=== PATIENT | male | born 1960 | race Caucasian/White ===

== ENCOUNTER 2016-09-11 07:36 | Emergency (ER) | payer OTHER ==
[~2016-09-11] VITALS: Ht 185.4 cm; Wt 115.0 kg
[~2016-09-11 07:36] MED LIST: ALPR1TAB3 PO; DICL-201 PO; DULO60CA44 PO; GLC/500 PO; GLIP5TAB11 PO; LEVE1TAB57 PO; LISI-725 PO; OMEP40CA41 PO
[2016-09-11 07:59] VITALS: BP 131/70; PULSE 66; TEMP 37; O2SAT 98; Ht 185.4 cm; Wt 115.0 kg
== END 2016-09-11 08:47 | disposition left against medical advice (07) ==
LOC: EDBD 07:36 → C.EDB 07:37
DX: R11.2 Nausea with vomiting, unspecified (principal)

== ENCOUNTER 2018-08-04 14:09 | Inpatient (IN) ==
[2018-08-04] MEDS ORDERED: ONDANSETRON INJ 2 MG/ML 2 ML VIAL IV PRN (14:24)
[2018-08-04] MEDS ORDERED: GLUCAGON FOR INJ 1 MG VIAL SQ PRN (14:24)
[2018-08-04] MEDS ORDERED: GLUCOSE 10 TABS/TUBE PO PRN (14:24)
[2018-08-04] MEDS ORDERED: DEXTROSE 50% 50 ML SYRINGE IV PRN (14:24)
[2018-08-04] MEDS ORDERED: ACETAMINOPHEN 325 MG TAB PO PRN (14:24)
[2018-08-04] MEDS ORDERED: GLUCOSE 40% GEL 15 GM TUBE PO PRN (14:24)
[2018-08-04] MEDS ORDERED: POLYETHYLENE (MIRALAX) 17 GM PACK PO PRN (14:24)
[2018-08-04] MEDS ORDERED: CARBOHYDRATES FOR HYPOGLYCEMIA PO PRN (14:24)
[2018-08-04] MEDS ORDERED: MAGNESIUM HYDROXIDE SUSP 30 ML UDC PO PRN (14:24)
[2018-08-04] MEDS ORDERED: ALUMINUM/MAGNESIUM SUSP 30 ML UDC PO PRN (14:24)
[2018-08-04 14:51] LABS: Hematocrit (blood only) 37.8 % (42-52); Hemoglobin 12.7 g/dL (14.0-18.0); Mean Corpuscular Hgb Conc 33.6 g/dL (32-36); Mean Corpuscular Volume 87.1 fL (80-100); Mean Platelet Volume 9.8 fL (7.4-10.4); Platelet Count 292 K/uL (130-400); RDW Coefficient of Variation 14.3 % (11.5-14.5); RDW Standard Deviation 45.3 fL (36.4-46.3); Red Blood Count 4.34 M/uL (4.7-6.1); White Blood Count 11.25 K/uL (4.8-10.8)
[2018-08-04 15:06] LABS: Partial Thromboplastin Ratio 1.1; Partial Thromboplastin Time 28.7 Seconds (21.0-31.0); Prothrombin Time 10.3 Seconds (9.0-12.0)
[2018-08-04 15:15] LABS: BUN Creatinine Ratio 16.9 (10-20); Blood Urea Nitrogen 31 mg/dl (7-18); Carbon Dioxide 22 mmol/L (21-32); Chloride 108 mmol/L (98-107); Est GFR (African American) 46.1; Est GFR (Non-African American) 39.8; Potassium 4.7 mmol/L (3.5-5.1); Sodium 137 mmol/L (136-145)
[2018-08-04 15:16] LABS: Alanine Aminotransferase 44 U/L (12-78); Albumin Level 4.1 gm/dl (3.4-5.0); Aspartate Aminotransferase 17 U/L (15-37); Calcium 9.2 mg/dl (8.5-10.1); Glucose 137 mg/dl (70-99); Magnesium 1.7 mg/dl (1.8-2.4)
[2018-08-04 15:18] LABS: Alkaline Phosphatase 77 U/L (45-117); Bilirubin,Total 0.4 mg/dl (0.2-1); Globulin 4.3 gm/dl (2.5-4.0); Total Protein 8.4 gm/dl (6.4-8.2)
--- NOTE | 2018-08-04 16:09 | History & Physical Report ---
Date of Service August 04, 2018 Assessment & Plan (1) Abnormal dobutamine stress echo: This is a 58 year old male who has a significant PMH of T2DM, HTN, HLD, Sz disorder, Bipolar affective disorder, hx of tobacco/cannabis use, neuropathy who presents to [facility] as direct admission from [facility] Dr. Banda due to abnormal stress echocardiogram. Dobutamine Stress echocardiogram performed in office today by Dr. Banda and was positive for inducible ischemia concerning for LAD vs multi vessel disease. Risk Factors include HTN, HLD, T2DM, obesity, strong family history, former tobacco use hx -admit to telemetry -patient to undergo cardiac cath in a.m. by Dr. Sharma -NPO after midnight -cbc, bmp, mag -IVF NS per cardiology given current renal function -hold metformin and lisinopril for now given renal function -daily ecg (2) Unstable angina: -plan as above (3) BENITA (acute kidney injury): -Cr 08/2017 was 1.1, most recently 07/14/18 1.9, 07/30 1.7 and today 1.84 -hold nephrotoxic agents including metformin and diclofenac -IVF NS 117 cc/hr and repeat bmp in a.m. -check urine with micros (4) Hypomagnesemia: -magnesium 1.7 -will order 1g mag sulfate -repeat in a.m. (5) HTN (hypertension): -blood pressure elevated above ideal of < 140/80 on admission -on lisinopril -metoprolol added per Dr. Sharma -will hold lisinopril in setting of elevated renal function, hydrate and repeat BMP -monitor (6) HLD (hyperlipidemia): -continue statin, recent increase from 10mg --> 20mg 1 week ago -07/14/18 Lipid Panel (T Chol 235, Trig 453, HDL 36, LDL 146) (7) T2DM (type 2 diabetes mellitus): -A1C 7.7 on 07/14/18 -hold metformin given impaired renal function -lantus/novolog per protocol (8) Seizure disorder: -continue keppra (9) Bipolar affective disorder: -continue wellutrin, zoloft, clonazepam -mood is stable (10) Anxiety: -continue clonazepam and zoloft (11) DVT prophylaxis: -SCDS/TEDs for now given cardiac cath in a.m. Disposition: to be determined Follow Up: Dr. Cordero upon discharge Patient was seen in collaboration with Dr. Diego, please see addendum. Starting 08/05/18 patient will be followed by Dr. Upton. History of Present Illness Chief Complaint: Abnormal Dobutamine Stress Echo. Primary Care Provider: Key Cordero This is a 58 year old male who has a significant PMH of T2DM, HTN, HLD, Sz disorder, Bipolar affective disorder, hx of tobacco/cannabis use, neuropathy who presents to [facility] as direct admission from [facility] Dr. Banda due to abnormal stress echocardiogram. For the past 6 months patient has been experiencing fatigue, EVANS, chest pain/tightness with radiation to neck. Sx relieved with rest. Difficulty even walking 1 city block or flight of stairs without experiencing symptoms. Patient was evaluated by cardiology today and under went stress echo which was positive for inducible ischemia in LAD territory at peak stress with significant anterior hypokinesis on echocardiogram. Symptoms resolved with rest and w/o intervention and ecg returned to normal. Patient has strong FH for CAD including maternal GF, 2 brothers and father. Grandfather age 59 of fatal [place]. Patient states he smoked marijuana for 35 years and quit 6 months ago. This is when all my problems started, after I quit." Also former hx of tobacco use. "This is when all my problems started, after I quit." Noted significant weight gain from 220 to now 272. Currently patient is sitting in bed with out complaints. Denies current chest pain, sob, palpitations, evans, dizziness, lightheaded, n/v/d, abdominal pain. Appetite is, "too good." States he has been taking diclofenac 75mg bid for quite sometime now secondary to arthritis and, "so I don't get hooked on pain meds." Allergies Allergy/AdvReac Type Severity Reaction Status Date / Time No Known Allergies Allergy Unknown Unverified 01/14/13 19:22 Home Medications Home Medications Medication Instructions Recorded Confirmed Type atorvastatin 20 mg PO HS 08/04/18 08/04/18 History bupropion HCl [Wellbutrin XL] 300 mg PO QAM 08/04/18 08/04/18 History clonazepam 1 mg PO BID 08/04/18 08/04/18 History diclofenac sodium 75 mg PO BID 08/04/18 08/04/18 History levetiracetam 2 tab PO BID 08/04/18 08/04/18 History lisinopril 20 mg PO PM 08/04/18 08/04/18 History metformin 1,000 mg PO BID 08/04/18 08/04/18 History omeprazole 20 mg PO HS 08/04/18 08/04/18 History ranitidine HCl 300 mg PO DAILY 08/04/18 08/04/18 History sertraline 100 mg PO DAILY 08/04/18 08/04/18 History Past Med/Surg History Medical History T2DM (type 2 diabetes mellitus) (Chronic) HTN (hypertension) (Chronic) HLD (hyperlipidemia) (Chronic) Hypertriglyceridemia (Chronic) History of cannabis dependence/abuse (Chronic) x 35 years quit 12/2017 Seizure disorder Bipolar affective disorder Peripheral neuropathy Anxiety Surgical History History of left inguinal hernia Family History Brother CAD (coronary artery disease) History of coronary artery bypass graft Grandfather (Maternal) , [place] at 59 Heart attack Father T2DM (type 2 diabetes mellitus) CAD (coronary artery disease) Melanoma Social History Current Living Situation: Alone Other Information That Helps Us Care for You: No Feels Safe at Home: Yes Safety Concerns: Feels Safe At This Time Smoking Status: Former smoker Tobacco Type: smokeless tobacco Do You Dip or Chew Tobacco: Yes Second Hand Exposure: No Tobacco Cessation Education Requested by Patient: No Hx Alcohol Use: No Hx Substance Use: Yes substance use type: marijuana Substance Use Type Other:: x 35 years Last Used Substance: Days (ago) Last Used Substance Other:: 6 months ago Beliefs That Will Affect Care: None Preferred Language: Peruvian Communication Ability: Effective Merchandiser Seasonal Required: No Review of Systems All systems reviewed & are unremarkable except as noted in HPI & below Physical Exam 2 Vital Signs (Past 24 Hours): Last Vital Signs Temp 37.4 C 08/04/18 15:10 Pulse 73 08/04/18 15:10 Resp 19 08/04/18 15:10 BP 148/74 H 08/04/18 15:10 Pulse Ox 97 08/04/18 15:10 Physical Exam: Gen: WD/WN, Obese,Tall M, NAD, sitting up in bed, pleasant, conversing easily Head: Normocephalic, Atraumatic Eyes: Sclera normal, no conjunctival injection, PERRLA, EOMI ENT: Gross hearing intact, normal pharynx, mucous membranes moist Neck: supple, no adenopathy, No JVD, no bruit, Resp: Clear to auscultation b/l, no wheeze, rales, rhonchi. Normal insp/exp effort, no accessory muscle use CV: Regular rate, regular rhythm, no murmur, rub, gallop, or ectopy Abd: +BS x 4, soft, nontender, nondistended Musculoskeletal: moves extremities active rom x 4, strength intact, good coning machine operator strength Extremities: No edema bilaterally with pedal pulses +2 and equal Skin: warm, moist, no rash, negative turgor, cap refill < 2sec Neuro: Alert and oriented x 3, speech normal, good mood/affect, cran nerve 2-12 intact grossly : deferred Results & Data Laboratory Results Short CBC 08/04/18 Range/Units 14:38 WBC 11.25 H (4.8-10.8) K/uL Hgb 12.7 L (14.0-18.0) g/dL Hct 37.8 L (42-52) % Plt Count 292 (130-400) K/uL BMP 08/04/18 14:37 Sodium 137 Potassium 4.7 Chloride 108 H Carbon Dioxide 22 BUN 31 H Creatinine 1.84 H Glucose 137 H Calcium 9.2 Liver Function 08/04/18 Range/Units 14:37 Total Bilirubin 0.4 (0.2-1) mg/dl AST 17 (15-37) U/L ALT 44 (12-78) U/L Alkaline Phosphatase 77 (45-117) U/L Albumin 4.1 (3.4-5.0) gm/dl ECG Rate (beats per minute): 68 Rhythm: normal sinus Code Status & VTE Plan Code Status Full Code VTE Prophylaxis Plan VTE Prophylaxis will be ordered: Yes Supervising Physician Co-Signing Physician Notes Patient is a 58 yr male with multiple co morbidities was a direct admit from Cardiology's Office for evaluation and management of abnormal stress test. Patient is though to have crescendo angina and was admitted for diagnostic cardiac catheterization. Patient has significant family history of CAD. He currently denies any chest pain, dyspnea, dizzinessa, nausea. On exam patient is obese, no distress, lungs CTA, S1, S2, No murmur, No peripheral edema. Patient will be kept NPO after midnight, IV fluids for BENITA. Hold Metformin, PAIGE. Cardiology consulted for Cardiac Catheterization. Monitor renal function. I personally reviewed the record. Patient is interviewed and examined at bedside. Patient's care is coordinated with Philomena Ponce PA-C. Please refer to the documentation above for details of patient's presentation and for discussion of other issues. _ (1) T2DM (type 2 diabetes mellitus) Diabetes mellitus complication status: with unspecified complications Diabetes mellitus linux kernel engineer insulin use: without mcfp use Qualified Code(s ): E11.8 - Type 2 diabetes mellitus with unspecified complications (2) Bipolar affective disorder Active/Remission status: remission status unspecified Qualified Code(s): F31.9 - Bipolar disorder, unspecified (3) HLD (hyperlipidemia) Hyperlipidemia type: mixed hyperlipidemia Qualified Code(s): E78.2 - Mixed hyperlipidemia (4) HTN (hypertension) Hypertension type: essential hypertension Qualified Code(s): I10 - Essential (primary) hypertension
[2018-08-04] MEDS ORDERED: PNEUMOCOCCAL POLYSACCHARIDES 25 MCG/0.5 ML VIAL/SYR IM ONE (16:15)
[2018-08-04] MEDS ORDERED: PNEUMOCOCCAL ADMINISTRATION CHARGE ONE (16:15)
[2018-08-04] MEDS ORDERED: MAGNESIUM SULFATE / D5W 1 GM/100 ML BAG IV ONE (16:30)
[2018-08-04] MEDS: BuPROPion XL 300 MG TABCR PO SCH (16:46)
[2018-08-04] MEDS: levETIRAcetam 500 MG TAB PO SCH ×2 (16:46→20:01)
[2018-08-04] MEDS: SERTRALINE HCL 100 MG TABLET PO SCH (16:47)
[2018-08-04] MEDS: INSULIN ASPART 100 UNITS/ML 3 ML PEN SC SCH ×2 (16:59→20:10)
--- NOTE | 2018-08-04 19:01 | Consultation Report ---
DATE OF CONSULTATION: 08/04/2018 Please refer to full note performed earlier today by Dr. Banda and placed on the chart. The patient was seen and examined. Chart and all studies reviewed. HISTORY OF PRESENT ILLNESS: The patient is a 58-year-old male without prior history of documented cardiac disease, there was strong familial history of coronary artery disease, history of underlying type 2 diabetes mellitus, obesity, hyperlipidemia who presented noting several months' history of gradually increasing dyspnea with exertion, chest pressure, and pain radiating to the neck and chest. The patient is referred today and underwent dobutamine stress echocardiography with study markedly positive for LAD distribution ischemia with associated chest pain and dynamic EKG changes. The patient is referred for inpatient management, crescendo angina in the setting of chronic renal insufficiency and anticipated diagnostic cardiac catheterization in a.m. For further details, refer to full note of Dr. Banda. ALLERGIES: None. MEDICATIONS: Reviewed. PAST SURGICAL HISTORY: Notable for prior inguinal herniorrhaphy. FAMILY HISTORY: Positive for heart disease in maternal grandfather and father. SOCIAL HISTORY: The patient is a prior smoker, uses no significant alcoholic beverages, recently discontinued cannabis use. PHYSICAL EXAMINATION: GENERAL: The patient is an obese male currently in no acute distress. VITAL SIGNS: Heart rate is 80, blood pressure 134/80. HEENT: Normocephalic, atraumatic. NECK: Thick. There is no distinct jugular venous distention. There are no carotid bruits. LUNGS: Clear. CARDIOVASCULAR: Regular, normal S1, S2. No murmur or rub. ABDOMEN: Obese, soft, nontender. EXTREMITIES: Without cyanosis or clubbing. There is no peripheral edema. There are intact in the radial, femoral, and popliteal pulses. There is no abdominal or femoral bruits audible. LABORATORY DATA: Reviewed from outpatient examinations on 07/30/2018. White cell count was 11.9, hemoglobin 12.4. BUN was 16, creatinine is 1.7. Ferritin level is mildly elevated at 407. TSH on 07/14/2018 was 4.57. IMPRESSION: A 58-year-old male with symptoms suggestive of crescendo angina increasingly frequent chest pressure, sharp pain and shortness of breath with markedly abnormal stress testing as noted above. The patient will be admitted to the hospital. Based on laboratory studies drawn, the patient will begin IV hydration this evening. Metformin will be discontinued in anticipation of diagnostic cardiac catheterization in morning. Procedure and risks have been explained in detail to the patient including risks of ; myocardial infarction; stroke; bleeding; infection; dye reaction; renal, vascular, and embolic injury; additional risks of coronary intervention also discussed if indicated including risks and need for urgent coronary bypass grafting. The patient is agreeable to plan. The patient placed on schedule for cardiac catheterization for 08/05/2018. ROWENA
[2018-08-04] MEDS: PANTOprazole 40 MG TAB PO SCH (20:01)
[2018-08-04] MEDS: METOPROLOL TARTRATE 25 MG TAB PO SCH (20:02)
[2018-08-04] MEDS: clonazePAM 1 MG TAB PO SCH (20:09)
[2018-08-04 20:21] LABS: Appearance Urine Clear (Clear); Bilirubin Urine Negative (Negative); Color Urine Yellow; Glucose Urine UA Negative (Negative); Ketones Urine Negative (Negative); Leukocyte Esterase Urine Negative (Negative); Nitrite Urine Negative (Negative); Protein Urine Negative (Negative); Specific Gravity Urine 1.009 (1.000-1.030); Urobilinogen Urine Negative (Negative)
[2018-08-04] MEDS ORDERED: LISINOPRIL 20 MG TAB PO SCH (21:00)
[2018-08-04] MEDS ORDERED: INSULIN GLARGINE SOLOSTAR 100 UNITS/ML 3 ML PEN SC SCH (21:00)
[2018-08-04] MEDS ORDERED: ATORVASTATIN 20 MG TAB PO SCH (21:00)
[2018-08-04] MEDS: SODIUM CHLORIDE 0.9% 1000ML 1,000 ML IV SCH (23:43)
[2018-08-05 05:59] LABS: Hematocrit (blood only) 36.6 % (42-52); Hemoglobin 12.1 g/dL (14.0-18.0); Mean Corpuscular Hgb Conc 33.1 g/dL (32-36); Mean Corpuscular Volume 87.8 fL (80-100); Mean Platelet Volume 9.9 fL (7.4-10.4); Platelet Count 274 K/uL (130-400); RDW Coefficient of Variation 14.5 % (11.5-14.5); RDW Standard Deviation 46.6 fL (36.4-46.3); Red Blood Count 4.17 M/uL (4.7-6.1); White Blood Count 9.88 K/uL (4.8-10.8)
[2018-08-05 06:28] LABS: BUN Creatinine Ratio 15.9 (10-20); Creatinine Clr Calc Pharmacy 60.7 ml/min; Est GFR (African American) 47.4; Est GFR (Non-African American) 40.9; Potassium 4.4 mmol/L (3.5-5.1)
[2018-08-05] MEDS: SODIUM CHLORIDE 0.9% 1000ML 1,000 ML IV SCH ×2 (07:51→19:48)
[2018-08-05] MEDS: INSULIN ASPART 100 UNITS/ML 3 ML PEN SC SCH ×4 (07:52→21:32)
[2018-08-05] MEDS: levETIRAcetam 500 MG TAB PO SCH ×2 (08:01→21:33)
[2018-08-05] MEDS: SERTRALINE HCL 100 MG TABLET PO SCH (08:01)
[2018-08-05] MEDS: clonazePAM 1 MG TAB PO SCH ×3 (08:01→21:31)
[2018-08-05] MEDS: METOPROLOL TARTRATE 25 MG TAB PO SCH ×2 (08:02→21:32)
[2018-08-05] MEDS: BuPROPion XL 300 MG TABCR PO SCH (08:03)
[2018-08-05] MEDS ORDERED: clonazePAM 1 MG TAB PO STA (13:44)
--- NOTE | 2018-08-05 16:14 | Pre Anesthesia Assessment ---
Date of Service August 05, 2018 Pre Sedation Assessment Vital Signs Temp Pulse Pulse Resp BP Pulse Ox 08/05/18 11:34 36.4 C L 53 L 15 101/60 95 08/05/18 11:00 36.8 C 52 L 18 121/69 96 08/05/18 08:41 36.6 C 62 22 140/78 95 08/05/18 06:52 36.4 C L 56 L 16 123/75 96 08/05/18 05:01 36.8 C 60 16 114/78 95 08/04/18 23:16 36.5 C 59 L 18 125/74 97 08/04/18 19:12 82 18 146/97 H 95 Cardiovascular RRR, no murmur, no edema Respiratory normal respiratory effort, lungs clear to auscultation Pre-Sedation Airway Assessment Smoking Status: Former smoker Hx Sleep Apnea: No Hx Difficult Intubation: No Short, Thick Neck: Yes Mallampati Class: III Procedure Planning Contraindications for Sedation: none Current Medications Reviewed: Yes Notes The planned sedation has been discussed with the patient. Informed Consent was obtained. I have identified the patient, determined the appropriateness of sedation and have assessed the patient immediately prior to the procedure. All medicine(s) and interventions are by my order.
--- NOTE | 2018-08-05 16:19 | Cardiac Catheterization ---
Cardiac Cath Procedure: Brief Procedure Date August 05, 2018 Pre-Procedure Diagnosis Pre-Procedure Diagnosis: Angina and Positive Stress Test AUC Score AUC Score: 8 Post-Procedure Diagnosis Post-Procedure Diagnosis: Severe CAD (Significant single vessel LAD ) Procedure(s) Performed Procedure(s) Performed: Coronary Angiography, Left Heart Cath and LV Angiography Provider Relations Consultant Cortes Sharma MD Railway Head Tender(s) Owen Ferrer RN Estimated Blood Loss Estimated Blood Loss: None Medication(s) Medication(s): Fentanyl (12.5 mcg IV), Heparin (5000 units IV), Lidocaine 1% ( Local infiltration access site), Nicardipine (250 mcg intra-arterial after arterial sheath insertion) and Versed (1 mg IV) Preliminary Findings Left dominant coronary anatomy with large caliber vessels. Single-vessel severe coronary disease blunt occlusion left anterior descending 100% after D1 S1 Left main long free of disease Left anterior descendin% after first diagonal and first septal branch faint distal filling via left to left collateral flow. Left anterior descending diagonal large caliber vessel with 50% narrowing in its proximal portion Ramus intermedius: Trivial vessel Left circumflex: Left circumflex is large in length and caliber, dominant in distribution. It gives rise to a very trivial first marginal branch very large posterior lateral branch and a left posterior descending artery. There are moderate irregularities of 20-30% throughout the proximal mid left circumflex Right coronary artery: Nondominant consisting of 3 right ventricular branches. Vessels has moderate diffuse irregularities LV angiography: Preserved wall motion abnormality EF 55%, no mitral insufficiency Left ventricular end-diastolic pressure, 18 Recommendations Recommendations: PCI without planned CABG Specimens Specimens: None Fluids (cc crystalloids) Fluids (cc crystalloids): 79 Anesthesia Start time 1512, finish time 1605 Procedural Complication(s) None
--- NOTE | 2018-08-05 16:38 | Cardiac Catheterization ---
Cardiac Cath Procedure Full Procedure Date August 05, 2018 Pre-Procedure Diagnosis Pre-Procedure Diagnosis: Angina and Positive Stress Test AUC Score AUC Score: 8 Post-Procedure Diagnosis Post-Procedure Diagnosis: Severe CAD (Significant single vessel LAD ) Procedure(s) Performed Procedure(s) Performed: Coronary Angiography, Left Heart Cath and LV Angiography Meat Packager Cortes Sharma MD Infantry Indirect Fire Crewmember(s) Owen Ferrer RN Estimated Blood Loss Estimated Blood Loss: None Medication(s) Medication(s): Fentanyl (12.5 mcg IV), Heparin (5000 units IV), Lidocaine 1% ( Local infiltration access site), Nicardipine (250 mcg intra-arterial after arterial sheath insertion) and Versed (1 mg IV) Summary of Findings Left dominant coronary anatomy with large caliber vessels. Single-vessel severe coronary disease blunt occlusion left anterior descending 100% after D1 S1 Left main long free of disease Left anterior descendin% after first diagonal and first septal branch faint distal filling via left to left collateral flow. Left anterior descending diagonal large caliber vessel with 50% narrowing in its proximal portion Ramus intermedius: Trivial vessel Left circumflex: Left circumflex is large in length and caliber, dominant in distribution. It gives rise to a very trivial first marginal branch very large posterior lateral branch and a left posterior descending artery. There are moderate irregularities of 20-30% throughout the proximal mid left circumflex Right coronary artery: Nondominant consisting of 3 right ventricular branches. Vessels has moderate diffuse irregularities LV angiography: Preserved wall motion abnormality EF 55%, no mitral insufficiency Left ventricular end-diastolic pressure, 18 Hemodynamics Rest Ao:: 112/64/85 Final Ao: 105/59/83 LV: 117/12/18 Recommendations Recommendations: PCI without planned CABG Specimens Specimens: None Radiation Exposure (mGy) 2120 Contrast (mls) 98 Fluids (cc crystalloids) Fluids (cc crystalloids): 79 Anesthesia Start time 1512, finish time 1605 Procedural Complication(s) None ACC Data: Reefer Engineer Cardiac Status Clinical evaluation leading to the procedure Patient had a 2-week history of crescendo anginal symptoms with resultant stress testing demonstrating marked abnormalities on stress echocardiography LAD distribution at very low levels workload CAD Presenation: Positive Stress Test Anginal Classification: CCS III Heart Failure: No Cardiogenic Shock within 24 Hours: No Cardiac Arrest within 24 Hours: No Imaging Studies Past 6 Months: Yes Stress Studies Past 6 Months: Yes Standard Exercise Test: No Stress Echocardiogram: Yes - Positive and Risk/Extent of Ischemia (Large area distribution high risk) Stress Testing w/SPECT MPI: No Cardiac CTA: No Coronary Anatomy Dominant: Left Left Main (% Stenosis): Normal LAD (% Stenosis): Mid (100% after D1 S1) D1 (% Stenosis): Proximal Circumflex (% Stenosis): Ostial (20), Mid (30) and Distal (30, 30) L PL1 (% Stenosis): Proximal (30) L PDA (% Stenosis): Proximal (20) RCA (% Stenosis): Mid Ramus (% Stenosis): Normal (Trivial vessel) Left Ventricular Angiography EF (%): 55 Mitral Regurgitation: None Diagnostic Physicians Name: Cortes Sharma MD Status: Urgent Closure Device Percutaneous Entry Location: Radial Closure Device: Radial Band Recommendations: PCI without planned CABG
[2018-08-05] MEDS ORDERED: HEPARIN (PORCINE) 1000 UNIT/ML 10 ML (CATH LAB USE ONLY) ONE (16:50)
[2018-08-05] MEDS ORDERED: CLOPIDOGREL BISULFATE 300 MG TAB ONE (17:14)
--- NOTE | 2018-08-05 17:18 | Cardiac Catheterization ---
Cardiac Cath Procedure Full Procedure Date August 05, 2018 Pre-Procedure Diagnosis Pre-Procedure Diagnosis: Angina and Positive Stress Test AUC Score AUC Score: 8 Post-Procedure Diagnosis Post-Procedure Diagnosis: Severe CAD (Significant single vessel LAD ) and Successful PCI Procedure(s) Performed Procedure(s) Performed: Coronary Angiography, Left Heart Cath and Drug Eluting Stent Multicraft Operator Javi Tellez MD Partition Making Machine Operator(s) Gisella Hicks Estimated Blood Loss Estimated Blood Loss: 20 Medication(s) Medication(s): Clopidogrel, Fentanyl (12.5 mcg IV), Heparin (5000 units IV), Nicardipine (250 mcg intra-arterial after arterial sheath insertion), Nitroglycerin and Versed (1 mg IV) Summary of Findings Indication: Angina, high risk stress test Access: 6 [place] right radial artery Catheters: EBU 3.5 guide Findings: For full details of patient's coronary angiography please cath report dictated by Dr. Sharma. Briefly, patient found to have severe single vessel disease with a 100% acute on chronic occlusion involving the mid LAD. Decision to proceed with PCI. -- PCI -- Antithrombotic therapy: Heparin, clopidogrel Procedure: Left main cannulated with EBU 3.5 guide Mid LAD occlusion behaved like organized thrombus but eventually able to cross with pilot safety inspector 50 wire supported with OTW 2.0 balloon Distal intravascular position confirmed with injection through OTW balloon Mid LAD dilated with 2.0 sales manager 50 wire exchanged for mailman wire Mid LAD dilated again with 2.5 balloon Dilated lesion stented with 3.0 x 30 mm [place] drug-eluting stent Stent post-dilated with 3.0 noncompliant balloon IC vasodilators administered for spasm Post procedure SOUMYA 3 flow, stent well expanded with minimal residual stenosis and no apparent cardiac complications. Arterial Closure: TR band Summary: 1. Successful PCI of mid LAD acute on chronic 100% occlusion with single drug- eluting stent (3.0 x 30 mm [place] drug-eluting stent). Recommendations: To PCU for continued monitoring Loaded with clopidogrel 600 mg in labourers Continue dual-antiplatelet therapy for at least one year Continue statin, and ASCVD risk factor modification Consult cardiac Rehab Hemodynamics Rest Ao:: 112// Final Ao: //84 LV: Recommendations Recommendations: PCI without planned CABG Specimens Specimens: None Radiation Exposure (mGy) 5787 Contrast (mls) 218 total Fluids (cc crystalloids) Fluids (cc crystalloids): 150 Drains Drains: None Anesthesia Moderate Procedural Complication(s) None Disposition PCU ACC Data: Production Reproduction Manager Cardiac Status Clinical evaluation leading to the procedure CAD Presenation: Positive Stress Test and Unstable angina Anginal Classification: CCS III Heart Failure: No Cardiogenic Shock within 24 Hours: No Cardiac Arrest within 24 Hours: No Imaging Studies Past 6 Months: Yes Stress Studies Past 6 Months: Yes Stress Echocardiogram: Yes - Positive and Risk/Extent of Ischemia (High) Diagnostic Physicians Name: Javi Tellez MD Status: Elective Closure Device Percutaneous Entry Location: Radial Closure Device: Radial Band Recommendations: PCI without planned CABG PCI Indication: + Stress Test and Unstable Angina Lesion Segment Name: Mid LAD Culprit Artery: Yes Stenosis Prior to Rx (%): 100 Chronic Total Occlusion: Yes IVUS: No FFR: No Pre-Procedure SOUMYA Flow: 0 Previously Treated Lesion: No Lesion Complexity: High/C Lesion Length (mm): 25 Thrombus Present: No Bifurcation Lesion: No Guidewire Across Lesion: Stenosis Post-Procedure (%): 0 Post-Procedure SOUMYA Flow : 3 Devices(s) Deployed: Yes Yes Intraprocedure Events Significant Disection: No Perforation: No
[2018-08-05] MEDS ORDERED: ONDANSETRON INJ 2 MG/ML 2 ML VIAL IV PRN (17:19)
--- NOTE | 2018-08-05 18:42 | Hospitalist Progress Note ---
Date of Service August 05, 2018 Assessment & Plan (1) Abnormal dobutamine stress echo: This is a 58 year old male who has a significant PMH of T2DM, HTN, HLD, Sz disorder, Bipolar affective disorder, hx of tobacco/cannabis use, neuropathy who presents to [facility] as direct admission from [employer] Dr. Banda due to abnormal stress echocardiogram. 08/05/18 Successful PCI of mid LAD acute on chronic 100% occlusion with single drug-eluting stent (3.0 x 30 mm Sean drug-eluting stent). Cardiology Recommendations: To PCU for continued monitoring Loaded with clopidogrel 600 mg in supervisor dental laboratory Continue dual-antiplatelet therapy for at least one year Continue statin, and ASCVD risk factor modification Consult cardiac Rehab (2) Unstable angina: currently without chest pain after cardiac cath with stent (3) BENITA (acute kidney injury): has received IV fluids prior to cardiac cath will continue to monitor the renal function post-cardiac cath (4) Hypomagnesemia: -magnesium 1.7 on admission and was given IV magnesium supplements -monitor serum magneseium levels (5) HTN (hypertension): continue metoprolol (6) HLD (hyperlipidemia): atorvastatin 80 mg qhs (7) T2DM (type 2 diabetes mellitus): -A1C 7.7 on 07/14/18 -hold metformin -lantus/novolog per protocol (8) Seizure disorder: -continue keppra (9) Bipolar affective disorder: -continue wellutrin, zoloft, clonazepam -mood is stable (10) Anxiety: -continue clonazepam and zoloft (11) DVT prophylaxis: -SCDS/TEDs Follow Up: Dr. Cordero upon discharge Subjective Patient returned from cardiac cath Patient able to take food at the bedside denies shortness of breath. denies chest pain. denies palpitations patient shows hospitalist doctor the right wrist that has band over cath site Physical Exam 2 Vital Signs (Past 24 Hours): Last Vital Signs Temp 36.8 C 08/05/18 18:27 Pulse 68 08/05/18 18:27 Resp 18 08/05/18 18:27 BP 141/82 H 08/05/18 18:27 Pulse Ox 94 08/05/18 18:27 Constitutional: WD/WN, vitals as above Eyes: PERRL, conjunctivae normal, anicteric sclerae EOM intact bilaterally ENMT: external ear and nose normal, oropharynx normal Neck: trachea midline, no thyromegaly normal visual inspection Respiratory: normal respiratory effort, lungs clear to auscultation Cardiovascular: Rate/Rhythm: regular rate and regular rhythm Gastrointestinal (Abdomen): normal bowel sounds, soft, nontender, no hepatosplenomegaly Musculoskeletal: Head/Neck/Chest: normocephalic and head atraumatic Neurologic: PERRL, EOMI, accommodation nl, no face palsy, no dysarthria CN' s II-XI intact bilaterally Psychiatric: A+Ox3, euthymic affect _ (1) HTN (hypertension) Hypertension type: essential hypertension Qualified Code(s): I10 - Essential (primary) hypertension (2) HLD (hyperlipidemia) Hyperlipidemia type: mixed hyperlipidemia Qualified Code(s): E78.2 - Mixed hyperlipidemia (3) T2DM (type 2 diabetes mellitus) Diabetes mellitus cloth baler insulin use: without fpc use Diabetes mellitus complication status: with unspecified complications Diabetes mellitus complication detail: Diabetic retinopathy severity: Proliferative retinopathy type: Diabetes mellitus macular edema: Laterality: Chronic kidney disease stage: Qualified Code(s): E11.8 - Type 2 diabetes mellitus with unspecified complications (4) Bipolar affective disorder Active/Remission status: remission status unspecified Current bipolar episode type: Current episode severity: Psychotic features: Most recent bipolar episode type: Qualified Code(s): F31.9 - Bipolar disorder, unspecified
[2018-08-05] MEDS ORDERED: SODIUM CHLORIDE 0.9% 1000ML 1,000 ML IV SCH (19:15)
[2018-08-05] MEDS ORDERED: ATORVASTATIN 40 MG TAB PO SCH (21:00)
[2018-08-05] MEDS: PANTOprazole 40 MG TAB PO SCH (21:32)
[2018-08-06 05:37] LABS: Basophils # (auto) 0.04 K/uL (0-0.2); Basophils % (auto) 0.4 %; Eosinophils # (auto) 0.58 K/uL (0-0.5); Eosinophils % (auto) 5.4 %; Hematocrit (blood only) 36.1 % (42-52); Hemoglobin 12.1 g/dL (14.0-18.0); Immature Granulocytes # (auto) 0.08 K/uL (0.00-0.02); Immature Granulocytes % (auto) 0.7 %; Lymphocytes % (auto) 21.4 %; Mean Corpuscular Hgb Conc 33.5 g/dL (32-36); Mean Corpuscular Volume 87.6 fL (80-100); Mean Platelet Volume 9.7 fL (7.4-10.4); Monocytes % (auto) 9.3 %; Neutrophils # (auto) 6.77 K/uL (1.4-6.5); Neutrophils % (auto) 62.8 %; Platelet Count 243 K/uL (130-400); RDW Coefficient of Variation 14.4 % (11.5-14.5); RDW Standard Deviation 46.3 fL (36.4-46.3); Red Blood Count 4.12 M/uL (4.7-6.1); White Blood Count 10.77 K/uL (4.8-10.8)
[2018-08-06 06:02] LABS: BUN Creatinine Ratio 14.7 (10-20); Calcium 9.1 mg/dl (8.5-10.1); Creatinine Clr Calc Pharmacy 66.4 ml/min; Est GFR (African American) 53.4; Est GFR (Non-African American) 46.1; Potassium 4.4 mmol/L (3.5-5.1)
[2018-08-06] MEDS: BuPROPion XL 300 MG TABCR PO SCH (07:31)
[2018-08-06] MEDS: SERTRALINE HCL 100 MG TABLET PO SCH (07:31)
[2018-08-06] MEDS: METOPROLOL TARTRATE 25 MG TAB PO SCH (07:31)
[2018-08-06] MEDS: levETIRAcetam 500 MG TAB PO SCH (07:31)
[2018-08-06] MEDS: INSULIN ASPART 100 UNITS/ML 3 ML PEN SC SCH ×2 (07:33→12:07)
[2018-08-06] MEDS: clonazePAM 1 MG TAB PO SCH (07:35)
[2018-08-06] MEDS ORDERED: ASPIRIN 81 MG ECTAB PO SCH (09:00)
[2018-08-06] MEDS ORDERED: CLOPIDOGREL BISULFATE 75 MG TAB PO SCH (09:00)
--- NOTE | 2018-08-06 09:39 | Hospitalist Progress Note ---
Date of Service August 06, 2018 Assessment & Plan (1) Abnormal dobutamine stress echo: This is a 58 year old male who has a significant PMH of T2DM, HTN, HLD, Sz disorder, Bipolar affective disorder, hx of tobacco/cannabis use, neuropathy who presents to [facility] as direct admission from [employer] Dr. Banda due to abnormal stress echocardiogram. Coronary artery disease involving k[place] coronary artery of heart with angina, Stented Coronary artery -08/05/18 Successful PCI of mid LAD acute on chronic 100% occlusion with single drug-eluting stent (3.0 x 30 mm Sean drug-eluting stent). -Patient recommended to Stop taking NSAID pain medications such as diclofenac because patient will now be on aspirin daily and clopidogrel daily on discharge for at least 1 year -Take atorvastatin as 80 mg daily -Take metoprolol 25 mg twice a day (2) Unstable angina: currently without chest pain after cardiac cath with stent (3) BENITA (acute kidney injury): admission creatinine 1.84 has received IV fluids prior to cardiac cath creatinine downtrended to 1.8 then to 1.63 acute kidney injury resolving (4) Hypomagnesemia: -magnesium 1.7 on admission and was given IV magnesium supplements -serum magnesium is sufficent at 2 on discharge day (5) HTN (hypertension): continue metoprolol (6) HLD (hyperlipidemia): atorvastatin 80 mg qhs (7) T2DM (type 2 diabetes mellitus): Type 2 diabetes mellitus without complication without retirement use of insulin -A1C 7.7 on 07/14/18 -Patient can continue metformin for diabetes mellitus. Patient should discuss with primary care doctor whether insulin will be needed in the future (8) Seizure disorder: -continue keppra (9) Bipolar affective disorder: -continue wellutrin, zoloft, clonazepam -mood is stable (10) Anxiety: -continue clonazepam and zoloft (11) DVT prophylaxis: -SCDS/TEDs while inpatient Discharge Diagnosis Coronary artery disease involving [place] coronary artery of heart with angina, Stented Coronary artery, Type 2 diabetes mellitus without complication without retirement use of insulin, acute kidney injury Discharge Instructions Stop taking NSAID pain medications such as diclofenac because patient will now be on aspirin daily and clopidogrel daily on discharge for at least 1 year Take atorvastatin as 80 mg daily Take metoprolol 25 mg twice a day Patient can continue metformin for diabetes mellitus. Patient should discuss with primary care doctor whether insulin will be needed in the future Follow up with primary care doctor 08/13/2018 2:20 PM Provider Key Cordero MD Department Internal Medicine [facility] Follow up with cardiology 09/01/2018 3:00 PM Provider Nora Em PA-C Department Cardiology, [facility] Patient denies chest pain of palpitations. denies abdominal pain. denies vomiting. denies lightheadedness Patient expresses that he understands discharge instructions Physical Exam 2 Vital Signs (Past 24 Hours): Last Vital Signs Temp 36.5 C 08/06/18 06:30 Pulse 63 08/06/18 06:30 Resp 22 08/06/18 06:30 BP 121/74 08/06/18 06:30 Pulse Ox 94 08/06/18 06:30 Constitutional: WD/WN, vitals as above Eyes: PERRL, conjunctivae normal, anicteric sclerae EOM intact bilaterally ENMT: external ear and nose normal, oropharynx normal Neck: trachea midline, no thyromegaly normal visual inspection Respiratory: normal respiratory effort, lungs clear to auscultation Cardiovascular: Rate/Rhythm: regular rate and regular rhythm Gastrointestinal (Abdomen): normal bowel sounds, soft, nontender, no hepatosplenomegaly Musculoskeletal: Head/Neck/Chest: normocephalic and head atraumatic Neurologic: PERRL, EOMI, accommodation nl, no face palsy, no dysarthria CN' s II-XI intact bilaterally Psychiatric: A+Ox3, euthymic affect _ (1) T2DM (type 2 diabetes mellitus) Chronic kidney disease stage: Diabetes mellitus complication detail: Diabetes mellitus complication status: with unspecified complications Diabetes mellitus traffic inspector insulin use: without traffic inspector use Diabetes mellitus macular edema: Diabetic retinopathy severity: Laterality: Proliferative retinopathy type: Qualified Code(s): E11.8 - Type 2 diabetes mellitus with unspecified complications (2) Bipolar affective disorder Active/Remission status: remission status unspecified Current bipolar episode type: Current episode severity: Most recent bipolar episode type: Psychotic features: Qualified Code(s): F31.9 - Bipolar disorder, unspecified (3) HLD (hyperlipidemia) Hyperlipidemia type: mixed hyperlipidemia Qualified Code(s): E78.2 - Mixed hyperlipidemia (4) HTN (hypertension) Hypertension type: essential hypertension Qualified Code(s): I10 - Essential (primary) hypertension
--- NOTE | 2018-08-06 09:46 | Discharge Summary ---
Date of Service August 06, 2018 Admission HPI Per Admitting Provider This is a 58 year old male who has a significant PMH of T2DM, HTN, HLD, Sz disorder, Bipolar affective disorder, hx of tobacco/cannabis use, neuropathy who presents to [facility] as direct admission from Palliative [facility] Nurse Pract[facility] Dr. Banda due to abnormal stress echocardiogram. For the past 6 months patient has been experiencing fatigue, EVANS, chest pain/tightness with radiation to neck. Sx relieved with rest. Difficulty even walking 1 city block or flight of stairs without experiencing symptoms. Patient was evaluated by cardiology today and under went stress echo which was positive for inducible ischemia in LAD territory at peak stress with significant anterior hypokinesis on echocardiogram. Symptoms resolved with rest and w/o intervention and ecg returned to normal. Patient has strong FH for CAD including maternal GF, 2 brothers and father. Grandfather age 59 of fatal [place]. Patient states he smoked marijuana for 35 years and quit 6 months ago. This is when all my problems started, after I quit." Also former hx of tobacco use. "This is when all my problems started, after I quit." Noted significant weight gain from 220 to now 272. Currently patient is sitting in bed with out complaints. Denies current chest pain, sob, palpitations, evans, dizziness, lightheaded, n/v/d, abdominal pain. Appetite is, "too good." States he has been taking diclofenac 75mg bid for quite sometime now secondary to arthritis and, "so I don't get hooked on pain meds." Admission Exam Per Admitting Provider Gen: WD/WN, Obese,Tall M, NAD, sitting up in bed, pleasant, conversing easily Head: Normocephalic, Atraumatic Eyes: Sclera normal, no conjunctival injection, PERRLA, EOMI ENT: Gross hearing intact, normal pharynx, mucous membranes moist Neck: supple, no adenopathy, No JVD, no bruit, Resp: Clear to auscultation b/l, no wheeze, rales, rhonchi. 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 Extremities: No edema bilaterally with pedal pulses +2 and equal Skin: warm, moist, no rash, negative turgor, cap refill < 2sec Neuro: Alert and oriented x 3, speech normal, good mood/affect, cran nerve 2-12 intact grossly : deferred Principal Diagnosis Coronary artery disease involving [place] coronary artery of heart with angina, Stented Coronary artery, Type 2 diabetes mellitus without complication without terminal block assembler use of insulin, acute kidney injury Discharge Exam Constitutional WD/WN, vitals as above Eyes PERRL, conjunctivae normal, anicteric sclerae EOM intact bilaterally ENMT external ear and nose normal, oropharynx normal Neck trachea midline, no thyromegaly normal visual inspection Respiratory normal respiratory effort, lungs clear to auscultation Cardiovascular Rate/Rhythm: regular rate and regular rhythm Gastrointestinal (Abdomen) normal bowel sounds, soft, nontender, no hepatosplenomegaly Musculoskeletal Head/Neck/Chest: normocephalic and head atraumatic Neurologic PERRL, EOMI, accommodation nl, no face palsy, no dysarthria CN's II-XI intact bilaterally Psychiatric A+Ox3, euthymic affect Discharge Data Allergies Allergy/AdvReac Type Severity Reaction Status Date / Time No Known Allergies Allergy Unknown Unverified 01/14/13 19:22 Consultations 08/04/18 14:24 Consult Cardiology Routine 08/05/18 18:49 Consult Cardiac Rehabilitation Routine Procedures Performed Operation Date: 08/05/18 12:00 Actual Procedures p Cath, Left with Cors and Vent - Cortes Sharma MD s Cineradiography w/Routine Exam - Santo Tellez MD s Drug Eluting Stent SGl Vessel - Santo Tellez MD Ordered Studies 08/05/18 08:22 CL Cath Imgs for PACS use only Routine Hospital Course (1) Abnormal dobutamine stress echo: This is a 58 year old male who has a significant PMH of T2DM, HTN, HLD, Sz disorder, Bipolar affective disorder, hx of tobacco/cannabis use, neuropathy who presents to [facility] as direct admission from Palliative Care Nurse Pract[facility] Dr. Banda due to abnormal stress echocardiogram. Coronary artery disease involving [place] coronary artery of heart with angina, Stented Coronary artery -08/05/18 Successful PCI of mid LAD acute on chronic 100% occlusion with single drug-eluting stent (3.0 x 30 mm [place] drug-eluting stent). -Patient recommended to Stop taking NSAID pain medications such as diclofenac because patient will now be on aspirin daily and clopidogrel daily on discharge for at least 1 year -Take atorvastatin as 80 mg daily -Take metoprolol 25 mg twice a day (2) Unstable angina: currently without chest pain after cardiac cath with stent (3) BENITA (acute kidney injury): admission creatinine 1.84 has received IV fluids prior to cardiac cath creatinine downtrended to 1.8 then to 1.63 acute kidney injury resolving (4) Hypomagnesemia: -magnesium 1.7 on admission and was given IV magnesium supplements -serum magnesium is sufficent at 2 on discharge day (5) HTN (hypertension): continue metoprolol (6) HLD (hyperlipidemia): atorvastatin 80 mg qhs (7) T2DM (type 2 diabetes mellitus): Type 2 diabetes mellitus without complication without correction use of insulin -A1C 7.7 on 07/14/18 -Patient can continue metformin for diabetes mellitus. Patient should discuss with primary care doctor whether insulin will be needed in the future (8) Seizure disorder: -continue keppra (9) Bipolar affective disorder: -continue wellutrin, zoloft, clonazepam -mood is stable (10) Anxiety: -continue clonazepam and zoloft (11) DVT prophylaxis: -SCDS/TEDs while inpatient Discharge Diagnosis Coronary artery disease involving [place] coronary artery of heart with angina, Stented Coronary artery, Type 2 diabetes mellitus without complication without terminal block assembler use of insulin, acute kidney injury Discharge Instructions Stop taking NSAID pain medications such as diclofenac because patient will now be on aspirin daily and clopidogrel daily on discharge for at least 1 year Take atorvastatin as 80 mg daily Take metoprolol 25 mg twice a day Patient can continue metformin for diabetes mellitus. Patient should discuss with primary care doctor whether insulin will be needed in the future Follow up with primary care doctor 08/13/2018 2:20 PM Provider Key Cordero MD Department Internal Medicine [facility] Follow up with cardiology 09/01/2018 3:00 PM Provider Nora Em PA-C Department Cardiology, [facility] Total Time Total Time Spent Total Time Spent (In Minutes): 40 minutes Total Time Includes: Examination of the Patient, Discharge Planning and Medication Reconciliation Discharge Plan Discharge Items Patient Disposition: Home - Self-Care Reason For Visit: ABNORMAL STRESS TEST Discharge Diagnosis: Coronary artery disease involving [place] coronary artery of heart with angina, Stented Coronary artery, Type 2 diabetes mellitus without complication without correction use of insulin, acute kidney injury Condition: Good Discharge Goals: Improve disease control Activity: Resume your previous activity Non-emergency contact: Primary Care Provider and Palliative Care Nurse Practitioner Call non-emergency contact if: you have any medication questions Follow-up/Referrals: Key Cordero MD [Primary Care Provider] - Diet: Heart Healthy Addtl Provider Instructions: Discharge Instructions Stop taking NSAID pain medications such as diclofenac because patient will now be on aspirin daily and clopidogrel daily on discharge for at least 1 year Take atorvastatin as 80 mg daily Take metoprolol 25 mg twice a day Patient can continue metformin for diabetes mellitus. Patient should discuss with primary care doctor whether insulin will be needed in the future Follow up with primary care doctor 08/13/2018 2:20 PM Provider Key Cordero MD Department Internal Medicine [facility] Follow up with cardiology 09/01/2018 3:00 PM Provider Nora Em PA-C Department Cardiology, [facility] Prescriptions: New atorvastatin 40 mg Tablet 80 mg PO DAILY 30 Days Qty: 60 RF: 0 clopidogrel 75 mg Tablet 75 mg PO QAM 30 Days Qty: 30 RF: 0 aspirin [Ecotrin Low Strength] 81 mg Tablet,Delayed Release (Dr/Ec) 81 mg PO QAM 30 Days Qty: 30 RF: 0 metoprolol tartrate 25 mg Tablet 25 mg PO BID 30 Days Qty: 60 RF: 0 Continue ranitidine HCl 300 mg Tablet 300 mg PO DAILY RF: 0 lisinopril 20 mg Tablet 20 mg PO PM RF: 0 sertraline 100 mg Tablet 100 mg PO DAILY RF: 0 clonazepam 1 mg Tablet 1 mg PO BID RF: 0 metformin 1,000 mg Tablet 1,000 mg PO BID RF: 0 omeprazole 20 mg Capsule,Delayed Release(Dr/Ec) 20 mg PO HS RF: 0 levetiracetam 750 mg Tablet 2 tab PO BID RF: 0 bupropion HCl [Wellbutrin XL] 300 mg Tablet Extended Release 24 Hr 300 mg PO QAM RF: 0 Discontinued atorvastatin 20 mg Tablet 20 mg PO HS RF: 0 diclofenac sodium 75 mg Tablet,Delayed Release (Dr/Ec) 75 mg PO BID RF: 0 Stand-Alone Forms: My [facility] Discharge Orders: Discharge Order (Routine); Ordered 08/06/18 Ordered By: Brandon Upton Admission Data Admit Date/Time: 08/04/18 14:15 Attending Provider: Brandon Upton Admit Provider: Italo Diego Primary Care Provider: Key Cordero Other Providers: Cortes Sharma Service: Telemetry
--- NOTE | 2018-08-06 11:02 | Cardiology Progress Note ---
Date of Service August 06, 2018 Assessment & Plan (1) Unstable angina: Patient with crescendo anginal symptoms and markedly positive stress echocardiogram Cardiac catheterization demonstrated diffuse moderate irregularities with high- grade single-vessel coronary disease with complete occlusion of the proximal to mid left anterior descending. Patient underwent successful coronary intervention with revascularization Plan as already begun, beta-lindy, increase statin, dual antiplatelet therapy. Cardiac rehab referral requested though patient notes transportation issues may limit its usage Follow-up with cardiology 3-4 weeks time Risk factor reduction as above (2) Abnormal stress echocardiogram: (3) Single vessel coronary disease: Subjective No complaints overnight. Tolerated cardiac catheterization and coronary intervention well. Right radial access healing well. No chest pains or shortness of breath. Physical Exam 2 Vital Signs (Past 24 Hours): Last Vital Signs Temp 36.5 C 08/06/18 09:45 Pulse 82 08/06/18 09:45 Resp 22 08/06/18 09:45 BP 121/74 08/06/18 09:45 Pulse Ox 94 08/06/18 09:45 Constitutional: WD/WN, vitals as above Eyes: PERRL ENMT: external ear and nose normal, oropharynx normal Neck: + thick neck Respiratory: normal respiratory effort, lungs clear to auscultation Cardiovascular: Rate/Rhythm: regular rate and regular rhythm Heart Sounds: normal S1 and normal S2; no gallop and no murmur Vessels: radial pulses present (Right radial access healing) Gastrointestinal (Abdomen): normal bowel sounds, soft, nontender, no hepatosplenomegaly Results & Data Laboratory Results Laboratory Results - last 24 hr 08/05/18 08/05/18 08/05/18 16:48 17:56 21:26 WBC RBC Hgb Hct MCV MCH MCHC RDW Std Deviation RDW Coeff of Terri Plt Count MPV Immature Gran % (Auto) Neut % (Auto) Lymph % (Auto) [place] % (Auto) Eos % (Auto) Baso % (Auto) Immature Gran # (Auto) Neut # (Auto) Lymph # (Auto) [place] # (Auto) Eos # (Auto) Baso # (Auto) Activ Coag Time Kaolin 208 H Sodium Potassium Chloride Carbon Dioxide Anion Gap BUN Creatinine Est Cr Clr Drug Dosing Est GFR ( Amer) Est GFR (Non-Af Amer) BUN/Creatinine Ratio Glucose POC Glucose 109 H 110 H Calcium Magnesium 08/06/18 08/06/18 08/06/18 05:27 05:27 07:24 WBC 10.77 RBC 4.12 L Hgb 12.1 L Hct 36.1 L MCV 87.6 MCH 29.4 MCHC 33.5 RDW Std Deviation 46.3 RDW Coeff of Terri 14.4 Plt Count 243 MPV 9.7 Immature Gran % (Auto) 0.7 Neut % (Auto) 62.8 Lymph % (Auto) 21.4 [place] % (Auto) 9.3 Eos % (Auto) 5.4 Baso % (Auto) 0.4 Immature Gran # (Auto) 0.08 H Neut # (Auto) 6.77 H Lymph # (Auto) 2.30 [place] # (Auto) 1.00 H Eos # (Auto) 0.58 H Baso # (Auto) 0.04 Activ Coag Time Kaolin Sodium 137 Potassium 4.4 Chloride 108 H Carbon Dioxide 22 Anion Gap 7.0 BUN 24 H Creatinine 1.63 H Est Cr Clr Drug Dosing 66.4 Est GFR ( Amer) 53.4 Est GFR (Non-Af Amer) 46.1 BUN/Creatinine Ratio 14.7 Glucose 117 H POC Glucose 125 H Calcium 9.1 Magnesium 2.0
== END 2018-08-06 11:59 | disposition home or self-care (01) | DRG 247 ==
LOC: 2E 14:15 → SUATTDRO 14:15

== ENCOUNTER 2022-03-25 03:32 | Inpatient (IN) ==
[2022-03-25 04:11] LABS: Basophils # (auto) 0.06 K/uL (0-0.2); Basophils % (auto) 0.5 %; Eosinophils # (auto) 0.26 K/uL (0-0.50); Eosinophils % (auto) 2.2 %; Hematocrit (blood only) 44.2 % (40.1-51.0); Hemoglobin 14.8 g/dl (14.0-18.0); Immature Granulocytes # (auto) 0.16 K/uL (0.00-0.02); Immature Granulocytes % (auto) 1.3 %; Lymphocytes % (auto) 20.8 %; Mean Corpuscular Hemoglobin 28.6 pg (25.0-34.0); Mean Corpuscular Hgb Conc 33.5 g/dL (32.0-36.0); Mean Corpuscular Volume 85.5 fL (80.0-100.0); Mean Platelet Volume 10.5 fL (9.4-12.4); Monocytes % (auto) 5.8 %; Neutrophils # (auto) 8.34 K/uL (1.4-6.5); Neutrophils % (auto) 69.4 %; Platelet Count 310 K/uL (130-400); RDW Coefficient of Variation 13.4 % (11.5-14.5); RDW Standard Deviation 41.9 fL (36.4-46.3); Red Blood Count 5.17 M/uL (4.63-6.08); White Blood Count 12.02 K/ul (4.8-10.8)
[2022-03-25 04:27] LABS: Albumin Globulin Ratio 1.1 (0.9-2); BUN Creatinine Ratio 16.1 (10-20); Bilirubin,Total 0.3 mg/dl (0.2-1.0); Calcium 9.5 mg/dl (8.5-10.1); Creatinine Clr Calc Pharmacy 70.6 ml/min; Est GFR (African American) 60.8 ml/min; Est GFR (Non-African American) 52.5 ml/min; Globulin 3.5 gm/dl (2.5-4.0); Potassium 3.9 mmol/L (3.5-5.1); Total Protein 7.5 gm/dl (6.0-8.3)
[2022-03-25] MEDS ORDERED: FAMOTIDINE 20MG IV PUSH 20 MG/5 ML SYR IV STA (05:02)
[2022-03-25] MEDS ORDERED: DEXAMETHASONE SOD INJ 4 MG/ML VIAL IV STA (05:02)
[2022-03-25] MEDS ORDERED: diphenhydrAMINE 50 MG/ML VIAL IV STA (05:02)
[2022-03-25] MEDS ORDERED: EPINEPHrine INJ 1 MG/ML AMP IM STA (05:02)
[2022-03-25] MEDS ORDERED: OPTIRAY 350 100ml IV ONE (05:29)
--- NOTE | 2022-03-25 06:51 | Emergency Department Note ---
Impression & Plan Angioedema, Acute epiglottitis To the OR with ENT to secure the airway ED Provider Note NAME: AUDREY ARTAEGA AGE: 62 SEX: M ARRIVES VIA: Ambulance INFORMANT: Patient ED PROVIDER(S): Eve Parikh DO CHIEF COMPLAINT: Throat swelling PLAN: Disposition: To the OR with ENT Condition: Critical MEDICAL DECISION MAKING: This is a 62-year-old male patient presents to the emergency department with throat swelling. Patient describes a 4 to 6-week history of intermittent episodes of sores on his mouth and tongue with intermittent episodes of swelling to his lips. Patient had an episode of swelling if his genitals yesterday and then swelling to his lips last evening. He then noted he was having difficulty swallowing and then throat swelling. Patient went to the local EMS overnight and they transported him here. She was noted to have edema to his oropharynx with change to his voice. He was monitored closely and received IV Decadron, IV Pepcid, IV Benadryl, and IM epinephrine. He went for an emergent CT scan of the soft tissues of his neck which showed edema to the epiglottis, aryepiglottic folds, right palatopharyngeal arch, and uvula. There was concern for angioedema and epiglottitis. Contacted ENT emergently and they will take the patient to the OR to secure his airway. At the time, the patient is hemodynamically stable. Triage Nursing notes reviewed and agree with them. Prior medical records reviewed Vital Signs: reviewed and Differential diagnosis: Epiglottitis, anaphylaxis, angioedema, Liborio's angina, retropharyngeal abscess, peritonsillar abscess ER treatment provided: IV Decadron IV Benadryl IV Pepcid IM epinephrine Diagnostics interpreted by me: Cardiac Monitoring: Normal sinus rhythm at 88 Imaging studies:as per stat rad INDICATION: Throat and lip swelling. Difficulty breathing. TECHNIQUE: CT acquisition of the neck from the skull base to the thoracic inlet. Axial images only. 94 mL intravenous contrast. COMPARISON: CT cervical spine, 12/19/2013. FINDINGS: The visualized portions of the middle and posterior fossa of the brain are normal. Imaged intracranial vasculature is within normal limits. Globes are symmetric. Mild mucosal thickening of the maxillary sinuses. Otherwise, visualized paranasal sinuses are clear. Mastoid air cells are clear. Middle ear cavities are clear. No fracture of the skull base or facial bones. Unremarkable dentition. The soft tissues of the nasopharynx are within normal limits. There is thickening of the uvula. Asymmetric thickening of the right palatopharyngeal arch. Incidental tonsilloliths of the palatine tonsils. No discrete fluid collection. Thickening of the epiglottis and aryepiglottic folds. Infraglottic structures are within normal limits. Partially calcified subcentimeter right thyroid gland, which does not warrant routine follow-up. No cervical lymphadenopathy. Vasculature of the neck is within normal limits. The parotid and submandibular glands are within normal limits. Trachea is midline No acute osseous abnormality. Multilevel degenerative changes of the spine. IMPRESSION: Thickening of the uvula, right palatopharyngeal arch, epiglottis, and aryepiglottic folds, concerning for epiglottitis. Regardless, there is concern for airway compromise. HPI: 62/M arrives for evaluation of throat swelling. Patient describes a 4 to 6-week history of intermittent episodes of sores on his mouth and tongue with intermittent episodes of swelling to his lips. Patient had an episode of swelling in his genitals yesterday and then swelling to his lips last evening. He then noted he was having difficulty swallowing and then throat swelling. Patient went to the local EMS service overnight and they transported him here. The patient has never had anything like this happen to him before. He does take lisinopril. ROS: See above HPI for pertinent positives & negatives. A total of 10 systems reviewed and were otherwise negative. PAST MEDICAL HISTORY:See Below PAST SURGICAL HISTORY:See Below FAMILY HISTORY:See Below SOCIAL HISTORY:See Below HOME MEDICATIONS:See list ALLERGIES:None VITALS:See Below PHYSICAL EXAMINATION: HEENT: Head - normocephalic and atraumatic. Pupils are equal, round, and reactive to light. Extraocular eye muscles are intact, and sclera are an icteric. Nose - moist nasal mucosa without discharge. Mouth - moist buccal mucosa. The patient has significant edema noted to the uvula, right tonsil and right tonsillar pillar. There is no obvious edema to the tongue or lips at this time. Neck: Supple; there is significant submental edema and fullness noted. Heart: Regular rate and rhythm. There is a normal S1 and S2 with no murmurs, clicks, or gallops appreciated. Lungs: Clear to auscultation bilaterally with no wheezes, rales, or rhonchi. Abdomen: Soft, completely nontender, nondistended, with good bowel sounds. There are no palpable pulsatile masses or hepatosplenomegaly. There is no guarding, rigidity, or rebound noted. Extremities: No evidence of cyanosis, clubbing, or edema. There are easily palpable peripheral pulses. Skin: warm and dry with good turgor and no rashes. ED COURSE: Times/Reassessments: 515 the patient was evaluated in room A-3. An IV lock was initiated. The order was placed for continuous cardiac monitoring and pulse oximetry monitoring. His O2 saturations were at 95%. He was in a normal sinus rhythm at a rate of 88. He was given 10 mg of IV Decadron 20 mg of IV Pepcid, 50 mg of IV Benadryl, and 0.3 mg of IM epinephrine. I was concerned for airway compromise. Cricothyrotomy kit was placed at the bedside along with the glide scope. He went for CT scan of the soft tissues of the neck with IV contrast which showed significant edema to the uvula, right palatopharyngeal arch, epiglottis, and area epiglottic folds. There was concern for airway compromise. The patient was observed very closely. I contacted ENT emergently. I contacted the expansion joint builder and hospitalist to make them aware that the patient will be going to the OR with Dr. Myers. I have personally spent greater than 45 minutes of critical care time in the direct management of this patient. This includes bedside care, interpretation of diagnostic studies, and testing, discussion with consultants, patient, and family members, and other required patient management activities. This 45 minutes is in excess of all separately billable procedures. Eve Parikh DO Past Med/Surg History Medical History Anxiety Bipolar affective disorder History of cannabis dependence/abuse x 35 years quit 12/2017 HLD (hyperlipidemia) HTN (hypertension) Hypertriglyceridemia Peripheral neuropathy Seizure disorder Single vessel coronary disease T2DM (type 2 diabetes mellitus) Surgical History History of left inguinal hernia Family History Brother Coronary heart disease History of coronary artery bypass graft Grandfather (Maternal) , [place] at 59 Myocardial infarction Father T2DM (type 2 diabetes mellitus) Coronary heart disease Melanoma Social History Smoking Status: Former smoker Tobacco Type: Cigarettes Second Hand Exposure: No; Hx Alcohol Use: No Hx Substance Use: Yes Last Used Substance: Days (ago) Last Used Substance Other:: 6 months ago Substance Use Type Other:: x 35 years Preferred Language: Luxembourgish Communication Ability: Effective Wharf Tender Required: No Beliefs That Will Affect Care: None Current Living Situation: Alone Feels Safe at Home: Yes Assistive Devices: Glasses Allergies Allergies Allergy/AdvReac Type Severity Reaction Status Date / Time lisinopril Allergy Severe angioedema Verified 03/25/22 12:31 Home Meds Home Medications Medication Instructions Recorded Confirmed clonazepam 1 mg tablet 0.5 mg PO DAILY 08/04/18 03/25/22 levetiracetam 750 mg tablet 2 tab PO BID 08/04/18 03/25/22 metformin 1,000 mg tablet 1,000 mg PO BID 08/04/18 03/25/22 aspirin 81 mg tablet,delayed 81 mg PO DAILY 03/25/22 03/25/22 release atorvastatin 80 mg tablet 80 mg PO HS 03/25/22 03/25/22 bupropion HCl 150 mg 24 hr tablet, 150 mg PO DAILY 03/25/22 03/25/22 extended release clopidogrel 75 mg tablet 75 mg PO DAILY 03/25/22 03/25/22 empagliflozin 25 mg tablet 25 mg PO DAILY 03/25/22 03/25/22 (Jardiance) lamotrigine 100 mg tablet 50 mg PO HS 03/25/22 03/25/22 lisinopril 5 mg tablet 5 mg PO DAILY 03/25/22 03/25/22 melatonin 1 mg tablet 3 mg PO HS PRN Insomnia 03/25/22 03/25/22 metoprolol tartrate 25 mg tablet 25 mg PO BID 03/25/22 03/25/22 pantoprazole 40 mg tablet,delayed 40 mg PO DAILY 03/25/22 03/25/22 release sertraline 50 mg tablet 50 mg PO DAILY 03/25/22 03/25/22 Results & Data (ED) Vital Signs Vital Signs - 24 hr 03/25/22 03:40 03/25/22 05:45 03/25/22 06:45 Temperature 36.6 C Temperature Source Temporal Artery Scan Pulse Rate 72 Pulse Rate [Right Finger] 87 79 Pulse Rate from SpO2 Sensor Pulse Rhythm [Right Finger] Regular Regular Respiratory Rate 16 18 16 Respiratory Effort / Characteristics Non-Labored Spontaneous Non-Labored Spontaneous Respiratory Depth Normal Normal Normal Blood Pressure 174/90 H Blood Pressure [Right Arm] 149/100 H 131/101 H Blood Pressure Mean 118 Blood Pressure Mean [Right Arm] 116 111 Pulse Oximetry 97 97 97 Oxygen Delivery Method Room Air Room Air Room Air Sepsis Recent Fever Within 48 Hours No Sepsis New/Unexplained Change in Mental Status No Sepsis Action Taken by Nursing No Action Required 03/25/22 03:58 03/25/22 04:00 03/25/22 04:00 Temperature Temperature Source Pulse Rate 66 83 Pulse Rate [Right Finger] Pulse Rate from SpO2 Sensor 66 83 Pulse Rhythm [Right Finger] Respiratory Rate 14 22 Respiratory Effort / Characteristics Respiratory Depth Blood Pressure 175/145 H Blood Pressure [Right Arm] Blood Pressure Mean 155 Blood Pressure Mean [Right Arm] Pulse Oximetry 96 96 Oxygen Delivery Method Sepsis Recent Fever Within 48 Hours Sepsis New/Unexplained Change in Mental Status Sepsis Action Taken by Nursing 03/25/22 04:10 03/25/22 04:20 03/25/22 04:30 Temperature Temperature Source Pulse Rate 68 63 63 Pulse Rate [Right Finger] Pulse Rate from SpO2 Sensor 69 64 63 Pulse Rhythm [Right Finger] Respiratory Rate 24 16 14 Respiratory Effort / Characteristics Respiratory Depth Blood Pressure Blood Pressure [Right Arm] Blood Pressure Mean Blood Pressure Mean [Right Arm] Pulse Oximetry 95 96 97 Oxygen Delivery Method Sepsis Recent Fever Within 48 Hours Sepsis New/Unexplained Change in Mental Status Sepsis Action Taken by Nursing 03/25/22 04:57 03/25/22 05:00 03/25/22 05:00 Temperature Temperature Source Pulse Rate Pulse Rate [Right Finger] Pulse Rate from SpO2 Sensor 69 65 Pulse Rhythm [Right Finger] Respiratory Rate Respiratory Effort / Characteristics Respiratory Depth Blood Pressure 187/103 H Blood Pressure [Right Arm] Blood Pressure Mean 131 Blood Pressure Mean [Right Arm] Pulse Oximetry 97 97 Oxygen Delivery Method Sepsis Recent Fever Within 48 Hours Sepsis New/Unexplained Change in Mental Status Sepsis Action Taken by Nursing 03/25/22 05:10 03/25/22 05:35 03/25/22 05:40 Temperature Temperature Source Pulse Rate Pulse Rate [Right Finger] Pulse Rate from SpO2 Sensor 59 L 70 72 Pulse Rhythm [Right Finger] Respiratory Rate Respiratory Effort / Characteristics Respiratory Depth Blood Pressure Blood Pressure [Right Arm] Blood Pressure Mean Blood Pressure Mean [Right Arm] Pulse Oximetry 98 97 97 Oxygen Delivery Method Sepsis Recent Fever Within 48 Hours Sepsis New/Unexplained Change in Mental Status Sepsis Action Taken by Nursing 03/25/22 05:46 03/25/22 05:46 03/25/22 05:50 Temperature Temperature Source Pulse Rate 65 Pulse Rate [Right Finger] Pulse Rate from SpO2 Sensor 72 78 Pulse Rhythm [Right Finger] Respiratory Rate 16 Respiratory Effort / Characteristics Respiratory Depth Blood Pressure 149/100 H Blood Pressure [Right Arm] Blood Pressure Mean 116 Blood Pressure Mean [Right Arm] Pulse Oximetry 97 96 Oxygen Delivery Method Sepsis Recent Fever Within 48 Hours Sepsis New/Unexplained Change in Mental Status Sepsis Action Taken by Nursing 03/25/22 06:00 03/25/22 06:00 03/25/22 06:10 Temperature Temperature Source Pulse Rate 73 75 Pulse Rate [Right Finger] Pulse Rate from SpO2 Sensor 72 75 Pulse Rhythm [Right Finger] Respiratory Rate 22 23 Respiratory Effort / Characteristics Respiratory Depth Blood Pressure 138/108 H Blood Pressure [Right Arm] Blood Pressure Mean 118 Blood Pressure Mean [Right Arm] Pulse Oximetry 98 96 Oxygen Delivery Method Sepsis Recent Fever Within 48 Hours Sepsis New/Unexplained Change in Mental Status Sepsis Action Taken by Nursing 03/25/22 06:20 03/25/22 06:30 03/25/22 06:42 Temperature Temperature Source Pulse Rate 74 79 Pulse Rate [Right Finger] Pulse Rate from SpO2 Sensor 74 76 Pulse Rhythm [Right Finger] Respiratory Rate 22 25 H Respiratory Effort / Characteristics Respiratory Depth Blood Pressure Blood Pressure [Right Arm] Blood Pressure Mean Blood Pressure Mean [Right Arm] Pulse Oximetry 96 95 91 Oxygen Delivery Method Sepsis Recent Fever Within 48 Hours Sepsis New/Unexplained Change in Mental Status Sepsis Action Taken by Nursing 03/25/22 06:44 03/25/22 06:44 03/25/22 06:50 Temperature Temperature Source Pulse Rate 80 76 Pulse Rate [Right Finger] Pulse Rate from SpO2 Sensor 79 76 Pulse Rhythm [Right Finger] Respiratory Rate 23 21 Respiratory Effort / Characteristics Respiratory Depth Blood Pressure Blood Pressure [Right Arm] Blood Pressure Mean 35 Blood Pressure Mean [Right Arm] Pulse Oximetry 97 96 Oxygen Delivery Method Sepsis Recent Fever Within 48 Hours Sepsis New/Unexplained Change in Mental Status Sepsis Action Taken by Nursing 03/25/22 07:00 03/25/22 07:00 03/25/22 07:10 Temperature Temperature Source Pulse Rate 72 80 Pulse Rate [Right Finger] Pulse Rate from SpO2 Sensor 74 82 Pulse Rhythm [Right Finger] Respiratory Rate 19 Respiratory Effort / Characteristics Respiratory Depth Blood Pressure 151/108 H Blood Pressure [Right Arm] Blood Pressure Mean 122 Blood Pressure Mean [Right Arm] Pulse Oximetry 97 96 Oxygen Delivery Method Sepsis Recent Fever Within 48 Hours Sepsis New/Unexplained Change in Mental Status Sepsis Action Taken by Nursing 03/25/22 07:20 03/25/22 07:30 03/25/22 07:40 Temperature Temperature Source Pulse Rate 75 75 75 Pulse Rate [Right Finger] Pulse Rate from SpO2 Sensor 76 75 74 Pulse Rhythm [Right Finger] Respiratory Rate 18 22 22 Respiratory Effort / Characteristics Respiratory Depth Blood Pressure Blood Pressure [Right Arm] Blood Pressure Mean Blood Pressure Mean [Right Arm] Pulse Oximetry 97 96 96 Oxygen Delivery Method Sepsis Recent Fever Within 48 Hours Sepsis New/Unexplained Change in Mental Status Sepsis Action Taken by Nursing Laboratory Data Result diagrams: 03/25/22 03:45 03/25/22 03:45 Lab Results 03/25/22 03/25/22 03/25/22 Range/Units 03:45 03:45 04:05 WBC 12.02 H (4.8-10.8) K/ul RBC 5.17 (4.63-6.08) M/uL Hgb 14.8 (14.0-18.0) g/dl Hct 44.2 (40.1-51.0) % MCV 85.5 (80.0-100.0) fL MCH 28.6 (25.0-34.0) pg MCHC 33.5 (32.0-36.0) g/dL RDW Std Deviation 41.9 (36.4-46.3) fL RDW Coeff of Terri 13.4 (11.5-14.5) % Plt Count 310 (130-400) K/uL MPV 10.5 (9.4-12.4) fL Immature Gran % (Auto) 1.3 % Neut % (Auto) 69.4 % Lymph % (Auto) 20.8 % Holmes % (Auto) 5.8 % Eos % (Auto) 2.2 % Baso % (Auto) 0.5 % Neut # (Auto) 8.34 H (1.4-6.5) K/uL Lymph # (Auto) 2.50 (1.2-3.4) K/uL Holmes # (Auto) 0.70 (0.24-0.82) K/uL Eos # (Auto) 0.26 (0-0.50) K/uL Baso # (Auto) 0.06 (0-0.2) K/uL Immature Gran # (Auto) 0.16 H (0.00-0.02) K/uL Sodium 138 (136-145) mmol/L Potassium 3.9 (3.5-5.1) mmol/L Chloride 106 (98-107) mmol/L Carbon Dioxide 22 (21-32) mmol/L Anion Gap 10 (3-11) BUN 23 (6-23) mg/dl Creatinine 1.43 H (0.6-1.4) mg/dl Est Cr Clr Drug Dosing 70.6 ml/min Est GFR ( Amer) 60.8 ml/min Est GFR (Non-Af Amer) 52.5 ml/min BUN/Creatinine Ratio 16.1 (10-20) Glucose 228 H (70-99(Fasting)) mg/dl Calcium 9.5 (8.5-10.1) mg/dl Total Bilirubin 0.3 (0.2-1.0) mg/dl AST 12 L (13-39) U/L ALT 15 (7-52) U/L Alkaline Phosphatase 86 (34-104) U/L Total Protein 7.5 (6.0-8.3) gm/dl Albumin 4.0 (3.4-5.0) gm/dl Globulin 3.5 (2.5-4.0) gm/dl Albumin/Globulin Ratio 1.1 (0.9-2) SARS-CoV-2, RNA, NAAT (NEGATIVE) Group A Strep (PCR) NOT DETECTED (NotDetected) 03/25/22 Range/Units 04:05 WBC (4.8-10.8) K/ul RBC (4.63-6.08) M/uL Hgb (14.0-18.0) g/dl Hct (40.1-51.0) % MCV (80.0-100.0) fL MCH (25.0-34.0) pg MCHC (32.0-36.0) g/dL RDW Std Deviation (36.4-46.3) fL RDW Coeff of Terri (11.5-14.5) % Plt Count (130-400) K/uL MPV (9.4-12.4) fL Immature Gran % (Auto) % Neut % (Auto) % Lymph % (Auto) % Holmes % (Auto) % Eos % (Auto) % Baso % (Auto) % Neut # (Auto) (1.4-6.5) K/uL Lymph # (Auto) (1.2-3.4) K/uL Holmes # (Auto) (0.24-0.82) K/uL Eos # (Auto) (0-0.50) K/uL Baso # (Auto) (0-0.2) K/uL Immature Gran # (Auto) (0.00-0.02) K/uL Sodium (136-145) mmol/L Potassium (3.5-5.1) mmol/L Chloride (98-107) mmol/L Carbon Dioxide (21-32) mmol/L Anion Gap (3-11) BUN (6-23) mg/dl Creatinine (0.6-1.4) mg/dl Est Cr Clr Drug Dosing ml/min Est GFR ( Amer) ml/min Est GFR (Non-Af Amer) ml/min BUN/Creatinine Ratio (10-20) Glucose (70-99(Fasting)) mg/dl Calcium (8.5-10.1) mg/dl Total Bilirubin (0.2-1.0) mg/dl AST (13-39) U/L ALT (7-52) U/L Alkaline Phosphatase (34-104) U/L Total Protein (6.0-8.3) gm/dl Albumin (3.4-5.0) gm/dl Globulin (2.5-4.0) gm/dl Albumin/Globulin Ratio (0.9-2) SARS-CoV-2, RNA, NAAT NEGATIVE (NEGATIVE) Group A Strep (PCR) (NotDetected) Administered Medications Propofol (Diprivan) 1,000 mg in 100 mls @ 33.09 mls/hr IV .Q3H2M [facility]; Protocol Stop: 03/28/22 09:24 Last Admin: 03/25/22 15:08 Dose: 50 mcg/kg/min, 33.1 mls/hr Documented By: [id number] Co-signed By: RICKIE Titration: 03/25/22 14:52 Dose: 50 mcg/kg/min, 33.1 mls/hr Documented By: [id number] Co-signed By: RICKIE Admin: 03/25/22 11:50 Dose: 50 mcg/kg/min, 33.1 mls/hr Documented By: [id number] Co-signed By: CAMILLA Titration: 03/25/22 11:50 Dose: 50 mcg/kg/min, 33.1 mls/hr Documented By: [id number] Co-signed By: CAMILLA Titration: 03/25/22 09:30 Dose: 50 mcg/kg/min, 33.1 mls/hr Documented By: [id number] Admin: 03/25/22 09:00 Dose: 20 mcg/kg/min, 13.2 mls/hr Documented By: [id number] Co-signed By: CAMILLA Dexmedetomidine/Sodium Chloride (Precedex) 200 mcg in 50 mls @ 11.03 mls/hr IV .Q4H32M [facility]; Protocol Stop: 03/29/22 09:29 Last Admin: 03/25/22 13:46 Dose: 0.5 mcg/kg/hr, 13.8 mls/hr Documented By: [id number] Co-signed By: RICKIE Titration: 03/25/22 13:46 Dose: 0.5 mcg/kg/hr, 13.8 mls/hr Documented By: [id number] Co-signed By: RICKIE Titration: 03/25/22 12:15 Dose: 0.5 mcg/kg/hr, 13.8 mls/hr Documented By: [id number] Admin: 03/25/22 09:50 Dose: 0.4 mcg/kg/hr, 11 mls/hr Documented By: [id number] Co-signed By: CAMILLA Insulin Aspart (Insulin Aspart Per Unit) 0 units SC Q6 [facility] Stop: 04/24/22 11:59 Last Admin: 03/25/22 14:08 Dose: 5 units Documented By: [id number] Co-signed By: RICKIE Levetiracetam (Levetiracetam 500 Mg Tab) 1,500 mg PO BID [facility] Stop: 04/24/22 10:59 Last Admin: 03/25/22 14:07 Dose: 1,500 mg Documented By: [id number] Midazolam HCl (Midazolam Hcl 1 Mg/Ml 2ml Vial) 2 mg IV Q2H PRN PRN Reason: RASS goal -1 Stop: 04/24/22 09:24 Last Admin: 03/25/22 09:15 Dose: 2 mg Documented By: [id number] Nutritional Formula (Peptamen Intense Vhp 1.0 Manolo 1,000 Ml Bag) 1,000 ml [facility] [place] [place]; Protocol Stop: 04/24/22 12:14 Last Admin: 03/25/22 14:12 Dose: 1,000 ml Documented By: [id number] Propofol (Propofol Bolus From Bag) 20 mg IV Q5M PRN PRN Reason: Sedation Stop: 03/28/22 09:24 Last Admin: 03/25/22 09:30 Dose: 20 mg Documented By: [id number] Co-signed By: CAMILLA Admin: 03/25/22 09:00 Dose: 20 mg Documented By: [id number] Co-signed By: CAMILLA Sterile Water (Tube Feeding Water Flush) 125 ml OG Q4H [facility] Stop: 04/24/22 12:14 Last Admin: 03/25/22 13:34 Dose: Not Given Documented By: [id number] Discontinued Medications Dexamethasone (Dexamethasone Sod Inj 4 Mg/Ml Vial) 10 mg IV NOW STA Stop: 03/25/22 05:03 Last Admin: 03/25/22 05:11 Dose: 10 mg Documented By: MADYSON Diphenhydramine HCl (Diphenhydramine 50 Mg/Ml Vial) 50 mg IV NOW STA Stop: 03/25/22 05:03 Last Admin: 03/25/22 05:13 Dose: 50 mg Documented By: MADYSON Epinephrine HCl (Epinephrine Inj 1 Mg/Ml Amp) 0.3 mg IM NOW STA Stop: 03/25/22 05:03 Last Admin: 03/25/22 05:09 Dose: 0.3 mg Documented By: MADYSON Famotidine (Pepcid 20mg Iv Push) 20 mg in 5 mls @ 2.5 mls/min IV NOW STA Stop: 03/25/22 05:03 Last Admin: 03/25/22 05:13 Dose: 2.5 mls/min Documented By: MADYSON Ioversol (Optiray 350 100ml) 94 ml IV ONCE ONE Stop: 03/25/22 05:30 Last Admin: 03/25/22 05:30 Dose: 94 ml Documented By: TAMANNA Lidocaine HCl (Lidocaine 1% Local 20 Ml Vial) Confirm Administered Dose 20 ml .ROUTE .STK-MED ONE Stop: 03/25/22 07:39 Last Admin: 03/25/22 09:29 Dose: Not Given Documented By: SRCedric Lidocaine/Epinephrine (Lidocaine 1%/Epinephrine 1:100,000 50 Ml Vial) Confirm Administered Dose 50 ml .ROUTE .STK-MED ONE Stop: 03/25/22 07:39 Last Admin: 03/25/22 09:30 Dose: Not Given Documented By: SRCedric Propofol (Propofol Iv Emulsion 10 Mg/Ml 100 Ml Vial) Confirm Administered Dose 1,000 mg IV .STK-MED ONE Stop: 03/25/22 08:59 Last Admin: 03/25/22 11:16 Dose: Not Given Documented By: [id number] Imaging Data Radiologist's Impression: Soft Tissue Neck CT 03/25/22 05:04 CT OF THE NECK WITH IV CONTRAST CLINICAL HISTORY: Throat swelling. Evaluate for epiglottitis. COMPARISON STUDY: Cervical spine CT December 19, 2013. TECHNIQUE: Following IV administration of 94 mL of Optiray, helical axial images of the neck were obtained. Sagittal and coronal reconstructions were viewed. Automated exposure control was utilized for the study. A dose lowering technique was utilized adhering to the principles of ALARA. CT DOSE: 714.93 mGy.cm FINDINGS: Visualized portions of the intracranial contents are unremarkable. Mastoid air cells are clear. There is mild polypoid mucosal thickening of the m axillary sinuses. Parotid glands are unremarkable. Note is made of inflammation adjacent to the submandibular glands and within the floor the mouth. There is enlargement the uvula. In addition, the epiglottis is edematous and enlarged. There is also edema of the aryepiglottic folds without thickening. There is severe supraglottic airway narrowing due to this edema. Edema within the adjacent soft tissues is present. No rim-enhancing fluid collection is present. There is no soft tissue gas. Major vasculature of the neck is patent. No acute fracture or suspicious lesion within visualized skeletal structures is identified. IMPRESSION: Enlarged, edematous epiglottis. In addition, edematous aryepiglottic folds with adjacent inflammation and fluid extending into the ayla or of mouth. No fluid collection. No soft tissue gas. The findings result in severe supraglottic airway narrowing and may reflect epiglottitis. Surgical consultation is recommended. However, noninfectious etiologies such as angioedema or anaphylaxis are within the differential as well. ACT 112: Negative or not required by law. Electronically signed by: Domenico Garvin M.D. 03/25/2022 7:06 AM Discharge Plan Visit Data Chief Complaint: Sore Throat Stated Complaint: ALLERGIC REACTION ED Provider: Eve Parikh Discharge Problem: Angioedema, Acute epiglottitis Patient Disposition: Admitted As Inpatient Discharge Instructions Interventions: ED Discharge Assessment Last Done: 03/25/22 08:04 : Angioedema Qualifiers: Encounter type: initial encounter Qualified Code(s): T78.3XXA - Angioneurotic edema, initial encounter Acute epiglottitis Qualifiers: Airway obstruction: with obstruction Qualified Code(s): J05.11 - Acute epiglottitis with obstruction
--- NOTE | 2022-03-25 07:09 | CT Scan Report ---
CT OF THE NECK WITH IV CONTRAST CLINICAL HISTORY: Throat swelling. Evaluate for epiglottitis. COMPARISON STUDY: Cervical spine CT December 19, 2013. TECHNIQUE: Following IV administration of 94 mL of Optiray, helical axial images of the neck were ob tained. Sagittal and coronal reconstructions were viewed. Automated exposure control was utilized f or the study. A dose lowering technique was utilized adhering to the principles of ALARA. CT DOSE: 714.93 mGy.cm FINDINGS: Visualized portions of the intracranial contents are unremarkable. Mastoid air cells are c lear. There is mild polypoid mucosal thickening of the maxillary sinuses. Parotid glands are unremark able. Note is made of inflammation adjacent to the submandibular glands and within the floor the mout h. There is enlargement the uvula. In addition, the epiglottis is edematous and enlarged. There is al so edema of the aryepiglottic folds without thickening. There is severe supraglottic airway narrowing due to this edema. Edema within the adjacent soft tissues is present. No rim-enhancing fluid collect ion is present. There is no soft tissue gas. Major vasculature of the neck is patent. No acute fractu re or suspicious lesion within visualized skeletal structures is identified. IMPRESSION: Enlarged, edematous epiglottis. In addition, edematous aryepiglottic folds with adjacent inflammation and fluid extending into the floor of mouth. No fluid collection. No soft tissue gas. T he findings result in severe supraglottic airway narrowing and may reflect epiglottitis. Surgical con sultation is recommended. However, noninfectious etiologies such as angioedema or anaphylaxis are wit hin the differential as well. ACT 112: Negative or not required by law. Electronically signed by: Domenico Garvin M.D. 03/25/2022 7:06 AM
[2022-03-25] MEDS ORDERED: LIDOCAINE 1% LOCAL 20 ML VIAL ONE (07:38)
[2022-03-25] MEDS ORDERED: LIDOCAINE 1%/EPINEPHRINE 1:100,000 50 ML VIAL ONE (07:38)
[2022-03-25] MEDS ORDERED: fentaNYL citrate 100 MCG/2 ML VIAL ONE (07:42)
[2022-03-25] MEDS ORDERED: LIDOCAINE 2% MPF LOCAL 5 ML VIAL INFIL ONE (07:42)
[2022-03-25] MEDS ORDERED: PROPOFOL IV EMULSION 10 MG/ML 20 ML VIAL IV ONE ×2 (07:42→09:09)
[2022-03-25] MEDS ORDERED: MIDAZOLAM HCL 1 MG/ML 2ML VIAL ONE ×2 (07:42→08:18)
[2022-03-25] MEDS ORDERED: KETAMINE 50 MG/5 ML SYRINGE ONE (07:43)
[2022-03-25] MEDS ORDERED: DexMEDEtomidine HCL IV 100 MCG/ML VIAL IV ONE (07:49)
--- NOTE | 2022-03-25 07:53 | History & Physical Report ---
Date of Service March 25, 2022 Assessment & Plan (1) Angioedema: Plan: Will need to secure patient's airway due to impending Angioedema of the Larynx. Will go to OR and there plan for Intubation or Emergency Tracheostomy. (2) Acute epiglottitis: Plan: Due to Medication induced ANGIOEDEMA. To OR for Intubation or Tracheostomy (3) Supraglottitis: Plan: Due to Medication induced ANGIOEDEMA. To OR for Intubation or Tracheostomy Plan After Airway secured will need to be monitored for a time in the ICU. Admission and Anticipated Discharge Date Admission Date: Admit today. Expect at least a two night stay in hospital, possibly more until able to be extubated and Laryngeal Angioedema is resolved. Possible Discharge 28 MAR 2022. History of Present Illness Chief Complaint: THroat Swelling - started late last evening Primary Care Provider: Key Cordero MD Patient noted unusual swellings occurring over his body starting yesterday - first at his scrotum and penis, then his lower lip and LEFT Cheek. When the Face and Mouth swelling became uncomfortable he sought medical attention and was take to the Local ED in [place] where he lives, and then was transferred to [facility] for further management. Patient is on LISINOPRIL for HTN. He is DM Type II and on METFORMIN and other medications. He also take Lamictal for Bipolar Disorder. Allergies Allergy/AdvReac Type Severity Reaction Status Date / Time lisinopril Allergy Severe angioedema Verified 03/25/22 12:31 Home Medications Medication Instructions Recorded Confirmed Type clonazepam 1 mg tablet 0.5 mg PO DAILY 08/04/18 03/25/22 History levetiracetam 750 mg tablet 2 tab PO BID 08/04/18 03/25/22 History metformin 1,000 mg tablet 1,000 mg PO BID 08/04/18 03/25/22 History aspirin 81 mg tablet,delayed 81 mg PO DAILY 03/25/22 03/25/22 History release atorvastatin 80 mg tablet 80 mg PO HS 03/25/22 03/25/22 History bupropion HCl 150 mg 24 hr tablet, 150 mg PO DAILY 03/25/22 03/25/22 History extended release clopidogrel 75 mg tablet 75 mg PO DAILY 03/25/22 03/25/22 History empagliflozin 25 mg tablet 25 mg PO DAILY 03/25/22 03/25/22 History (Jardiance) lamotrigine 100 mg tablet 50 mg PO HS 03/25/22 03/25/22 History lisinopril 5 mg tablet 5 mg PO DAILY 03/25/22 03/25/22 History melatonin 1 mg tablet 3 mg PO HS PRN Insomnia 03/25/22 03/25/22 History metoprolol tartrate 25 mg tablet 25 mg PO BID 03/25/22 03/25/22 History pantoprazole 40 mg tablet,delayed 40 mg PO DAILY 03/25/22 03/25/22 History release sertraline 50 mg tablet 50 mg PO DAILY 03/25/22 03/25/22 History Past Med/Surg History Medical History Anxiety Bipolar affective disorder History of cannabis dependence/abuse x 35 years quit 12/2017 HLD (hyperlipidemia) HTN (hypertension) Hypertriglyceridemia Peripheral neuropathy Seizure disorder Single vessel coronary disease T2DM (type 2 diabetes mellitus) Surgical History History of left inguinal hernia Family History Brother Coronary heart disease History of coronary artery bypass graft Grandfather (Maternal) , [place] at 59 Myocardial infarction Father T2DM (type 2 diabetes mellitus) Coronary heart disease Melanoma Social History Smoking Status: Former smoker Tobacco Type: Cigarettes Second Hand Exposure: No; Hx Alcohol Use: No Hx Substance Use: Yes Last Used Substance: Days (ago) Last Used Substance Other:: 6 months ago Substance Use Type Other:: x 35 years Preferred Language: Nepali Communication Ability: Effective Floral Arranger Required: No Beliefs That Will Affect Care: None Current Living Situation: Alone Feels Safe at Home: Yes Assistive Devices: Glasses Review of Systems Constitutional: as per Subjective / HPI Eyes: no diplopia and no loss of peripheral vision Ear, Nose, Mouth, Throat: + sore throat, + dysphagia and + pain with swallowing; no tinnitus, no dizziness and no post nasal drip Respiratory: + dyspnea Cardiovascular: + dyspnea and + edema; no chest pain with activity and no palpitations Gastrointestinal: + pain with swallowing; no abdominal pain, no nausea, no vomiting and no hematemesis Genitourinary: no dysuria, no difficulty urinating or no urinary incontinence Musculoskeletal: + neck pain; no radicular pain and no body aches Psychiatric: as per Subjective / HPI Physical Exam Constitutional: WD/WN, vitals as above well developed; not diaphoretic and not malnourished Eyes: PERRL, conjunctivae normal, anicteric sclerae ENMT: Ears: no external ear abnormality, no EAC abnormality and no TM abnormality Neck: trachea midline, + anterior neck swelling and + neck tender Thyroid: normal thyroid; no thyromegaly Respiratory: normal respiratory effort, lungs clear to auscultation able to speak in complete sentences; no audible wheezes, no pursed lip breathing and no stridor Auscultation: lungs clear to auscultation bilaterally; no rhonchi and no wheezes Cardiovascular: RRR, no murmur, no edema Gastrointestinal (Abdomen): normal bowel sounds, soft, nontender, no hepatosplenomegaly Neurologic: PERRL, EOMI, accommodation nl, no face palsy, no dysarthria Psychiatric: Orientation: alert and oriented x 3 Results & Data Results & Data ([facility]) Vital Signs (Past 12 Hours) Vital Signs Temp Pulse Pulse Resp BP BP Pulse Ox 03/25/22 06:45 79 16 131/101 H 97 03/25/22 05:45 87 18 149/100 H 97 03/25/22 03:40 36.6 C 72 16 174/90 H 97 O2 Del Method 03/25/22 06:45 Room Air 03/25/22 05:45 Room Air 03/25/22 03:40 Room Air Diagnostic Findings PROCEDURE: FLEXIBLE LARYNGOSCOPY - Bedside. Surgeon: Triston Paniagua MD, FACS Anesthesia: Topical Gel. NOTE: After informed consent - the patient in semi-fowlers position at bedside, the - 1 ml jelly inserted into each nostril / nasal airway for topical lubrication. The Flexible Fiberoptic Laryngoscope was easily passed through the Nasal airway and Nasopharynx - and then directed to the Hypopharynx were the Larynx was inspected and observed with breathing and swallowing of the patient. FINDINGS: Glottic Airway is patent - vocal cords are CLEAR and MOBILE. NO airway compromise at present - but still has thickening of epiglottis - consistent with Angioedema, extending to the: Arytenoids - which are edematous - NOT yet compromising the airway but pending. Aryepiglottic Folds are THICKENED and SMOOTH. MUCOSA is PINK - NOT Erythematous - consistent with Angioedema and NOT infection. Nasopharynx Findings: Adenoids - small Eustachian Tube Openings - clear & normal COMPLICATIONS: NONE CONDITION: Patient tolerated the procedure well and remained under [facility] will go to OR to secure patient's airway. Code Status & VTE Plan VTE Prophylaxis Plan VTE Prophylaxis will be ordered: Yes (1) Acute epiglottitis Airway obstruction: with obstruction Qualified Code(s): J05.11 - Acute epiglottitis with obstruction
[2022-03-25] MEDS ORDERED: LIDOCAINE 2% JELLY 5 ML TUBE ONE (08:01)
[2022-03-25] MEDS ORDERED: LIDOCAINE 4% MPF LOCAL INJ 5 ML AMP ONE (08:01)
[2022-03-25] MEDS ORDERED: PROPOFOL IV EMULSION 10 MG/ML 100 ML VIAL IV ONE (08:58)
[2022-03-25] MEDS: PROPOFOL BOLUS FROM BAG IV PRN ×2 (09:00→09:30)
[2022-03-25] MEDS: propofoL 1,000 MG/100 ML VIAL IV SCH ×5 (09:00→20:52)
[2022-03-25] MEDS ORDERED: GLYCOPYRROLATE 0.2 MG/ML VIAL ONE (09:09)
[2022-03-25] MEDS ORDERED: ROCURONIUM BROMIDE 10 MG/ML 5 ML VIAL IV ONE (09:09)
[2022-03-25] MEDS ORDERED: MIDAZOLAM HCL 125MG/250ML D5W ONE (09:10)
--- NOTE | 2022-03-25 09:11 | Anesthesiology Consultation ---
Date of Service March 25, 2022 Assessment & Plan Chart Review Chart Review: Acceptable Risk for Surgery and Patient NOT seen in Pre Admission Testing Consults Requested none ASA [id number] Proposed Anesthesia Anesthesia Type: General Risk / Benefits Reviewed With: PT / POA / Parent / Guardian, Accepts Plan and Informed Consent Obtained History Surgery Operation Date: 03/25/22 08:00 Proposed Procedures p Tracheostomy - Triston Paniagua MD s Laryngoscopy - Triston Paniagua MD Height/Weight Height: 6 ft 1 in Weight: 110.3 kg Allergies Allergy/AdvReac Type Severity Reaction Status Date / Time No Known Allergies Allergy Unknown Unverified 01/14/13 19:22 Medications Home Medications Medication Instructions Recorded Confirmed Last Taken bupropion HCl 300 mg 24 hr tablet, 300 mg PO QAM 08/04/18 08/04/18 Unknown extended release (Wellbutrin XL) clonazepam 1 mg tablet 1 mg PO BID 08/04/18 08/04/18 Unknown levetiracetam 750 mg tablet 2 tab PO BID 08/04/18 08/04/18 Unknown lisinopril 20 mg tablet 20 mg PO PM 08/04/18 08/04/18 Unknown metformin 1,000 mg tablet 1,000 mg PO BID 08/04/18 08/04/18 Unknown omeprazole 20 mg capsule,delayed 20 mg PO HS 08/04/18 08/04/18 Unknown release ranitidine HCl 300 mg tablet 300 mg PO DAILY 08/04/18 08/04/18 Unknown sertraline 100 mg tablet 100 mg PO DAILY 08/04/18 08/04/18 Unknown Past Medical History Medical History (Updated 02/27/20 @ 14:01 by [employer]) Anxiety Bipolar affective disorder History of cannabis dependence/abuse x 35 years quit 12/2017 HLD (hyperlipidemia) HTN (hypertension) Hypertriglyceridemia Peripheral neuropathy Seizure disorder T2DM (type 2 diabetes mellitus) Exercise / Class Metabolic Activity II 4-5 Yardwork/Stairs/Walk up hill Past Family History Family History Brother Coronary heart disease History of coronary artery bypass graft Grandfather (Maternal) , [place] at 59 Myocardial infarction Father T2DM (type 2 diabetes mellitus) Coronary heart disease Melanoma Past Surgical History Surgical History (Updated 08/04/18 @ 16:05 by Philomena Dietrich PA-C) History of left inguinal hernia Past Anesthesia History No Hx of Anesthesia Complications and No Family Hx of Anesthesia Complications History of PONV No Hx of PONV and No Hx of Motion Sickness Social History Smoking Status: Former smoker tobacco type: smokeless tobacco Hx Alcohol Use: No Hx Substance Use: Yes substance use type: marijuana Substance Use Type Other:: x 35 years Last Used Substance: Days (ago) Last Used Substance Other:: 6 months ago Physical Exam Vital Signs Last Vital Signs Temp 36.6 C 03/25/22 03:40 Pulse 75 03/25/22 07:40 Resp 22 03/25/22 07:40 BP 151/108 H 03/25/22 07:00 Pulse Ox 96 03/25/22 07:40 O2 Del Method 03/25/22 06:45 Constitutional + obese ENMT Mouth: no dentition abnormality Thyromental Distance: > or= 3.5 Finger Breadths Mallampati Class: IV (significant swelling of posterior tongue) Neck normal visual inspection Respiratory normal respiratory effort Auscultation: lungs clear to auscultation bilaterally Cardiovascular Rate/Rhythm: regular rate and regular rhythm Psychiatric Orientation: alert Testing Laboratory Results 03/25/22 03:45 03/25/22 03:45
--- NOTE | 2022-03-25 09:13 | Anesthesiology Progress Note ---
Date of Service March 25, 2022 Anesthesia Post Procedure Vital Signs Vital Signs: Temp Pulse Pulse Resp BP BP Pulse Ox 03/25/22 07:40 75 22 96 03/25/22 07:30 75 22 96 03/25/22 07:20 75 18 97 03/25/22 07:10 80 96 03/25/22 07:00 72 19 97 03/25/22 07:00 151/108 H 03/25/22 06:50 76 21 96 03/25/22 06:44 80 23 97 03/25/22 06:42 79 25 H 91 03/25/22 06:30 95 03/25/22 06:20 74 22 96 03/25/22 06:10 75 23 96 03/25/22 06:00 73 22 98 03/25/22 06:00 138/108 H 03/25/22 05:50 65 16 96 03/25/22 05:46 97 03/25/22 05:46 149/100 H 03/25/22 05:40 97 03/25/22 05:35 97 03/25/22 05:10 98 03/25/22 05:00 97 03/25/22 05:00 187/103 H 03/25/22 04:57 97 03/25/22 04:30 63 14 97 03/25/22 04:20 63 16 96 03/25/22 04:10 68 24 95 03/25/22 04:00 83 22 96 03/25/22 04:00 175/145 H 03/25/22 03:58 66 14 96 03/25/22 06:45 79 16 131/101 H 97 03/25/22 05:45 87 18 149/100 H 97 03/25/22 03:40 36.6 C 72 16 174/90 H 97 O2 Del Method 03/25/22 07:40 03/25/22 07:30 03/25/22 07:20 03/25/22 07:10 03/25/22 07:00 03/25/22 07:00 03/25/22 06:50 03/25/22 06:44 03/25/22 06:42 03/25/22 06:30 03/25/22 06:20 03/25/22 06:10 03/25/22 06:00 03/25/22 06:00 03/25/22 05:50 03/25/22 05:46 03/25/22 05:46 03/25/22 05:40 03/25/22 05:35 03/25/22 05:10 03/25/22 05:00 03/25/22 05:00 03/25/22 04:57 03/25/22 04:30 03/25/22 04:20 03/25/22 04:10 03/25/22 04:00 03/25/22 04:00 03/25/22 03:58 03/25/22 06:45 Room Air 03/25/22 05:45 Room Air 03/25/22 03:40 Room Air Transfer of Care Handoff Completed per policy Notes Mental Status: see notes below Patient Amnestic to Procedure: Yes Nausea / Vomiting: see Notes below Pain: see Notes below Airway Patency, RR, SpO2: stable & adequate BP & HR: stable & adequate Hydration State: stable & adequate Anesthetic Complications: no major complications apparent Notes: Patient intubated under awake fiber optic intubation in operating room and transported intubated and sedated to ICU. Full sign out to sas sql developer.
--- NOTE | 2022-03-25 09:13 | Critical Care Consultation ---
Date of Consultation March 25, 2022 Assessment & Plan (1) Angioedema: Reason Critically Ill: Impending airway collapse secondary to angioedema PLAN: Neuro: Analgesia: Fentanyl Sedation: -Dexmedetomidine with Versed boluses Possible Seizure history -Restart Keppra 1500 twice daily Hold Wellbutrin XL Bipolar affective disorder -Lamictal 50 mg nightly -Zoloft 50 mg daily Resp: Ventilator dependent respiratory failure secondary to mechanical obstruction: Angioedema CV: Coronary artery disease -Continue aspirin, Lipitor, Plavix Fluids/Renal: Monitor electrolytes -Continue tube feeds ID: Angioedema no indication for antibiotics GI/Nutrition: Tube feeds Heme: DVT prophylaxis: Lovenox 40 mg daily Endocrine: ICU hyperglycemia protocol Vascular access: Peripheral IVs Code Status: Full code Disposition: ICU Supervising Physician Co-Signing Physician Notes I have personally spent 35 minutes of critical care time in the direct management of this patient. This is a life/limb threatening event. This includes time spent evaluating patient, direct bedside care, chart review, placing orders, interpretation of diagnostic studies, discussion with consultants, patient, and/or family members regarding treatment decisions, as well as other required patient management activities. This time is exclusive of all separately billable procedures, and teaching time and separate from and in addition to any other critical care service time. History of Present Illness Reason for Consultation: Impending respiratory failure secondary to angioedema Attending Physician: Shy Mancera DO History of Present Illness History is obtained from prior records as patient was intubated; patient is a 62-year-old male past medical history of hypertension stable on lisinopril, coronary artery disease, type 2 diabetes, seizure disorder, bipolar affective disorder who recently had a change in his lisinopril supplier. It was reported the patient had been complaining of difficulty breathing and sought medical treatment, local emergency department where he was diagnosed with angioedema and transferred here for further evaluation. He was seen by ear nose and throat who took the patient to the operating room for concern for possible epiglottitis versus impending rupture respiratory failure secondary to angioedema. He was intubated in the operating room and this was felt to represent angioedema. Allergies Allergy/AdvReac Type Severity Reaction Status Date / Time lisinopril Allergy Severe angioedema Verified 03/25/22 12:31 Home Medications Medication Instructions Recorded Confirmed Type clonazepam 1 mg tablet 0.5 mg PO DAILY 08/04/18 03/25/22 History levetiracetam 750 mg tablet 2 tab PO BID 08/04/18 03/25/22 History metformin 1,000 mg tablet 1,000 mg PO BID 08/04/18 03/25/22 History aspirin 81 mg tablet,delayed 81 mg PO DAILY 03/25/22 03/25/22 History release atorvastatin 80 mg tablet 80 mg PO HS 03/25/22 03/25/22 History bupropion HCl 150 mg 24 hr tablet, 150 mg PO DAILY 03/25/22 03/25/22 History extended release clopidogrel 75 mg tablet 75 mg PO DAILY 03/25/22 03/25/22 History empagliflozin 25 mg tablet 25 mg PO DAILY 03/25/22 03/25/22 History (Jardiance) lamotrigine 100 mg tablet 50 mg PO HS 03/25/22 03/25/22 History lisinopril 5 mg tablet 5 mg PO DAILY 03/25/22 03/25/22 History melatonin 1 mg tablet 3 mg PO HS PRN Insomnia 03/25/22 03/25/22 History metoprolol tartrate 25 mg tablet 25 mg PO BID 03/25/22 03/25/22 History pantoprazole 40 mg tablet,delayed 40 mg PO DAILY 03/25/22 03/25/22 History release sertraline 50 mg tablet 50 mg PO DAILY 03/25/22 03/25/22 History Patient History Medical History Anxiety Bipolar affective disorder History of cannabis dependence/abuse x 35 years quit 12/2017 HLD (hyperlipidemia) HTN (hypertension) Hypertriglyceridemia Peripheral neuropathy Seizure disorder Single vessel coronary disease T2DM (type 2 diabetes mellitus) Surgical History History of left inguinal hernia Family History Brother Coronary heart disease History of coronary artery bypass graft Grandfather (Maternal) , [place] at 59 Myocardial infarction Father T2DM (type 2 diabetes mellitus) Coronary heart disease Melanoma Social History Smoking Status: Never smoker Tobacco Type: Cigarettes Second Hand Exposure: No; Hx Alcohol Use: No Hx Substance Use: Yes Last Used Substance: Days (ago) Last Used Substance Other:: 6 months ago Substance Use Type Other:: x 35 years Preferred Language: [place] Communication Ability: Intubated National Coverage Specialist Required: No Beliefs That Will Affect Care: None Current Living Situation: Alone Other Information That Helps Us Care for You: No Feels Safe at Home: Yes Assistive Devices: Glasses Review of Systems Review of Systems: Unobtainable due to endotracheal tube Physical Exam Physical Exam: General: Sedated. nontoxic. Skin: Warm, dry, Head: Atraumatic Ears, nose, mouth and throat: airway obscured by endotracheal tube Neck: Mild fullness, normal external appearance of lips and tongue -Angioedema noted be in deep larynx pharyngeal structures Cardiovascular: Normal peripheral perfusion Respiratory: Ventilator settings reviewed Gastrointestinal: Non distended Musculoskeletal: No deformity Results & Data Results & Data ([facility]) Vital Signs (Past 12 Hours) Vital Signs Temp Pulse Pulse Resp BP BP Pulse Ox 03/25/22 07:40 75 22 96 03/25/22 07:30 75 22 96 03/25/22 07:20 75 18 97 03/25/22 07:10 80 96 03/25/22 07:00 72 19 97 03/25/22 07:00 151/108 H 03/25/22 06:50 76 21 96 03/25/22 06:44 80 23 97 03/25/22 06:42 79 25 H 91 03/25/22 06:30 95 03/25/22 06:20 74 22 96 03/25/22 06:10 75 23 96 03/25/22 06:00 73 22 98 03/25/22 06:00 138/108 H 03/25/22 05:50 65 16 96 03/25/22 05:46 97 03/25/22 05:46 149/100 H 03/25/22 05:40 97 03/25/22 05:35 97 03/25/22 05:10 98 03/25/22 05:00 97 03/25/22 05:00 187/103 H 03/25/22 04:57 97 03/25/22 04:30 63 14 97 03/25/22 04:20 63 16 96 03/25/22 04:10 68 24 95 03/25/22 04:00 83 22 96 03/25/22 04:00 175/145 H 03/25/22 03:58 66 14 96 03/25/22 06:45 79 16 131/101 H 97 03/25/22 05:45 87 18 149/100 H 97 03/25/22 03:40 36.6 C 72 16 174/90 H 97 O2 Del Method 03/25/22 07:40 03/25/22 07:30 03/25/22 07:20 03/25/22 07:10 03/25/22 07:00 03/25/22 07:00 03/25/22 06:50 03/25/22 06:44 03/25/22 06:42 03/25/22 06:30 03/25/22 06:20 03/25/22 06:10 03/25/22 06:00 03/25/22 06:00 03/25/22 05:50 03/25/22 05:46 03/25/22 05:46 03/25/22 05:40 03/25/22 05:35 03/25/22 05:10 03/25/22 05:00 03/25/22 05:00 03/25/22 04:57 03/25/22 04:30 03/25/22 04:20 03/25/22 04:10 03/25/22 04:00 03/25/22 04:00 03/25/22 03:58 03/25/22 06:45 Room Air 03/25/22 05:45 Room Air 03/25/22 03:40 Room Air Critical Care Results & Data Vital Signs (Past 12 Hours) Vital Signs Temp Pulse Resp BP Pulse Ox O2 Del Method FiO2 03/26/22 06:20 54 L 16 96 03/26/22 06:10 55 L 16 95 03/26/22 06:00 57 L 16 95 03/26/22 06:00 92/62 L 03/26/22 05:50 60 16 98 03/26/22 05:40 52 L 16 97 03/26/22 05:30 64 18 97 03/26/22 05:20 49 L 16 94 03/26/22 05:10 49 L 16 95 03/26/22 05:00 50 L 16 94 03/26/22 05:00 87/62 L 03/26/22 04:50 51 L 16 95 03/26/22 04:40 51 L 16 95 03/26/22 04:30 51 L 16 95 03/26/22 04:20 53 L 16 95 03/26/22 04:10 49 L 16 95 03/26/22 04:00 50 L 16 96 03/26/22 04:00 94/66 L 03/26/22 03:50 61 17 98 03/26/22 03:40 49 L 16 97 03/26/22 03:30 48 L 16 97 03/26/22 03:20 51 L 14 97 03/26/22 03:10 49 L 14 97 03/26/22 03:00 45 L 16 97 03/26/22 03:00 94/68 L 03/26/22 02:50 50 L 16 96 03/26/22 02:40 49 L 16 96 03/26/22 02:30 50 L 16 96 03/26/22 02:20 52 L 16 95 03/26/22 02:10 51 L 16 96 03/26/22 02:00 52 L 16 96 03/26/22 02:00 83/64 L 03/26/22 01:50 52 L 16 95 03/26/22 01:40 55 L 16 94 03/26/22 01:30 56 L 16 93 03/26/22 01:20 64 19 95 03/26/22 01:10 57 L 16 87 L 03/26/22 01:00 59 L 16 88 L 03/26/22 01:00 93/67 L 03/26/22 00:50 63 16 92 03/26/22 00:40 46 L 16 96 03/26/22 00:30 43 L 16 03/26/22 00:20 42 L 14 03/26/22 00:10 42 L 16 03/26/22 00:00 46 L 16 95 03/26/22 00:00 100/69 03/25/22 23:50 46 L 14 03/25/22 23:40 44 L 16 03/25/22 23:30 42 L 16 03/25/22 23:20 43 L 14 95 03/26/22 04:10 36.7 C 03/26/22 04:00 30 03/26/22 02:50 50 L 16 96 30 03/26/22 00:00 44 L 03/26/22 01:02 36.5 C 03/25/22 19:10 70 16 94 30 03/25/22 22:32 44 L 16 96 30 03/25/22 23:10 44 L 16 96 03/25/22 23:00 41 L 16 96 03/25/22 23:00 100/69 03/25/22 22:50 42 L 14 96 03/25/22 22:40 42 L 16 96 03/25/22 22:30 41 L 16 96 03/25/22 22:20 41 L 14 96 03/25/22 22:10 40 L 16 97 03/25/22 22:05 123/81 03/25/22 22:05 43 L 14 97 03/25/22 22:00 41 L 16 97 03/25/22 22:00 122/80 03/25/22 21:55 128/79 03/25/22 21:55 41 L 16 97 03/25/22 21:50 42 L 14 97 03/25/22 21:50 129/79 03/25/22 21:45 128/83 03/25/22 21:45 42 L 16 97 03/25/22 21:40 41 L 16 97 03/25/22 21:40 127/79 03/25/22 21:35 41 L 14 97 03/25/22 21:35 125/77 03/25/22 21:30 42 L 16 97 03/25/22 21:30 124/78 03/25/22 21:25 125/79 03/25/22 21:25 36.0 C L 41 L 16 97 03/25/22 21:20 42 L 14 97 03/25/22 21:20 128/79 03/25/22 21:15 42 L 16 97 03/25/22 21:15 124/78 03/25/22 21:10 42 L 16 97 03/25/22 21:10 124/81 03/25/22 21:05 123/81 03/25/22 21:05 46 L 14 97 03/25/22 21:00 44 L 16 97 03/25/22 21:00 122/81 03/25/22 20:55 42 L 16 96 03/25/22 20:55 121/78 03/25/22 20:50 44 L 14 96 03/25/22 20:50 120/80 03/25/22 20:45 112/79 03/25/22 20:45 45 L 16 96 03/25/22 20:40 44 L 14 96 03/25/22 20:40 117/76 03/25/22 20:39 116/76 03/25/22 20:39 44 L 14 96 03/25/22 20:31 53 L 15 90 03/25/22 20:31 122/87 03/25/22 20:30 51 L 16 94 03/25/22 20:25 106/76 03/26/22 00:00 30 03/25/22 23:23 Mechanical Vent 30 03/25/22 20:00 40 Lab & Micro Results (Past 24 Hours) RBC 5.06 M/uL (4.63-6.08) 03/26/22 WBC 14.90 K/ul (4.8-10.8) H 03/26/22 Hgb 14.4 g/dl (14.0-18.0) 03/26/22 Hct 42.6 % (40.1-51.0) 03/26/22 MCV 84.2 fL (80.0-100.0) 03/26/22 MCH 28.5 pg (25.0-34.0) 03/26/22 MCHC 33.8 g/dL (32.0-36.0) 03/26/22 RDW Standard Deviation 42.1 fL (36.4-46.3) 03/26/22 RDW Coefficient of Variation 13.7 % (11.5-14.5) 03/26/22 Plt Count 309 K/uL (130-400) 03/26/22 MPV 10.6 fL (9.4-12.4) 03/26/22 Neutrophils (%) (Auto) 76.3 % 03/26/22 Lymphocytes (%) (Auto) 16.0 % 03/26/22 Monocytes # (Auto) 0.94 K/uL (0.24-0.82) H 03/26/22 Eosinophils # (Auto) 0.03 K/uL (0-0.50) 03/26/22 Immature Granulocyte % (Auto) 0.9 % 03/26/22 Neutrophils # (Auto) 11.37 K/uL (1.4-6.5) H 03/26/22 Lymphocytes # (Auto) 2.39 K/uL (1.2-3.4) 03/26/22 Monocytes # (Auto) 0.94 K/uL (0.24-0.82) H 03/26/22 Eosinophils # (Auto) 0.03 K/uL (0-0.50) 03/26/22 Basophils # (Auto) 0.04 K/uL (0-0.2) 03/26/22 Immature Granulocyte # (Auto) 0.13 K/uL (0.00-0.02) H 03/26 No Data to Display Brandon Test NA 03/26/22 05:36 Diagnostic Findings (Past 24 Hours) Soft Tissue Neck CT 03/25/22 05:04 CT OF THE NECK WITH IV CONTRAST CLINICAL HISTORY: Throat swelling. Evaluate for epiglottitis. COMPARISON STUDY: Cervical spine CT December 19, 2013. TECHNIQUE: Following IV administration of 94 mL of Optiray, helical axial images of the neck were obtained. Sagittal and coronal reconstructions were viewed. Automated exposure control was utilized for the study. A dose lowering technique was utilized adhering to the principles of ALARA. CT DOSE: 714.93 mGy.cm FINDINGS: Visualized portions of the intracranial contents are unremarkable. Mastoid air cells are clear. There is mild polypoid mucosal thickening of the maxillary sinuses. Parotid glands are unremarkable. Note is made of inflammation adjacent to the submandibular glands and within the floor the mouth. There is enlargement the uvula. In addition, the epiglottis is edematous and enlarged. There is also edema of the aryepiglottic folds without thickening. There is severe supraglottic airway narrowing due to this edema. Edema within the ad jacent soft tissues is present. No rim-enhancing fluid collection is present. There is no soft tissue gas. Major vasculature of the neck is patent. No acute fracture or suspicious lesion within visualized skeletal structures is identified. IMPRESSION: Enlarged, edematous epiglottis. In addition, edematous aryepiglottic folds with adjacent inflammation and fluid extending into the floor of mouth. No fluid collection. No soft tissue gas. The findings result in severe supraglottic airway narrowing and may reflect epiglottitis. Surgical consultation is recommended. However, noninfectious etiologies such as angioedema or anaphylaxis are within the differential as well. ACT 112: Negative or not required by law. Electronically signed by: Domenico Garvin M.D. 03/25/2022 7:06 AM KUB X-Ray 03/25/22 10:47 KUB CLINICAL HISTORY: NGT placement COMPARISON STUDY: CT of the abdomen and pelvis November 18, 2010. FINDINGS: The tip of the nasogastric tube is within the gastric fundus. Visualized bowel gas pattern is normal. Possible left basilar airspace opacity. IMPRESSION: Tip of nasogastric tube within the gastric fundus. ACT 112: Negative or not required by law. Electronically signed by: Domenico Gravin M.D. 03/25/2022 11:04 AM I & O Totals 24 Hours 03/24/22 03/25/22 03/26/22 06:59 06:59 06:59 Intake Total 1855.349 / 1855.349 Output Total 2074 / 2074 Balance -219.651 / -219.651 Cumulative 03/25/22 03:23 thru 03/26/22 06:53 Intake Total 1855.349 Output Total 2075 Balance -219.651 RT Ventilator Mngmt (Last Documented) Ventilator Ordered Settings Ventilator Support Mode Assist Control 03/26/22 04:00 Respiratory Rate 16 03/26/22 06:20 Ventilator Tidal Volume 480 03/26/22 04:00 Setting Minute Ventilation 7.6 03/26/22 02:50 Positive End Expiratory 5 03/26/22 04:00 Pressure Fraction of Inspired Oxygen 30 03/26/22 04:00 Ventilator - PT Measurements Respiratory Rate 16 Exhaled Tidal Volume 480 Minute Ventilation 7.6 Peak Inspiratory Airway 18 Pressure Plateau Pressure 12.9 Respiratory Cycle Inspiratory: 1:3.7 Expiratory Ratio Inspiratory Phase Time 0.8 End-Tidal CO2 29 Static Lung Compliance 60.76 Dynamic Lung Compliance 36.92 Normal Static Lung Compliance 48.00 Coding Level of Care Code Critical Care 1st 30-74 mins Diagnoses Angioedema [id number]
[2022-03-25] MEDS ORDERED: ICU PROTOCOL FOR HYPERGLYCEMIA PRN (09:25)
[2022-03-25] MEDS ORDERED: MIDAZOLAM HCL 1 MG/ML 2ML VIAL IV PRN (09:25)
[2022-03-25] MEDS ORDERED: STAT IV Infusion **Titration per Protocol STA ×2 (09:25→09:28)
[2022-03-25] MEDS: dexMEDEtomidine 200 MCG/50 ML BAG IV SCH ×4 (09:50→20:43)
--- NOTE | 2022-03-25 10:55 | History & Physical Report ---
Date of Service March 25, 2022 Assessment & Plan (1) Angioedema: Plan: Unclear etiology, and believe this is the first episode. Angioedema in the throat and scrotum without urticaria. 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 No evidence of infection. Normal TSH September 2021. Will check complement function and C1 esterase inhibitor level, which may be helpful for future allergy appointments in deciding on long- term management. Although I was unable to take a robust history in the time allotted, he certainly should avoid ACEI in the future and this was added to his allergy list. Intubated this am, and continue airway support in ICU. Appreciate ENT assistance in management. (2) Single vessel coronary disease: Plan: chronic, stable, no chest pain (3) T2DM (type 2 diabetes mellitus): Plan: hold jardiance and metformin, insulin per hyperglycemia protocol. Would consider adding glargine for up front coverage and avoiding just strict sliding scale. Per glycemic pharmacist. (4) HTN (hypertension): Plan: chronic, at goal. Avoid PAIGE inhibitors at this point, monitor. (5) History of cannabis dependence/abuse: Plan: Noted daily use. Monitor for withdrawal. Educate about the importance of smoking cessation. (6) Seizure disorder: Plan: chronic, stable. Would hold any bupropion and consider discontinuing at discharge as this lowers the seizure threshold. (7) Bipolar affective disorder: Plan: Continues on lamotrigine and sertraline. (8) DVT prophylaxis: Plan GI proph-Protonix and pepcid BID DVT proph-Lovenox Full Code Dispo-to home when angioedema has resolved. Shy Mancera DO [facility] Hospitalist Admission and Anticipated Discharge Date Admission Date: March 25, 2022 History of Present Illness Chief Complaint: sweeling in throat, difficult breathing Primary Care Provider: Key Cordero MD 62 yo diabetic man with h/o CAD who smokes marijuana daily presents with acute swelling of the throat and swelling in his suprapubic area that began yesterday. His throat swelling reportedly moved around over the last few daily and he is reporting pain. He noticed the swelling go into the penile shaft and scrotum last night but is improved this morning. 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 I was unable to get much other history from him as they took him swiftly to the OR. In the ER he was talking and mentating well. He was in no acute distress and had some wheezing in the right base of the lung. Allergies Allergy/AdvReac Type Severity Reaction Status Date / Time lisinopril Allergy Severe angioedema Verified 03/25/22 12:31 Home Medications Medication Instructions Recorded Confirmed Type clonazepam 1 mg tablet 0.5 mg PO DAILY 08/04/18 03/25/22 History levetiracetam 750 mg tablet 2 tab PO BID 08/04/18 03/25/22 History metformin 1,000 mg tablet 1,000 mg PO BID 08/04/18 03/25/22 History aspirin 81 mg tablet,delayed 81 mg PO DAILY 03/25/22 03/25/22 History release atorvastatin 80 mg tablet 80 mg PO HS 03/25/22 03/25/22 History bupropion HCl 150 mg 24 hr tablet, 150 mg PO DAILY 03/25/22 03/25/22 History extended release clopidogrel 75 mg tablet 75 mg PO DAILY 03/25/22 03/25/22 History empagliflozin 25 mg tablet 25 mg PO DAILY 03/25/22 03/25/22 History (Jardiance) lamotrigine 100 mg tablet 50 mg PO HS 03/25/22 03/25/22 History lisinopril 5 mg tablet 5 mg PO DAILY 03/25/22 03/25/22 History melatonin 1 mg tablet 3 mg PO HS PRN Insomnia 03/25/22 03/25/22 History metoprolol tartrate 25 mg tablet 25 mg PO BID 03/25/22 03/25/22 History pantoprazole 40 mg tablet,delayed 40 mg PO DAILY 03/25/22 03/25/22 History release sertraline 50 mg tablet 50 mg PO DAILY 03/25/22 03/25/22 History Past Med/Surg History Medical History Anxiety Bipolar affective disorder History of cannabis dependence/abuse x 35 years quit 12/2017 HLD (hyperlipidemia) HTN (hypertension) Hypertriglyceridemia Peripheral neuropathy Seizure disorder Single vessel coronary disease T2DM (type 2 diabetes mellitus) Surgical History History of left inguinal hernia Family History Brother Coronary heart disease History of coronary artery bypass graft Grandfather (Maternal) , [place] at 59 Myocardial infarction Father T2DM (type 2 diabetes mellitus) Coronary heart disease Melanoma Social History Smoking Status: Former smoker Tobacco Type: Cigarettes Second Hand Exposure: No; Hx Alcohol Use: No Hx Substance Use: Yes Last Used Substance: Days (ago) Last Used Substance Other:: 6 months ago Substance Use Type Other:: x 35 years Preferred Language: Yakut Communication Ability: Effective Air Tucker Required: No Beliefs That Will Affect Care: None Current Living Situation: Alone Feels Safe at Home: Yes Assistive Devices: Glasses Review of Systems Review of Systems: All systems were reviewed and negative except as indicated in HPI above. Physical Exam Physical Exam: CONSTITUTIONAL: WNWD, vitals as above, generally well- appearing, NAD EYES: normal conjunctivae, no scleral icterus ENT: swollen tonsil/arytenoid on the right side, appears to be a fluid-filled grape sized sac, mild erythema, external ear and nose normal, MMM, no sinus TTP, no cervical LAD. NECK: trachea midline RESPIRATORY: wheezes at right base. No rales or crackles, normal respiratory effort, speaking in full sentences without any issues. CARDIOVASCULAR: regular rate and rhythm, S1 and 2 heard without murmurs, gallops or rubs, no JVD, no peripheral edema CHEST: inspection of chest was normal GASTROINTESTINAL: soft, nontender, ND, no guarding MUSCULOSKELETAL: strength 5/5 throughout, head is normocephalic and atraumatic SKIN: warm and dry NEUROLOGIC: CN 2-12 grossly intact, no sensory deficit, normal cognition, normal speech, no tremor PSYCHIATRIC: alert cooperative and oriented to person, place and time. Euthymic mood, makes good eye contact, language grossly intact, recent and remote memory grossly intact. Results & Data Results & Data ([facility]) Vital Signs (Past 12 Hours) Vital Signs Temp Pulse Pulse Resp BP BP Pulse Ox 03/25/22 09:15 93 H 16 153/97 H 98 03/25/22 09:05 87 18 137/86 99 03/25/22 08:55 36.5 C 90 16 116/77 98 03/25/22 08:55 92 H 17 95 03/25/22 07:40 75 22 96 03/25/22 07:30 75 22 96 03/25/22 07:20 75 18 97 03/25/22 07:10 80 96 03/25/22 07:00 72 19 97 03/25/22 07:00 151/108 H 03/25/22 06:50 76 21 96 03/25/22 06:44 80 23 97 03/25/22 06:42 79 25 H 91 03/25/22 06:30 95 03/25/22 06:20 74 22 96 03/25/22 06:10 75 23 96 03/25/22 06:00 73 22 98 03/25/22 06:00 138/108 H 03/25/22 05:50 65 16 96 03/25/22 05:46 97 03/25/22 05:46 149/100 H 03/25/22 05:40 97 03/25/22 05:35 97 03/25/22 05:10 98 03/25/22 05:00 97 03/25/22 05:00 187/103 H 03/25/22 04:57 97 03/25/22 04:30 63 14 97 03/25/22 04:20 63 16 96 03/25/22 04:10 68 24 95 03/25/22 04:00 83 22 96 03/25/22 04:00 175/145 H 03/25/22 03:58 66 14 96 03/25/22 06:45 79 16 131/101 H 97 03/25/22 05:45 87 18 149/100 H 97 03/25/22 03:40 36.6 C 72 16 174/90 H 97 O2 Del Method FiO2 03/25/22 09:15 Mechanical Vent 40 03/25/22 09:05 Mechanical Vent 40 03/25/22 08:55 Mechanical Vent 40 03/25/22 08:55 40 03/25/22 07:40 03/25/22 07:30 03/25/22 07:20 03/25/22 07:10 03/25/22 07:00 03/25/22 07:00 03/25/22 06:50 03/25/22 06:44 03/25/22 06:42 03/25/22 06:30 03/25/22 06:20 03/25/22 06:10 03/25/22 06:00 03/25/22 06:00 03/25/22 05:50 03/25/22 05:46 03/25/22 05:46 03/25/22 05:40 03/25/22 05:35 03/25/22 05:10 03/25/22 05:00 03/25/22 05:00 03/25/22 04:57 03/25/22 04:30 03/25/22 04:20 03/25/22 04:10 03/25/22 04:00 03/25/22 04:00 03/25/22 03:58 03/25/22 06:45 Room Air 03/25/22 05:45 Room Air 03/25/22 03:40 Room Air Laboratory Results Short CBC 03/25/22 Range/Units 03:45 WBC 12.02 H (4.8-10.8) K/ul Hgb 14.8 (14.0-18.0) g/dl Hct 44.2 (40.1-51.0) % Plt Count 310 (130-400) K/uL BMP 03/25/22 03:45 Sodium 138 Potassium 3.9 Chloride 106 Carbon Dioxide 22 BUN 23 Creatinine 1.43 H Glucose 228 H Calcium 9.5 Liver Function 03/25/22 Range/Units 03:45 Total Bilirubin 0.3 (0.2-1.0) mg/dl AST 12 L (13-39) U/L ALT 15 (7-52) U/L Alkaline Phosphatase 86 (34-104) U/L Albumin 4.0 (3.4-5.0) gm/dl Diagnostic Findings Soft Tissue Neck CT 03/25/22 05:04 CT OF THE NECK WITH IV CONTRAST CLINICAL HISTORY: Throat swelling. Evaluate for epiglottitis. COMPARISON STUDY: Cervical spine CT December 19, 2013. TECHNIQUE: Following IV administration of 94 mL of Optiray, helical axial images of the neck were obtained. Sagittal and coronal reconstructions were viewed. Automated exposure control was utilized for the study. A dose lowering technique was utilized adhering to the principles of ALARA. CT DOSE: 714.93 mGy.cm FINDINGS: Visualized portions of the intracranial contents are unremarkable. Mastoid air cells are clear. There is mild polypoid mucosal thickening of the maxillary sinuses. Parotid glands are unremarkable. Note is made of inflammation adjacent to the submandibular glands and within the floor the mouth. There is enlargement the uvula. In addition, the epiglottis is edematous and enlarged. There is also edema of the aryepiglottic folds without thickening. There is severe supraglottic airway narrowing due to this edema. Edema within the adjacent soft tissues is present. No rim-enhancing fluid collection is present. There is no soft tissue gas. Major vasculature of the neck is patent. No acute fracture or suspicious lesion within visualized skeletal structures is identified. IMPRESSION: Enlarged, edematous epiglottis. In addition, edematous aryepiglottic folds with adjacent inflammation and fluid extending into the floor of mouth. No fluid collection. No soft tissue gas. The findings result in severe supraglottic airway narrowing and may reflect epiglottitis. Surgical consultation is recommended. However, noninfectious etiologies such as angioedema or anaphylaxis are within the differential as well. ACT 112: Negative or not required by law. Electronically signed by: Domenico Garvin M.D. 03/25/2022 7:06 AM Medications Administered Current Inpatient Medications Bupropion HCl (Bupropion Hcl 75 Mg Tablet) 75 mg PO BID CARMEN Stop: 04/24/22 20:59 Fentanyl Citrate (Fentanyl Citrate 100 Mcg/2 Ml Vial) 100 mcg IV Q2H PRN PRN Reason: Severe Pain (7,8,9,10) on NRS Stop: 04/08/22 09:24 Propofol (Diprivan) 1,000 mg in 100 mls @ 13.236 mls/hr IV .Q7H34M CARMEN; Protocol Stop: 03/28/22 09:24 Dexmedetomidine/Sodium Chloride (Precedex) 200 mcg in 50 mls @ 11.03 mls/hr IV .Q4H32M CARMEN; Protocol Stop: 03/29/22 09:29 Famotidine 20 mg/ Syringe 5 mls @ 2.5 mls/min IV BID CARMEN Stop: 04/24/22 20:59 Insulin Aspart (Insulin Aspart Per Unit) 0 units SC Q6 CARMEN Stop: 04/24/22 11:59 Lamotrigine (Lamotrigine 25 Mg Tab) 50 mg PO HS CARMEN Stop: 04/24/22 20:59 Levetiracetam (Levetiracetam 500 Mg Tab) 1,500 mg PO BID CARMEN Stop: 04/24/22 10:59 Midazolam HCl (Midazolam Hcl 1 Mg/Ml 2ml Vial) 2 mg IV Q2H PRN PRN Reason: RASS goal -1 Stop: 04/24/22 09:24 Miscellaneous (Icu Protocol For Hyperglycemia) 1 each N/A PRN PRN; Protocol PRN Reason: Hyperglycemia Protocol Stop: 03/27/22 09:24 Propofol (Propofol Bolus From Bag) 20 mg IV Q5M PRN PRN Reason: Sedation Stop: 03/28/22 09:24 Code Status & VTE Plan VTE Prophylaxis Plan VTE Prophylaxis will be ordered: Yes (1) T2DM (type 2 diabetes mellitus) 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
--- NOTE | 2022-03-25 11:05 | XRay Report ---
KUB CLINICAL HISTORY: NGT placement COMPARISON STUDY: CT of the abdomen and pelvis November 18, 2010. FINDINGS: The tip of the nasogastric tube is within the gastric fundus. Visualized bowel gas pattern is normal. Possible left basilar airspace opacity. IMPRESSION: Tip of nasogastric tube within the gastric fundus. ACT 112: Negative or not required by law. Electronically signed by: Domenico Garvin M.D. 03/25/2022 11:04 AM
[2022-03-25] MEDS ORDERED: Nursing to Pharmacy Communication SCH (11:30)
[2022-03-25 12:18] LABS: Appearance Urine Clear (Clear); Bacteria Urine Automated Negative (Negative); Bilirubin Urine Negative (Negative); Blood Urine 2+ (Negative); Cast Urine Automated 0 /lpf (0-5); Color Urine Yellow; Glucose Urine UA 3+ (Negative); Ketones Urine Negative (Negative); Leukocyte Esterase Urine Negative (Negative); Nitrite Urine Negative (Negative); Protein Urine 2+ (Negative); Urobilinogen Urine Negative (Negative); pH Urine 5.5 (4.5-7.5)
[2022-03-25] MEDS: TUBE FEEDING WATER FLUSH OG SCH ×2 (13:34→16:54)
[2022-03-25] MEDS: levETIRAcetam 500 MG TAB PO SCH ×2 (14:07→20:50)
[2022-03-25] MEDS: INSULIN ASPART PER UNIT SC SCH ×2 (14:08→18:45)
[2022-03-25] MEDS: PEPTAMEN INTENSE VHP 1.0 CAL 1,000 ML BAG OG SCH (14:12)
[2022-03-25] MEDS: ATORVASTATIN 40 MG TAB PO SCH (20:47)
[2022-03-25] MEDS: ENOXAPARIN INJ 40 MG/0.4 ML SYR SQ SCH (20:47)
[2022-03-25] MEDS: FAMOTIDINE 20 MG in SYRINGE 3 ML IV SCH (20:48)
[2022-03-25] MEDS: lamoTRIgine 25 MG TAB PO SCH (20:49)
[2022-03-25] MEDS: METOPROLOL TARTRATE 25 MG TAB PO SCH ×2 (20:51→20:54)
[2022-03-25] MEDS ORDERED: lamoTRIgine 25 MG TAB PO SCH (21:00)
[2022-03-25] MEDS ORDERED: buPROPion HCl 75 MG TABLET PO SCH (21:00)
--- NOTE | 2022-03-25 21:22 | Post Operative Brief Note ---
Immediate Post Op Note v1 Date of Surgery March 25, 2022 Pre & Post Diagnosis Operation Date: 03/25/22 08:00 Pre-Op Diagnosis: Throat and Airway swelling Post-Op Diagnosis: Throat and Airway swelling I identified the patient and participated in the time-out.: Yes Procedure Operation Date: 03/25/22 08:00 Actual Procedures p Awake Fiberoptic Intubation and Direct Laryngoscopy(Not Applicable) - Triston Paniagua MD Surgeon Triston Paniagua MD [employer] Work[employer] None. Estimated Blood Loss 0 Findings Consistent with Post-Op Diagnosis Angioedema of the Oropharynx / Hypopharynx and Larynx Fluids 400 ml Drains Mota Catheter (16 Fr. Silicone Mota catheter placed by Adele Salazar RN without difficulty. Draining clear yellow urine. ) Anesthesia Type General Complications none Disposition Accompanied Patient To Recovery: Yes Overlapping Procedure I was present for: the critical portions of procedure. (the entirety of the surgery / procedures.)
[2022-03-26] MEDS: propofoL 1,000 MG/100 ML VIAL IV SCH ×9 (00:41→20:51)
[2022-03-26] MEDS: INSULIN ASPART PER UNIT SC SCH ×4 (00:48→18:00)
[2022-03-26] MEDS: TUBE FEEDING WATER FLUSH OG SCH ×7 (00:49→20:55)
--- NOTE | 2022-03-26 05:24 | Operative Report (OR) ---
PREOPERATIVE DIAGNOSES: 1. Angioedema secondary to drug reaction, PAIGE inhibitor. 2. Oropharyngeal and hypopharyngeal angioedema. 3. Supraglottic angioedema with airway compromise. POSTOPERATIVE DIAGNOSES: 1. Angioedema secondary to drug reaction PAIGE inhibitor. 2. Oropharyngeal and hypopharyngeal angioedema. 3. Supraglottic angioedema with airway compromise. PROCEDURES: 1. Awake fiberoptic intubation. 2. Direct laryngoscopy. SURGEON: Triston Paniagua MD ANESTHESIA TYPE: General anesthesia with endotracheal intubation. ANESTHESIA STAFF. Bebeto Quinonez MD DESCRIPTION OF PROCEDURE: The patient was brought to the operating room. The patient identification, correct site, surgical safety timeout checklist was completed with entire operating team and then th e patient's oral airway was topicalized with nebulized lidocaine to topically numb the airway for a f iberoptic awake intubation. He was then given sedation therapy with ketamine and propofol during the procedure where the fiberoptic scope was passed directly into the oral cavity directed down the orop harynx into the hypopharynx where the angioedema of the oropharynx, hypopharynx was clearly noted, pa rticularly around the epiglottis and the arytenoids, but the vocal cords and the glottis were able to be visualized and moving, with the patient awake and the fiberoptic scope directed into the tracheal lumen successfully and a #7 cuffed endotracheal tube was then passed over the fiberoptic scope into the tracheal lumen and secured at the appropriate depth of 23 cm. This was then taped and secured wh ere the patient's general anesthesia was completely induced at this point, and once the airway was se cured, he remained in the supine position. A dental guard was put in place and the Dedo laryngoscope was then gently inserted into the oral cavi ty, directed to the oropharynx, noting the uvula edema, the oropharyngeal angioedema extending along the base of tongue and the epiglottis, particularly on the lingual surface and this angioedema extend ed onto the aryepiglottic folds and both arytenoids were quite edematous. The endotracheal tube was in the glottis, into the trachea lumen the airway, secured and there was no evidence of any abscess, but this was all consistent with angioedema secondary to medication reaction. The Dedo laryngoscope was then removed. Palpation of the oropharynx digitally and the base of tongue also were soft, again confirming this was more angioedema and not due to infection. The dental guard was then removed and the patient remained sedated with the orotracheal intubation until he would be able to be transferre d to the intensive care unit. ESTIMATED BLOOD LOSS: None. FLUID INFUSED: 400 mL of crystalloid IV. FINDINGS: Angioedema of the oropharynx, hypopharynx, and supraglottic structures with impending airwa y compromise. COMPLICATIONS: None. PACKS: None. DRAINS: None. CULTURES: None. PATHOLOGY: No specimens were taken. CONDITION: The patient tolerated the general anesthesia, the intubation and with his airway secured, he remained intubated and sedated on ventilatory support, while then being transferred from the opera ting table to the intensive care unit bed where he was then transported under monitored conditions wi th ventilatory assistance to the intensive care unit for further management. Job ID: [id number]
[2022-03-26] MEDS: fentaNYL citrate 100 MCG/2 ML VIAL IV PRN ×3 (05:28→09:30)
[2022-03-26 05:51] LABS: iSTAT Art Bld Gas pCO2 Correct 38 mmHg (35-46); iSTAT Art Bld Gas pH Corrected 7.386 (7.35-7.45); iSTAT Arterial Blood Gas HCO3 23 meg/L (19-24); iSTAT Arterial Blood Gas pCO2 39 mmHg (35-46); iSTAT Arterial Blood Gas pH 7.38 (7.35-7.45); iSTAT Arterial Blood Gas pO2 93 mmHg (80-95); iSTAT Arterial Blood Gas pO2 C 91; iSTAT Carbon Dioxide 24 mmol/L (24-31); iSTAT FiO2 30 %; iSTAT Hematocrit 42 % (42-52); iSTAT Hemoglobin 14.3 g/dl (14.0-18.0); iSTAT Potassium 3.8 mmol/L (3.3-5.0); iSTAT Site L Brachial; iSTAT Sodium 139 mmol/L (135-144)
[2022-03-26 06:48] LABS: Basophils # (auto) 0.04 K/uL (0-0.2); Basophils % (auto) 0.3 %; Eosinophils # (auto) 0.03 K/uL (0-0.50); Eosinophils % (auto) 0.2 %; Hematocrit (blood only) 42.6 % (40.1-51.0); Hemoglobin 14.4 g/dl (14.0-18.0); Immature Granulocytes # (auto) 0.13 K/uL (0.00-0.02); Immature Granulocytes % (auto) 0.9 %; Lymphocytes # (auto) 2.39 K/uL (1.2-3.4); Mean Corpuscular Hemoglobin 28.5 pg (25.0-34.0); Mean Corpuscular Hgb Conc 33.8 g/dL (32.0-36.0); Mean Corpuscular Volume 84.2 fL (80.0-100.0); Mean Platelet Volume 10.6 fL (9.4-12.4); Monocytes # (auto) 0.94 K/uL (0.24-0.82); Monocytes % (auto) 6.3 %; Neutrophils # (auto) 11.37 K/uL (1.4-6.5); Neutrophils % (auto) 76.3 %; Platelet Count 309 K/uL (130-400); RDW Coefficient of Variation 13.7 % (11.5-14.5); RDW Standard Deviation 42.1 fL (36.4-46.3); Red Blood Count 5.06 M/uL (4.63-6.08)
[2022-03-26 07:23] LABS: BUN Creatinine Ratio 20.2 (10-20); Calcium 9.7 mg/dl (8.5-10.1); Creatinine Clr Calc Pharmacy 78.3 ml/min; Est GFR (African American) 68.9 ml/min; Est GFR (Non-African American) 59.4 ml/min; Potassium 4.1 mmol/L (3.5-5.1)
[2022-03-26] MEDS: PROPOFOL BOLUS FROM BAG IV PRN ×2 (07:30→20:49)
--- NOTE | 2022-03-26 08:43 | Critical Care Progress Note ---
Date of Service March 26, 2022 Assessment & Plan (1) Angioedema: Plan: Reason Critically Ill: Impending airway collapse secondary to angioedema PLAN: Neuro: Analgesia: Fentanyl Sedation: -Dexmedetomidine: Discontinued secondary to bradycardia -Transition to Versed infusion secondary to patient being very agitated despite frequent Versed boluses -Ketamine 100 mg x 1 for direct laryngoscopy to evaluate for glottic edema Possible Seizure history -Restart Keppra 1500 twice daily Hold Wellbutrin XL Bipolar affective disorder -Lamictal 50 mg nightly -Zoloft 50 mg daily Resp: Ventilator dependent respiratory failure secondary to mechanical obstruction: Angioedema CV: Coronary artery disease -Continue aspirin, Lipitor, Plavix Fluids/Renal: Monitor electrolytes -Increase tube feeds to goal ID: Angioedema no indication for antibiotics GI/Nutrition: Tube feeds Prophylaxis: IV Pepcid Heme: DVT prophylaxis: Lovenox 40 mg daily Endocrine: ICU hyperglycemia protocol Vascular access: Peripheral IVs Code Status: Full code Disposition: ICU 12:00 on video laryngoscopy there is still significant edema to the glottic opening and arytenoids precluding safe extubation Admission and Anticipated Discharge Date Admission Date: March 25, 2022 Supervising Physician Co-Signing Physician Notes I have personally spent 35 minutes of critical care time in the direct management of this patient. This is a life/limb threatening event. This includes time spent evaluating patient, direct bedside care, chart review, placing orders, interpretation of diagnostic studies, discussion with consultants, patient, and/or family members regarding treatment decisions, as well as other required patient management activities. This time is exclusive of all separately billable procedures, and teaching time and separate from and in addition to any other critical care service time. Physical Exam Physical Exam: General: Sedated. nontoxic. Skin: Warm, dry, Head: Atraumatic Ears, nose, mouth and throat: airway obscured by endotracheal tube Neck: Mild fullness, normal external appearance of lips and tongue -Angioedema noted be in deep larynx pharyngeal structures Cardiovascular: Normal peripheral perfusion Respiratory: Ventilator settings reviewed Gastrointestinal: Non distended Musculoskeletal: No deformity Results & Data Results & Data ([facility]) Vital Signs (Past 12 Hours) Vital Signs Temp Pulse Resp BP Pulse Ox O2 Del Method FiO2 03/26/22 07:41 71 24 99 30 03/26/22 06:20 54 L 16 96 03/26/22 06:10 55 L 16 95 03/26/22 06:00 57 L 16 95 03/26/22 06:00 92/62 L 03/26/22 05:50 60 16 98 03/26/22 05:40 52 L 16 97 03/26/22 05:30 64 18 97 03/26/22 05:20 49 L 16 94 03/26/22 05:10 49 L 16 95 03/26/22 05:00 50 L 16 94 03/26/22 05:00 87/62 L 03/26/22 04:50 51 L 16 95 03/26/22 04:40 51 L 16 95 03/26/22 04:30 51 L 16 95 03/26/22 04:20 53 L 16 95 03/26/22 04:10 49 L 16 95 03/26/22 04:00 50 L 16 96 03/26/22 04:00 94/66 L 03/26/22 03:50 61 17 98 03/26/22 03:40 49 L 16 97 03/26/22 03:30 48 L 16 97 03/26/22 03:20 51 L 14 97 03/26/22 03:10 49 L 14 97 03/26/22 03:00 45 L 16 97 03/26/22 03:00 94/68 L 03/26/22 02:50 50 L 16 96 03/26/22 02:40 49 L 16 96 03/26/22 02:30 50 L 16 96 03/26/22 02:20 52 L 16 95 03/26/22 02:10 51 L 16 96 03/26/22 02:00 52 L 16 96 03/26/22 02:00 83/64 L 03/26/22 01:50 52 L 16 95 03/26/22 01:40 55 L 16 94 03/26/22 01:30 56 L 16 93 03/26/22 01:20 64 19 95 03/26/22 01:10 57 L 16 87 L 03/26/22 01:00 59 L 16 88 L 03/26/22 01:00 93/67 L 03/26/22 00:50 63 16 92 03/26/22 00:40 46 L 16 96 03/26/22 00:30 43 L 16 95 03/26/22 00:20 42 L 14 95 03/26/22 00:10 42 L 16 95 03/26/22 00:00 46 L 16 95 03/26/22 00:00 100/69 03/25/22 23:50 46 L 14 95 03/25/22 23:40 44 L 16 95 03/25/22 23:30 42 L 16 95 03/25/22 23:20 43 L 14 95 03/26/22 04:10 36.7 C 03/26/22 04:00 30 03/26/22 02:50 50 L 16 96 30 03/26/22 00:00 44 L 03/26/22 01:02 36.5 C 03/25/22 22:32 44 L 16 96 30 03/25/22 23:10 44 L 16 96 03/25/22 23:00 41 L 16 96 03/25/22 23:00 100/69 03/25/22 22:50 42 L 14 96 03/25/22 22:40 42 L 16 96 03/25/22 22:30 41 L 16 96 03/25/22 22:20 41 L 14 96 03/25/22 22:10 40 L 16 97 03/25/22 22:05 123/81 03/25/22 22:05 43 L 14 97 03/25/22 22:00 41 L 16 97 03/25/22 22:00 122/80 03/25/22 21:55 128/79 03/25/22 21:55 41 L 16 97 03/25/22 21:50 42 L 14 97 03/25/22 21:50 129/79 03/25/22 21:45 128/83 03/25/22 21:45 42 L 16 97 03/25/22 21:40 41 L 16 97 03/25/22 21:40 127/79 03/25/22 21:35 41 L 14 97 03/25/22 21:35 125/77 03/25/22 21:30 42 L 16 97 03/25/22 21:30 124/78 03/25/22 21:25 125/79 03/25/22 21:25 36.0 C L 41 L 16 97 03/25/22 21:20 42 L 14 97 03/25/22 21:20 128/79 03/25/22 21:15 42 L 16 97 03/25/22 21:15 124/78 03/25/22 21:10 42 L 16 97 03/25/22 21:10 124/81 03/25/22 21:05 123/81 03/25/22 21:05 46 L 14 97 03/25/22 21:00 44 L 16 97 03/25/22 21:00 122/81 03/25/22 20:55 42 L 16 96 03/25/22 20:55 121/78 03/25/22 20:50 44 L 14 96 03/25/22 20:50 120/80 03/25/22 20:45 112/79 03/25/22 20:45 45 L 16 96 03/26/22 00:00 30 03/25/22 23:23 Mechanical Vent 30 Coding Level of Care Code Critical Care 1st 30-74 mins Diagnoses Angioedema T78.3XXA
--- NOTE | 2022-03-26 09:33 | XRay Report ---
XR chest 1V portable CLINICAL HISTORY: Respiratory failure. COMPARISON STUDY: Chest CT and chest radiograph November 18, 2010. FINDINGS: Tip of feeding tube projects over the gastric cardia. The tube is likely coiled within the stomach. Lung volumes are mildly diminished. There is no pneumothorax. No pleural effusion is identif ied. There are bibasilar opacities, greater on the left. No evidence for pulmonary edema. IMPRESSION: 1. Bibasilar opacities, greater on the left. The findings could reflect atelectasis or consolidation. 2. Tip of feeding tube projects over the gastric cardia. Tip likely coiled within the stomach. ACT 112: Negative or not required by law. Electronically signed by: Domenico Garvin M.D. 03/26/2022 9:31 AM
[2022-03-26] MEDS: FAMOTIDINE 20 MG in SYRINGE 3 ML IV SCH ×2 (09:46→20:56)
[2022-03-26] MEDS: PANTOprazole 40 MG TAB PO SCH (09:46)
[2022-03-26] MEDS: levETIRAcetam 500 MG TAB PO SCH ×2 (09:46→20:54)
[2022-03-26] MEDS: CLOPIDOGREL BISULFATE 75 MG TAB PO SCH (09:46)
[2022-03-26] MEDS: SERTRALINE HCL 50 MG TABLET PO SCH (09:46)
[2022-03-26] MEDS: MULTI VIT W/MINERALS LIQUID 15 ML UDP NG SCH (09:46)
[2022-03-26] MEDS ORDERED: STAT IV Infusion **Titration per Protocol STA ×2 (10:13→10:14)
[2022-03-26] MEDS ORDERED: KETAMINE HCL INJ 50 MG/ML 10 ML VIAL IV STA (10:16)
[2022-03-26] MEDS: METOPROLOL TARTRATE 25 MG TAB PO SCH ×2 (10:20→20:53)
[2022-03-26] MEDS: ASPIRIN 81 MG ECTAB PO SCH (10:21)
[2022-03-26] MEDS: dexMEDEtomidine 200 MCG/50 ML BAG IV SCH ×2 (10:22→11:36)
[2022-03-26] MEDS: fentaNYL citrate 2,500 MCG/250 ML BAG IV SCH (10:54)
[2022-03-26] MEDS: MIDAZOLAM HCL 125 MG/250 ML BAG IV SCH (10:56)
[2022-03-26] MEDS: fentaNYL BOLUS from BAG IV PRN ×6 (11:51→20:30)
[2022-03-26] MEDS: MIDAZOLAM BOLUS FROM BAG IV PRN ×5 (12:21→20:30)
--- NOTE | 2022-03-26 12:44 | Ears,Nose,Throat Progress Note ---
Date of Service March 26, 2022 Assessment & Plan (1) Supraglottitis: Plan: Keep Intubated and continuing with Sedation due to patient becoming uncooperative for Airway management. Not yet ready for extubation. (2) Angioedema: Plan: Keep Intubated and continuing with Sedation due to patient becoming uncooperative for Airway management. Not yet ready for extubation. Admission and Anticipated Discharge Date Admission Date: March 25, 2022 Subjective Day 2 after intubation for impending airway obstruction due to ANGIOEDEMA of the Oropharynx / Hypopharynx & Larynx secondary to medication (PAIGE Inhibitor - LISINOPRIL) Physical Exam Physical Exam: Patient is Intubated still -on Vent with Sedation ENMT: Endotracheal Tube in place. Oropharyngeal / Laryngeal ANGIOEDEMA not yet resolved. Neck: Still with doughy neck. Results & Data ([facility]) Vital Signs (Past 12 Hours) Vital Signs Temp Pulse Resp BP Pulse Ox FiO2 03/26/22 10:56 70 19 96 30 03/26/22 07:41 71 24 99 30 03/26/22 06:20 54 L 16 96 03/26/22 06:10 55 L 16 95 03/26/22 06:00 57 L 16 95 03/26/22 06:00 92/62 L 03/26/22 05:50 60 16 98 03/26/22 05:40 52 L 16 97 03/26/22 05:30 64 18 97 03/26/22 05:20 49 L 16 94 03/26/22 05:10 49 L 16 95 03/26/22 05:00 50 L 16 94 03/26/22 05:00 87/62 L 03/26/22 04:50 51 L 16 95 03/26/22 04:40 51 L 16 95 03/26/22 04:30 51 L 16 95 03/26/22 04:20 53 L 16 95 03/26/22 04:10 49 L 16 95 03/26/22 04:00 50 L 16 96 03/26/22 04:00 94/66 L 03/26/22 03:50 61 17 98 03/26/22 03:40 49 L 16 97 03/26/22 03:30 48 L 16 97 03/26/22 03:20 51 L 14 97 03/26/22 03:10 49 L 14 97 03/26/22 03:00 45 L 16 97 03/26/22 03:00 94/68 L 03/26/22 02:50 50 L 16 96 03/26/22 02:40 49 L 16 96 03/26/22 02:30 50 L 16 96 03/26/22 02:20 52 L 16 95 03/26/22 02:10 51 L 16 96 03/26/22 02:00 52 L 16 96 03/26/22 02:00 83/64 L 03/26/22 01:50 52 L 16 95 03/26/22 01:40 55 L 16 94 03/26/22 01:30 56 L 16 93 03/26/22 01:20 64 19 95 03/26/22 01:10 57 L 16 87 L 03/26/22 01:00 59 L 16 88 L 03/26/22 01:00 93/67 L 03/26/22 00:50 63 16 92 03/26/22 00:40 46 L 16 96 03/26/22 04:10 36.7 C 03/26/22 04:00 30 03/26/22 02:50 50 L 16 96 30 03/26/22 01:02 36.5 C (1) Angioedema Encounter type: initial encounter Qualified Code(s): T78.3XXA - Angioneurotic edema, initial encounter
--- NOTE | 2022-03-26 12:50 | Hospitalist Progress Note ---
Date of Service March 26, 2022 Assessment & Plan (1) Angioedema: Plan 62-year-old male is being managed for the followin) Angioedema: Plan: Unclear etiology, and believe this is the first episode. Angioedema in the thro at and scrotum without urticaria at presentation. 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 No evidence of infection. Normal TSH September 2021. Patient intubated, being managed in ICU, C4 and C1 esterase inhibitor level pending. ENT also on board. Appreciate recommendation. Avoid PAIGE in future, already added to allergy list. Patient will need follow-up with dispatcher electric power once discharged. (2) Single vessel coronary disease: Plan: chronic, stable, no chest pain (3) T2DM (type 2 diabetes mellitus): Plan: hold jardiance and metformin, insulin per hyperglycemia protocol. On sliding scale insulin. Per glycemic pharmacist. (4) HTN (hypertension): Plan: chronic, at goal. Avoid PAIGE inhibitors at this point, monitor. (5) History of cannabis dependence/abuse: Plan: Noted daily use. Monitor for withdrawal. Educate about the importance of smoking cessation. (6) Seizure disorder: Plan: chronic, stable. Would hold any bupropion and consider discontinuing at discharge as this lowers the seizure threshold. (7) Bipolar affective disorder: Plan: Continues on lamotrigine and sertraline. (8) DVT prophylaxis: Lovenox GI proph-Protonix and pepcid BID Full Code Dispo-to home when angioedema has resolved. Admission and Anticipated Discharge Date Admission Date: March 25, 2022 Subjective Patient seen and examined at bedside as a follow-up of angioedema requiring intubation 03/25. Patient was lying in bed, awake and calm on propofol and Precedex, intubated, indicated discomfort in throat, ROS n/a due to intubation status. Patient is on CPAP trial at bedside exam. Vitals stable. Physical Exam Physical Exam: GENERAL: Alert and calm, intubated, precedex and propofol drip noted. HEENT: No pallor, no icterus. Pupils equal, round and reactive to light. Oral mucosa dry. Intubated. NECK: No JVD, no neck masses. HEART: S1 and S2 heard. Regular rate and rhythm. No murmur, no gallop. RESPIRATORY SYSTEM: Normal AP diameter. No accessory muscle use. No wheezing, no crackles. On spontaneous trial. ABDOMEN: Soft, bowel sounds present, nontender, no distention. CENTRAL NERVOUS SYSTEM: No facial droop. Speech is clear. Obeys simple commands. Moves extremities. EXTREMITIES: No edema, no erythema seen. Results & Data Results & Data ([facility]) Vital Signs (Past 12 Hours) Vital Signs Temp Pulse Resp BP Pulse Ox FiO2 03/26/22 10:56 70 19 96 30 03/26/22 07:41 71 24 99 30 03/26/22 06:20 54 L 16 96 03/26/22 06:10 55 L 16 95 03/26/22 06:00 57 L 16 95 03/26/22 06:00 92/62 L 03/26/22 05:50 60 16 98 03/26/22 05:40 52 L 16 97 03/26/22 05:30 64 18 97 03/26/22 05:20 49 L 16 94 03/26/22 05:10 49 L 16 95 03/26/22 05:00 50 L 16 94 03/26/22 05:00 87/62 L 03/26/22 04:50 51 L 16 95 03/26/22 04:40 51 L 16 95 03/26/22 04:30 51 L 16 95 03/26/22 04:20 53 L 16 95 03/26/22 04:10 49 L 16 95 03/26/22 04:00 50 L 16 96 03/26/22 04:00 94/66 L 03/26/22 03:50 61 17 98 03/26/22 03:40 49 L 16 97 03/26/22 03:30 48 L 16 97 03/26/22 03:20 51 L 14 97 03/26/22 03:10 49 L 14 97 03/26/22 03:00 45 L 16 97 03/26/22 03:00 94/68 L 03/26/22 02:50 50 L 16 96 03/26/22 02:40 49 L 16 96 03/26/22 02:30 50 L 16 96 03/26/22 02:20 52 L 16 95 03/26/22 02:10 51 L 16 96 03/26/22 02:00 52 L 16 96 03/26/22 02:00 83/64 L 09/28/22 01:50 52 L 16 95 03/26/22 01:40 55 L 16 94 03/26/22 01:30 56 L 16 93 03/26/22 01:20 64 19 95 03/26/22 01:10 57 L 16 87 L 03/26/22 01:00 59 L 16 88 L 03/26/22 01:00 93/67 L 03/26/22 00:50 63 16 92 03/26/22 04:10 36.7 C 03/26/22 04:00 30 03/26/22 02:50 50 L 16 96 30 03/26/22 01:02 36.5 C (1) Angioedema Encounter type: initial encounter Qualified Code(s): T78.3XXA - Angioneurotic edema, initial encounter
[2022-03-26] MEDS: ATORVASTATIN 40 MG TAB PO SCH (20:54)
[2022-03-26] MEDS: lamoTRIgine 25 MG TAB PO SCH (20:54)
[2022-03-26] MEDS: ENOXAPARIN INJ 40 MG/0.4 ML SYR SQ SCH (20:54)
[2022-03-27] MEDS: propofoL 1,000 MG/100 ML VIAL IV SCH ×9 (00:05→23:56)
[2022-03-27] MEDS: TUBE FEEDING WATER FLUSH OG SCH ×6 (00:06→20:41)
[2022-03-27] MEDS: INSULIN ASPART PER UNIT SC SCH ×5 (00:06→23:59)
[2022-03-27] MEDS: fentaNYL BOLUS from BAG IV PRN ×10 (01:15→21:05)
[2022-03-27] MEDS: MIDAZOLAM BOLUS FROM BAG IV PRN ×9 (01:15→22:55)
[2022-03-27 05:09] LABS: Basophils # (auto) 0.07 K/uL (0-0.2); Basophils % (auto) 0.6 %; Eosinophils % (auto) 1.6 %; Hematocrit (blood only) 39.7 % (40.1-51.0); Hemoglobin 13.2 g/dl (14.0-18.0); Immature Granulocytes # (auto) 0.09 K/uL (0.00-0.02); Immature Granulocytes % (auto) 0.7 %; Lymphocytes # (auto) 2.72 K/uL (1.2-3.4); Lymphocytes % (auto) 22.4 %; Mean Corpuscular Hemoglobin 28.7 pg (25.0-34.0); Mean Corpuscular Hgb Conc 33.2 g/dL (32.0-36.0); Mean Corpuscular Volume 86.3 fL (80.0-100.0); Mean Platelet Volume 10.3 fL (9.4-12.4); Monocytes # (auto) 1.07 K/uL (0.24-0.82); Monocytes % (auto) 8.8 %; Neutrophils % (auto) 65.9 %; Platelet Count 281 K/uL (130-400); RDW Standard Deviation 43.8 fL (36.4-46.3); White Blood Count 12.15 K/ul (4.8-10.8)
[2022-03-27 05:27] LABS: BUN Creatinine Ratio 20.8 (10-20); Calcium 8.3 mg/dl (8.5-10.1); Creatinine Clr Calc Pharmacy 84.2 ml/min; Est GFR (African American) 75.2 ml/min; Est GFR (Non-African American) 64.9 ml/min; Phosphorus 4.2 mg/dl (2.5-4.9); Potassium 3.8 mmol/L (3.5-5.1)
[2022-03-27 05:46] LABS: iSTAT Allen Test Pass; iSTAT Art Bld Gas pCO2 Correct 38 mmHg (35-46); iSTAT Arterial Blood Gas HCO3 22 meg/L (19-24); iSTAT Arterial Blood Gas pCO2 37 mmHg (35-46); iSTAT Arterial Blood Gas pH 7.38 (7.35-7.45); iSTAT Arterial Blood Gas pO2 73 mmHg (80-95); iSTAT Arterial Blood Gas pO2 C 75; iSTAT Carbon Dioxide 23 mmol/L (24-31); iSTAT FiO2 30 %; iSTAT Hematocrit 38 % (42-52); iSTAT Hemoglobin 12.9 g/dl (14.0-18.0); iSTAT Potassium 3.6 mmol/L (3.3-5.0); iSTAT Site L Radial; iSTAT Sodium 137 mmol/L (135-144)
[2022-03-27] MEDS: PROPOFOL BOLUS FROM BAG IV PRN (06:00)
--- NOTE | 2022-03-27 08:01 | Critical Care Progress Note ---
Date of Service March 27, 2022 Assessment & Plan (1) Angioedema: Plan: Reason Critically Ill: Impending airway collapse secondary to angioedema PLAN: Neuro: Analgesia: Fentanyl Sedation: -Dexmedetomidine: Discontinued secondary to bradycardia -Transition to Versed infusion secondary to patient being very agitated despite frequent Versed boluses Possible Seizure history -Restart Keppra 1500 twice daily Hold Wellbutrin XL Bipolar affective disorder -Lamictal 50 mg nightly -Zoloft 50 mg daily Resp: Ventilator dependent respiratory failure secondary to mechanical obstruction: Angioedema CV: Coronary artery disease -Continue aspirin, Lipitor, Plavix Fluids/Renal: Monitor electrolytes -Increase tube feeds to goal ID: Angioedema no indication for antibiotics GI/Nutrition: Tube feeds Prophylaxis: IV Pepcid Heme: DVT prophylaxis: Lovenox 40 mg daily Endocrine: ICU hyperglycemia protocol Vascular access: Peripheral IVs Code Status: Full code Disposition: ICU I have updated the sister regarding diagnosis and prognosis Admission and Anticipated Discharge Date Admission Date: March 25, 2022 Supervising Physician Co-Signing Physician Notes I have personally spent 35 minutes of critical care time in the direct management of this patient. This is a life/limb threatening event. This includes time spent evaluating patient, direct bedside care, chart review, placing orders, interpretation of diagnostic studies, discussion with consultants, patient, and/or family members regarding treatment decisions, as well as other required patient management activities. This time is exclusive of all separately billable procedures, and teaching time and separate from and in addition to any other critical care service time. Subjective No overnight events, minimal air leak Review of Systems Review of Systems: Unobtainable due to endotracheal tube Physical Exam Physical Exam: General: Sedated. nontoxic. Skin: Warm, dry, Head: Atraumatic Ears, nose, mouth and throat: airway obscured by endotracheal tube Neck: Mild fullness, normal external appearance of lips and tongue -Angioedema noted be in deep larynx pharyngeal structures Cardiovascular: Normal peripheral perfusion Respiratory: Ventilator settings reviewed Gastrointestinal: Non distended Musculoskeletal: No deformity Results & Data Results & Data ([facility]) Vital Signs (Past 12 Hours) Vital Signs Temp Pulse Resp BP Pulse Ox O2 Del Method FiO2 03/27/22 07:27 63 16 93 30 03/27/22 07:00 37.7 C H 61 16 95 03/27/22 07:00 103/71 03/27/22 06:31 37.5 C 69 15 96 03/27/22 06:31 114/84 03/27/22 06:00 37.4 C 60 16 95 03/27/22 06:00 102/68 03/27/22 05:30 96/66 L 03/27/22 05:30 37.4 C 64 16 95 03/27/22 05:00 37.3 C 63 16 95 03/27/22 05:00 93/61 L 03/27/22 04:30 37.2 C 62 16 97 03/27/22 04:30 116/75 03/27/22 04:00 37.3 C 59 L 16 98 03/27/22 04:00 100/70 03/27/22 03:30 37.3 C 63 16 98 03/27/22 03:30 95/62 L 03/27/22 04:00 30 03/27/22 03:28 64 16 98 30 03/27/22 03:00 37.4 C 63 17 98 03/27/22 03:00 104/66 03/27/22 02:30 37.4 C 61 16 96 03/27/22 02:30 110/72 03/27/22 02:03 37.6 C H 61 16 97 03/27/22 01:30 37.5 C 63 16 96 03/27/22 01:30 112/78 03/27/22 01:00 37.6 C H 67 16 95 03/27/22 01:00 121/83 03/27/22 00:30 37.5 C 67 16 96 03/27/22 00:30 102/73 03/27/22 00:00 37.6 C H 67 16 96 03/27/22 00:00 102/71 03/26/22 23:30 37.9 C H 69 16 95 03/26/22 23:30 102/71 03/26/22 23:00 37.8 C H 67 16 94 03/26/22 23:00 112/69 03/27/22 00:00 30 03/26/22 23:30 69 03/26/22 22:57 Mechanical Vent 30 03/26/22 22:54 68 16 95 30 03/26/22 22:30 37.7 C H 74 16 92 03/26/22 22:30 104/70 03/26/22 22:00 37.7 C H 71 16 92 03/26/22 22:00 107/68 03/26/22 21:30 37.6 C H 72 16 95 03/26/22 21:30 100/75 03/26/22 21:00 37.5 C 74 16 95 03/26/22 21:00 117/76 03/26/22 20:30 37.5 C 68 16 96 03/26/22 20:30 129/74 Critical Care Results & Data Vital Signs (Past 12 Hours) Vital Signs Temp Pulse Resp BP Pulse Ox O2 Del Method FiO2 03/27/22 07:27 63 16 93 30 03/27/22 07:00 37.7 C H 61 16 95 03/27/22 07:00 103/71 03/27/22 06:31 37.5 C 69 15 96 03/27/22 06:31 114/84 03/27/22 06:00 37.4 C 60 16 95 03/27/22 06:00 102/68 03/27/22 05:30 96/66 L 03/27/22 05:30 37.4 C 64 16 95 03/27/22 05:00 37.3 C 63 16 95 03/27/22 05:00 93/61 L 03/27/22 04:30 37.2 C 62 16 97 03/27/22 04:30 116/75 03/27/22 04:00 37.3 C 59 L 16 98 03/27/22 04:00 100/70 03/27/22 03:30 37.3 C 63 16 98 03/27/22 03:30 95/62 L 03/27/22 04:00 30 03/27/22 03:28 64 16 98 30 03/27/22 03:00 37.4 C 63 17 98 03/27/22 03:00 104/66 03/27/22 02:30 37.4 C 61 16 96 03/27/22 02:30 110/72 03/27/22 02:03 37.6 C H 61 16 97 03/27/22 01:30 37.5 C 63 16 96 03/27/22 01:30 112/78 03/27/22 01:00 37.6 C H 67 16 95 03/27/22 01:00 121/83 03/27/22 00:30 37.5 C 67 16 96 03/27/22 00:30 102/73 03/27/22 00:00 37.6 C H 67 16 96 03/27/22 00:00 102/71 03/26/22 23:30 37.9 C H 69 16 95 03/26/22 23:30 102/71 03/26/22 23:00 37.8 C H 67 16 94 03/26/22 23:00 112/69 03/27/22 00:00 30 03/26/22 23:30 69 03/26/22 22:57 Mechanical Vent 30 03/26/22 22:54 68 16 95 30 03/26/22 22:30 37.7 C H 74 16 92 03/26/22 22:30 104/70 03/26/22 22:00 37.7 C H 71 16 92 03/26/22 22:00 107/68 03/26/22 21:30 37.6 C H 72 16 95 03/26/22 21:30 100/75 03/26/22 21:00 37.5 C 74 16 95 03/26/22 21:00 117/76 03/26/22 20:30 37.5 C 68 16 96 03/26/22 20:30 129/74 Lab & Micro Results (Past 24 Hours) RBC 4.59 M/uL (4.63-6.08) L 03/28/22 WBC 11.57 K/ul (4.8-10.8) H 03/28/22 Hgb 13.0 g/dl (14.0-18.0) L 03/28/22 Hct 39.6 % (40.1-51.0) L 03/28/22 MCV 86.3 fL (80.0-100.0) 03/28/22 MCH 28.3 pg (25.0-34.0) 03/28/22 MCHC 32.8 g/dL (32.0-36.0) 03/28/22 RDW Standard Deviation 43.7 fL (36.4-46.3) 03/28/22 RDW Coefficient of Variation 13.8 % (11.5-14.5) 03/28/22 Plt Count 272 K/uL (130-400) 03/28/22 MPV 10.4 fL (9.4-12.4) 03/28/22 Neutrophils (%) (Auto) 77.2 % 03/28/22 Lymphocytes (%) (Auto) 11.7 % 03/28/22 Monocytes # (Auto) 0.85 K/uL (0.24-0.82) H 03/28/22 Eosinophils # (Auto) 0.32 K/uL (0-0.50) 03/28/22 Immature Granulocyte % (Auto) 0.5 % 03/28/22 Neutrophils # (Auto) 8.93 K/uL (1.4-6.5) H 03/28/22 Lymphocytes # (Auto) 1.35 K/uL (1.2-3.4) 03/28/22 Monocytes # (Auto) 0.85 K/uL (0.24-0.82) H 03/28/22 Eosinophils # (Auto) 0.32 K/uL (0-0.50) 03/28/22 Basophils # (Auto) 0.06 K/uL (0-0.2) 03/28/22 Immature Granulocyte # (Auto) 0.06 K/uL (0.00-0.02) H 03/28 Na 134 mmol/L (136-145) L 03/28/22 K 3.6 mmol/L (3.5-5.1) 03/28/22 Cl 104 mmol/L (98-107) 03/28/22 CO2 21 mmol/L (21-32) 03/28/22 Anion Gap 9 (3-11) 03/28/22 BUN 21 mg/dl (6-23) 03/28/22 Creatinine 1.24 mg/dl (0.6-1.4) 03/28/22 Estimated GFR ( Amer) 72.3 ml/min 03/28/22 Estimated GFR (Non-Af Amer) 62.4 ml/min 03/28/22 BUN/Creatinine Ratio 16.9 (10-20) 03/28/22 Glu 185 mg/dl (70-99(Fasting)) H 03/28/22 Ca 9.1 mg/dl (8.5-10.1) 03/28/22 Phosphorus Level 4.0 mg/dl (2.5-4.9) 03/28/22 Mg 2.1 mg/dl (1.7-2.4) 03/28/22 04:59 Calcium Level 9.1 mg/dl (8.5-10.1) 03/28/22 04:59 Diagnostic Findings (Past 24 Hours) Chest X-Ray 03/26/22 07:00 XR chest 1V portable CLINICAL HISTORY: Respiratory failure. COMPARISON STUDY: Chest CT and chest radiograph November 18, 2010. FINDINGS: Tip of feeding tube projects over the gastric cardia. The tube is likely coiled within the stomach. Lung volumes are mildly diminished. There is no pneumothorax. No pleural effusion is identified. There are bibasilar opacities, greater on the left. No evidence for pulmonary edema. IMPRESSION: 1. Bibasilar opacities, greater on the left. The findings could reflect atelectasis or consolidation. 2. Tip of feeding tube projects over the gastric cardia. Tip likely coiled within the stomach. ACT 112: Negative or not required by law. Electronically signed by: Domenico Garvin M.D. 03/26/2022 9:31 AM I & O Totals 24 Hours 03/26/22 03/27/22 03/28/22 06:59 06:59 06:59 Intake Total 1855.349 / 1194.859 7827.997 / 1087.997 Output Total 2075 / 2075 3600 / 3600 Balance -219.651 / -219.651 -2512.003 / -2512.003 Cumulative 03/25/22 03:23 thru 03/27/22 06:55 Intake Total 2943.346 Output Total 5675 Balance -2731.654 RT Ventilator Mngmt (Last Documented) Ventilator Ordered Settings Ventilator Support Mode Assist Control 03/27/22 07:27 Respiratory Rate 16 03/27/22 07:27 Ventilator Tidal Volume 480 03/27/22 07:27 Setting Minute Ventilation 7.5 03/27/22 07:27 Ventilator Positive Pressure 5 03/27/22 00:00 Support Setting Positive End Expiratory 5 03/27/22 07:27 Pressure Fraction of Inspired Oxygen 30 03/27/22 07:27 Ventilator - PT Measurements Respiratory Rate 16 Exhaled Tidal Volume 480 Minute Ventilation 7.5 Peak Inspiratory Airway 26 Pressure Mean Airway Pressure 30 Plateau Pressure 13 Respiratory Cycle Inspiratory: 1:3.7 Expiratory Ratio Inspiratory Phase Time 0.8 End-Tidal CO2 32 Static Lung Compliance 60.00 Dynamic Lung Compliance 22.86 Normal Static Lung Compliance 46.00 Coding Level of Care Code Critical Care 1st 30-74 mins Diagnoses Angioedema T78.3XXA
[2022-03-27] MEDS: MULTI VIT W/MINERALS LIQUID 15 ML UDP NG SCH (08:10)
[2022-03-27] MEDS: CLOPIDOGREL BISULFATE 75 MG TAB PO SCH (08:10)
[2022-03-27] MEDS: SERTRALINE HCL 50 MG TABLET PO SCH (08:11)
[2022-03-27] MEDS: METOPROLOL TARTRATE 25 MG TAB PO SCH ×2 (08:11→21:11)
[2022-03-27] MEDS: levETIRAcetam 500 MG TAB PO SCH ×2 (08:11→21:11)
[2022-03-27] MEDS: FAMOTIDINE 20 MG in SYRINGE 3 ML IV SCH ×2 (08:13→21:15)
[2022-03-27] MEDS: ASPIRIN 81 MG ECTAB PO SCH (09:00)
[2022-03-27] MEDS ORDERED: KETAMINE HCL INJ 50 MG/ML 10 ML VIAL IV STA (10:17)
[2022-03-27] MEDS: ALBUTEROL 0.083% NEBU SOLN 3 ML VIAL NEB PRN (10:51)
[2022-03-27] MEDS: ACETAMINOPHEN 1,000 MG/100 ML VIAL IV PRN ×2 (11:00→21:14)
[2022-03-27] MEDS: ASPIRIN 81 MG CHEW NG SCH ×2 (11:01→11:11)
[2022-03-27] MEDS: fentaNYL citrate 2,500 MCG/250 ML BAG IV SCH (11:01)
--- NOTE | 2022-03-27 13:30 | Hospitalist Progress Note ---
Date of Service March 27, 2022 Assessment & Plan (1) Angioedema: Plan 62-year-old male is being managed for the followin) Angioedema: Plan: Unclear etiology and believe this is the first episode. Angioedema in the throat and scrotum without urticaria at presentation. 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 Normal TSH September 2021. Patient intubated Mechanical ventilator management per ICU physician C4 and C1 esterase inhibitor level pending. ENT recommendations noted Avoid ACEI in the future Patient will need follow-up with elevator repairer apprentice once discharged. (2) Single vessel coronary disease: Chronic, stable Continue ASA, plavix, statin (3) T2DM (type 2 diabetes mellitus): Hold jardiance and metformin Insulin per hyperglycemia protocol. On sliding scale insulin. Per glycemic pharmacist. (4) HTN (hypertension): Stable Avoid PAIGE inhibitors at this point, monitor. (5) History of cannabis dependence/abuse: Daily use reported Monitor for withdrawal. (6) Seizure disorder: Chronic, stable. Continue to hold bupropion and consider discontinuing at discharge as this lowers the seizure threshold. Continue keppra (7) Bipolar affective disorder: Continues on lamotrigine and sertraline. (8) DVT prophylaxis: Lovenox GI proph-Protonix and pepcid BID Full Code Admission and Anticipated Discharge Date Admission Date: March 25, 2022 Subjective Patient seen and examined. Patient is currently intubated and sedated. Hence ROS is limited Physical Exam Constitutional: + well hydrated; no acute distress Intubated Eyes: PERRL ENMT: ETT in situ NGT in situ Respiratory: On ventilator, good air entry bilaterally Cardiovascular: Rate/Rhythm: regular rhythm and + tachycardic S1 S2 Gastrointestinal (Abdomen): normal bowel sounds, soft, nontender, no hepatosplenomegaly Musculoskeletal: No pedal edema Neurologic: Sedated and mechanically ventilated Neuro exam limited Genitourinary: Mota in situ Results & Data Results & Data ([facility]) Vital Signs (Past 12 Hours) Vital Signs Temp Pulse Pulse Resp BP Pulse Ox O2 Del Method 03/27/22 13:00 38.2 C H 106 H 16 93 03/27/22 12:30 120/68 03/27/22 12:30 38.3 C H 102 H 16 03/27/22 12:00 38.4 C H 112 H 18 03/27/22 12:00 130/86 03/27/22 11:30 136/79 03/27/22 11:30 38.3 C H 113 H 22 91 03/27/22 11:00 38.1 C H 90 14 03/27/22 11:00 136/71 03/27/22 10:30 132/86 03/27/22 10:30 38.1 C H 78 22 100 03/27/22 10:00 38.1 C H 69 14 03/27/22 10:00 118/72 03/27/22 10:53 96 H 16 95 03/27/22 10:51 94 H 26 H 95 Mechanical Vent 03/27/22 09:30 111/73 03/27/22 09:30 38.1 C H 67 14 03/27/22 09:00 37.9 C H 64 16 100 03/27/22 09:00 120/76 03/27/22 08:31 37.7 C H 77 19 100 03/27/22 08:31 147/94 H 03/27/22 08:00 37.6 C H 65 16 03/27/22 08:00 107/68 03/27/22 07:30 105/72 03/27/22 07:30 37.6 C H 63 16 03/27/22 08:00 03/27/22 08:00 Mechanical Vent 03/27/22 08:00 66 03/27/22 07:27 63 16 93 03/27/22 07:00 37.7 C H 61 16 95 03/27/22 07:00 103/71 03/27/22 06:31 37.5 C 69 15 96 03/27/22 06:31 114/84 03/27/22 06:00 37.4 C 60 16 95 03/27/22 06:00 102/68 03/27/22 05:30 96/66 L 03/27/22 05:30 37.4 C 64 16 95 03/27/22 05:00 37.3 C 63 16 95 03/27/22 05:00 93/61 L 03/27/22 04:30 37.2 C 62 16 97 03/27/22 04:30 116/75 03/27/22 04:00 37.3 C 59 L 16 98 03/27/22 04:00 100/70 03/27/22 03:30 37.3 C 63 16 98 03/27/22 03:30 95/62 L 03/27/22 04:00 03/27/22 03:28 64 16 98 03/27/22 03:00 37.4 C 63 17 98 03/27/22 03:00 104/66 03/27/22 02:30 37.4 C 61 16 96 03/27/22 02:30 110/72 03/27/22 02:03 37.6 C H 61 16 97 03/27/22 01:30 37.5 C 63 16 96 03/27/22 01:30 112/78 FiO2 03/27/22 13:00 03/27/22 12:30 03/27/22 12:30 03/27/22 12:00 03/27/22 12:00 03/27/22 11:30 03/27/22 11:30 03/27/22 11:00 03/27/22 11:00 03/27/22 10:30 03/27/22 10:30 03/27/22 10:00 03/27/22 10:00 03/27/22 10:53 30 03/27/22 10:51 30 03/27/22 09:30 03/27/22 09:30 03/27/22 09:00 03/27/22 09:00 03/27/22 08:31 03/27/22 08:31 03/27/22 08:00 03/27/22 08:00 03/27/22 07:30 03/27/22 07:30 03/27/22 08:00 30 03/27/22 08:00 03/27/22 08:00 03/27/22 07:27 30 03/27/22 07:00 03/27/22 07:00 03/27/22 06:31 03/27/22 06:31 03/27/22 06:00 03/27/22 06:00 03/27/22 05:30 03/27/22 05:30 03/27/22 05:00 03/27/22 05:00 03/27/22 04:30 03/27/22 04:30 03/27/22 04:00 03/27/22 04:00 03/27/22 03:30 03/27/22 03:30 03/27/22 04:00 03/27/22 03:28 03/27/22 03:00 03/27/22 03:00 03/27/22 02:30 03/27/22 02:30 03/27/22 02:03 03/27/22 01:30 03/27/22 01:30 Laboratory Results Abnormal lab results 03/26/22 03/26/22 03/27/22 Range/Units 17:48 23:43 04:46 WBC 12.15 H (4.8-10.8) K/ul RBC 4.60 L (4.63-6.08) M/uL Hgb 13.2 L (14.0-18.0) g/dl POC Hgb (14.0-18.0) g/dl Hct 39.7 L (40.1-51.0) % POC Hct (42-52) % Neut # (Auto) 8.00 H (1.4-6.5) K/uL [place] # (Auto) 1.07 H (0.24-0.82) K/uL Immature Gran # (Auto) 0.09 H (0.00-0.02) K/uL POC pO2 (80-95) mmHg POC Total CO2 (24-31) mmol/L Chloride (98-107) mmol/L Carbon Dioxide (21-32) mmol/L BUN (6-23) mg/dl BUN/Creatinine Ratio (10-20) Glucose (70-99(Fasting)) mg/dl POC Glucose 171 H 146 H (70-99) mg/dl Calcium (8.5-10.1) mg/dl 03/27/22 03/27/22 03/27/22 Range/Units 04:46 05:30 06:29 WBC (4.8-10.8) K/ul RBC (4.63-6.08) M/uL Hgb (14.0-18.0) g/dl POC Hgb 12.9 L (14.0-18.0) g/dl Hct (40.1-51.0) % POC Hct 38 L (42-52) % Neut # (Auto) (1.4-6.5) K/uL [place] # (Auto) (0.24-0.82) K/uL Immature Gran # (Auto) (0.00-0.02) K/uL POC pO2 73 L (80-95) mmHg POC Total CO2 23 L (24-31) mmol/L Chloride 110 H (98-107) mmol/L Carbon Dioxide 19 L (21-32) mmol/L BUN 25 H (6-23) mg/dl BUN/Creatinine Ratio 20.8 H (10-20) Glucose 158 H (70-99(Fasting)) mg/dl POC Glucose 160 H (70-99) mg/dl Calcium 8.3 L (8.5-10.1) mg/dl 03/27/22 Range/Units 11:51 WBC (4.8-10.8) K/ul RBC (4.63-6.08) M/uL Hgb (14.0-18.0) g/dl POC Hgb (14.0-18.0) g/dl Hct (40.1-51.0) % POC Hct (42-52) % Neut # (Auto) (1.4-6.5) K/uL [place] # (Auto) (0.24-0.82) K/uL Immature Gran # (Auto) (0.00-0.02) K/uL POC pO2 (80-95) mmHg POC Total CO2 (24-31) mmol/L Chloride (98-107) mmol/L Carbon Dioxide (21-32) mmol/L BUN (6-23) mg/dl BUN/Creatinine Ratio (10-20) Glucose (70-99(Fasting)) mg/dl POC Glucose 174 H (70-99) mg/dl Calcium (8.5-10.1) mg/dl (1) Angioedema Encounter type: initial encounter Qualified Code(s): T78.3XXA - Angioneurotic edema, initial encounter
--- NOTE | 2022-03-27 15:20 | XRay Report ---
XR chest 1V portable CLINICAL HISTORY: intubation TECHNIQUE: Single frontal radiograph of the chest was obtained. Comparison: Comparison is made to chest radiograph 03/18/2022 FINDINGS: Tip of the feeding tube projects over the gastric cardia. This is unchanged from prior exam. There is an endotracheal tube with its tip approximately 5 cm from the dagmar. Cardiomegaly is noted. Lungs a re underinflated but clear. No evidence of pleural effusion or pneumothorax. IMPRESSION: Endotracheal tube terminates approximately 5 cm from the dagmar, satisfactory. Additional findings as above. ACT 112: Negative or not required by law. Electronically signed by: Óscar Sullivan M.D. 03/27/2022 3:19 PM
--- NOTE | 2022-03-27 16:39 | Ears,Nose,Throat Progress Note ---
Date of Service March 27, 2022 Assessment & Plan (1) Supraglottitis: Plan: Continue Intubated and continuing with Sedation due to patient becoming uncooperative for Airway management. Possible extubation tomorrow. (2) Angioedema: Plan: Continuing Intubated and continuing with Sedation due to patient becoming uncooperative for Airway management. Possibly for extubation. Plan I am off service call starting tomorrow morning at [address] MAIER will be the ENT / Blue Line Operator 'On-Call - Starting Thursday and should be contacted for any further Otolaryngologic needs. Admission and Anticipated Discharge Date Admission Date: March 25, 2022 Subjective Patient seen and examined. Patient is still currently intubated and sedated. Hence ROS is limited Physical Exam Physical Exam: Patient continue Intubated-on Vent with Sedation Constitutional: WD/WN, vitals as above not diaphoretic and not malnourished ENMT: Ears: no external ear abnormality and no EAC abnormality Mouth: no lip abnormality and no oral mucosal abnormality Neck: trachea midline Thyroid: normal thyroid; no thyromegaly Respiratory: Auscultation: lungs clear to auscultation bilaterally; no rhonchi and no wheezes Cardiovascular: RRR, no murmur, no edema Gastrointestinal (Abdomen): normal bowel sounds, soft, nontender, no hepatosplenomegaly Results & Data ([facility]) Vital Signs (Past 12 Hours) Vital Signs Temp Pulse Pulse Resp BP Pulse Ox O2 Del Method 03/27/22 16:00 37.6 C H 79 16 03/27/22 15:00 37.8 C H 88 17 95 03/27/22 15:00 128/78 03/27/22 14:00 37.9 C H 94 H 16 89 L 03/27/22 13:30 113/75 03/27/22 13:30 38.1 C H 97 H 16 03/27/22 14:45 89 16 92 03/27/22 08:00 Mechanical Vent 03/27/22 13:00 38.2 C H 106 H 16 93 03/27/22 12:30 120/68 03/27/22 12:30 38.3 C H 102 H 16 03/27/22 12:00 38.4 C H 112 H 18 03/27/22 12:00 130/86 09/29/22 11:30 136/79 03/27/22 11:30 38.3 C H 113 H 22 91 03/27/22 11:00 38.1 C H 90 14 03/27/22 11:00 136/71 03/27/22 10:30 132/86 03/27/22 10:30 38.1 C H 78 22 100 03/27/22 10:00 38.1 C H 69 14 03/27/22 10:00 118/72 03/27/22 12:00 38.3 C H 03/27/22 12:00 03/27/22 10:53 96 H 16 95 03/27/22 10:51 94 H 26 H 95 Mechanical Vent 03/27/22 09:30 111/73 03/27/22 09:30 38.1 C H 67 14 03/27/22 09:00 37.9 C H 64 16 100 03/27/22 09:00 120/76 03/27/22 08:31 37.7 C H 77 19 100 03/27/22 08:31 147/94 H 03/27/22 08:00 37.6 C H 65 16 03/27/22 08:00 107/68 03/27/22 07:30 105/72 03/27/22 07:30 37.6 C H 63 16 03/27/22 08:00 03/27/22 08:00 Mechanical Vent 03/27/22 08:00 66 03/27/22 07:27 63 16 93 03/27/22 07:00 37.7 C H 61 16 95 03/27/22 07:00 103/71 03/27/22 06:31 37.5 C 69 15 96 03/27/22 06:31 114/84 03/27/22 06:00 37.4 C 60 16 95 03/27/22 06:00 102/68 03/27/22 05:30 96/66 L 03/27/22 05:30 37.4 C 64 16 95 03/27/22 05:00 37.3 C 63 16 95 03/27/22 05:00 93/61 L FiO2 03/27/22 16:00 03/27/22 15:00 03/27/22 15:00 03/27/22 14:00 03/27/22 13:30 03/27/22 13:30 03/27/22 14:45 30 03/27/22 08:00 30 03/27/22 13:00 03/27/22 12:30 03/27/22 12:30 03/27/22 12:00 03/27/22 12:00 03/27/22 11:30 03/27/22 11:30 03/27/22 11:00 03/27/22 11:00 03/27/22 10:30 03/27/22 10:30 03/27/22 10:00 03/27/22 10:00 03/27/22 12:00 03/27/22 12:00 30 03/27/22 10:53 30 03/27/22 10:51 30 03/27/22 09:30 03/27/22 09:30 03/27/22 09:00 03/27/22 09:00 03/27/22 08:31 03/27/22 08:31 03/27/22 08:00 03/27/22 08:00 03/27/22 07:30 03/27/22 07:30 03/27/22 08:00 30 03/27/22 08:00 03/27/22 08:00 03/27/22 07:27 30 03/27/22 07:00 03/27/22 07:00 03/27/22 06:31 03/27/22 06:31 03/27/22 06:00 03/27/22 06:00 03/27/22 05:30 03/27/22 05:30 03/27/22 05:00 03/27/22 05:00 (1) Angioedema Encounter type: initial encounter Qualified Code(s): T78.3XXA - Angioneurotic edema, initial encounter
[2022-03-27] MEDS: PEPTAMEN INTENSE VHP 1.0 CAL 1,000 ML BAG OG SCH (17:28)
[2022-03-27] MEDS: MIDAZOLAM HCL 125 MG/250 ML BAG IV SCH (20:42)
[2022-03-27] MEDS: ATORVASTATIN 40 MG TAB PO SCH (21:11)
[2022-03-27] MEDS: ENOXAPARIN INJ 40 MG/0.4 ML SYR SQ SCH (21:11)
[2022-03-27] MEDS: lamoTRIgine 25 MG TAB PO SCH (21:12)
[2022-03-28] MEDS: fentaNYL BOLUS from BAG IV PRN ×3 (00:15→23:10)
[2022-03-28] MEDS: MIDAZOLAM BOLUS FROM BAG IV PRN ×3 (00:55→22:05)
[2022-03-28] MEDS: propofoL 1,000 MG/100 ML VIAL IV SCH ×6 (03:25→20:40)
[2022-03-28] MEDS: PROPOFOL BOLUS FROM BAG IV PRN (03:26)
[2022-03-28] MEDS: TUBE FEEDING WATER FLUSH OG SCH ×7 (04:45→23:48)
[2022-03-28 05:25] LABS: Basophils # (auto) 0.06 K/uL (0-0.2); Basophils % (auto) 0.5 %; Eosinophils # (auto) 0.32 K/uL (0-0.50); Eosinophils % (auto) 2.8 %; Hematocrit (blood only) 39.6 % (40.1-51.0); Immature Granulocytes # (auto) 0.06 K/uL (0.00-0.02); Immature Granulocytes % (auto) 0.5 %; Lymphocytes # (auto) 1.35 K/uL (1.2-3.4); Lymphocytes % (auto) 11.7 %; Mean Corpuscular Hemoglobin 28.3 pg (25.0-34.0); Mean Corpuscular Hgb Conc 32.8 g/dL (32.0-36.0); Mean Corpuscular Volume 86.3 fL (80.0-100.0); Mean Platelet Volume 10.4 fL (9.4-12.4); Monocytes # (auto) 0.85 K/uL (0.24-0.82); Monocytes % (auto) 7.3 %; Neutrophils # (auto) 8.93 K/uL (1.4-6.5); Neutrophils % (auto) 77.2 %; Platelet Count 272 K/uL (130-400); RDW Coefficient of Variation 13.8 % (11.5-14.5); RDW Standard Deviation 43.7 fL (36.4-46.3); Red Blood Count 4.59 M/uL (4.63-6.08); White Blood Count 11.57 K/ul (4.8-10.8)
[2022-03-28] MEDS: INSULIN ASPART PER UNIT SC SCH ×4 (05:30→21:06)
[2022-03-28] MEDS: ACETAMINOPHEN 1,000 MG/100 ML VIAL IV PRN ×3 (05:42→23:48)
[2022-03-28 05:51] LABS: BUN Creatinine Ratio 16.9 (10-20); Calcium 9.1 mg/dl (8.5-10.1); Creatinine Clr Calc Pharmacy 79.5 ml/min; Est GFR (African American) 72.3 ml/min; Est GFR (Non-African American) 62.4 ml/min; Magnesium 2.1 mg/dl (1.7-2.4); Potassium 3.6 mmol/L (3.5-5.1)
[2022-03-28] MEDS: ASPIRIN 81 MG CHEW NG SCH (08:48)
[2022-03-28] MEDS: CLOPIDOGREL BISULFATE 75 MG TAB PO SCH (08:48)
[2022-03-28] MEDS: SERTRALINE HCL 50 MG TABLET PO SCH (08:48)
[2022-03-28] MEDS: levETIRAcetam 500 MG TAB PO SCH ×2 (08:48→21:30)
[2022-03-28] MEDS: METOPROLOL TARTRATE 25 MG TAB PO SCH ×2 (08:48→21:30)
[2022-03-28] MEDS: MULTI VIT W/MINERALS LIQUID 15 ML UDP NG SCH (08:49)
[2022-03-28] MEDS: fentaNYL citrate 2,500 MCG/250 ML BAG IV SCH (08:54)
[2022-03-28] MEDS: FAMOTIDINE 20 MG in SYRINGE 3 ML IV SCH ×2 (09:01→21:29)
[2022-03-28] MEDS ORDERED: KETAMINE HCL INJ 50 MG/ML 10 ML VIAL IV STA (09:58)
--- NOTE | 2022-03-28 09:59 | Critical Care Progress Note ---
Date of Service March 28, 2022 Assessment & Plan (1) Angioedema: Plan: Reason Critically Ill: Impending airway collapse secondary to angioedema PLAN: Neuro: Analgesia: Fentanyl infusion Sedation: -Dexmedetomidine: Discontinued secondary to bradycardia -Propofol -Versed boluses -Ketamine 100 mg x 1 for direct laryngoscopy to evaluate for glottic edema Possible Seizure history -Keppra 1500 twice daily Hold Wellbutrin XL Bipolar affective disorder -Lamictal 50 mg nightly -Zoloft 50 mg daily Resp: Ventilator dependent respiratory failure secondary to mechanical obstruction: Angioedema -Follow-up video laryngoscopy today still significant posterior glottic laryngeal edema precluding safe extubation hopefully this should occur tomorrow CV: Coronary artery disease -Continue aspirin, Lipitor, Plavix Fluids/Renal: Monitor electrolytes -tube feeds at goal ID: Angioedema no indication for antibiotics GI/Nutrition: Tube feeds Prophylaxis: IV Pepcid Heme: DVT prophylaxis: Lovenox 40 mg daily Endocrine: ICU hyperglycemia protocol Vascular access: Peripheral IVs Code Status: Full code Disposition: ICU Admission and Anticipated Discharge Date Admission Date: March 25, 2022 Supervising Physician Co-Signing Physician Notes I have personally spent 35 minutes of critical care time in the direct management of this patient. This is a life/limb threatening event. This includes time spent evaluating patient, direct bedside care, chart review, placing orders, interpretation of diagnostic studies, discussion with consultants, patient, and/or family members regarding treatment decisions, as well as other required patient management activities. This time is exclusive of all separately billable procedures, and teaching time and separate from and in addition to any other critical care service time. Subjective No overnight events, please see laryngoscopy report Review of Systems Review of Systems: Unobtainable due to endotracheal tube Physical Exam Physical Exam: General: Sedated. nontoxic. Skin: Warm, dry, Head: Atraumatic Ears, nose, mouth and throat: airway obscured by endotracheal tube Cardiovascular: Normal peripheral perfusion Respiratory: Ventilator settings reviewed Gastrointestinal: Non distended Musculoskeletal: No deformity Results & Data Results & Data ([facility]) Vital Signs (Past 12 Hours) Vital Signs Temp Pulse Resp BP Pulse Ox O2 Del Method FiO2 03/28/22 08:00 30 03/28/22 09:34 Mechanical Vent 30 03/28/22 08:00 72 03/28/22 07:38 65 16 96 30 03/28/22 06:00 38.0 C H 67 16 93 03/28/22 06:00 113/70 03/28/22 05:30 37.9 C H 68 16 93 03/28/22 05:30 114/71 03/28/22 05:00 37.8 C H 68 16 93 03/28/22 05:00 116/72 03/28/22 04:30 112/70 03/28/22 04:30 38.0 C H 64 16 94 03/28/22 04:00 38.0 C H 64 27 H 97 03/28/22 04:00 113/71 03/28/22 03:30 37.9 C H 67 16 98 03/28/22 03:30 117/71 03/28/22 03:00 37.9 C H 68 16 96 03/28/22 03:00 119/72 03/28/22 02:30 37.9 C H 69 16 95 03/28/22 02:30 120/73 03/28/22 02:00 37.9 C H 68 16 95 03/28/22 02:00 111/71 03/28/22 01:30 37.9 C H 66 16 95 03/28/22 01:30 112/66 03/28/22 04:00 30 03/28/22 03:50 68 16 100 40 03/28/22 01:00 37.8 C H 63 16 95 03/28/22 01:00 110/65 03/28/22 00:30 37.7 C H 70 11 L 97 03/28/22 00:30 137/86 03/28/22 00:00 37.7 C H 68 16 93 03/28/22 00:00 111/68 03/27/22 23:30 37.7 C H 66 16 91 03/27/22 23:30 105/68 03/28/22 00:00 40 03/28/22 00:00 66 03/27/22 22:05 Mechanical Vent 03/27/22 23:00 37.8 C H 64 15 90 03/27/22 23:00 109/63 03/27/22 22:30 38.0 C H 63 16 03/27/22 22:30 98/61 L 03/27/22 22:00 38.1 C H 74 16 97 03/27/22 22:00 113/71 09/29/22 23:14 65 16 90 30 Coding Level of Care Code Critical Care 1st 30-74 mins Diagnoses Angioedema T78.3XXA
[2022-03-28] MEDS ORDERED: PROPOFOL IV EMULSION 10 MG/ML 100 ML VIAL IV ONE (14:01)
[2022-03-28] MEDS ORDERED: PROPOFOL BOLUS FROM BAG IV PRN (14:15)
[2022-03-28] MEDS ORDERED: STAT IV Infusion **Titration per Protocol STA (14:15)
--- NOTE | 2022-03-28 14:20 | Procedure Note ---
Procedure Note Date of Service March 28, 2022 Note Procedure Date: Noted above Procedure: Video laryngoscopy Indication: Angioedema Post-procedure Diagnosis: same as above Performing provider: Su Jeter DO The identity of the patient was confirmed and a bedside time out was performed. Description of Procedure: Utilizing a glide scope #4 blade I was able to visualize the epiglottis as well as the endotracheal tube passing into the vocal cords. The glottic opening has less edema than prior however it is not resolved and there is still significant global edema to the posterior laryngeal structures and arytenoids Complications: None Findings: Angioedema largely focusing over posterior laryngeal opening and bilateral arytenoids Specimens: Not applicable Estimated blood loss: Zero Coding CPT Codes ENT - ENT: 46861 Indrect Laryngoscopy,diagnostic ([id number]) [facility] [place] Codes (Charges) ENT ENT: 12018 Indrect Laryngoscopy,diagnostic
--- NOTE | 2022-03-28 14:24 | Procedure Note ---
Procedure Note Date of Service March 26, 2022 Note Procedure Date: Noted above Procedure: Video laryngoscopy Indication: Angioedema Post-procedure Diagnosis: same as above Performing provider: Su Jeter DO The identity of the patient was confirmed and a bedside time out was performed. Description of Procedure: Utilizing a glide scope #4 blade I was able to visualize the epiglottis as well as the endotracheal tube passing into the vocal cords. The epiglottis is normal in appearance however there is global edema to the laryngeal structures and arytenoids. The angioedema is larger in the posterior structures than anterior however all tissues are essentially compressed around the endotracheal tube Complications: None Findings: Angioedema Specimens: Not applicable Estimated blood loss: Zero Coding CPT Codes ENT - ENT: 60075 Indrect Laryngoscopy,diagnostic ([id number]) [facility] [place] Codes (Charges) ENT ENT: 23503 Indrect Laryngoscopy,diagnostic
--- NOTE | 2022-03-28 14:37 | Hospitalist Progress Note ---
Date of Service March 28, 2022 Assessment & Plan (1) Angioedema: Plan 62-year-old male is being managed for the followin) Angioedema: Unclear etiology and believe this is the first episode. Angioedema in the throat and scrotum without urticaria at presentation. 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 Normal TSH September 2021. Patient intubated Mechanical ventilator management per ICU physician Video laryngoscope by ICU today still show angioedema. Continue ventilatory support Reassess in AM Low grade temp. Tylenol prn. No other sign of infection C4 and C1 esterase inhibitor level pending. ENT recommendations noted Avoid ACEI in the future Patient will need follow-up with assistant press operator offset once discharged. (2) Single vessel coronary disease: Chronic, stable Continue ASA, plavix, statin (3) T2DM (type 2 diabetes mellitus): Hold jardiance and metformin Insulin per hyperglycemia protocol. On sliding scale insulin. Per glycemic pharmacist. (4) HTN (hypertension): Stable Avoid PAIGE inhibitors at this point, monitor. (5) History of cannabis dependence/abuse: Daily use reported Monitor for withdrawal. (6) Seizure disorder: Chronic, stable. Continue to hold bupropion and consider discontinuing at discharge as this lowers the seizure threshold. Continue keppra (7) Bipolar affective disorder: Continues on lamotrigine and sertraline. (8) DVT prophylaxis: Lovenox GI proph-Protonix and pepcid BID Full Code Admission and Anticipated Discharge Date Admission Date: March 25, 2022 Subjective Patient seen and examined. Patient is currently intubated and sedated. Hence ROS is limited Physical Exam Constitutional: Intubated Eyes: PERRL ENMT: ETT in situ NGT in situ Respiratory: Intubated, good air entry bilaterally, no crackles Cardiovascular: Rate/Rhythm: regular rate and regular rhythm S1 S2 Gastrointestinal (Abdomen): normal bowel sounds, soft, nontender, no hepatosplenomegaly Neurologic: Intubated and sedated Genitourinary: Mota in situ Results & Data Results & Data ([facility]) Vital Signs (Past 12 Hours) Vital Signs Temp Pulse Resp BP Pulse Ox O2 Del Method FiO2 03/28/22 11:00 38.0 C H 68 16 90 03/28/22 11:00 118/76 03/28/22 10:45 37.9 C H 87 9 L 89 L 03/28/22 10:30 37.8 C H 63 16 03/28/22 10:30 124/79 03/28/22 10:24 197/110 H 03/28/22 10:24 37.8 C H 66 16 98 03/28/22 10:17 37.9 C H 70 3 L 92 03/28/22 10:17 134/97 03/28/22 10:15 37.8 C H 61 16 96 03/28/22 10:00 37.9 C H 63 16 95 03/28/22 10:00 108/71 03/28/22 09:45 37.9 C H 67 16 95 03/28/22 09:30 37.9 C H 65 16 03/28/22 09:30 116/73 03/28/22 09:15 37.8 C H 71 13 96 03/28/22 09:00 37.8 C H 69 16 96 03/28/22 09:00 135/85 03/28/22 08:45 37.9 C H 65 14 94 03/28/22 08:30 38.0 C H 66 14 93 03/28/22 08:30 114/73 03/28/22 08:15 38.0 C H 64 14 94 03/28/22 08:00 37.9 C H 65 14 98 03/28/22 08:00 113/73 03/28/22 07:45 38.0 C H 64 16 93 03/28/22 07:30 38.0 C H 64 16 94 03/28/22 07:30 117/74 03/28/22 07:15 37.8 C H 65 16 94 03/28/22 07:00 37.9 C H 73 18 96 03/28/22 07:00 131/78 03/28/22 06:45 37.8 C H 68 16 95 03/28/22 06:30 38.0 C H 68 16 93 03/28/22 06:30 110/69 03/28/22 06:15 37.9 C H 70 16 95 03/28/22 10:58 69 18 93 30 03/28/22 08:00 30 03/28/22 09:34 Mechanical Vent 30 03/28/22 08:00 72 03/28/22 07:38 65 16 96 30 03/28/22 06:00 38.0 C H 67 16 93 03/28/22 06:00 113/70 03/28/22 05:30 37.9 C H 68 16 93 03/28/22 05:30 114/71 03/28/22 05:00 37.8 C H 68 16 93 03/28/22 05:00 116/72 03/28/22 04:30 112/70 03/28/22 04:30 38.0 C H 64 16 94 03/28/22 04:00 38.0 C H 64 27 H 97 03/28/22 04:00 113/71 03/28/22 03:30 37.9 C H 67 16 98 03/28/22 03:30 117/71 03/28/22 03:00 37.9 C H 68 16 96 03/28/22 03:00 119/72 03/28/22 04:00 30 03/28/22 03:50 68 16 100 40 Laboratory Results Abnormal lab results 03/27/22 03/27/22 03/28/22 Range/Units 17:27 23:55 04:59 WBC 11.57 H (4.8-10.8) K/ul RBC 4.59 L (4.63-6.08) M/uL Hgb 13.0 L (14.0-18.0) g/dl Hct 39.6 L (40.1-51.0) % Neut # (Auto) 8.93 H (1.4-6.5) K/uL [place] # (Auto) 0.85 H (0.24-0.82) K/uL Immature Gran # (Auto) 0.06 H (0.00-0.02) K/uL Sodium (136-145) mmol/L Glucose (70-99(Fasting)) mg/dl POC Glucose 213 H 152 H (70-99) mg/dl 03/28/22 03/28/22 03/28/22 Range/Units 04:59 05:25 11:22 WBC (4.8-10.8) K/ul RBC (4.63-6.08) M/uL Hgb (14.0-18.0) g/dl Hct (40.1-51.0) % Neut # (Auto) (1.4-6.5) K/uL [place] # (Auto) (0.24-0.82) K/uL Immature Gran # (Auto) (0.00-0.02) K/uL Sodium 134 L (136-145) mmol/L Glucose 185 H (70-99(Fasting)) mg/dl POC Glucose 193 H 199 H (70-99) mg/dl (1) Angioedema Encounter type: initial encounter Qualified Code(s): T78.3XXA - Angioneurotic edema, initial encounter
[2022-03-28] MEDS: PEPTAMEN INTENSE VHP 1.0 CAL 1,000 ML BAG OG SCH (15:05)
[2022-03-28] MEDS: ENOXAPARIN INJ 40 MG/0.4 ML SYR SQ SCH (21:29)
[2022-03-28] MEDS: lamoTRIgine 25 MG TAB PO SCH (21:30)
[2022-03-28] MEDS: ATORVASTATIN 40 MG TAB PO SCH (21:31)
[2022-03-28] MEDS ORDERED: VANCOMYCIN CONSULT ACTIVE PRN (23:03)
[2022-03-28] MEDS ORDERED: PIPERACILLIN/TAZOBACTAM 4.5 GM in DEXTROSE 5% 100 ML IV ONE (23:30)
[2022-03-28] MEDS ORDERED: VANCOMYCIN HCL 2,500 MG in SODIUM CHLORIDE 0.9% 500 ML IV ONE (23:30)
--- NOTE | 2022-03-28 23:48 | XRay Report ---
XR chest 1V portable HISTORY: 62 years-old Male fever sputum change, eval for opacitification acute respiratory failure COMPARISON: Chest radiograph 03/27/2022 TECHNIQUE: Portable AP view of the chest FINDINGS: Endotracheal tube overlies the midline, 5.5 cm superior to the dagmar. Distal tip of feeding tube pro jects medially near the gastric cardia. Cardiac silhouette is upper limits of normal in size. No pneu mothorax or large pleural effusion. Linear subsegmental bibasilar densities. IMPRESSION: 1. Endotracheal and enteric tube placement as above. 2. Linear bibasilar opacities favor atelectasis. ACT 112: Negative or not required by law. The above report was generated using voice recognition software. It may contain grammatical, syntax o r spelling errors. Electronically signed by: Lon Daly M.D. 03/28/2022 11:46 PM
[2022-03-29] MEDS: INSULIN ASPART PER UNIT SC SCH ×6 (00:02→19:29)
[2022-03-29] MEDS: propofoL 1,000 MG/100 ML VIAL IV SCH ×5 (00:03→12:05)
[2022-03-29] MEDS ORDERED: NORMOSOL-R 250 ML IV ONE (00:31)
[2022-03-29] MEDS ORDERED: NORMOSOL-R 500 ML IV ONE (00:31)
[2022-03-29] MEDS ORDERED: NORMOSOL-R 1,000 ML IV SCH (00:45)
[2022-03-29] MEDS: MIDAZOLAM BOLUS FROM BAG IV PRN (00:45)
[2022-03-29] MEDS: ALBUTEROL 0.083% NEBU SOLN 3 ML VIAL NEB PRN ×3 (02:30→21:07)
[2022-03-29] MEDS: TUBE FEEDING WATER FLUSH OG SCH ×4 (03:33→16:52)
--- NOTE | 2022-03-29 04:24 | Critical Care Progress Note ---
Date of Service March 29, 2022 Assessment & Plan (1) Angioedema: Plan: Reason Critically Ill: Impending airway collapse secondary to angioedema PLAN: Neuro: Analgesia: Fentanyl infusion Sedation: -Dexmedetomidine: Discontinued secondary to bradycardia -Propofol -Versed boluses -Ketamine 100 mg x 1 for direct laryngoscopy to evaluate for glottic edema Possible Seizure history -Keppra 1500 twice daily Hold Wellbutrin XL Bipolar affective disorder -Lamictal 50 mg nightly -Zoloft 50 mg daily Resp: Ventilator dependent respiratory failure secondary to mechanical obstruction: Angioedema -Proceed with extubation today CV: Coronary artery disease -Continue aspirin, Lipitor, Plavix Fluids/Renal: Monitor electrolytes ID: Febrile overnight with change in secretions bibasilar opacities- Zosysn and Vancomycin initiated - Tmax 38.3 - MRSA swab negative- can likely discontinue Vancomycin today - Tylenol and Motrin for antipyretics GI/Nutrition: Tube feeds Prophylaxis: IV Pepcid - no bm since admission - Bowel regimine started with docusate/senna scheduled daily Heme: DVT prophylaxis: Lovenox 40 mg daily Endocrine: ICU hyperglycemia protocol Vascular access: Peripheral IVs Code Status: Full code Disposition: ICU Admission and Anticipated Discharge Date Admission Date: March 25, 2022 Supervising Physician Co-Signing Physician Notes I have personally evaluated and examined this patient. I agree with assessment and plan of Beto CHINO. Patient's laryngoscopy was significantly improved today we will proceed with extubation. I have personally spent 35 minutes of critical care time in the direct management of this patient. This is a life/limb threatening event. This includes time spent evaluating patient, direct bedside care, chart review, placing orders, interpretation of diagnostic studies, discussion with consultants, patient, and/or family members regarding treatment decisions, as well as other required patient management activities. This time is exclusive of all separately billable procedures, and teaching time and separate from and in addition to any other critical care service time. Subjective Patient remains intubated and sedated secondary to laryngael edema. Had multiple episodes of fevers yesterday with tmax of 38.8 this morning. He was also noted to have increase in secretions with odor. They were thick and brown. Sputum culture and gram stain were sent, he was started on Zosyn and Vancomycin secondary with CXR with bibasilar opacities,m blood cultures obtained. Received Tylenol IV q8 hours with fevers in between. Motrin 600mg this morning x1 Review of Systems Review of Systems: Intubated and sedated Physical Exam Physical Exam: General: Sedated. Febrile overnight Skin: Warm, dry, Head: Atraumatic Ears, nose, mouth and throat: airway obscured by endotracheal tube Cardiovascular: Normal peripheral perfusion Respiratory: Decreased in bases, moderate amount of thick brown/gao secretions, Ventilator settings reviewed Gastrointestinal: Non distended, soft, no grimmacing with palpation, Coresafe in place, Musculoskeletal: No deformity Results & Data Results & Data ([facility]) Vital Signs (Past 12 Hours) Vital Signs Temp Pulse Pulse Resp BP Pulse Ox O2 Del Method 03/29/22 02:31 75 16 95 03/29/22 02:31 75 16 95 Mechanical Vent 03/29/22 02:00 37.8 C H 67 16 96 03/29/22 02:00 110/72 03/29/22 01:48 Mechanical Vent 03/29/22 01:30 37.8 C H 64 16 96 03/29/22 01:30 103/65 03/29/22 01:00 38.0 C H 66 16 96 03/29/22 01:00 109/62 03/29/22 00:30 38.3 C H 68 16 96 03/29/22 00:30 100/66 03/29/22 00:00 38.5 C H 71 16 96 03/29/22 00:00 103/68 03/28/22 23:30 106/68 03/28/22 23:30 38.4 C H 72 16 96 03/28/22 23:00 38.3 C H 72 14 95 03/28/22 23:00 117/77 03/28/22 22:30 38.3 C H 73 16 97 03/28/22 22:30 109/75 03/28/22 22:25 38.3 C H 73 16 97 03/28/22 22:25 117/74 03/28/22 22:00 38.3 C H 74 16 97 03/28/22 21:00 38.2 C H 75 16 95 03/28/22 20:00 84 14 98 03/28/22 20:00 116/77 03/28/22 19:30 79 16 97 03/28/22 19:30 137/87 03/28/22 19:00 88 20 88 L 03/28/22 19:00 144/101 H 03/28/22 18:30 85 15 88 L 03/28/22 18:30 131/82 03/29/22 00:00 03/29/22 00:00 70 03/28/22 20:00 03/28/22 23:00 73 16 98 03/28/22 20:32 76 16 99 03/28/22 18:00 83 12 90 03/28/22 18:00 127/88 03/28/22 17:31 151/115 H 03/28/22 17:31 37.7 C H 96 H 15 97 03/28/22 17:30 37.7 C H 94 H 18 99 03/28/22 17:00 37.7 C H 82 16 96 03/28/22 17:00 129/75 03/28/22 16:30 37.6 C H 84 21 98 03/28/22 16:30 154/87 H FiO2 03/29/22 02:31 40 03/29/22 02:31 40 03/29/22 02:00 03/29/22 02:00 03/29/22 01:48 40 03/29/22 01:30 03/29/22 01:30 03/29/22 01:00 03/29/22 01:00 03/29/22 00:30 03/29/22 00:30 03/29/22 00:00 03/29/22 00:00 03/28/22 23:30 03/28/22 23:30 03/28/22 23:00 03/28/22 23:00 03/28/22 22:30 03/28/22 22:30 03/28/22 22:25 03/28/22 22:25 03/28/22 22:00 03/28/22 21:00 03/28/22 20:00 03/28/22 20:00 03/28/22 19:30 03/28/22 19:30 03/28/22 19:00 03/28/22 19:00 03/28/22 18:30 03/28/22 18:30 03/29/22 00:00 40 03/29/22 00:00 03/28/22 20:00 40 03/28/22 23:00 40 03/28/22 20:32 50 03/28/22 18:00 03/28/22 18:00 03/28/22 17:31 03/28/22 17:31 03/28/22 17:30 03/28/22 17:00 03/28/22 17:00 03/28/22 16:30 03/28/22 16:30 Laboratory Results Abnormal lab results 03/28/22 03/28/22 03/28/22 Range/Units 04:59 04:59 05:25 WBC 11.57 H (4.8-10.8) K/ul RBC 4.59 L (4.63-6.08) M/uL Hgb 13.0 L (14.0-18.0) g/dl Hct 39.6 L (40.1-51.0) % Neut # (Auto) 8.93 H (1.4-6.5) K/uL [place] # (Auto) 0.85 H (0.24-0.82) K/uL Immature Gran # (Auto) 0.06 H (0.00-0.02) K/uL Sodium 134 L (136-145) mmol/L Glucose 185 H (70-99(Fasting)) mg/dl POC Glucose 193 H (70-99) mg/dl 03/28/22 03/28/22 03/28/22 Range/Units 11:22 16:08 20:35 WBC (4.8-10.8) K/ul RBC (4.63-6.08) M/uL Hgb (14.0-18.0) g/dl Hct (40.1-51.0) % Neut # (Auto) (1.4-6.5) K/uL [place] # (Auto) (0.24-0.82) K/uL Immature Gran # (Auto) (0.00-0.02) K/uL Sodium (136-145) mmol/L Glucose (70-99(Fasting)) mg/dl POC Glucose 199 H 211 H 209 H (70-99) mg/dl 03/28/22 03/29/22 Range/Units 23:59 03:29 WBC (4.8-10.8) K/ul RBC (4.63-6.08) M/uL Hgb (14.0-18.0) g/dl Hct (40.1-51.0) % Neut # (Auto) (1.4-6.5) K/uL [place] # (Auto) (0.24-0.82) K/uL Immature Gran # (Auto) (0.00-0.02) K/uL Sodium (136-145) mmol/L Glucose (70-99(Fasting)) mg/dl POC Glucose 201 H 173 H (70-99) mg/dl Diagnostic Findings Chest X-Ray 03/28/22 23:03 XR chest 1V portable HISTORY: 62 years-old Male fever sputum change, eval for opacitification acute respiratory failure COMPARISON: Chest radiograph 03/27/2022 TECHNIQUE: Portable AP view of the chest FINDINGS: Endotracheal tube overlies the midline, 5.5 cm superior to the dagmar. Distal tip of feeding tube projects medially near the gastric cardia. Cardiac silhouette is upper limits of normal in size. No pneumothorax or large pleural effusion. Linear subsegmental bibasilar densities. IMPRESSION: 1. Endotracheal and enteric tube placement as above. 2. Linear bibasilar opacities favor atelectasis. ACT 112: Negative or not required by law. The above report was generated using voice recognition software. It may contain grammatical, syntax or spelling errors. Electronically signed by: Lon Daly M.D. 03/28/2022 11:46 PM Coding Level of Care Code Critical Care 1st 30-74 mins Diagnoses Angioedema T78.3XXA
[2022-03-29] MEDS: PIPERACILLIN/TAZOBACTAM 4.5 GM in DEXTROSE 5% 100 ML IV SCH ×3 (06:06→21:29)
[2022-03-29] MEDS ORDERED: ACETAMINOPHEN 1,000 MG/100 ML VIAL IV STA (06:13)
[2022-03-29] MEDS ORDERED: IBUPROFEN 600 MG TAB PO STA (06:14)
[2022-03-29] MEDS ORDERED: KETAMINE HCL INJ 50 MG/ML 10 ML VIAL IV STA (07:38)
[2022-03-29] MEDS: CLOPIDOGREL BISULFATE 75 MG TAB PO SCH (07:44)
[2022-03-29] MEDS: SERTRALINE HCL 50 MG TABLET PO SCH (07:44)
[2022-03-29] MEDS: ASPIRIN 81 MG CHEW NG SCH (07:44)
[2022-03-29] MEDS: MULTI VIT W/MINERALS LIQUID 15 ML UDP NG SCH (07:45)
[2022-03-29] MEDS: METOPROLOL TARTRATE 25 MG TAB PO SCH (07:45)
[2022-03-29] MEDS ORDERED: VANCOMYCIN HCL 1,000 MG in SODIUM CHLORIDE 0.9% 250 ML IV SCH (08:00)
[2022-03-29] MEDS: FAMOTIDINE 20 MG in SYRINGE 3 ML IV SCH ×2 (08:43→19:32)
[2022-03-29] MEDS: levETIRAcetam 500 MG TAB PO SCH (08:43)
[2022-03-29] MEDS: DOCUSATE SODIUM/SENNA 50/8.6MG TAB PO SCH (08:44)
[2022-03-29] MEDS: PEPTAMEN INTENSE VHP 1.0 CAL 1,000 ML BAG OG SCH (08:51)
--- NOTE | 2022-03-29 11:03 | Hospitalist Progress Note ---
Date of Service March 29, 2022 Assessment & Plan (1) Angioedema: Plan 62-year-old male is being managed for the followin) Angioedema: Unclear etiology and believe this is the first episode. Angioedema in the throat and scrotum without urticaria at presentation. 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 Normal TSH September 2021. Patient intubated and sedated Mechanical ventilator management per ICU physician ICU will evaluate today for possible extubation Has been persistently febrile Currently on empirical Antibiotics Follow up CBC today CXR overnight showed linear bibasilar opacities, ?atelectasis Follow up blood cultures and sputum sample in lab C4 and C1 esterase inhibitor level pending. ENT recommendations noted Avoid ACEI in the future Patient will need follow-up with head nurse once discharged. (2) Single vessel coronary disease: Chronic, stable Continue ASA, plavix, statin (3) T2DM (type 2 diabetes mellitus): Hold jardiance and metformin Insulin per hyperglycemia protocol. On sliding scale insulin. Per glycemic pharmacist. (4) HTN (hypertension): Stable Avoid PAIGE inhibitors at this point, monitor. (5) History of cannabis dependence/abuse: Daily use reported Monitor for withdrawal. (6) Seizure disorder: Chronic, stable. Continue to hold bupropion and consider discontinuing at discharge as this lowers the seizure threshold. Continue keppra (7) Bipolar affective disorder: Continues on lamotrigine and sertraline. (8) DVT prophylaxis: Lovenox GI proph-Protonix and pepcid BID Full Code Admission and Anticipated Discharge Date Admission Date: March 25, 2022 Subjective Patient seen and examined Has been persistently febrile Started on empirical anabiotics overnight CXR overnight showed linear bibasilar opacities, ?atelectasis Blood cultures and sputum sample in lab ROS could not be done as patient is intubated and sedated Physical Exam Constitutional: Intubated and sedated Eyes: PERRL ENMT: ETT and NGT in situ Respiratory: On mechanical ventilation, good air entry bilaterally Cardiovascular: Rate/Rhythm: regular rate and regular rhythm S1 S2 Gastrointestinal (Abdomen): normal bowel sounds, soft, nontender, no hepatosplenomegaly Musculoskeletal: No pedal edema Neurologic: Intubated and sedated Genitourinary: Mota in situ Results & Data Results & Data ([place]) Vital Signs (Past 12 Hours) Vital Signs Temp Pulse Pulse Resp BP Pulse Ox O2 Del Method 03/29/22 07:35 91 H 17 95 03/29/22 09:34 Mechanical Vent 03/29/22 08:00 03/29/22 08:00 93 H 03/29/22 06:03 180/89 H 03/29/22 06:03 38.7 C H 102 H 17 98 03/29/22 06:01 38.7 C H 106 H 12 92 03/29/22 06:01 210/104 H 03/29/22 06:00 38.7 C H 110 H 26 H 94 03/29/22 05:30 38.4 C H 92 H 18 93 03/29/22 05:30 171/95 H 03/29/22 05:00 38.2 C H 88 16 95 03/29/22 05:00 162/90 H 03/29/22 04:30 38.2 C H 80 16 94 03/29/22 04:30 135/79 03/29/22 04:00 38.1 C H 79 16 93 03/29/22 04:00 128/79 03/29/22 03:30 37.9 C H 79 16 93 03/29/22 03:30 144/82 H 03/29/22 03:00 37.9 C H 78 16 94 03/29/22 03:00 121/77 03/29/22 04:00 03/29/22 02:31 75 16 95 03/29/22 02:31 75 16 95 Mechanical Vent 03/29/22 02:00 37.8 C H 67 16 96 03/29/22 02:00 110/72 03/29/22 01:48 Mechanical Vent 03/29/22 01:30 37.8 C H 64 16 96 03/29/22 01:30 103/65 03/29/22 01:00 38.0 C H 66 16 96 03/29/22 01:00 109/62 03/29/22 00:30 38.3 C H 68 16 96 03/29/22 00:30 100/66 03/29/22 00:00 38.5 C H 71 16 96 03/29/22 00:00 103/68 03/28/22 23:30 106/68 03/28/22 23:30 38.4 C H 72 16 96 03/28/22 23:00 38.3 C H 72 14 95 03/28/22 23:00 117/77 03/29/22 00:00 03/29/22 00:00 70 03/28/22 23:00 73 16 98 FiO2 03/29/22 07:35 40 03/29/22 09:34 50 03/29/22 08:00 50 03/29/22 08:00 03/29/22 06:03 03/29/22 06:03 03/29/22 06:01 03/29/22 06:01 03/29/22 06:00 03/29/22 05:30 03/29/22 05:30 03/29/22 05:00 03/29/22 05:00 03/29/22 04:30 03/29/22 04:30 03/29/22 04:00 03/29/22 04:00 03/29/22 03:30 03/29/22 03:30 03/29/22 03:00 03/29/22 03:00 03/29/22 04:00 50 03/29/22 02:31 40 03/29/22 02:31 40 03/29/22 02:00 03/29/22 02:00 03/29/22 01:48 40 03/29/22 01:30 03/29/22 01:30 03/29/22 01:00 03/29/22 01:00 03/29/22 00:30 03/29/22 00:30 03/29/22 00:00 03/29/22 00:00 03/28/22 23:30 03/28/22 23:30 03/28/22 23:00 03/28/22 23:00 03/29/22 00:00 40 03/29/22 00:00 03/28/22 23:00 40 Laboratory Results Abnormal lab results 03/28/22 03/28/22 03/28/22 Range/Units 11:22 16:08 20:35 POC Glucose 199 H 211 H 209 H (70-99) mg/dl 03/28/22 03/29/22 03/29/22 Range/Units 23:59 03:29 08:55 POC Glucose 201 H 173 H 247 H (70-99) mg/dl (1) Angioedema Encounter type: initial encounter Qualified Code(s): T78.3XXA - Angioneurotic edema, initial encounter
--- NOTE | 2022-03-29 11:38 | Pharmacy Report ---
Pharmacy PK ABX Note - Date of Service March 29, 2022 - Assessment and Plan Assessment 62 year old M receiving vancomycin/zosyn for empiric treatment of penumonia. Patient febrile overnight with changes in Febrile overnight with change in secretions. repeat MRSA nasal negative. Possible de-escalation. Plan Vancomycin * Loading dose: 2500 mg IV x 1 * Maintenance dose: 1000 mg IV every 12 hours * Regimen is predicted to achieve target AUC/MARCIN of 400-600 mg/L.hr * Random level to be ordered if continued greater than 48 hours Pharmacy will continue to follow and will adjust dose/frequency as necessary. Thank you. Pharmacy has transitioned to AUC monitoring for vancomycin. AUC/MARCIN is the preferred PK/PD target and is associated with decreased risk of nephrotoxicity compared to traditional trough targets.
[2022-03-29 11:51] LABS: Hemoglobin 14.1 g/dl (14.0-18.0); Mean Corpuscular Hemoglobin 28.2 pg (25.0-34.0); Mean Corpuscular Hgb Conc 32.8 g/dL (32.0-36.0); Mean Platelet Volume 10.4 fL (9.4-12.4); Platelet Count 259 K/uL (130-400); RDW Coefficient of Variation 13.8 % (11.5-14.5); RDW Standard Deviation 43.1 fL (36.4-46.3); White Blood Count 13.57 K/ul (4.8-10.8)
--- NOTE | 2022-03-29 15:03 | Procedure Note ---
Procedure Note Date of Service March 29, 2022 Note Procedure Date: Noted above Procedure: Video laryngoscopy Indication: Angioedema Post-procedure Diagnosis: same as above Performing provider: Su Jeter DO The identity of the patient was confirmed and a bedside time out was performed. Description of Procedure: Utilizing a glide scope #4 blade I was able to visualize the epiglottis as well as the endotracheal tube passing into the vocal cords. The glottic opening has less edema than prior. Small amount of asymmetric edema of the false vocal cords right greater than left, significant improvement in the posterior laryngeal tissue angioedema Complications: None Findings: Angioedema largely resolved Specimens: Not applicable Estimated blood loss: Zero Coding CPT Codes ENT - ENT: 40015 Indrect Laryngoscopy,diagnostic ([id number]) [facility] Procedure Codes (Charges) ENT ENT: 87431 Indrect Laryngoscopy,diagnostic
[2022-03-29] MEDS ORDERED: LORazepam 1 MG in SYRINGE 0 ML IV PRN (15:55)
[2022-03-29 17:13] LABS: C1 Esterase Inhib Functional >100 % (>=68)
[2022-03-29] MEDS: ACETAMINOPHEN 1,000 MG/100 ML VIAL IV PRN (17:34)
[2022-03-29] MEDS ORDERED: Nursing to Pharmacy Communication SCH (18:15)
[2022-03-29] MEDS: ENOXAPARIN INJ 40 MG/0.4 ML SYR SQ SCH (19:30)
[2022-03-29 20:14] LABS: BUN Creatinine Ratio 20.8 (10-20); Calcium 9.2 mg/dl (8.5-10.1); Creatinine Clr Calc Pharmacy 75.9 ml/min; Est GFR (African American) 68.3 ml/min; Est GFR (Non-African American) 58.9 ml/min; Potassium 3.5 mmol/L (3.5-5.1)
[2022-03-29] MEDS ORDERED: OLANZapine 10 MG/2.1 ML SDV IM STA ×2 (21:25→23:40)
[2022-03-29] MEDS ORDERED: CHLORASEPTIC 1.4% SOLN 180 ML BTL MT PRN (21:41)
[2022-03-29] MEDS ORDERED: STAT IV Infusion **Titration per Protocol STA (23:41)
[2022-03-29] MEDS ORDERED: LORazepam 1 MG in SYRINGE 0.5 ML IV STA (23:42)
[2022-03-29] MEDS: dexMEDEtomidine 200 MCG/50 ML BAG IV SCH (23:59)
[2022-03-30] MEDS ORDERED: LORazepam 2 MG in SYRINGE 1 ML IV STA ×2 (01:04→01:08)
[2022-03-30] MEDS: INSULIN ASPART PER UNIT SC SCH ×6 (01:13→19:36)
[2022-03-30] MEDS: dexMEDEtomidine 200 MCG/50 ML BAG IV SCH ×12 (02:05→22:42)
[2022-03-30 03:12] LABS: Hemoglobin 12.5 g/dl (14.0-18.0); Mean Corpuscular Hemoglobin 28.4 pg (25.0-34.0); Mean Corpuscular Hgb Conc 33.8 g/dL (32.0-36.0); Mean Corpuscular Volume 84.1 fL (80.0-100.0); Mean Platelet Volume 10.2 fL (9.4-12.4); Platelet Count 272 K/uL (130-400); RDW Coefficient of Variation 13.3 % (11.5-14.5); RDW Standard Deviation 41.1 fL (36.4-46.3); White Blood Count 15.75 K/ul (4.8-10.8)
[2022-03-30 03:39] LABS: BUN Creatinine Ratio 18.9 (10-20); Calcium 9.3 mg/dl (8.5-10.1); Creatinine Clr Calc Pharmacy 77.7 ml/min; Est GFR (African American) 70.2 ml/min; Est GFR (Non-African American) 60.6 ml/min; Potassium 3.7 mmol/L (3.5-5.1)
[2022-03-30] MEDS: PIPERACILLIN/TAZOBACTAM 4.5 GM in DEXTROSE 5% 100 ML IV SCH (04:54)
--- NOTE | 2022-03-30 05:47 | Urology Consultation ---
Date of Consultation March 30, 2022 Assessment & Plan (1) Urinary retention: (2) Hematuria: Concerning the patient's urinary tension hematuria recommend proceeding as follows: Etiology of urinary retention is unclear As patient had a significant volume of urine would recommend maintaining Mota catheter for several days for bladder rest at which time a voiding trial can be considered The Mota catheter appears patent at this time and his urine appears to be clearing; if catheter becomes clogged manual irrigation attempts can be employed We will be prudent to check a urinalysis and culture to ensure urinary tract infection is not at playthis has been ordered Recommend following serial labs to ensure renal function remained stable no significant electrolyte abnormalities ensue Independently assessed examined and evaluated. Patient has altered mental status and is a poor historian. Was requiring sedation and close management due to considerable agitation. Patient is dealing with significant issues leading to admission. Was dealing with retention and likely is experiencing hematuria after significant bladder distention. Patient's urine is clear but red right now. No clots. Is draining without major issue. Is producing good amount of urine. Patient's previous medical history was reviewed and summarized as above all imaging was reviewed interpreted by myself and agree with findings of KUB with no major issues on kidney appearing to be stone. Patient may need further imaging to further assess lower urinary tract as well as kidneys however at this point due to his multiple other comorbidities and major issues we will plan to monitor for now. Will likely need outpatient follow-up. Will likely need cystoscopy at some point to further assess urinary system. Has significant edema of the scrotum likely consistent with his other edema issues. Plan is to continue with monitoring. We will continue with follow-up we will plan for outpatient follow-up for further assessment. History of Present Illness Reason for Consultation: Urinary retention with hematuria Attending Physician: Diya Del Castillo MD History of Present Illness This is a 62-year-old male who was admitted to [facility] secondary to angioedema of unclear etiology. The patient did require intubation with mechanical ventilation. While he was on the ventilator he did have a Mota catheter in place. At the time my exam the patient was sleeping in bed, difficult to arouse and could not provide much in the way of meaningful history. I did discuss with the nurse attending to patient to obtain historical information along with reviewing chart. RN notes that patient had Mota catheter removed on 03/29/2022 and throughout the day was unable to void. The patient became confused and combative and required sedation in order to have a fresh Mota catheter placed. At the time of Mota catheter placement it was noted the patient had gross hematuria without visible blood clots. At the time of Mota catheter placement almost 1000 cc of bloody urine was immediately obtained. Since Mota catheter has been placed the urine has begun to clear and is draining appropriately. At the time of my exam the patient was sleeping in bed and did not appear to be in any distress Allergies Allergy/AdvReac Type Severity Reaction Status Date / Time lisinopril Allergy Severe angioedema Verified 03/25/22 12:31 Home Medications Medication Instructions Recorded Confirmed Type clonazepam 1 mg tablet 0.5 mg PO DAILY 08/04/18 03/25/22 History levetiracetam 750 mg tablet 2 tab PO BID 08/04/18 03/25/22 History metformin 1,000 mg tablet 1,000 mg PO BID 08/04/18 03/25/22 History aspirin 81 mg tablet,delayed 81 mg PO DAILY 03/25/22 03/25/22 History release atorvastatin 80 mg tablet 80 mg PO HS 03/25/22 03/25/22 History bupropion HCl 150 mg 24 hr tablet, 150 mg PO DAILY 03/25/22 03/25/22 History extended release clopidogrel 75 mg tablet 75 mg PO DAILY 03/25/22 03/25/22 History empagliflozin 25 mg tablet 25 mg PO DAILY 03/25/22 03/25/22 History (Jardiance) lamotrigine 100 mg tablet 50 mg PO HS 03/25/22 03/25/22 History lisinopril 5 mg tablet 5 mg PO DAILY 03/25/22 03/25/22 History melatonin 1 mg tablet 3 mg PO HS PRN Insomnia 03/25/22 03/25/22 History metoprolol tartrate 25 mg tablet 25 mg PO BID 03/25/22 03/25/22 History pantoprazole 40 mg tablet,delayed 40 mg PO DAILY 03/25/22 03/25/22 History release sertraline 50 mg tablet 50 mg PO DAILY 03/25/22 03/25/22 History Patient History Medical History Anxiety Bipolar affective disorder History of cannabis dependence/abuse x 35 years quit 12/2017 HLD (hyperlipidemia) HTN (hypertension) Hypertriglyceridemia Peripheral neuropathy Seizure disorder Single vessel coronary disease T2DM (type 2 diabetes mellitus) Surgical History History of left inguinal hernia Family History Brother Coronary heart disease History of coronary artery bypass graft Grandfather (Maternal) , [place] at 59 Myocardial infarction Father T2DM (type 2 diabetes mellitus) Coronary heart disease Melanoma Social History Smoking Status: Never smoker Tobacco Type: Cigarettes Second Hand Exposure: No; Hx Alcohol Use: No Hx Substance Use: Yes Last Used Substance: Days (ago) Last Used Substance Other:: 6 months ago Substance Use Type Other:: x 35 years Preferred Language: Icelandic Communication Ability: Unable Train Operator Required: No Beliefs That Will Affect Care: None marital status: Single Current Living Situation: Alone Other Information That Helps Us Care for You: No Feels Safe at Home: Yes Assistive Devices: None Review of Systems Review of Systems: Unobtainable due to cognitive status Constitutional: + fever Genitourinary: + as per Subjective / HPI and + hematuria Physical Exam Constitutional: no acute distress ENMT: Ears: no external ear abnormality Neck: trachea midline Respiratory: normal respiratory effort; no respiratory distress and no labored breathing Cardiovascular: Rate/Rhythm: regular rate and regular rhythm Gastrointestinal (Abdomen): Soft, nondistended. Palpation did not appear to cause pain Genitourinary: Mota catheter is in place draining some bloody appearing urine. There are no visible clots. Mota catheter appears to be patent and draining appropriately Results & Data ([facility]) Vital Signs (Past 12 Hours) Vital Signs Temp Pulse Pulse Resp BP Pulse Ox O2 Del Method 03/30/22 00:00 89 03/29/22 22:00 99 H 20 94 03/29/22 21:30 38.0 C H 147/92 H 03/29/22 21:30 106 H 21 91 03/29/22 21:09 162/98 H 03/29/22 21:09 107 H 13 92 03/29/22 21:08 93 03/29/22 20:31 130/103 H 10/01/22 20:31 38.3 C H 98 H 13 92 03/29/22 20:00 38.1 C H 101 H 18 97 03/29/22 20:00 166/111 H 03/29/22 19:30 131/88 03/29/22 19:30 38.1 C H 98 H 18 03/29/22 19:00 38.1 C H 112 H 24 97 03/29/22 22:25 Nasal Cannula 03/29/22 21:16 108 H 14 98 Aerosol Mask 03/29/22 18:31 38.1 C H 102 H 20 03/29/22 18:31 169/94 H 03/29/22 18:00 38.5 C H 101 H 15 98 03/29/22 18:00 127/82 O2 Flow Rate FiO2 03/30/22 00:00 03/29/22 22:00 03/29/22 21:30 03/29/22 21:30 03/29/22 21:09 03/29/22 21:09 03/29/22 21:08 03/29/22 20:31 03/29/22 20:31 03/29/22 20:00 03/29/22 20:00 03/29/22 19:30 03/29/22 19:30 03/29/22 19:00 03/29/22 22:25 4 03/29/22 21:16 10 35 03/29/22 18:31 03/29/22 18:31 03/29/22 18:00 03/29/22 18:00 PG Care Time/CCT Total # of Minutes Spent Total Time Spent with Patient: Total time spent is greater than 50% in coordination of care (as documented) at patient's floor/unit and/or counseling patient: Coding Level of Care Code 45928 Inpt Consult Level 5 Diagnoses Urinary retention R33.9 Hematuria R31.9
[2022-03-30 06:27] LABS: Appearance Urine Clear (Clear); Bacteria Urine Automated Negative (Negative); Bilirubin Urine Negative (Negative); Blood Urine 3+ (Negative); Color Urine Orange; Epithelial Cell Urine Auto 20-30 /lpf (0-5); Glucose Urine UA 3+ (Negative); Ketones Urine Trace (Negative); Leukocyte Esterase Urine Trace (Negative); Nitrite Urine Negative (Negative); Protein Urine 3+ (Negative); RBC Urine Automated >30 /hpf (0-4); Specific Gravity Urine 1.025 (1.000-1.030); Urobilinogen Urine Negative (Negative); pH Urine 5.5 (4.5-7.5)
[2022-03-30] MEDS: FAMOTIDINE 20 MG in SYRINGE 3 ML IV SCH ×2 (08:25→19:38)
--- NOTE | 2022-03-30 10:08 | Critical Care Progress Note ---
Date of Service March 30, 2022 Assessment & Plan (1) Angioedema: Plan: Reason Critically Ill: Impending airway collapse secondary to angioedema PLAN: Neuro: Analgesia: Fentanyl: Discontinued Sedation: -Dexmedetomidine: For significant anxiety restlessness -Versed boluses Possible Seizure history -Keppra 1500 twice daily Hold Wellbutrin XL Bipolar affective disorder -Lamictal 50 mg nightly -Zoloft 50 mg daily Resp: Angioedema -Extubated 03/29 CV: Coronary artery disease -Continue aspirin, Lipitor, Plavix Fluids/Renal: Monitor electrolytes ID: Febrile: Resolved -Probable haemophilus on sputum -De-escalate to Rocephin, dissipate 7 days total duration effective therapy GI/Nutrition: Speech therapy evaluation : Urinary retention, Mota replaced -Attempt voiding trial in 1 to 2 days Heme: DVT prophylaxis: Lovenox 40 mg daily Endocrine: ICU hyperglycemia protocol Vascular access: Peripheral IVs Code Status: Full code Disposition: ICU Admission and Anticipated Discharge Date Admission Date: March 25, 2022 Subjective Worsened mental status/delirium overnight required dexmedetomidine and additional Ativan. Patient unable to void which likely contributed to acute agitation replaced Mota which was discontinued yesterday for irritation which was considered to be contributing to agitation. Mota replaced, reviewed urology recommendations Physical Exam Physical Exam: General: Resting comfortably. Easily arousable to stimuli Skin: Warm, dry, Head: Atraumatic Ears, nose, mouth and throat: airway patent, no external evidence of angioedema Cardiovascular: Normal peripheral perfusion Respiratory: no respiratory distress Gastrointestinal: Non distended : Mota present Musculoskeletal: No deformity Results & Data Results & Data ([facility]) Vital Signs (Past 12 Hours) Vital Signs Temp Pulse Resp BP Pulse Ox O2 Del Method O2 Flow Rate 03/30/22 09:00 36.3 C L 68 20 96 03/30/22 09:00 123/75 03/30/22 08:30 114/72 03/30/22 08:30 36.3 C L 66 24 97 03/30/22 08:09 120/72 03/30/22 08:09 36.3 C L 69 26 H 98 03/30/22 08:00 36.3 C L 64 23 97 03/30/22 07:00 36.3 C L 65 26 H 97 03/30/22 07:00 113/71 03/30/22 06:30 117/76 03/30/22 06:30 36.4 C L 68 25 H 97 03/30/22 06:00 36.6 C 70 27 H 97 03/30/22 06:00 119/78 03/30/22 05:30 128/82 03/30/22 05:30 36.6 C 74 32 H 96 03/30/22 05:00 36.9 C 72 31 H 96 03/30/22 05:00 122/84 03/30/22 04:30 131/77 03/30/22 04:30 37.3 C 78 27 H 95 03/30/22 04:00 37.5 C 84 32 H 96 03/30/22 04:00 134/84 03/30/22 03:31 37.5 C 91 H 20 03/30/22 03:31 152/88 H 03/30/22 03:00 37.5 C 87 25 H 98 03/30/22 03:00 142/90 H 03/30/22 02:30 37.7 C H 92 H 20 91 03/30/22 02:30 144/86 H 03/30/22 02:00 96 H 24 95 03/30/22 02:00 140/84 03/30/22 01:30 95 H 31 H 94 03/30/22 01:30 127/73 03/30/22 01:00 108 H 20 94 03/30/22 01:00 173/100 H 03/30/22 00:37 141/84 H 03/30/22 00:37 99 H 36 H 95 03/30/22 00:30 120/80 03/30/22 00:30 104 H 27 H 95 03/30/22 00:00 126 H 22 96 03/30/22 00:00 152/96 H 03/29/22 23:30 183/86 H 03/29/22 23:30 120 H 23 96 03/29/22 23:00 115 H 18 92 03/29/22 23:00 148/117 H 03/29/22 22:31 149/86 H 03/29/22 22:31 113 H 15 93 03/30/22 08:00 68 03/30/22 07:24 Free Flow/Blow-by 03/30/22 00:00 89 03/29/22 22:25 Nasal Cannula 4 FiO2 03/30/22 09:00 03/30/22 09:00 03/30/22 08:30 03/30/22 08:30 03/30/22 08:09 03/30/22 08:09 03/30/22 08:00 03/30/22 07:00 03/30/22 07:00 03/30/22 06:30 03/30/22 06:30 03/30/22 06:00 03/30/22 06:00 03/30/22 05:30 03/30/22 05:30 03/30/22 05:00 03/30/22 05:00 03/30/22 04:30 03/30/22 04:30 03/30/22 04:00 03/30/22 04:00 03/30/22 03:31 03/30/22 03:31 03/30/22 03:00 03/30/22 03:00 03/30/22 02:30 03/30/22 02:30 03/30/22 02:00 03/30/22 02:00 03/30/22 01:30 03/30/22 01:30 03/30/22 01:00 03/30/22 01:00 03/30/22 00:37 03/30/22 00:37 03/30/22 00:30 03/30/22 00:30 03/30/22 00:00 03/30/22 00:00 03/29/22 23:30 03/29/22 23:30 03/29/22 23:00 03/29/22 23:00 03/29/22 22:31 03/29/22 22:31 03/30/22 08:00 03/30/22 07:24 20 03/30/22 00:00 03/29/22 22:25 Critical Care Results & Data Vital Signs (Past 12 Hours) Vital Signs Temp Pulse Resp BP Pulse Ox O2 Del Method O2 Flow Rate 03/30/22 09:00 36.3 C L 68 20 96 03/30/22 09:00 123/75 03/30/22 08:30 114/72 03/30/22 08:30 36.3 C L 66 24 97 03/30/22 08:09 120/72 03/30/22 08:09 36.3 C L 69 26 H 98 03/30/22 08:00 36.3 C L 64 23 97 03/30/22 07:00 36.3 C L 65 26 H 97 03/30/22 07:00 113/71 03/30/22 06:30 117/76 03/30/22 06:30 36.4 C L 68 25 H 97 03/30/22 06:00 36.6 C 70 27 H 97 03/30/22 06:00 119/78 03/30/22 05:30 128/82 03/30/22 05:30 36.6 C 74 32 H 96 03/30/22 05:00 36.9 C 72 31 H 96 03/30/22 05:00 122/84 03/30/22 04:30 131/77 03/30/22 04:30 37.3 C 78 27 H 95 03/30/22 04:00 37.5 C 84 32 H 96 03/30/22 04:00 134/84 03/30/22 03:31 37.5 C 91 H 20 03/30/22 03:31 152/88 H 03/30/22 03:00 37.5 C 87 25 H 98 03/30/22 03:00 142/90 H 03/30/22 02:30 37.7 C H 92 H 20 91 03/30/22 02:30 144/86 H 03/30/22 02:00 96 H 24 95 03/30/22 02:00 140/84 03/30/22 01:30 95 H 31 H 94 03/30/22 01:30 127/73 03/30/22 01:00 108 H 20 94 03/30/22 01:00 173/100 H 03/30/22 00:37 141/84 H 03/30/22 00:37 99 H 36 H 95 03/30/22 00:30 120/80 03/30/22 00:30 104 H 27 H 95 03/30/22 00:00 126 H 22 96 03/30/22 00:00 152/96 H 03/29/22 23:30 183/86 H 03/29/22 23:30 120 H 23 96 03/29/22 23:00 115 H 18 92 03/29/22 23:00 148/117 H 03/29/22 22:31 149/86 H 03/29/22 22:31 113 H 15 93 03/30/22 08:00 68 03/30/22 07:24 Free Flow/Blow-by 03/30/22 00:00 89 03/29/22 22:25 Nasal Cannula 4 FiO2 03/30/22 09:00 03/30/22 09:00 03/30/22 08:30 03/30/22 08:30 03/30/22 08:09 03/30/22 08:09 03/30/22 08:00 03/30/22 07:00 03/30/22 07:00 03/30/22 06:30 03/30/22 06:30 03/30/22 06:00 03/30/22 06:00 03/30/22 05:30 03/30/22 05:30 03/30/22 05:00 03/30/22 05:00 03/30/22 04:30 03/30/22 04:30 03/30/22 04:00 03/30/22 04:00 03/30/22 03:31 03/30/22 03:31 03/30/22 03:00 03/30/22 03:00 03/30/22 02:30 03/30/22 02:30 03/30/22 02:00 03/30/22 02:00 03/30/22 01:30 03/30/22 01:30 03/30/22 01:00 03/30/22 01:00 03/30/22 00:37 03/30/22 00:37 03/30/22 00:30 03/30/22 00:30 03/30/22 00:00 03/30/22 00:00 03/29/22 23:30 03/29/22 23:30 03/29/22 23:00 03/29/22 23:00 03/29/22 22:31 03/29/22 22:31 03/30/22 08:00 03/30/22 07:24 20 03/30/22 00:00 03/29/22 22:25 Lab & Micro Results (Past 24 Hours) RBC 4.40 M/uL (4.63-6.08) L 03/30/22 WBC 15.75 K/ul (4.8-10.8) H 03/30/22 Hgb 12.5 g/dl (14.0-18.0) L 03/30/22 Hct 37.0 % (40.1-51.0) L 03/30/22 MCV 84.1 fL (80.0-100.0) 03/30/22 MCH 28.4 pg (25.0-34.0) 03/30/22 MCHC 33.8 g/dL (32.0-36.0) 03/30/22 RDW Standard Deviation 41.1 fL (36.4-46.3) 03/30/22 RDW Coefficient of Variation 13.3 % (11.5-14.5) 03/30/22 Plt Count 272 K/uL (130-400) 03/30/22 MPV 10.2 fL (9.4-12.4) 03/30/22 Na 138 mmol/L (136-145) 03/30/22 K 3.7 mmol/L (3.5-5.1) 03/30/22 Cl 109 mmol/L (98-107) H 03/30/22 CO2 21 mmol/L (21-32) 03/30/22 Anion Gap 8 (3-11) 03/30/22 BUN 24 mg/dl (6-23) H 03/30/22 Creatinine 1.27 mg/dl (0.6-1.4) 03/30/22 Estimated GFR ( Amer) 70.2 ml/min 03/30/22 Estimated GFR (Non-Af Amer) 60.6 ml/min 03/30/22 BUN/Creatinine Ratio 18.9 (10-20) 03/30/22 Glu 188 mg/dl (70-99(Fasting)) H 03/30/22 Ca 9.3 mg/dl (8.5-10.1) 03/30/22 Calcium Level 9.3 mg/dl (8.5-10.1) 03/30/22 02:57 Microbiology 03/29/22 07:21 Aerobic Blood Culture - Preliminary Blood No growth in Aerobic bottle after 24 hours. Anaerobic Blood Culture - Preliminary No growth in Anaerobic bottle after 24 hours. 03/29/22 07:30 Aerobic Blood Culture - Preliminary Blood No growth in Aerobic bottle after 24 hours. Anaerobic Blood Culture - Preliminary No growth in Anaerobic bottle after 24 hours. 03/28/22 23:02 Gram Stain - Final Sputum,Vent Suction Sputum Culture - Preliminary Probable Haemophilus species Staphylococcus species I & O Totals 24 Hours 03/29/22 03/30/22 03/31/22 06:59 06:59 06:59 Intake Total 2102.641 / 2102.641 1223.191 / 1223.191 159.767 / 159.767 Output Total 2825 / 2825 2275 / 2275 Balance -722.359 / -722.359 -1051.809 / -1051.809 159.767 / 159.767 Cumulative 03/25/22 03:23 thru 03/30/22 09:28 Intake Total 7606.591 Output Total 01022 Balance -5918.409 RT Ventilator Mngmt (Last Documented) Ventilator Ordered Settings Ventilator Support Mode CPAP 03/29/22 14:30 Respiratory Rate 20 03/30/22 09:00 Ventilator Tidal Volume 480 03/29/22 12:00 Setting Minute Ventilation 8.1 03/29/22 14:30 Ventilator Positive Pressure 6 03/29/22 14:30 Support Setting Positive End Expiratory 5 03/29/22 14:30 Pressure Fraction of Inspired Oxygen 20 03/30/22 07:24 Ventilator - PT Measurements Respiratory Rate 20 Exhaled Tidal Volume 432 Minute Ventilation 8.1 Peak Inspiratory Airway 15 Pressure Mean Airway Pressure 31 Plateau Pressure 15 Respiratory Cycle Inspiratory: 1:3.7 Expiratory Ratio Inspiratory Phase Time 0.8 End-Tidal CO2 45 Static Lung Compliance 48.00 Dynamic Lung Compliance 43.20 Normal Static Lung Compliance 48.00 Patient Measurements Comment Patient extubated per Dr. Jeter. Patient tolerated well. Placed on a 50% Aerosol mask. Coding Level of Care Code 77613 Subseq Hosp Care Lvl 3 Diagnoses Angioedema T78.3XXA
[2022-03-30] MEDS ORDERED: cefTRIAXone SODIUM 1,000 MG in DEXTROSE 5% 50 ML IV SCH (10:15)
[2022-03-30] MEDS: cefTRIAXone SODIUM 2,000 MG in DEXTROSE 5% 50 ML IV SCH (11:10)
[2022-03-30] MEDS ORDERED: LORazepam 1 MG in SYRINGE 0.5 ML IV STA (11:36)
[2022-03-30] MEDS ORDERED: LORazepam 1 MG in SYRINGE 0 ML IV PRN (11:46)
--- NOTE | 2022-03-30 11:47 | Hospitalist Progress Note ---
Date of Service March 30, 2022 Assessment & Plan (1) Angioedema: Plan 62-year-old male is being managed for the followin) Angioedema: Unclear etiology and believe this is the first episode. Angioedema in the throat and scrotum without urticaria at presentation. 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 Normal TSH September 2021. Patient was intubated and sedated Extubated yesterday Currently has delirium Urinary retention likely contributing. 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 (2) Single vessel coronary disease: Chronic, stable Continue ASA, plavix, statin once po is resumed (3) T2DM (type 2 diabetes mellitus): Hold jardiance and metformin Insulin per protocol. On sliding scale insulin. Per glycemic pharmacist. (4) HTN (hypertension): Stable Avoid PAIGE inhibitors at this point, monitor. (5) History of cannabis dependence/abuse: Daily use reported Monitor for withdrawal. (6) Seizure disorder: Chronic, stable. Continue to hold bupropion and consider discontinuing at discharge as this lowers the seizure threshold. Continue keppra (7) Bipolar affective disorder: Continues on lamotrigine and sertraline. (8) DVT prophylaxis: Lovenox GI proph-Protonix and pepcid BID Full Code Admission and Anticipated Discharge Date Admission Date: March 25, 2022 Subjective Patient seen and examined. Patient was extubated yesterday. Patient was agitated and confused at the time of evaluation. This limited ROS Oriented to person only Physical Exam Constitutional: + well hydrated; no acute distress Agitated and trying to get out of bed to go home Eyes: PERRL, conjunctivae normal, anicteric sclerae ENMT: external ear and nose normal, oropharynx normal Respiratory: normal respiratory effort, lungs clear to auscultation on nasal cannula Cardiovascular: Rate/Rhythm: regular rate and regular rhythm S1 S2 Gastrointestinal (Abdomen): normal bowel sounds, soft, nontender, no hepatosplenomegaly Musculoskeletal: No pedal edema Neurologic: Agitated and confused Genitourinary: Mota in situ Results & Data Results & Data ([facility]) Vital Signs (Past 12 Hours) Vital Signs Temp Pulse Resp BP Pulse Ox O2 Del Method FiO2 03/30/22 09:00 36.3 C L 68 20 96 03/30/22 09:00 123/75 03/30/22 08:30 114/72 03/30/22 08:30 36.3 C L 66 24 97 03/30/22 08:09 120/72 03/30/22 08:09 36.3 C L 69 26 H 98 03/30/22 08:00 36.3 C L 64 23 97 03/30/22 07:00 36.3 C L 65 26 H 97 03/30/22 07:00 113/71 03/30/22 06:30 117/76 03/30/22 06:30 36.4 C L 68 25 H 97 03/30/22 06:00 36.6 C 70 27 H 97 03/30/22 06:00 119/78 03/30/22 05:30 128/82 03/30/22 05:30 36.6 C 74 32 H 96 03/30/22 05:00 36.9 C 72 31 H 96 03/30/22 05:00 122/84 03/30/22 04:30 131/77 03/30/22 04:30 37.3 C 78 27 H 95 03/30/22 04:00 37.5 C 84 32 H 96 03/30/22 04:00 134/84 03/30/22 03:31 37.5 C 91 H 20 03/30/22 03:31 152/88 H 03/30/22 03:00 37.5 C 87 25 H 98 03/30/22 03:00 142/90 H 03/30/22 02:30 37.7 C H 92 H 20 91 03/30/22 02:30 144/86 H 03/30/22 02:00 96 H 24 95 03/30/22 02:00 140/84 03/30/22 01:30 95 H 31 H 94 03/30/22 01:30 127/73 10/02/22 01:00 108 H 20 94 03/30/22 01:00 173/100 H 03/30/22 00:37 141/84 H 03/30/22 00:37 99 H 36 H 95 03/30/22 00:30 120/80 03/30/22 00:30 104 H 27 H 95 03/30/22 00:00 126 H 22 96 03/30/22 00:00 152/96 H 03/30/22 08:00 68 03/30/22 07:24 Free Flow/Blow-by 20 03/30/22 00:00 89 Laboratory Results Abnormal lab results 03/25/22 03/29/22 03/29/22 Range/Units 12:38 16:11 19:16 WBC (4.8-10.8) K/ul RBC (4.63-6.08) M/uL Hgb (14.0-18.0) g/dl Hct (40.1-51.0) % Chloride (98-107) mmol/L Carbon Dioxide (21-32) mmol/L Anion Gap (3-11) BUN (6-23) mg/dl BUN/Creatinine Ratio (10-20) Glucose (70-99(Fasting)) mg/dl POC Glucose 251 H 192 H (70-99) mg/dl Urine Protein (Negative) Urine Glucose (UA) (Negative) Urine Ketones (Negative) Urine Blood (Negative) Ur Leukocyte Esterase (Negative) Urine WBC (Auto) (0-5) /hpf Urine RBC (Auto) (0-4) /hpf U Epithel Cells (Auto) (0-5) /lpf Complement C4 57 H (15-53) mg/dL 03/29/22 03/30/22 03/30/22 Range/Units 19:30 00:51 02:57 WBC 15.75 H (4.8-10.8) K/ul RBC 4.40 L (4.63-6.08) M/uL Hgb 12.5 L (14.0-18.0) g/dl Hct 37.0 L (40.1-51.0) % Chloride (98-107) mmol/L Carbon Dioxide 17 L (21-32) mmol/L Anion Gap 12 H (3-11) BUN 27 H (6-23) mg/dl BUN/Creatinine Ratio 20.8 H (10-20) Glucose 211 H (70-99(Fasting)) mg/dl POC Glucose 208 H (70-99) mg/dl Urine Protein (Negative) Urine Glucose (UA) (Negative) Urine Ketones (Negative) Urine Blood (Negative) Ur Leukocyte Esterase (Negative) Urine WBC (Auto) (0-5) /hpf Urine RBC (Auto) (0-4) /hpf U Epithel Cells (Auto) (0-5) /lpf Complement C4 (15-53) mg/dL 03/30/22 03/30/22 03/30/22 Range/Units 02:57 03:57 06:00 WBC (4.8-10.8) K/ul RBC (4.63-6.08) M/uL Hgb (14.0-18.0) g/dl Hct (40.1-51.0) % Chloride 109 H (98-107) mmol/L Carbon Dioxide (21-32) mmol/L Anion Gap (3-11) BUN 24 H (6-23) mg/dl BUN/Creatinine Ratio (04-17) Glucose 188 H (70-99(Fasting)) mg/dl POC Glucose 157 H (70-99) mg/dl Urine Protein 3+ H (Negative) Urine Glucose (UA) 3+ H (Negative) Urine Ketones Trace H (Negative) Urine Blood 3+ H (Negative) Ur Leukocyte Esterase Trace H (Negative) Urine WBC (Auto) 5-10 H (0-5) /hpf Urine RBC (Auto) >30 H (0-4) /hpf U Epithel Cells (Auto) 20-30 H (0-5) /lpf Complement C4 (15-53) mg/dL 03/30/22 03/30/22 Range/Units 08:11 12:24 WBC (4.8-10.8) K/ul RBC (4.63-6.08) M/uL Hgb (14.0-18.0) g/dl Hct (40.1-51.0) % Chloride (98-107) mmol/L Carbon Dioxide (21-32) mmol/L Anion Gap (3-11) BUN (6-23) mg/dl BUN/Creatinine Ratio (-20) Glucose (70-99(Fasting)) mg/dl POC Glucose 185 H 172 H (70-99) mg/dl Urine Protein (Negative) Urine Glucose (UA) (Negative) Urine Ketones (Negative) Urine Blood (Negative) Ur Leukocyte Esterase (Negative) Urine WBC (Auto) (0-5) /hpf Urine RBC (Auto) (0-4) /hpf U Epithel Cells (Auto) (0-5) /lpf Complement C4 (15-53) mg/dL (1) Angioedema Encounter type: initial encounter Qualified Code(s): T78.3XXA - Angioneurotic edema, initial encounter
[2022-03-30] MEDS: SERTRALINE HCL 50 MG TABLET PO SCH (12:14)
[2022-03-30] MEDS: D5W AND NSS 1,000 ML IV SCH (12:26)
[2022-03-30] MEDS: ENOXAPARIN INJ 40 MG/0.4 ML SYR SQ SCH (19:37)
[2022-03-30] MEDS ORDERED: OLANZapine 10 MG/2.1 ML SDV IM STA (20:47)
[2022-03-30] MEDS ORDERED: OLANZapine 10 MG/2.1 ML SDV IM SCH (21:00)
[2022-03-30] MEDS ORDERED: KETAMINE HCL INJ 50 MG/ML 10 ML VIAL IV STA (21:43)
[2022-03-30] MEDS: levETIRAcetam 1,500 MG in 0.9 % SODIUM CHLORIDE 100 ML IV SCH (21:51)
--- NOTE | 2022-03-30 23:24 | Communication Note ---
Date of Service: March 30, 2022 Patient was calm and cooperative with his family visiting earlier in the shift, once his family left patient became agitated and delirious as he did last evening. He was no longer oriented to his surroundings. He remained on Precedex and that was escalated with no effect. He was also given 5mg Olanzapine IM, for his agitation delirium. Through this time he continued to attempt to get up out of bed, saying he is leaving and attempting to pull out his Mota catheter as well as cursing, grabbing nursing and attempting to kick her. Patient was given another 5mg IM of Olanzapine with minimal effect, and he continued to be loud and aggressive with nursing staff and myself. He is hearing voices as well as talking to himself. The patient is a heavy marijuana smoker noted in his chart. He has also been without his psych medications as he is awaiting swallow evaluation following his extubation. No neurological deficits and labs from this morning normal as well as glucose levels and renal function. He is without an focal neurological deficits. His vital signs are without temperature elevation, not tachycardic, and minimal hypertension. He is not diaphoretic or tremulous, at this time favoring agitated delirium vs. withdraw symptoms. He was given 100mg of Ketamine earlier in the day with positive effect as well as able to decline in his precedex dosing. As he continues to be agitated and aggressive will give 50mg IV Ketamine which would be 0.5mg/KG. Following this dose the patient did calm down and is resting with stable vital signs as well as placed on EtCo2. Case was discussed with Staff attending. Patient is high risk of injury to self and others at this time.
[2022-03-31] MEDS: INSULIN ASPART PER UNIT SC SCH ×6 (00:05→21:08)
[2022-03-31] MEDS: dexMEDEtomidine 200 MCG/50 ML BAG IV SCH ×2 (00:07→01:38)
[2022-03-31] MEDS: D5W AND NSS 1,000 ML IV SCH ×2 (00:08→13:35)
[2022-03-31] MEDS: dexMEDEtomidine 400 MCG/100 ML BAG IV SCH ×2 (02:49→05:20)
[2022-03-31] MEDS: FAMOTIDINE 20 MG in SYRINGE 3 ML IV SCH (08:28)
--- NOTE | 2022-03-31 08:58 | Critical Care Progress Note ---
Date of Service March 31, 2022 Assessment & Plan (1) Angioedema: (2) Urinary retention: (3) BENITA (acute kidney injury): (4) T2DM (type 2 diabetes mellitus): (5) HTN (hypertension): (6) HLD (hyperlipidemia): (7) Seizure disorder: (8) Bipolar affective disorder: (9) Anxiety: (10) Marijuana smoker: Plan Reason Critically Ill: Impending airway collapse secondary to angioedema. Extubated 03/29/2022 PLAN: Neuro: Delirium Multifactorial, bipolar and seasonal affective disorder on top of being in the ICU Precedex, discontinued quality assurance analyst of 03/31/2022 Possible Seizure history -Keppra 1500 twice daily Bipolar affective disorder -Lamictal 50 mg nightly -Zoloft 50 mg daily Resp: Angioedema -Extubated 03/29 -On room air CV: Coronary artery disease -Continue aspirin, Lipitor, Plavix Fluids/Renal: Monitor electrolytes Avoid nephrotoxic medications ID: Febrile: Resolved -Probable haemophilus on sputum -Completed course of Rocephin for 5 days GI/Nutrition: Start feeding today : Urinary retention, Mota replaced -We will try to take Mota out today and assess Heme: No acute issues Endocrine: ICU hyperglycemia protocol --Prophylaxis VTE: Lovenox GI: Pepcid Lines: Peripheral Diet: Start clear liquid and advance as tolerated Plan: In/out: +448, urine output 2009, total 5.6 L negative since coming to the hospital Labs are pending from today. Patient has been off Precedex since 7 AM. He is awake alert oriented x3 answering all questions appropriately. Will take the Mota catheter out. Do bedside swallow eval if he is able to tolerated and start his p.o. medications especially his bipolar and seizure medications Patient hemodynamically stable to be downgrade to medical floor Continue with Rocephin for total of 5 days Csae discussed with Dr Lovett Please note the above document was generated using voice recognition software. It may contain grammatical, syntax or spelling errors.Any formal questions or concerns about the content, text or information contained within the body of this dictation should be directly addressed to the provider for clarification. Admission and Anticipated Discharge Date Admission Date: March 25, 2022 Subjective Patient seen and examined at bedside. No acute distress. Overnight patient did have bouts of agitated delirium again He was given ketamine as well as olanzapine IM. He was also on Precedex drip. Today he was off Precedex drip around 7 AM. On physical exam he was awake alert oriented x3, answering all the questions appropriately. Calm and composed Denied any headache, no nausea, no vomiting Denied any visual auditory hallucinations. Review of Systems Review of Systems: All systems reviewed & are unremarkable except as noted in Subjective Physical Exam Physical Exam: Constitutional: No acute distress HEENT: EOMI, PERRLA Respiratory system: Good air entry bilaterally, no wheeze, no rhonchi, no crackles CVS: S1-S2 positive, no murmurs or gallops Abdomen: Soft, nontender, nondistended, positive bowel sounds x4 Extremities: +2 pulses bilaterally radialis/ dorsalis pedis, no cyanosis, no edema Neuro: Awake alert oriented x3 Psych: Normal mood and affect G/U: Positive Mota Skin: no rashes, warm and dry Lymphatic: no cervical or axillary lymphadenopathy Results & Data Results & Data ([facility]) Vital Signs (Past 12 Hours) Vital Signs Temp Pulse Pulse Resp BP BP Pulse Ox 03/31/22 08:00 37.1 C 84 21 132/78 96 03/31/22 08:00 03/31/22 08:00 69 03/31/22 07:15 37.2 C 55 L 23 142/84 H 95 03/31/22 06:30 161/91 H 03/31/22 06:30 37.4 C 55 L 25 H 97 03/31/22 06:00 37.5 C 55 L 27 H 94 03/31/22 06:00 167/88 H 03/31/22 05:30 152/107 H 03/31/22 05:30 37.5 C 74 20 96 03/31/22 05:00 37.4 C 76 27 H 96 03/31/22 05:00 165/108 H 03/31/22 04:31 37.3 C 93 H 17 93 03/31/22 04:31 170/88 H 03/31/22 04:00 37.3 C 59 L 94 03/31/22 04:00 164/89 H 03/31/22 03:50 175/90 H 03/31/22 03:50 37.3 C 97 03/31/22 03:30 170/89 H 03/31/22 03:30 37.3 C 57 L 19 98 03/31/22 03:00 37.3 C 71 22 97 03/31/22 03:00 176/91 H 03/31/22 02:47 162/93 H 03/31/22 02:47 37.3 C 65 16 96 03/31/22 02:30 167/90 H 03/31/22 02:30 37.4 C 53 L 97 03/31/22 02:00 37.3 C 55 L 95 03/31/22 02:00 154/89 H 03/31/22 01:30 174/93 H 03/31/22 01:30 37.3 C 92 H 96 03/31/22 01:21 172/92 H 03/31/22 01:21 37.2 C 69 24 97 03/31/22 01:00 37.3 C 62 27 H 96 03/31/22 01:00 175/89 H 03/31/22 00:31 190/97 H 03/31/22 00:31 37.3 C 68 96 03/31/22 00:01 37.3 C 72 35 H 96 03/31/22 00:01 169/89 H 03/31/22 00:00 37.3 C 77 29 H 99 03/30/22 23:30 176/95 H 03/30/22 23:30 37.4 C 77 25 H 99 03/30/22 23:00 37.6 C H 67 24 98 03/30/22 23:00 173/97 H 03/30/22 22:03 177/91 H 03/30/22 22:03 37.8 C H 73 96 03/30/22 22:00 37.8 C H 72 96 03/30/22 22:00 190/128 H 03/30/22 21:30 171/124 H 03/30/22 21:30 37.8 C H 73 96 03/30/22 21:00 37.6 C H 67 96 03/30/22 21:00 176/102 H 03/30/22 23:15 73 03/30/22 22:20 O2 Del Method 03/31/22 08:00 Room Air 03/31/22 08:00 Room Air 03/31/22 08:00 03/31/22 07:15 Room Air 03/31/22 06:30 03/31/22 06:30 03/31/22 06:00 03/31/22 06:00 03/31/22 05:30 03/31/22 05:30 03/31/22 05:00 03/31/22 05:00 03/31/22 04:31 03/31/22 04:31 03/31/22 04:00 03/31/22 04:00 03/31/22 03:50 03/31/22 03:50 03/31/22 03:30 03/31/22 03:30 03/31/22 03:00 03/31/22 03:00 03/31/22 02:47 03/31/22 02:47 03/31/22 02:30 03/31/22 02:30 03/31/22 02:00 03/31/22 02:00 03/31/22 01:30 03/31/22 01:30 03/31/22 01:21 03/31/22 01:21 03/31/22 01:00 03/31/22 01:00 03/31/22 00:31 Room Air 03/31/22 00:31 03/31/22 00:01 03/31/22 00:01 03/31/22 00:00 03/30/22 23:30 03/30/22 23:30 03/30/22 23:00 03/30/22 23:00 03/30/22 22:03 03/30/22 22:03 03/30/22 22:00 03/30/22 22:00 03/30/22 21:30 03/30/22 21:30 03/30/22 21:00 03/30/22 21:00 03/30/22 23:15 03/30/22 22:20 Room Air Laboratory Results 03/30/22 02:57 03/30/22 02:57 Coding Level of Care Code 77492 Subseq Hosp Care Lvl 3 Diagnoses Angioedema T78.3XXA Encounter type: initial encounter Urinary retention R33.9 BENITA (acute kidney injury) N17.9 T2DM (type 2 diabetes mellitus) E11.8 Diabetes mellitus complication status: with unspecified complications Diabetes mellitus adjunct faculty for medical 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 insulin use: without retirement use HTN (hypertension) I10 Hypertension type: essential hypertension HLD (hyperlipidemia) E78.2 Hyperlipidemia type: mixed hyperlipidemia Seizure disorder G40.909 Bipolar affective disorder F31.9 Active/Remission status: remission status unspecified Anxiety F41.9 Marijuana smoker F12.90 (1) T2DM (type 2 diabetes mellitus) Diabetes mellitus complication status: with unspecified complications Diabetes mellitus adjunct faculty for medical terminology insulin use: without retirement use Qualified Code(s): E11.8 - Type 2 diabetes mellitus with unspecified complications (2) Angioedema Encounter type: initial encounter Qualified Code(s): T78.3XXA - Angioneurotic edema, initial encounter (3) Bipolar affective disorder Active/Remission status: remission status unspecified Qualified Code(s): F31.9 - Bipolar disorder, unspecified (4) HLD (hyperlipidemia) Hyperlipidemia type: mixed hyperlipidemia Qualified Code(s): E78.2 - Mixed hyperlipidemia (5) HTN (hypertension) Hypertension type: essential hypertension Qualified Code(s): I10 - Essential (primary) hypertension
--- NOTE | 2022-03-31 09:14 | Electrocardiogram Report ---
Test Reason : Blood Pressure : / mmHG Vent. Rate : 067 BPM Atrial Rate : 067 BPM P-R Int : 184 ms QRS Dur : 092 ms QT Int : 444 ms P-R-T Axes : 060 -34 077 degrees QTc Int : 469 ms Normal sinus rhythm Left axis deviation Abnormal ECG When compared with ECG of 06-AUG-2018 06:46, Nonspecific T wave abnormality now evident in Inferior leads QT has lengthened Confirmed by Javi Elizondo ([id number]) on 03/31/2022 9:14:26 AM Referred By: REFERRED SELF Confirmed By:Trev Elizondo
[2022-03-31 09:19] LABS: Hematocrit (blood only) 40.8 % (40.1-51.0); Hemoglobin 13.4 g/dl (14.0-18.0); Mean Corpuscular Hemoglobin 28.2 pg (25.0-34.0); Mean Corpuscular Hgb Conc 32.8 g/dL (32.0-36.0); Mean Corpuscular Volume 85.9 fL (80.0-100.0); Mean Platelet Volume 10.5 fL (9.4-12.4); Platelet Count 288 K/uL (130-400); RDW Coefficient of Variation 13.4 % (11.5-14.5); RDW Standard Deviation 42.2 fL (36.4-46.3); Red Blood Count 4.75 M/uL (4.63-6.08); White Blood Count 13.51 K/ul (4.8-10.8)
[2022-03-31 09:41] LABS: BUN Creatinine Ratio 17.3 (10-20); Calcium 9.8 mg/dl (8.5-10.1); Est GFR (African American) 83.5 ml/min; Est GFR (Non-African American) 72.1 ml/min; Potassium 4.1 mmol/L (3.5-5.1)
[2022-03-31] MEDS: levETIRAcetam 1,500 MG in 0.9 % SODIUM CHLORIDE 100 ML IV SCH (11:13)
[2022-03-31] MEDS: SERTRALINE HCL 50 MG TABLET PO SCH (11:14)
[2022-03-31] MEDS: cefTRIAXone SODIUM 2,000 MG in DEXTROSE 5% 50 ML IV SCH (11:14)
--- NOTE | 2022-03-31 12:54 | Hospitalist Progress Note ---
Date of Service March 31, 2022 Assessment & Plan (1) Angioedema: Plan 62-year-old male is being managed for the followin) Angioedema: Unclear etiology and believe this is the first episode. Angioedema in the throat and scrotum without urticaria at presentation. 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 Normal TSH September 2021. Patient was intubated and sedated Extubated on 03/29/22 Delirium has resolved Off precedex Passed dysphagia screen Resume home meds and diet Had fever and leukocytosis Fever has resolved Sputum cx grew hemophilus CXR showed linear bibasilar opacities, ?atelectasis Possible pneumonia Antibiotics deescalated by ICU to ceftriaxone to complete 7 days of treatment C4 and C1 esterase inhibitor are 57 and >100 respectively ENT recommendations noted Avoid ACEI in the future Patient will need follow-up with filter press tender head once discharged. (2) Single vessel coronary disease: Chronic, stable Continue ASA, plavix, statin (3) T2DM (type 2 diabetes mellitus): Hold jardiance and metformin Insulin per protocol. On sliding scale insulin. Per glycemic pharmacist. (4) HTN (hypertension): Monitor BP and manage appropriately Avoid PAIGE inhibitors at this point, monitor. (5) History of cannabis dependence/abuse: Daily use reported (6) Seizure disorder: Chronic, stable. Continue to hold bupropion and consider discontinuing at discharge as this lowers the seizure threshold. Continue keppra (7) Bipolar affective disorder: Continues on lamotrigine and sertraline. (8) DVT prophylaxis: Lovenox GI proph-Protonix and pepcid BID Full Code Downgrade to med tele DVT ppx - lovenox sq Admission and Anticipated Discharge Date Admission Date: March 25, 2022 Subjective Patient seen and examined Delirium has resolved Now off precedex. AOx3. Passed dysphagia screen. Reports only cough with sputum and sore throat Denied any chest pain, shortness of breath Denied headache Denied nausea, vomiting, abd pain diarrhea Mota removed this AM Fever has resolved Physical Exam Constitutional: + well hydrated; no acute distress Eyes: PERRL, conjunctivae normal, anicteric sclerae PERRL ENMT: external ear and nose normal, oropharynx normal Respiratory: normal respiratory effort, lungs clear to auscultation Cardiovascular: Rate/Rhythm: regular rhythm and + tachycardic S1 S2 Gastrointestinal (Abdomen): normal bowel sounds, soft, nontender, no hepatosplenomegaly Musculoskeletal: no cyanosis or clubbing, extremities motor strength 5/5 Neurologic: PERRL, EOMI, accommodation nl, no face palsy, no dysarthria Psychiatric: A+Ox3, euthymic affect Results & Data Results & Data ([facility]) Vital Signs (Past 12 Hours) Vital Signs Temp Pulse Pulse Resp BP BP Pulse Ox 03/31/22 12:00 126 H 28 H 156/93 H 96 03/31/22 11:21 156/93 H 03/31/22 11:21 106 H 35 H 96 03/31/22 11:00 118 H 23 97 03/31/22 10:30 103 H 29 H 94 03/31/22 10:30 169/85 H 03/31/22 10:00 96 H 20 96 03/31/22 09:30 151/86 H 03/31/22 09:30 93 H 30 H 94 03/31/22 09:01 135/103 H 03/31/22 09:01 102 H 22 93 03/31/22 09:00 96 H 19 94 03/31/22 08:00 03/31/22 08:00 37.1 C 84 21 132/78 96 03/31/22 08:00 03/31/22 08:00 69 03/31/22 07:15 37.2 C 55 L 23 142/84 H 95 03/31/22 06:30 161/91 H 03/31/22 06:30 37.4 C 55 L 25 H 97 03/31/22 06:00 37.5 C 55 L 27 H 94 03/31/22 06:00 167/88 H 03/31/22 05:30 152/107 H 03/31/22 05:30 37.5 C 74 20 96 03/31/22 05:00 37.4 C 76 27 H 96 03/31/22 05:00 165/108 H 03/31/22 04:31 37.3 C 93 H 17 93 03/31/22 04:31 170/88 H 03/31/22 04:00 37.3 C 59 L 94 03/31/22 04:00 164/89 H 03/31/22 03:50 175/90 H 03/31/22 03:50 37.3 C 97 03/31/22 03:30 170/89 H 03/31/22 03:30 37.3 C 57 L 19 98 03/31/22 03:00 37.3 C 71 22 97 03/31/22 03:00 176/91 H 03/31/22 02:47 162/93 H 03/31/22 02:47 37.3 C 65 16 96 03/31/22 02:30 167/90 H 03/31/22 02:30 37.4 C 53 L 97 03/31/22 02:00 37.3 C 55 L 95 03/31/22 02:00 154/89 H 03/31/22 01:30 174/93 H 03/31/22 01:30 37.3 C 92 H 96 03/31/22 01:21 172/92 H 03/31/22 01:21 37.2 C 69 24 97 03/31/22 01:00 37.3 C 62 27 H 96 03/31/22 01:00 175/89 H O2 Del Method 03/31/22 12:00 03/31/22 11:21 03/31/22 11:21 03/31/22 11:00 03/31/22 10:30 03/31/22 10:30 03/31/22 10:00 03/31/22 09:30 03/31/22 09:30 03/31/22 09:01 03/31/22 09:01 03/31/22 09:00 03/31/22 08:00 Room Air 03/31/22 08:00 Room Air 03/31/22 08:00 Room Air 03/31/22 08:00 03/31/22 07:15 Room Air 03/31/22 06:30 03/31/22 06:30 03/31/22 06:00 03/31/22 06:00 03/31/22 05:30 03/31/22 05:30 03/31/22 05:00 03/31/22 05:00 03/31/22 04:31 03/31/22 04:31 03/31/22 04:00 03/31/22 04:00 03/31/22 03:50 03/31/22 03:50 03/31/22 03:30 03/31/22 03:30 03/31/22 03:00 03/31/22 03:00 03/31/22 02:47 03/31/22 02:47 03/31/22 02:30 03/31/22 02:30 03/31/22 02:00 03/31/22 02:00 03/31/22 01:30 03/31/22 01:30 03/31/22 01:21 03/31/22 01:21 03/31/22 01:00 03/31/22 01:00 Laboratory Results Abnormal lab results 03/30/22 03/30/22 03/31/22 Range/Units 16:53 19:34 00:02 WBC (4.8-10.8) K/ul Hgb (14.0-18.0) g/dl Chloride (98-107) mmol/L Carbon Dioxide (21-32) mmol/L Anion Gap (3-11) Glucose (70-99(Fasting)) mg/dl POC Glucose 206 H 199 H 189 H (70-99) mg/dl 03/31/22 03/31/22 03/31/22 Range/Units 03:55 08:14 08:53 WBC (4.8-10.8) K/ul Hgb (14.0-18.0) g/dl Chloride 110 H (98-107) mmol/L Carbon Dioxide 17 L (21-32) mmol/L Anion Gap 13 H (3-11) Glucose 167 H (70-99(Fasting)) mg/dl POC Glucose 175 H 169 H (70-99) mg/dl 03/31/22 03/31/22 Range/Units 08:53 12:49 WBC 13.51 H (4.8-10.8) K/ul Hgb 13.4 L (14.0-18.0) g/dl Chloride (98-107) mmol/L Carbon Dioxide (21-32) mmol/L Anion Gap (3-11) Glucose (70-99(Fasting)) mg/dl POC Glucose 193 H (70-99) mg/dl (1) Angioedema Encounter type: initial encounter Qualified Code(s): T78.3XXA - Angioneurotic edema, initial encounter
[2022-03-31] MEDS: METOPROLOL TARTRATE 25 MG TAB PO SCH ×2 (13:32→21:09)
[2022-03-31] MEDS: ONDANSETRON INJ 2 MG/ML 2 ML VIAL IV PRN ×2 (14:43→21:12)
[2022-03-31] MEDS: SODIUM CHLORIDE 0.9% 1000ML 1,000 ML IV SCH (16:22)
[2022-03-31] MEDS: lamoTRIgine 25 MG TAB PO SCH (21:08)
[2022-03-31] MEDS: MELATONIN 3 MG TAB PO PRN (21:08)
[2022-03-31] MEDS: levETIRAcetam 500 MG TAB PO SCH (21:09)
[2022-03-31] MEDS: ATORVASTATIN 40 MG TAB PO SCH (21:10)
[2022-03-31] MEDS: ENOXAPARIN INJ 40 MG/0.4 ML SYR SQ SCH (21:10)
[2022-03-31] MEDS ORDERED: Nursing to Pharmacy Communication SCH (22:00)
[2022-03-31] MEDS ORDERED: LORazepam 0.5 MG TAB PO STA (23:19)
[2022-04-01 02:06] LABS: Appearance Urine Cloudy (Clear); Bacteria Urine Automated Negative (Negative); Bilirubin Urine Negative (Negative); Blood Urine 3+ (Negative); Color Urine Orange; Glucose Urine UA 3+ (Negative); Ketones Urine 3+ (Negative); Leukocyte Esterase Urine 1+ (Negative); Nitrite Urine Negative (Negative); Protein Urine 4+ (Negative); RBC Urine Automated >30 /hpf (0-4); Specific Gravity Urine 1.027 (1.000-1.030); Urobilinogen Urine Negative (Negative); pH Urine 5.5 (4.5-7.5)
[2022-04-01 02:32] LABS: Cast Urine Automated 0 /lpf (0-5)
[2022-04-01] MEDS: SODIUM CHLORIDE 0.9% 1000ML 1,000 ML IV SCH ×2 (04:54→16:11)
[2022-04-01] MEDS: ALBUTEROL 0.083% NEBU SOLN 3 ML VIAL NEB PRN (07:48)
[2022-04-01 07:54] LABS: Hematocrit (blood only) 38.7 % (40.1-51.0); Hemoglobin 12.9 g/dl (14.0-18.0); Mean Corpuscular Hemoglobin 28.2 pg (25.0-34.0); Mean Corpuscular Hgb Conc 33.3 g/dL (32.0-36.0); Mean Corpuscular Volume 84.5 fL (80.0-100.0); Mean Platelet Volume 10.5 fL (9.4-12.4); Platelet Count 355 K/uL (130-400); RDW Coefficient of Variation 13.7 % (11.5-14.5); RDW Standard Deviation 42.5 fL (36.4-46.3); Red Blood Count 4.58 M/uL (4.63-6.08); White Blood Count 14.88 K/ul (4.8-10.8)
[2022-04-01 08:50] LABS: Calcium 9.3 mg/dl (8.5-10.1); Creatinine Clr Calc Pharmacy 76.3 ml/min; Est GFR (African American) 69.5 ml/min; Potassium 3.5 mmol/L (3.5-5.1)
[2022-04-01 08:51] LABS: Magnesium 1.7 mg/dl (1.7-2.4); Phosphorus 4.1 mg/dl (2.5-4.9)
[2022-04-01] MEDS: INSULIN ASPART PER UNIT SC SCH ×4 (09:18→21:20)
[2022-04-01] MEDS: SERTRALINE HCL 50 MG TABLET PO SCH (09:20)
[2022-04-01 09:21] LABS: BUN Creatinine Ratio 18.8 (10-20)
[2022-04-01] MEDS: levETIRAcetam 500 MG TAB PO SCH ×2 (09:21→21:25)
[2022-04-01] MEDS: CLOPIDOGREL BISULFATE 75 MG TAB PO SCH (09:21)
[2022-04-01] MEDS: METOPROLOL TARTRATE 25 MG TAB PO SCH ×2 (09:21→21:25)
[2022-04-01] MEDS: PANTOprazole 40 MG TAB PO SCH (09:22)
[2022-04-01] MEDS: ASPIRIN 81 MG CHEW NG SCH (09:22)
[2022-04-01] MEDS: DOCUSATE SODIUM/SENNA 50/8.6MG TAB PO SCH (09:23)
[2022-04-01] MEDS: MULTI VIT W/MINERALS LIQUID 15 ML UDP NG SCH (09:30)
[2022-04-01] MEDS: cefTRIAXone SODIUM 2,000 MG in DEXTROSE 5% 50 ML IV SCH (10:52)
--- NOTE | 2022-04-01 11:38 | Hospitalist Progress Note ---
Date of Service April 01, 2022 Assessment & Plan (1) Angioedema: Plan 62-year-old male is being managed for the followin) Angioedema: Unclear etiology and believe this is the first episode. Angioedema in the throat and scrotum without urticaria at presentation. 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 Normal TSH September 2021. Patient was intubated and sedated Extubated on 03/29/22 Had delirium post op which has resolved Had fever and leukocytosis Fever has resolved Sputum cx grew hemophilus CXR showed linear bibasilar opacities, ?atelectasis Possible pneumonia Antibiotics deescalated by ICU to ceftriaxone to complete 7 days of treatment Hematuria likely due to zarate and post extubation retention. UCx from overnight in lab. Already on ceftriaxone. Will monitor C4 and C1 esterase inhibitor are 57 and >100 respectively ENT recommendations noted Avoid ACEI in the future Patient will need follow-up with rock duster once discharged. (2) Single vessel coronary disease: Chronic, stable Continue ASA, plavix, statin (3) T2DM (type 2 diabetes mellitus): Hold jardiance and metformin Insulin per protocol. Start lantus 10U HS On sliding scale insulin. Per glycemic pharmacist. (4) HTN (hypertension): Monitor BP and manage appropriately Start amlodipine 5mg daily Avoid PAIGE inhibitors at this point, monitor. (5) History of cannabis dependence/abuse: Daily use reported (6) Seizure disorder: Chronic, stable. Continue to hold bupropion and consider discontinuing at discharge as this lowers the seizure threshold. Continue keppra (7) Bipolar affective disorder: Continues on lamotrigine and sertraline. (8) DVT prophylaxis: Lovenox GI proph-Protonix and pepcid BID Full Code DVT ppx - Hold lovenox in view of hematuria Possible dc in 1-2 days Admission and Anticipated Discharge Date Admission Date: March 25, 2022 Subjective Patient seen and examined Had episodes of vomiting yesterday/overnight, one of which was self induced Reported he did that due to abdominal discomfort Currently reports feeling better though weak Reports cough is improving Denied any chest pain, shortness of breath Denied headache or dizziness Denied nausea, vomiting, abd pain diarrhea Reported some hematuria overnight He is AOx3, impulsive Physical Exam Constitutional: + well hydrated; no acute distress Eyes: PERRL, conjunctivae normal, anicteric sclerae PERRL ENMT: external ear and nose normal, oropharynx normal Respiratory: normal respiratory effort, lungs clear to auscultation Cardiovascular: Rate/Rhythm: regular rate and regular rhythm S1 S2 Gastrointestinal (Abdomen): normal bowel sounds, soft, nontender, no hepatosplenomegaly Musculoskeletal: no cyanosis or clubbing, extremities motor strength 5/5 Neurologic: PERRL, EOMI, accommodation nl, no face palsy, no dysarthria Psychiatric: A+Ox3, euthymic affect Results & Data Results & Data ([facility]) Vital Signs (Past 12 Hours) Vital Signs Temp Pulse Pulse Resp BP BP Pulse Ox 04/01/22 11:12 36.9 C 70 152/88 H 96 04/01/22 10:11 04/01/22 07:48 90 19 94 04/01/22 07:32 37.3 C 101 H 138/87 93 04/01/22 06:18 89 04/01/22 03:16 37.1 C 87 18 170/88 H 96 04/01/22 02:20 04/01/22 00:00 106 H 03/31/22 23:57 188/112 H 03/31/22 23:53 36.8 C 102 H 18 192/117 H 94 O2 Del Method 04/01/22 11:12 Room Air 04/01/22 10:11 Room Air 04/01/22 07:48 Room Air 04/01/22 07:32 Room Air 04/01/22 06:18 04/01/22 03:16 Room Air 04/01/22 02:20 Room Air 04/01/22 00:00 03/31/22 23:57 03/31/22 23:53 Room Air Laboratory Results Abnormal lab results 03/31/22 03/31/22 04/01/22 Range/Units 17:40 20:37 01:30 WBC (4.8-10.8) K/ul RBC (4.63-6.08) M/uL Hgb (14.0-18.0) g/dl Hct (40.1-51.0) % Carbon Dioxide (21-32) mmol/L Anion Gap (3-11) BUN (6-23) mg/dl Glucose (70-99(Fasting)) mg/dl POC Glucose 191 H 197 H (70-99) mg/dl Urine Appearance Cloudy A (Clear) Urine Protein 4+ H (Negative) Urine Glucose (UA) 3+ H (Negative) Urine Ketones 3+ H (Negative) Urine Blood 3+ H (Negative) Ur Leukocyte Esterase 1+ H (Negative) Urine WBC (Auto) 5-10 H (0-5) /hpf Urine RBC (Auto) >30 H (0-4) /hpf U Epithel Cells (Auto) 10-20 H (0-5) /lpf 04/01/22 04/01/22 04/01/22 Range/Units 06:58 06:58 09:13 WBC 14.88 H (4.8-10.8) K/ul RBC 4.58 L (4.63-6.08) M/uL Hgb 12.9 L (14.0-18.0) g/dl Hct 38.7 L (40.1-51.0) % Carbon Dioxide 19 L (21-32) mmol/L Anion Gap 16 H (3-11) BUN 24 H (6-23) mg/dl Glucose 190 H (70-99(Fasting)) mg/dl POC Glucose 217 H (70-99) mg/dl Urine Appearance (Clear) Urine Protein (Negative) Urine Glucose (UA) (Negative) Urine Ketones (Negative) Urine Blood (Negative) Ur Leukocyte Esterase (Negative) Urine WBC (Auto) (0-5) /hpf Urine RBC (Auto) (0-4) /hpf U Epithel Cells (Auto) (0-5) /lpf 04/01/22 Range/Units 11:31 WBC (4.8-10.8) K/ul RBC (4.63-6.08) M/uL Hgb (14.0-18.0) g/dl Hct (40.1-51.0) % Carbon Dioxide (21-32) mmol/L Anion Gap (3-11) BUN (6-23) mg/dl Glucose (70-99(Fasting)) mg/dl POC Glucose 156 H (70-99) mg/dl Urine Appearance (Clear) Urine Protein (Negative) Urine Glucose (UA) (Negative) Urine Ketones (Negative) Urine Blood (Negative) Ur Leukocyte Esterase (Negative) Urine WBC (Auto) (0-5) /hpf Urine RBC (Auto) (0-4) /hpf U Epithel Cells (Auto) (0-5) /lpf (1) Angioedema Encounter type: initial encounter Qualified Code(s): T78.3XXA - Angioneurotic edema, initial encounter
[2022-04-01] MEDS ORDERED: amLODIPine BESYLATE 5 MG TAB PO ONE (16:22)
[2022-04-01] MEDS ORDERED: LANTUS PER UNIT CHARGE SQ SCH (21:00)
[2022-04-01] MEDS: ATORVASTATIN 40 MG TAB PO SCH (21:24)
[2022-04-01] MEDS: lamoTRIgine 25 MG TAB PO SCH (21:24)
[2022-04-02] MEDS: MELATONIN 3 MG TAB PO PRN (02:14)
[2022-04-02 07:04] LABS: Hematocrit (blood only) 37.1 % (40.1-51.0); Hemoglobin 12.5 g/dl (14.0-18.0); Mean Corpuscular Hemoglobin 28.1 pg (25.0-34.0); Mean Corpuscular Hgb Conc 33.7 g/dL (32.0-36.0); Mean Corpuscular Volume 83.4 fL (80.0-100.0); Mean Platelet Volume 10.1 fL (9.4-12.4); Platelet Count 334 K/uL (130-400); RDW Coefficient of Variation 13.9 % (11.5-14.5); RDW Standard Deviation 42.4 fL (36.4-46.3); Red Blood Count 4.45 M/uL (4.63-6.08); White Blood Count 14.03 K/ul (4.8-10.8)
[2022-04-02 07:29] LABS: BUN Creatinine Ratio 17.7 (10-20); Creatinine Clr Calc Pharmacy 86.3 ml/min; Est GFR (African American) 80.9 ml/min; Est GFR (Non-African American) 69.8 ml/min; Potassium 3.4 mmol/L (3.5-5.1)
[2022-04-02] MEDS: CLOPIDOGREL BISULFATE 75 MG TAB PO SCH (08:26)
[2022-04-02] MEDS: INSULIN ASPART PER UNIT SC SCH ×2 (08:26→12:10)
[2022-04-02] MEDS: PANTOprazole 40 MG TAB PO SCH (08:27)
[2022-04-02] MEDS: SERTRALINE HCL 50 MG TABLET PO SCH (08:27)
[2022-04-02] MEDS: METOPROLOL TARTRATE 25 MG TAB PO SCH (08:27)
[2022-04-02] MEDS: levETIRAcetam 500 MG TAB PO SCH (08:28)
[2022-04-02] MEDS ORDERED: amLODIPine BESYLATE 5 MG TAB PO SCH (09:00)
[2022-04-02] MEDS ORDERED: CEROVITE ADV FORMULA TAB PO SCH (09:00)
[2022-04-02] MEDS ORDERED: POTASSIUM CHLORIDE CRTAB 20 MEQ TABCR PO STA (09:27)
[2022-04-02] MEDS: DOCUSATE SODIUM/SENNA 50/8.6MG TAB PO SCH (09:55)
[2022-04-02] MEDS: ASPIRIN 81 MG CHEW NG SCH (09:55)
[2022-04-02] MEDS: cefTRIAXone SODIUM 2,000 MG in DEXTROSE 5% 50 ML IV SCH (12:03)
--- NOTE | 2022-04-02 14:10 | Discharge Summary ---
Discharge Summary Date of Service April 02, 2022 Notes For Next Care Provider Please avoid PAIGE inhibitor due to angioedema Continue management of chronic medical problems Patient may need urology follow-up. Monitor resolution of hematuria Medication Changes From Visit Patient lisinopril was discontinued. Was started on amlodipine 5 mg daily for blood pressure Wellbutrin was held for now Admission HPI Per Admitting Provider 62 yo diabetic man with h/o CAD who smokes marijuana daily presents with acute swelling of the throat and swelling in his suprapubic area that began the day before. His throat swelling reportedly moved around over the last few daily and he is reporting pain. He noticed the swelling go into the penile shaft and scrotum last night but is improved this morning. 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 I was unable to get much other history from him as they took him swiftly to the OR. In the ER he was talking and mentating well. He was in no acute distress and had some wheezing in the right base of the lung. Admission Exam Per Admitting Provider CONSTITUTIONAL: WNWD, vitals as above, generally well-appearing, NAD EYES: normal conjunctivae, no scleral icterus ENT: swollen tonsil/arytenoid on the right side, appears to be a fluid-filled grape sized sac, mild erythema, external ear and nose normal, MMM, no sinus TTP, no cervical LAD. NECK: trachea midline RESPIRATORY: wheezes at right base. No rales or crackles, normal respiratory effort, speaking in full sentences without any issues. CARDIOVASCULAR: regular rate and rhythm, S1 and 2 heard without murmurs, gallops or rubs, no JVD, no peripheral edema CHEST: inspection of chest was normal GASTROINTESTINAL: soft, nontender, ND, no guarding MUSCULOSKELETAL: strength 5/5 throughout, head is normocephalic and atraumatic SKIN: warm and dry NEUROLOGIC: CN 2-12 grossly intact, no sensory deficit, normal cognition, normal speech, no tremor PSYCHIATRIC: alert cooperative and oriented to person, place and time. Euthymic mood, makes good eye contact, language grossly intact, recent and remote memory grossly intact. Principal Dx & Hospital Course #1 = Principal Diagnosis (1) Angioedema: Plan 62-year-old male is being managed for the following: Angioedema: Unclear etiology and believe this is the first episode. Angioedema in the throat and scrotum without urticaria at presentation. 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 Normal TSH September 2021. Patient was intubated and sedated Extubated on 03/29/22 Had delirium post op which has resolved Had fever and leukocytosis Fever has resolved Sputum cx grew hemophilus CXR showed linear bibasilar opacities, ?atelectasis Possible pneumonia Antibiotics deescalated by ICU to ceftriaxone Had 5 days of antibotics inpatient Blood cultures negative C4 and C1 esterase inhibitor are 57 and >100 respectively ENT recommendations noted Avoid ACEI in the future Patient will need follow-up with rug frame mounter once discharged. Hematuria Hematuria likely due to zarate and patient pulled on zarate while delirious Urology evaluated while inpatient Urine cultures negative Hematuria resolving. Hb stable Patient to follow up with Urology outpatient . Single vessel coronary disease: Chronic, stable Continue ASA, plavix, statin T2DM (type 2 diabetes mellitus): Continue home jardiance and metformin HTN (hypertension): Monitor BP and manage appropriately Start amlodipine 5mg daily Avoid PAIGE inhibitors going forward History of cannabis dependence/abuse: Daily use reported Counseled to quit Seizure disorder: Chronic, stable. Bupropion was held as this lowers the seizure threshold. Continue keppra Bipolar affective disorder: Continues on lamotrigine and sertraline. Patient is doing better. Insists he will like to be discharged today. He reported he uses pill pack prepared by his pharmacy. I called his pharm and told them about medication changes. Patient advised to go to pharm which his home meds and discharge paperwork for med reconciliation with his pill packs and new meds. That way pharm can remove lisinopril from his current pill pack at home. CM arranged HH and PT Discharge Exam Constitutional + well hydrated; no acute distress Eyes PERRL, conjunctivae normal, anicteric sclerae PERRL ENMT external ear and nose normal, oropharynx normal Respiratory normal respiratory effort, lungs clear to auscultation Cardiovascular Rate/Rhythm: regular rate and regular rhythm S1 S2 Gastrointestinal (Abdomen) normal bowel sounds, soft, nontender, no hepatosplenomegaly Musculoskeletal no cyanosis or clubbing, extremities motor strength 5/5 Neurologic PERRL, EOMI, accommodation nl, no face palsy, no dysarthria Psychiatric A+Ox3, euthymic affect Updated Medication List Medication Instructions Recorded Confirmed Type clonazepam 1 mg tablet 0.5 mg PO DAILY 08/04/18 03/25/22 History levetiracetam 750 mg tablet 2 tab PO BID 08/04/18 03/25/22 History metformin 1,000 mg tablet 1,000 mg PO BID 08/04/18 03/25/22 History aspirin 81 mg tablet,delayed 81 mg PO DAILY 03/25/22 03/25/22 History release atorvastatin 80 mg tablet 80 mg PO HS 03/25/22 03/25/22 History clopidogrel 75 mg tablet 75 mg PO DAILY 03/25/22 03/25/22 History empagliflozin 25 mg tablet 25 mg PO DAILY 03/25/22 03/25/22 History (Jardiance) lamotrigine 100 mg tablet 50 mg PO HS 03/25/22 03/25/22 History melatonin 1 mg tablet 3 mg PO HS PRN Insomnia 03/25/22 03/25/22 History metoprolol tartrate 25 mg tablet 25 mg PO BID 03/25/22 03/25/22 History pantoprazole 40 mg tablet,delayed 40 mg PO DAILY 03/25/22 03/25/22 History release sertraline 50 mg tablet 50 mg PO DAILY 03/25/22 03/25/22 History amlodipine 5 mg tablet (Norvasc) 5 mg PO QAM #30 tabs 04/02/22 Rx Hospital Stay Data Consultations 03/25/22 06:58 ED Decision to Admit Stat 03/25/22 08:39 Consult It Applications Manager Routine 03/30/22 02:13 Consult Urology Routine Procedures Performed Operation Date: 03/25/22 08:00 Actual Procedures p Awake Fiberoptic Intubation and Direct Laryngoscopy(Not Applicable) - Triston Paniagua MD Diagnostic Imagining Performed 03/25/22 05:04 CT neck soft tissues [CT soft tissue neck w con] Stat Visualized portions of the intracranial contents are unremarkable. Mastoid air cells are clear. There is mild polypoid mucosal thickening of the maxillary sinuses. Parotid glands are unremarkable. Note is made of inflammation adjacent to the submandibular glands and within the floor the mouth. There is enlargement the uvula. In addition, the epiglottis is edematous and enlarged. There is also edema of the aryepiglottic folds without thickening. There is severe supraglottic airway narrowing due to this edema. Edema within the adjacent soft tissues is present. No rim-enhancing fluid collection is present. There is no soft tissue gas. Major vasculature of the neck is patent. No acute fracture or suspicious lesion within visualized skeletal structures is identified. IMPRESSION: Enlarged, edematous epiglottis. In addition, edematous aryepiglottic folds with adjacent inflammation and fluid extending into the floor of mouth. No fluid collection. No soft tissue gas. The findings result in severe supraglottic airway narrowing and may reflect epiglottitis. Surgical consultation is recommended. However, noninfectious etiologies such as angioedema or anaphylaxis are within the differential as well. Pending Results Patient Have Any Pending Studies at Discharge: No Discharge Instructions Given to Patient (Per Discharging Provider) Mr Harrington. You were brought to the hospital for throat swelling. You were intubated and managed in the ICU on the breathing machine for some days. You were successfully treated and taken off the machine. You are being discharged home. PLEASE STOP TAKING LISINOPRIL IT IS LIKELY THE CAUSE OF YOUR ANGIOEDEMA You were started on amlodipine for blood pressure. Please stop taking wellbutrin for now until advised otherwise by your doctor. Please take all your home medications in pill packs and this discharge paperwork to your Pharmacy for medication reconciliation. Please ensure follow up with Urologist for the bloody urine you had. Please ensure follow up with your Primary Doctor. It was a pleasure taking care of you. Total Time Total Time Spent Total Time Spent (In Minutes): 50 Total Time Includes: Examination of the Patient, Discharge Planning and Medication Reconciliation
== END 2022-04-02 15:40 | disposition home health service (06) | DRG 915 ==
LOC: ED 03:32 → 1E 08:04 → SUATTDRO 08:39 → 2N 03-31 15:58

== ENCOUNTER 2023-09-26 14:20 | Inpatient (IN) ==
--- OUTSIDE RECORDS SUMMARY | 2023-09-26 14:25 | External Medical Summary | Summary of Care ---
Author Name Unknown Organization [facility] Address [address] [place] [address] Phone [phone] Care Team Providers Care Esol Instructor Name Role Phone Julianna Fitzpatrick Primary Care Provider Encounter Details Date Type Department Care Team (Late st Contact Info) Description 09/22/2023 Population Health External Data Unspecified Department Allergies Active Allergy Reactions Criticality Noted Date Comments Biotin 02/24/2022 Hair skin and nails supplement- tongue swelling Lisinopril Anaphylaxis High 04/03/2022 Patient had anaphylactic reaction and ended up on ventilator for 6 days. Other - Drugs 01/11/2010 Epidural medication causes itching. Name unknown documented as of this encounter (statuses as of 09/22/2023) Medications Medication Sig Dispensed Refills Start Date End Date Status Aspirin 81 MG TabletIndications:HT N, goal below 140/90,Coronary artery disease involving [place] coronary artery of [place] heart without angina pectoris,S/P coronary artery stent placement Take 1 Tab by mouth daily. 90 Tab 3 09/01/2018 Active Sertraline HCl 50 MG Oral Tablet (Zoloft) Take by mouth 1 Tablet in the morning. 90 Tablet 3 02/26/2022 Active EpiPen 2-Alex 0.3 MG/0.3ML Injection Solution Auto-injector For a severe reaction: Place orange end against the outer thigh, press firmly, hold in place for 10 seconds and go to the Emergency room. 2 Each 3 04/30/2022 Active Meclizine HCl 25 MG Oral Tablet (Antivert) Take 1 Tablet (25 mg) by mouth 3 times a day as needed for Dizziness. 30 Tablet 0 05/27/2022 Active Melatonin 10 MG Oral Capsule Take 1 Capsule by mouth at bedtime. 0 Active Fexofenadine HCl 180 MG Oral Tablet (Sherri) Take 1 Tablet by mouth in the morning. 0 Active Triamcinolone Acetonide 0.1 % External Cream (Aristocort)Indicati ons:Allergic dermatitis Apply topically to affected area 2 times a day. To affected area. For up to 2 weeks 28.4 g 0 10/16/2022 Active Ondansetron HCl 4 MG Oral Tablet (Zofran)Indications: Nausea and vomiting, unspecified vomiting type Take 1 Tablet by mouth every 8 hours as needed for Nausea. 20 Tablet 0 10/16/2022 Active Jardiance 25 MG Oral Tablet (Empagliflozin) TAKE ONE TABLET BY MOUTH AT BEDTIME 90 Tablet 1 02/03/2023 Active levETIRAcetam 750 MG Oral TabletIndications:Hi story of seizure TAKE TWO TABLETS BY MOUTH TWICE DAILY 360 Tablet 1 02/26/2023 Active Clopidogrel Bisulfate 75 MG Oral Tablet (pLAVix)Indications: Coronary artery disease involving [place] coronary artery of [place] heart without angina pectoris,S/P coronary artery stent placement,HTN, goal below 140/90 TAKE ONE TABLET BY MOUTH EVERY DAY 90 Tablet 3 03/05/2023 Active Metoprolol Tartrate 25 MG Oral Tablet (Lopressor)Indicatio ns:Coronary artery disease involving [place] coronary artery of [place] heart without angina pectoris,S/P coronary artery stent placement,HTN, goal below 140/90 TAKE ONE TABLET BY MOUTH TWICE DAILY 180 Tablet 3 03/05/2023 Active Pantoprazole Sodium 40 MG Oral Tablet Delayed Release (Protonix) Take 1 Tablet by mouth in the morning. 90 Tablet 3 03/06/2023 Active amLODIPine Besylate 5 MG Oral Tablet (Norvasc)Indications :HTN, goal below 130/80 TAKE ONE TABLET BY MOUTH IN THE MORNING 90 Tablet 3 03/30/2023 Active Icosapent Ethyl 1 GM Oral Capsule (Vascepa)Indications :Dyslipidemia, goal LDL below 70,Hypertriglyceride sulaiman TAKE TWO CAPSULES BY MOUTH IN THE MORNING and TAKE 2 CAPSULES IN THE EVENING 360 Capsule 3 04/28/2023 Active Mounjaro 5 MG/0.5ML Subcutaneous Solution Pen-injector Inject 5 mg under the skin once a week. 0 05/16/2023 Active lamoTRIgine 100 MG Oral Tablet (LaMICtal) Take 1 Tablet by mouth in the morning. Takes .50 tablet in am and 1 tablet pm. 0 05/28/2023 Active Atorvastatin Calcium 80 MG Oral Tablet (Lipitor)Indications :Type 2 diabetes mellitus with hemoglobin A1c goal of less than 7.0% (HCC),Hypertriglycer idemia,Dyslipidemia, goal LDL below 100 TAKE ONE TABLET BY MOUTH EVERY DAY 90 Tablet 2 08/15/2023 Active metFORMIN HCl 1000 MG Oral Tablet (Glucophage)Indicati ons:Type 2 diabetes mellitus with stage 3a chronic kidney disease (HCC) TAKE 1 TABLET BY MOUTH TWICE A DAY 180 Tablet 2 08/15/2023 Active Ezetimibe 10 MG Oral Tablet (Zetia)Indications:C oronary artery disease involving [place] coronary artery of [place] heart without angina pectoris,Dyslipidemi a, goal LDL below 70,S/P coronary artery stent placement TAKE ONE TABLET EVERY DAY 90 Tablet 2 08/15/2023 Active documented as of this encounter (statuses as of 09/22/2023) Active Problems Problem Noted Date Diagnosed Date Food insecurity 02/09/2023 Overview: Per [facility] Protocol Grade I diastolic dysfunction 02/06/2023 DDD (degenerative disc disease), lumbar 02/07/20 Osteoarthritis of multiple joints 02/06/2023 Splenomegaly 02/06/2023 Diverticulosis of large intestine without hemorr libby 02/06/2023 Atelectasis 02/06/2023 Pulmonary nodule 02/06/2023 Adrenal nodule 12/18/2022 Angio-edema 05/27/2022 Dilated aortic root 02/24/2022 Obesity, Class I, BMI 30.0-34.9 (see actual BMI) 02/17/2019 Type 2 diabetes mellitus wit h diabetic polyneuropathy, without long-term current use of insulin 08/24/2018 Coronary artery disease invo lving [place] coronary artery of [place] heart without angina pectoris 08/24/2018 S/P coronary artery stent placement 08/24/2018 COPD, mild 08/12/2018 Overview: PFT mild obstruction 07/2018 History of tobacco use 07/14/2018 Dyslipidemia, goal LDL below 70 01/11/2015 Hypertriglyceridemia 01/11/2015 Noncompliance 09/21/2014 Seizure disorder 12/24/2010 HTN, goal below 130/80 Bipolar affective disorder Type 2 diabetes mellitus wit h hemoglobin A1c goal of less than 7.0% Overview: ICD-10 update of inactive term documented as of this encounter (statuses as of 09/22/2023) Resolved Problems Problem Noted Date Diagnosed Date Resolved Date Hypertensive kidney disease with stage 3a chronic kidney disease 10/13/2022 02/06/2023 Convulsions 02/24/2022 05/27/2022 Type 2 diabetes mellitus wit h stage 3a chronic kidney disease, without long-term current use of insulin 11/06/2020 02/06/2023 Overview: Per CKD protocol Diabetes mellitus with stage 3 chronic kidney disease 05/07/2020 11/08/2020 Overview: Per CKD protocol Type 2 diabetes mellitus wit h stage 3 chronic kidney disease, without long-term current use of insulin 02/22/2020 05/10/2020 Overview: Per CKD protocol Kidney disease, chronic, sta ge III (GFR 30-59 ml/min) 03/07/2019 03/08/2020 Overview: Per CKD protocol Tobacco use disorder 09/18/2017 019 Rash and nonspecific skin eruption 03/24/2016 04/23/2017 Hemorrhoid 08/24/2018 Peripheral neuropathy 2018 documented as of this encounter (statuses as of 09/22/2023) Immunizations Name Administration Dates Next Due TDAP (age 11 and older)(Adacel) 06/29/2010 documented as of this encounter Social History Tobacco Use Types Packs/Day Years Used Date Smoking Tobacco: Former Cigarettes 35 Smokeless Tobacco: Current Snuff Comments:Pt smoked Marijuana for 35 years. Alcohol Use Standard Drinks/Week Comments No 0 (1 standard drink = 0.6 oz pur e alcohol) PHQ-2 Answer Date Recorded PHQ Adult Total Score 0 07/07/2023 Hunger Vital Sign Answer Date Recorded Within the past 12 months, y ou worried that your food would run out before you got the money to buy more. Sometimes true Within the past 12 months, t he food you bought just didn't last and you didn't have money to get more. Sometimes true 02/2024 Sex and Gender Information Value Date Recorded Sex Assigned at Male 01/27/2023 8:20 AM EDT Gender Identity Male 01/27/2023 8:20 AM EDT Sexual Orientation Choose not to disclose 2022 8:20 AM EDT Job Start Date Occupation Industry Not on file Not on file Not on file documented as of this encounter Plan of Treatment Upcoming Encounters Date Type Department Care Team (Late st Contact Info) Description 10/14/2023 3:00 PM EDT Office Visit Nephrology [address] [place] [address] Magaly Thornton MD [address] [facility] [place] [address] 01/21/2024 2:00 PM EDT Imaging Radiology [address] 132 [facility] [place] [address] 02/11/2024 10:30 AM EDT Office Visit Care at Home [address] [place] [address] Jessica Quiñonez PA-C [address] [place], [place] [id number] Scheduled Procedures Name Priority Associated Diagnoses Date/Ti me COLONOSCOPY FLEXIBLE PROXIMA L DIAGNOSTIC Recall Encounter for screening colonoscopy Health Maintenance Due Date Last Done Comments Pneumococcal Vaccine: Pediatrics (0 to 5 Years) and At-Risk Patients (6 to 64 Years) (1 of 2 - PCV) 1967 Alpha-1 Antitrypsin 1979 Cologuard 2006 Fecal Occult Blood Test 2006 Sigmoidoscopy 2006 Zoster Vaccines (1 of 2) 2011 DTaP,Tdap,and Td Vaccines (2 - Td or Tdap) 06/29/2020 06/29/2010 Diabetic Eye Exam 10/16/2022 10/16/2021, 03/31/2016 COVID-19 Vaccine (1 - season) 2023 Influenza Vaccine (FLU shot) (#1) 2023 Diabetic Foot Exam 07/28/2023 07/28/2022, 0 02/22/2020, 02/17/2019, Additional history exists B-12 10/17/2023 10/16/2022, 09/28, 04/17/2021, Additional history exists HbA1c 02/01/2024 08/03/2023, 06/0 01/2023, 10/16/2022, Additional history exists O2 ASSESSMENT COMPLETED IN PAST YEAR FOR COPD 02/25/2024 02/24/2023 Depression Screening 07/07/2024 07/07/2023 Albumin/Creatinine Ratio 08/03/2024 024, 10/16/2022, 01/07/2022, Additional history exists GFR 08/03/2024 08/03/2023, 080 06/2022, 12/04/2022, Additional history exists Colonoscopy 12/01/2026 12/01/2016, 12/01/2016 Colorectal Cancer Screening 12/01/2026 GARDASIL-HPV IMMUNIZATION SERIES Aged Out No longer eligible based on patient's age to complete this topic Hepatitis B Aged Out No longer eligi ble based on patient's age to complete this topic MENINGOCOCCAL (MENACTRA/MENVEO) Aged Out No longer eligible based on patient's age to complete this topic documented as of this encounter Medical Devices Not on filedocumented as of this encounter Care Teams Esol Instructor Relationship Specialty Start Date End Date Julianna Fitzpatrick CRNP [address] [place] [address] PCP - General Nurse Practitioner 03/19/23 documented as of this encounter
--- OUTSIDE RECORDS SUMMARY | 2023-09-26 14:25 | External Medical Summary ---
Author Name Unknown Address Unknown Organization [id number]:LABORATORY [facility] [place] - [address] [facility] [address] Laboratory Report Ordering Provider Test Date Status FLEX LAYVIOLETA 08/03/2023 10:31:53 Final Normal: <150 mg/ g creatinine
High: 150-500 mg/g creatinine
Very High: >500 mg/g creatinine
Nephrotic: >3000 mg/g creatinine Observation Date Value Abnormality Reference (Units ) Status Protein/Creatinine [Ratio] in Urine 08/03/2023 10:31:53 2250 Above high normal <150 (mg/g ) Final Protein, Urine 08/03/2023 10:31:53 144 (mg/dL) Final Creatinine, Urine 08/03/2023 10:31:53 64 (mg/dL) Final Performing Location [facility] [place] [facility] [address] [facility] [address]
--- OUTSIDE RECORDS SUMMARY | 2023-09-26 14:25 | External Medical Summary ---
Author Name Unknown Address Unknown Organization [id number]:[facility]ORY [facility] [place] - [address] [facility] [address] Laboratory Report Ordering Provider Test Date Status FLEX LAYVIOLETA 08/03/2023 10:31:53 Final Normal: <30 mg/g creatinine< br/>High: 30-300 mg/g creatinine
Very High: >300 mg/g creatinine
Nephrotic: >2200 mg/g creatinine Observation Date Value Abnormality Reference (Units ) Status Albumin, Urine 08/03/2023 10:31:53 97.43 (mg/dL) Final Creatinine, Urine 08/03/2023 10:31:53 62 (mg/dL) Final Albumin/Creatinine [Mass Ratio] in Urine 08/03/2023 10:31:53 1571 Above high normal <30 (mg/g Creat) Final Performing Location [facility] [address] [facility] [address]
--- OUTSIDE RECORDS SUMMARY | 2023-09-26 14:25 | External Medical Summary ---
Author Name Unknown Address Unknown Organization K01:[facility]ORY [facility] [place] [facility] [address] [facility] [address] Laboratory Report Ordering Provider Test Date Status TONO LOPEZ 08/03/2023 10:31:53 Final Observation Date Value Abnormality Reference (Units ) Status HbA1C 08/03/2023 10:31:53 7.3 Above high normal 4. 0-5.6 (%) Final The use of HbA1c to monitor glycemic status is based on normal hemoglobin and HbA composition. This test should not be used in patients with abnormal hemoglobin that affects the half life of the red blood cell or the in vivo glycation rates. Glucose, estimated average 08/03/2023 10:31:53 163 Above high normal <126 (mg/dL) Fin julián Performing Location [facility] [place] - [address] [facility] [address]
--- OUTSIDE RECORDS SUMMARY | 2023-09-26 14:25 | External Medical Summary | Summary of Care ---
Author Name Unknown Organization [facility] Address [address] [place] [address] Phone [phone] Care Team Providers Care Manager Solution Name Role Phone Julianna Fitzpatrick Primary Care Provider Reason for Visit * Reason Comments eRx-Medication Refill Encounter Details Date Type Department Care Team (Late st Contact Info) Description 08/14/2023 Refill Family Medicine [address] [place] [address] Jessica Cordero MD [address] [place] [address] [place] [address] History of seizure; Type 2 diabetes mellitus with stage 3a chronic kidney disease (HCC) Allergies Active Allergy Reactions Criticality Noted Date Comments Biotin 02/24/2022 Hair skin and nails supplement- tongue swelling Lisinopril Anaphylaxis High 04/03/2022 Patient had anaphylactic reaction and ended up on ventilator for 6 days. Other - Drugs 01/11/2010 Epidural medication causes itching. Name unknown documented as of this encounter (statuses as of 08/17/2023) Medications Medication Sig Dispensed Refills Start Date End Date Status Aspirin 81 MG TabletIndications :HTN, goal below 140/90,Coronary artery disease involving [place] coronary artery of enterprise heart without angina pectoris,S/P coronary artery stent [...] Active Triamcinolone Acetonide 0.1 % External Cream (Aristocort)Indic ations:Allergic dermatitis Apply topically to affected area 2 times a day. To affected area. For up to 2 weeks 28.4 g 0 10/16/2022 Active Ondansetron HCl 4 MG Oral Tablet (Zofran)Indicatio ns:Nausea and vomiting, unspecified vomiting type Take 1 Tablet by mouth every 8 hours as needed for Nausea. 20 Tablet 0 10/16/2022 Active Jardiance 25 MG Oral Tablet (Empagliflozin) TAKE ONE TABLET BY MOUTH AT BEDTIME 90 Tablet 1 02/03/2023 Active levETIRAcetam 750 MG Oral TabletIndications :History of seizure TAKE TWO TABLETS BY MOUTH TWICE DAILY 360 Tablet 1 02/26/2023 Active Clopidogrel Bisulfate 75 MG Oral Tablet (pLAVix)Indicatio ns:Coronary artery disease involving [place] coronary artery of [place] heart without angina pectoris,S/P coronary artery stent placement,HTN, goal below 140/90 TAKE ONE TABLET BY MOUTH EVERY DAY 90 Tablet 3 03/05/2023 Active Metoprolol Tartrate 25 MG Oral Tablet (Lopressor)Indica tions:Coronary artery disease involving [place] coronary artery of [place] heart without angina pectoris,S/P coronary artery stent placement,HTN, goal below 140/90 TAKE ONE TABLET BY MOUTH TWICE DAILY 180 Tablet 3 03/05/2023 Active Pantoprazole Sodium 40 MG Oral Tablet Delayed Release (Protonix) Take 1 Tablet by mouth in the morning. 90 Tablet 3 03/06/2023 Active amLODIPine Besylate 5 MG Oral Tablet (Norvasc)Indicati ons:HTN, goal below 130/80 TAKE ONE TABLET BY MOUTH IN THE MORNING 90 Tablet 3 03/30/2023 Active Icosapent Ethyl 1 GM Oral Capsule (Vascepa)Indicati ons:Dyslipidemia, goal LDL below 70,Hypertriglycer idemia TAKE TWO CAPSULES BY MOUTH IN THE [...] Active Atorvastatin Calcium 80 MG Oral Tablet (Lipitor)Indicati ons:Type 2 diabetes mellitus with hemoglobin A1c goal of less than 7.0% (HCC),Hypertrigly ceridemia,Dyslipi demia, goal LDL below 100 TAKE ONE TABLET BY MOUTH EVERY DAY 90 Tablet 2 08/15/2023 Active metFORMIN HCl 1000 MG Oral Tablet (Glucophage)Indic ations:Type 2 diabetes mellitus with stage 3a chronic kidney disease (HCC) TAKE 1 TABLET BY MOUTH TWICE A DAY 180 Tablet 2 08/15/2023 Active Ezetimibe 10 MG Oral Tablet (Zetia)Indication s:Coronary artery disease involving enterprise coronary artery of enterprise heart without angina pectoris,Dyslipid emia, goal LDL below 70,S/P coronary artery stent placement TAKE ONE TABLET EVERY DAY 90 Tablet 2 08/15/2023 Active metFORMIN HCl 1000 MG Oral Tablet (Glucophage)Indic ations:Type 2 diabetes mellitus with stage 3a chronic kidney disease (HCC) Take 1 Tablet by mouth 2 times a day. 180 Tablet 1 02/27/2023 4 Discontinued documented as of this encounter (statuses as of 08/17/2023) Active Problems Problem Noted Date Diagnosed Date Food insecurity 02/09/2023 Overview: Per [facility] Protocol Grade I diastolic dysfunction [...] insulin 08/24/2018 Coronary artery disease invo lving enterprise coronary artery of enterprise heart without angina pectoris 08/24/2018 S/P coronary [...] as of this encounter (statuses as of 08/17/2023) Resolved Problems Problem Noted Date Diagnosed Date [...] as of this encounter (statuses as of 08/17/2023) Immunizations Name Administration Dates Next Due TDAP [...] on file documented as of this encounter Miscellaneous Notes * Telephone Encounter - Qasim Narayanan RN - 08/17/2023 11:47 AM ESTSigned Prescriptions: Disp Refills metFORMIN HCl 1000 MG Oral Tablet (Glucoph*180 Ta*2 Sig: TAKE 1TABLET BY MOUTH TWICE A DAYAuthorizing Provider: JESSICA CORDEROOrderarjun User: TYRESE KINGRefused Prescriptions: Disp Refills levETIRAcetam 750 MG Oral Tablet 360 Ta*1 Sig: TAKE TWO TABLETS BY MOUTH TWICE DAILYRefused By: QASIM NARAYANAN MReason for Refusal: Managed by another physician * Telephone Encounter - Jessica Cordero MD - 08/17/2023 10:53 AM EST Pending Prescriptions: Disp Refills levETIRAcetam 750 MG Oral Tablet 360 Ta*1 Sig: TAKE TWO TABLETS BY MOUTH TWICE DAILY Signed Prescriptions: Disp Refills metFORMIN HCl 1000 MG Oral Tablet (Glucoph*180 Ta*2 Sig: TAKE 1 TABLET BY MOUTH TWICE A DAY Authorizing Provider: JESSICA CORDERO Ordering User: TYRESE KING * Telephone Encounter - Jessica Cordero MD - 08/17/2023 10:52 AM EST Appears he is no longer being seen here? Transferred to [facility] * Telephone Encounter - Tyrese King [facility] - 08/15/2023 9:17 AM EST Pending Prescriptions: Disp Refills levETIRAcetam 750 MG Oral Tablet 360 Ta*1 Sig: TAKE TWO TABLETS BY MOUTH TWICE DAILY Signed Prescriptions: Disp Refills metFORMIN HCl 1000 MG Oral Tablet (Glucoph*180 Ta*2 Sig: TAKE 1 TABLET BY MOUTH TWICE A DAY Authorizing Provider: JESSICA CORDERO Ordering User: TYRESE KING * Telephone Encounter - Tyrese King [facility] - 08/15/2023 9:16 AM EST [facility] is currently not authorized to approve refills for the pended medication(s) per refill protocol. Please approve if appropriate. Thanks, Tyrese King, PharmD Clinical Pharmacist [facility] ([facility]) (formerly Telepharmacy) [phone] 08/15/2023, 9:17 AM documented in this encounter Plan of Treatment Upcoming Encounters Date Type Department Care Team (Late st Contact Info) Description 10/14/2023 3:00 PM EDT Office Visit Nephrology [address] [place] [address] Magaly Thornton MD [address] [facility] [place] [address] 01/21/2024 2:00 PM EDT Imaging Radiology [address] [facility] [place] [address] 02/11/2024 10:30 AM EDT Office Visit Care at Home [address] [place], [place] [id number] Jessica Quiñonez PA-C [address] [place] [address] Scheduled Procedures Name Priority Associated Diagnoses Date/Ti [...] 10/16/2022 10/16/2021, 03/31/2016 COVID-19 Vaccine (1 - 2022-24 season) 2023 Influenza Vaccine (FLU shot) (#1) 2023 Diabetic Foot Exam 07/28/2023 07/28/2022, 0 02/22/2020, 02/17/2019, Additional history exists B-12 10/17/2023 10/16/2022, 09/28, 04/17/2021, Additional history exists HbA1c 02/01/2024 08/03/2023, 06/0 01/2023, 10/16/2022, Additional history exists O2 ASSESSMENT COMPLETED IN PAST YEAR FOR COPD 02/25/2024 02/24/2023 Depression Screening 07/07/2024 07/07/2023 Albumin/Creatinine Ratio 08/03/2024 024, 10/16/2022, 01/07/2022, Additional history exists GFR 08/03/2024 08/03/2023, 0806/2022, 12/04/2022, Additional history exists Colonoscopy 12/01/2026 12/01/2016, [...] Not on filedocumented as of this encounter Visit Diagnoses Diagnosis History of seizure Type 2 diabetes mellitus with stage 3a chronic kidney disease (HCC) documented in this encounter Care Teams Manager Solution Relationship Specialty Start Date End Date Julianna Fitzpatrick CRNP [address] [place] [address] PCP - General Nurse Practitioner 03/19/23 documented as of this encounter
--- OUTSIDE RECORDS SUMMARY | 2023-09-26 14:25 | External Medical Summary ---
Author Name Unknown Address Unknown Organization K01:[facility] [place] [address] [place] [address] Laboratory Report Ordering Provider Test Date Status TONO LOPEZ 08/03/2023 10:31:53 Final Observation Date Value Abnormality Reference (Units ) Status LDL, (direct) 08/03/2023 10:31:53 50 <=129 (mg/dL) Final LDL Cholesterol Reference Ra nges (mg/dL):
<70 Target level for high risk ASCVD patient
<100 Optimal for general population
100-129 Near optimal for general population
130-159 Borderline high
160-189 High
>=190 Very high Performing Location LABORATORY [facility] - [address] [place] [address]
--- OUTSIDE RECORDS SUMMARY | 2023-09-26 14:25 | External Medical Summary | Summary of Care ---
Author Name Unknown Organization [facility] Address [address] [place] [address] Phone [phone] Care Team Providers Care Armature Winder Repairer Name Role Phone Julianna Fitzpatrick Primary Care Provider Reason for Visit * Reason Comments Outpatient Testing Encounter Details Date Type Department Care Team (Late st Contact Info) Description 08/03/2023 10:30 AM EST Laboratory Laboratory [address] [place] [phone] [place] [address] Type 2 diabetes mellitus with diabetic polyneuropathy, without long-term current use of insulin ([facility]); Type 2 diabetes mellitus with hemoglobin A1c goal of less than 7.0% ([facility]); HTN, goal below 130/80; Dyslipidemia, goal LDL below 70; Proteinuria, unspecified type Allergies Active Allergy Reactions Criticality Noted Date Comments Biotin 02/24/2022 Hair skin and nails supplement- tongue swelling Lisinopril Anaphylaxis High 04/03/2022 Patient had anaphylactic reaction and ended up on ventilator for 6 days. Other - Drugs 01/11/2010 Epidural medication causes itching. Name unknown documented as of this encounter (statuses as of 08/03/2023) Medications Medication Sig Dispensed Refills Start Date End Date Status Aspirin 81 MG TabletIndications:HT N, goal below 140/90,Coronary artery disease involving [place] coronary artery of [place] heart without angina pectoris,S/P coronary artery stent [...] TWICE DAILY 360 Tablet 1 02/26/2023 Active Atorvastatin Calcium 80 MG Oral Tablet (Lipitor)Indications :Type 2 diabetes mellitus with hemoglobin A1c goal of less than 7.0% (HCC),Hypertriglycer idemia,Dyslipidemia, goal LDL below 100 TAKE ONE TABLET BY MOUTH EVERY DAY 90 Tablet 1 02/26/2023 Active metFORMIN HCl 1000 MG Oral Tablet (Glucophage)Indicati ons:Type 2 diabetes mellitus with stage 3a chronic kidney disease (HCC) Take 1 Tablet by mouth 2 times a day. 180 Tablet 1 02/27/2023 Active Ezetimibe 10 MG Oral Tablet (Zetia)Indications:C oronary artery disease involving [place] coronary artery of [place] heart without angina pectoris,Dyslipidemi a, goal LDL below 70,S/P coronary artery stent placement TAKE ONE TABLET BY MOUTH EVERY DAY 90 Tablet 1 03/05/2023 Active Clopidogrel Bisulfate 75 MG Oral Tablet (pLAVix)Indications: Coronary artery disease involving [place] coronary artery of [place] heart without angina pectoris,S/P coronary artery stent placement,HTN, goal below 140/90 TAKE ONE TABLET BY MOUTH EVERY DAY 90 Tablet 3 03/05/2023 Active Metoprolol Tartrate 25 MG Oral Tablet (Lopressor)Indicatio ns:Coronary artery disease involving [place] coronary artery of [place] heart without angina pectoris,S/P coronary artery stent [...] and 1 tablet pm. 0 05/28/2023 Active documented as of this encounter (statuses as of 08/03/2023) Active Problems Problem Noted Date Diagnosed Date Food insecurity 02/09/2023 Overview: Per [facility] Protocol Grade I diastolic dysfunction 02/06/2023 [...] insulin 08/24/2018 Coronary artery disease invo lving [place] coronary artery of [place] heart without angina pectoris 08/24/2018 S/P coronary [...] as of this encounter (statuses as of 08/03/2023) Resolved Problems Problem Noted Date Diagnosed Date [...] as of this encounter (statuses as of 08/03/2023) Immunizations Name Administration Dates Next Due TDAP [...] 10/14/2023 3:00 PM EDT Office Visit Nephrology [address] [place] [address] Magaly Thornton MD [address] [place] [address] [place] [address] 10/16/2023 10:40 AM EDT Office Visit Family Medicine [address] [place] [phone] Key Cordero MD [address] [place] [address] [place] [address] 01/21/2024 2:00 PM EDT Imaging Radiology [facility]st [facility], [address] [place] [address] 02/11/2024 10:30 AM EDT Office Visit Care at Home [address] [place] [address] Jessica Quiñonez PA-C [address] [place] [address] Pending Results Name Type Priority Associated Diagnoses Date /Time HEMOGLOBIN A1C Lab Routine Type 2 diabetes mellitus with diabetic polyneuropathy, without long-term current use of insulin (HCC) Type 2 diabetes mellitus with hemoglobin A1c goal of less than 7.0% (HCC) 08/03/2023 10:31 AM EST LIPID PANEL WITH DIRECT LDL IF TG IS HIGH Lab Routine HTN, goal below 130/80 Dyslipidemia, goal LDL below 70 08/03/2023 10:31 AM EST COMPREHENSIVE METABOLIC PANEL Lab Routine Type 2 diabetes mellitus with hemoglobin A1c goal of less than 7.0% (HCC) Dyslipidemia, goal LDL below 70 08/03/2023 10:31 AM EST URINALYSIS WITH MICROSCOPIC EXAM Lab Routine Proteinuria, unspecified type 08/03/2023 10:31 AM EST PROTEIN/ CREATININE RATIO, URINE Lab Routine Proteinuria, unspecified type 08/03/2023 10:31 AM EST ALBUMIN / CREATININE RATIO, URINE Lab Routine Proteinuria, unspecified type 08/03/2023 10:31 AM EST Scheduled Procedures Name Priority Associated Diagnoses Date/Ti me COLONOSCOPY FLEXIBLE PROXIMA L DIAGNOSTIC Recall Encounter for screening colonoscopy Health Maintenance Due Date Last Done Comments COVID-19 Vaccine (#1) 1961 Pneumococcal Vaccine: Pediatrics (0 to 5 Years) and At-Risk Patients (6 to 64 Years) (1 - PCV) 1967 Alpha-1 Antitrypsin 1979 Cologuard 2006 Fecal Occult Blood Test 2006 Sigmoidoscopy 2006 Zoster Vaccines (1 of 2) 2011 DTaP,Tdap,and Td Vaccines (2 - Td or Tdap) 06/29/2020 06/29/2010 Hepatitis B (1 of 3 - Risk 3-dose series) 2021 Diabetic Eye Exam 10/16/2022 10/16/2021, 03/31/2016 Influenza Vaccine (FLU shot) (#1) 2023 HbA1c 06/05/2023 12/04/2022, 04/2 , 07/28/2022, Additional history exists Diabetic Foot Exam 07/28/2023 07/28/2022, 0 02/22/2020, 02/17/2019, Additional history exists Albumin/Creatinine Ratio 10/17/2023 023, 01/07/2022, 04/17/2021, Additional history exists B-12 10/17/2023 10/16/2022, 09/28, 04/17/2021, Additional history exists GFR 01/28/2024 01/27/2023, 06/01/2023, 10/16/2022, Additional history exists O2 ASSESSMENT COMPLETED IN PAST YEAR FOR COPD 02/25/2024 02/24/2023 Depression Screening 07/07/2024 07/07/2023 Colonoscopy 12/01/2026 12/01/2016, 12/01/2016 Colorectal Cancer Screening 12/01/2026 GARDASIL-HPV IMMUNIZATION SERIES Aged Out No longer eligible based on patient's age to complete this topic MENINGOCOCCAL (MENACTRA/MENVEO) Aged Out No longer eligible based on patient's age to complete this topic documented as of this encounter Medical Devices Not on filedocumented as of this encounter Visit Diagnoses Diagnosis Type 2 diabetes mellitus with diabetic polyneuropathy, without long-term current use of insulin (HCC) Type 2 diabetes mellitus with hemoglobin A1c goal of less than 7.0% (HCC) HTN, goal below 130/80 Unspecified essential hypertension Dyslipidemia, goal LDL below 70 Other and unspecified hyperlipidemia Proteinuria, unspecified type documented in this encounter Care Teams Armature Winder Repairer Relationship Specialty Start Date End Date Julianna Fitzpatrick CRNP [address] [place] [address] PCP - General Nurse Practitioner 03/19/23 documented as of this encounter
--- OUTSIDE RECORDS SUMMARY | 2023-09-26 14:25 | External Medical Summary | Summary of Care ---
Author Name Unknown Organization [facility] Address [address] [place] [address] Phone [phone] Care Team Providers Care Iron Cutter Name Role Phone Julianna Fitzpatrick Primary Care Provider Encounter Details Date Type Department Care Team (Late st Contact Info) Description 08/18/2023 Population Health External Data Unspecified Department Allergies Active Allergy Reactions Criticality Noted Date Comments Biotin 02/24/2022 Hair skin and nails supplement- tongue swelling Lisinopril Anaphylaxis High 04/03/2022 Patient had anaphylactic reaction and ended up on ventilator for 6 days. Other - Drugs 01/11/2010 Epidural medication causes itching. Name unknown documented as of this encounter (statuses as of 08/19/2023) Medications Medication Sig Dispensed Refills Start Date End Date Status Aspirin 81 MG TabletIndications:HT N, goal below 140/90,Coronary artery disease involving [place] coronary artery of [place] heart without angina pectoris,S/P coronary artery stent [...] Oral Tablet (pLAVix)Indications: Coronary artery disease involving [place] coronary artery of [place] heart without angina pectoris,S/P coronary artery stent placement,HTN, goal below 140/90 TAKE ONE TABLET BY MOUTH EVERY DAY 90 Tablet 3 03/05/2023 Active Metoprolol Tartrate 25 MG Oral Tablet (Lopressor)Indicatio ns:Coronary artery disease involving [place] coronary artery of [place] heart without angina pectoris,S/P coronary artery stent [...] Oral Tablet (Zetia)Indications:C oronary artery disease involving [place] coronary artery of [place] heart without angina pectoris,Dyslipidemi a, goal LDL below 70,S/P coronary artery stent placement TAKE ONE TABLET EVERY DAY 90 Tablet 2 08/15/2023 Active documented as of this encounter (statuses as of 08/19/2023) Active Problems Problem Noted Date Diagnosed Date Food insecurity 02/09/2023 Overview: Per [facility] Protocol Grade I diastolic dysfunction [...] insulin 08/24/2018 Coronary artery disease invo lving [place] coronary artery of [place] heart without angina pectoris 08/24/2018 S/P coronary [...] as of this encounter (statuses as of 08/19/2023) Resolved Problems Problem Noted Date Diagnosed Date [...] as of this encounter (statuses as of 08/19/2023) Immunizations Name Administration Dates Next Due TDAP [...] 10/14/2023 3:00 PM EDT Office Visit Nephrology [address] [place] [address] Magaly Thornton MD [address] [facility] [place] [address] 01/21/2024 2:00 PM EDT Imaging Radiology [address] 132 [facility] [place] [address] 02/11/2024 10:30 AM EDT Office Visit Care at Home [address] [place] [address] Jessica Quiñonez PA-C [address] [place], [place] [phone] Scheduled Procedures Name Priority Associated Diagnoses Date/Ti [...] filedocumented as of this encounter Care Teams Iron Cutter Relationship Specialty Start Date End Date Julianna Fitzpatrick CRNP [address] [place] [address] PCP - General Nurse Practitioner 03/19/23 documented as of this encounter
--- OUTSIDE RECORDS SUMMARY | 2023-09-26 14:25 | External Medical Summary | Summary of Care ---
Author Name Unknown Organization [facility] Address [address] [place] [address] Phone [phone] Care Team Providers Care Rail Transit Operator Name Role Phone Julianna Fitzpatrick Primary Care Provider Encounter Details Date Type Department Care Team (Late st Contact Info) Description 07/09/2023 Population Health External Data Unspecified Department Allergies Active Allergy Reactions Criticality Noted Date Comments Biotin 02/24/2022 Hair skin and nails supplement- tongue swelling Lisinopril Anaphylaxis High 04/03/2022 Patient had anaphylactic reaction and ended up on ventilator for 6 days. Other - Drugs 01/11/2010 Epidural medication causes itching. Name unknown documented as of this encounter (statuses as of 07/13/2023) Medications Medication Sig Dispensed Refills Start Date End Date Status Aspirin 81 MG TabletIndications:HT N, goal below 140/90,Coronary artery disease involving [place] coronary artery of [place] heart without angina pectoris,S/P coronary artery stent [...] Oral Tablet (Zetia)Indications:C oronary artery disease involving [place] coronary artery of [place] heart without angina pectoris,Dyslipidemi a, goal LDL below 70,S/P coronary artery stent placement TAKE ONE TABLET BY MOUTH EVERY DAY 90 Tablet 1 03/05/2023 Active Clopidogrel Bisulfate 75 MG Oral Tablet (pLAVix)Indications: Coronary artery disease involving [place] coronary artery of [place] heart without angina pectoris,S/P coronary artery stent placement,HTN, goal below 140/90 TAKE ONE TABLET BY MOUTH EVERY DAY 90 Tablet 3 03/05/2023 Active Metoprolol Tartrate 25 MG Oral Tablet (Lopressor)Indicatio ns:Coronary artery disease involving [place] coronary artery of [place] heart without angina pectoris,S/P coronary artery stent [...] as of this encounter (statuses as of 07/13/2023) Active Problems Problem Noted Date Diagnosed Date Food insecurity 02/09/2023 Overview: Per [facility] Protocol Grade I diastolic dysfunction [...] insulin 08/24/2018 Coronary artery disease invo lving [place] coronary artery of [place] heart without angina pectoris 08/24/2018 S/P coronary [...] as of this encounter (statuses as of 07/13/2023) Resolved Problems Problem Noted Date Diagnosed Date [...] as of this encounter (statuses as of 07/13/2023) Immunizations Name Administration Dates Next Due TDAP [...] 10/14/2023 3:00 PM EDT Office Visit Nephrology [address] [place] [address] Magaly Thornton MD [address] [facility] [address] 10/16/2023 10:40 AM EDT Office Visit Family Medicine [address] [place] [phone] Key Cordero MD [address] [place] [address] [place] [address] 01/21/2024 2:00 PM EDT Imaging Radiology [address] [address] 02/11/2024 10:30 AM EDT Office Visit Care at Home [address] [place] [address] Jessica Quiñonez PA-C [address] [place] [address] Scheduled Procedures Name Priority Associated Diagnoses Date/Ti [...] 04/17/2021, Additional history exists B-12 10/17/2023 10/16/2022, 042 , 04/17/2021, Additional history exists GFR 01/28/2024 01/27/2023, 06/0 01/2023, 10/16/2022, Additional history exists O2 [...] filedocumented as of this encounter Care Teams Rail Transit Operator Relationship Specialty Start Date End Date Julianna Fitzpatrick CRNP [address] [place] [address] PCP - General Nurse Practitioner 03/19/23 documented as of this encounter
--- OUTSIDE RECORDS SUMMARY | 2023-09-26 14:25 | External Medical Summary ---
Author Name Unknown Address Unknown Organization [id number]:LABORATORY [facility] - [address] [place] [address] Laboratory Report Ordering Provider Test Date Status TONO LOPEZ 08/03/2023 10:31:53 Final Observation Date Value Abnormality Reference (Units ) Status Triglyceride 08/03/2023 10:31:53 154 <=174 ( mg/dL) Final Triglyceride Reference Range s (mg/dL):
<150 Acceptable
150-174 Borderline high
175-499 High
>=500 Very high Cholesterol 08/03/2023 10:31:53 118 <200 (mg /dL) Final Total Cholesterol Reference Ranges (mg/dL):
<200 Desirable
200-239 Borderline high
>=240 High HDL 08/03/2023 10:31:53 35 Below low normal >39 (mg/dL) Final HDL Cholesterol Reference Ra nges (mg/dL):
>=60 High (Desirable)
<50 Low (Undesirable) For Females
<40 Low (Undesirable) For Males NON-HDL CHOLESTEROL 08/03/2023 10:31:53 83 <=159 (mg/dL) Final Non-HDL Cholesterol Referenc e Range (mg/dL):
<100 Target level for high risk ASCVD patient
<130 Optimal for general population
130-159 Near optimal for general population
160-189 Borderline High
190-219 High
>=220 Very High Performing Location LABORATORY [facility] - [address] [place] [address]
--- OUTSIDE RECORDS SUMMARY | 2023-09-26 14:25 | External Medical Summary ---
Author Name Unknown Address Unknown Organization [id number]:[facility]ATORY [facility] - [address] [facility] [place] [address] Laboratory Report Ordering Provider Test Date Status TONO LOPEZ 08/03/2023 10:31:53 Final Observation Date Value Abnormality Reference (Units ) Status BUN 08/03/2023 10:31:53 14 6-20 (mg/dL) Final Creatinine 08/03/2023 10:31:53 1.3 Above high normal 0.6-1.2 (mg/dL) Final Glomerular filtration rate/1.73 sq M.predicted [Volume Rate/Area] in Serum, Plasma or Blood by Creatinine-based formula (CKD-EPI) 08/03/2023 10:31:53 62 >=60 (mL/min) Final eGFR is calculated based on the CKD-EPI 2020 equation SODIUM 08/03/2023 10:31:53 136 135-146 (m mol/L) Final Potassium 08/03/2023 10:31:53 4.1 3.5-5.1 (m mol/L) Final Cl 08/03/2023 10:31:53 101 98-107 (mm ol/L) Final CO2 08/03/2023 10:31:53 21 Below low normal 22- 32 (mmol/L) Final Anion gap 08/03/2023 10:31:53 14 7-15 (mmol /L) Final Glucose 08/03/2023 10:31:53 135 Above high normal 70 -120 (mg/dL) Final Albumin 08/03/2023 10:31:53 4.5 3.8-5.0 (g /dL) Final AST (Aspartate aminotransferase) 08/03/2023 10:31:53 22 10-50 (U/L) Fin al Alk Phos 08/03/2023 10:31:53 96 35-130 (U/ L) Final Bilirubin, Total 08/03/2023 10:31:53 0.4 <=1 .2 (mg/dL) Final Calcium 08/03/2023 10:31:53 9.9 8.4-10.2 ( mg/dL) Final Protein 08/03/2023 10:31:53 7.2 6.0-8.3 (g /dL) Final ALT (Alanine aminotransferase) 08/03/2023 10:31:53 31 10-50 (U/L) Stef gallego Performing Location LAB[facility]ATORY [facility] - [facility] [address] [facility] [address]
--- OUTSIDE RECORDS SUMMARY | 2023-09-26 14:25 | External Medical Summary | Summary of Care ---
Author Name Unknown Organization [facility] Address [address] [place] [address] Phone [phone] Care Team Providers Care Technical Cable Jointer Name Role Phone Julianna Fitzpatrick Primary Care Provider [phone] Reason for Visit * Reason Comments Outpatient Testing Encounter Details Date Type Department Care Team (Late st Contact Info) Description 08/03/2023 10:30 AM EST Laboratory Laboratory [address] [place] [phone] [place] [address] Type 2 diabetes mellitus with diabetic polyneuropathy, without long-term current use of insulin ([facility]); Type 2 diabetes mellitus with hemoglobin A1c goal of less than 7.0% ([facility]); HTN, goal below 130/80; Dyslipidemia, goal LDL [...] N, goal below 140/90,Coronary artery disease involving [place] coronary artery of [place] heart without angina pectoris,S/P coronary artery stent [...] Oral Tablet (Zetia)Indications:C oronary artery disease involving [place] coronary artery of [place] heart without angina pectoris,Dyslipidemi a, goal LDL below 70,S/P coronary artery stent placement TAKE ONE TABLET BY MOUTH EVERY DAY 90 Tablet 1 03/05/2023 Active Clopidogrel Bisulfate 75 MG Oral Tablet (pLAVix)Indications: Coronary artery disease involving [place] coronary artery of [place] heart without angina pectoris,S/P coronary artery stent placement,HTN, goal below 140/90 TAKE ONE TABLET BY MOUTH EVERY DAY 90 Tablet 3 03/05/2023 Active Metoprolol Tartrate 25 MG Oral Tablet (Lopressor)Indicatio ns:Coronary artery disease involving [place] coronary artery of [place] heart without angina pectoris,S/P coronary artery stent [...] Diagnosed Date Food insecurity 02/09/2023 Overview: Per [facility] Protocol Grade I diastolic dysfunction 02/06/2023 [...] insulin 08/24/2018 Coronary artery disease invo lving [place] coronary artery of [place] heart without angina pectoris 08/24/2018 S/P coronary [...] 10/14/2023 3:00 PM EDT Office Visit Nephrology [address] [place] [address] Magaly Thornton MD [address] [place] [address] [place] [address] 10/16/2023 10:40 AM EDT Office Visit Family Medicine [address] [place] [phone] Key Cordero MD [address] [place] [address] [place] [address] 01/21/2024 2:00 PM EDT Imaging Radiology [facility]st [facility], [address] [place] [address] 02/11/2024 10:30 AM EDT Office Visit Care at Home [address] [place] [address] Jessica Quiñonez PA-C [address] [place] [address] Pending Results Name Type Priority Associated Diagnoses [...] type documented in this encounter Care Teams Technical Cable Jointer Relationship Specialty Start Date End Date Julianna Fitzpatrick CRNP [address] [place] [address] PCP - General Nurse Practitioner 03/19/23 documented as of this encounter
--- OUTSIDE RECORDS SUMMARY | 2023-09-26 14:25 | External Medical Summary | Summary of Care ---
Author Name Unknown Organization [facility] Address [address] [place] [address] Phone [phone] Care Team Providers Care Nuclear Radiation Engineer Name Role Phone Julianna Fitzpatrick Primary Care Provider Reason for Visit * Reason Comments Outpatient Testing Encounter Details Date Type Department Care Team (Late st Contact Info) Description 08/03/2023 10:30 AM EST Laboratory Laboratory [address] [place] [phone] [place] [address] Type 2 diabetes mellitus with diabetic polyneuropathy, without long-term current use of insulin ([facility]); Type 2 diabetes mellitus with hemoglobin A1c goal of less than 7.0% ([facility]); HTN, goal below 130/80; Dyslipidemia, goal LDL [...] N, goal below 140/90,Coronary artery disease involving [place] coronary artery of [place] heart without angina pectoris,S/P coronary artery stent [...] Oral Tablet (Zetia)Indications:C oronary artery disease involving [place] coronary artery of [place] heart without angina pectoris,Dyslipidemi a, goal LDL below 70,S/P coronary artery stent placement TAKE ONE TABLET BY MOUTH EVERY DAY 90 Tablet 1 03/05/2023 Active Clopidogrel Bisulfate 75 MG Oral Tablet (pLAVix)Indications: Coronary artery disease involving [place] coronary artery of [place] heart without angina pectoris,S/P coronary artery stent placement,HTN, goal below 140/90 TAKE ONE TABLET BY MOUTH EVERY DAY 90 Tablet 3 03/05/2023 Active Metoprolol Tartrate 25 MG Oral Tablet (Lopressor)Indicatio ns:Coronary artery disease involving [place] coronary artery of [place] heart without angina pectoris,S/P coronary artery stent [...] Diagnosed Date Food insecurity 02/09/2023 Overview: Per [facility] Protocol Grade I diastolic dysfunction 02/06/2023 [...] insulin 08/24/2018 Coronary artery disease invo lving [place] coronary artery of [place] heart without angina pectoris 08/24/2018 S/P coronary [...] 10/14/2023 3:00 PM EDT Office Visit Nephrology [address] [place] [address] Magaly Thornton MD [address] [place] [address] [place] [address] 10/16/2023 10:40 AM EDT Office Visit Family Medicine [address] [place] [phone] Key Cordero MD [address] [place] [address] [place] [address] 01/21/2024 2:00 PM EDT Imaging Radiology [facility] 1st [facility], [address] [place] [address] 02/11/2024 10:30 AM EDT Office Visit Care at Home [address] [place] [address] Jessica Quiñonez PA-C [address] [place] [address] Pending Results Name Type Priority Associated Diagnoses [...] type documented in this encounter Care Teams Nuclear Radiation Engineer Relationship Specialty Start Date End Date Julianna Fitzpatrick CRNP [address] [place] [address] PCP - General Nurse Practitioner 03/19/23 documented as of this encounter
--- OUTSIDE RECORDS SUMMARY | 2023-09-26 14:25 | External Medical Summary | Summary of Care ---
Author Name Unknown Organization [facility] Address [address] [place] [address] Phone [phone] Care Team Providers Care Cornice Maker Name Role Phone Julianna Fitzpatrick Primary Care Provider Reason for Visit * Reason Comments Outpatient Testing Encounter Details Date Type Department Care Team (Late st Contact Info) Description 08/03/2023 10:30 AM EST Laboratory Laboratory [address] [place] [id number] [place] [address] Type 2 diabetes mellitus with diabetic polyneuropathy, without long-term current use of insulin ([facility]); Type 2 diabetes mellitus with hemoglobin A1c goal of less than 7.0% ([facility]); HTN, goal below 130/80; Dyslipidemia, goal LDL [...] N, goal below 140/90,Coronary artery disease involving [place] coronary artery of [place] heart without angina pectoris,S/P coronary artery stent [...] Oral Tablet (Zetia)Indications:C oronary artery disease involving [place] coronary artery of [place] heart without angina pectoris,Dyslipidemi a, goal LDL below 70,S/P coronary artery stent placement TAKE ONE TABLET BY MOUTH EVERY DAY 90 Tablet 1 03/05/2023 Active Clopidogrel Bisulfate 75 MG Oral Tablet (pLAVix)Indications: Coronary artery disease involving [place] coronary artery of [place] heart without angina pectoris,S/P coronary artery stent placement,HTN, goal below 140/90 TAKE ONE TABLET BY MOUTH EVERY DAY 90 Tablet 3 03/05/2023 Active Metoprolol Tartrate 25 MG Oral Tablet (Lopressor)Indicatio ns:Coronary artery disease involving [place] coronary artery of [place] heart without angina pectoris,S/P coronary artery stent [...] Diagnosed Date Food insecurity 02/09/2023 Overview: Per [facility] Protocol Grade I diastolic dysfunction 02/06/2023 [...] insulin 08/24/2018 Coronary artery disease invo lving [place] coronary artery of [place] heart without angina pectoris 08/24/2018 S/P coronary [...] 10/14/2023 3:00 PM EDT Office Visit Nephrology [address] [place] [address] Magaly Thornton MD [address] [place] [address] [place] [address] 10/16/2023 10:40 AM EDT Office Visit Family Medicine [address] [place] [phone] Key Cordero MD [address] [place] [address] [place] [address] 01/21/2024 2:00 PM EDT Imaging Radiology [facility] 1st [facility], [address] [place] [address] 02/11/2024 10:30 AM EDT Office Visit Care at Home [address] [place] [address] Jessica Quiñonez PA-C [address] [place] [address] Pending Results Name Type Priority Associated Diagnoses [...] type documented in this encounter Care Teams Cornice Maker Relationship Specialty Start Date End Date Julianna Fitzpatrick CRNP [address] [place] [address] PCP - General Nurse Practitioner 03/19/23 documented as of this encounter
--- OUTSIDE RECORDS SUMMARY | 2023-09-26 14:25 | External Medical Summary | Summary of Care ---
Author Name Unknown Organization [facility] Address [address] [place] [address] Phone [phone] Care Team Providers Care Doughnut Maker Name Role Phone Julianna Fitzpatrick Primary Care Provider [phone] Reason for Visit * Reason Comments eRx-Medication Refill Encounter Details Date Type Department Care Team (Late st Contact Info) Description 08/19/2023 Refill Family Medicine [address] [phone] Mary Torres, PA-C [address] [place] [address] History of seizure Allergies Active Allergy Reactions Criticality Noted Date Comments Biotin 02/24/2022 Hair skin and nails supplement- tongue swelling Lisinopril Anaphylaxis High 04/03/2022 Patient had anaphylactic reaction and ended up on ventilator for 6 days. Other - Drugs 01/11/2010 Epidural medication causes itching. Name unknown documented as of this encounter (statuses as of 08/20/2023) Medications Medication Sig Dispensed Refills Start Date End Date Status Aspirin 81 MG TabletIndications:HT N, goal below 140/90,Coronary artery disease involving [place] coronary artery of [place] heart without angina pectoris,S/P coronary artery stent [...] Oral Tablet (pLAVix)Indications: Coronary artery disease involving [place] coronary artery of [place] heart without angina pectoris,S/P coronary artery stent placement,HTN, goal below 140/90 TAKE ONE TABLET BY MOUTH EVERY DAY 90 Tablet 3 03/05/2023 Active Metoprolol Tartrate 25 MG Oral Tablet (Lopressor)Indicatio ns:Coronary artery disease involving [place] coronary artery of [place] heart without angina pectoris,S/P coronary artery stent [...] Oral Tablet (Zetia)Indications:C oronary artery disease involving [place] coronary artery of [place] heart without angina pectoris,Dyslipidemi a, goal LDL below 70,S/P coronary artery stent placement TAKE ONE TABLET EVERY DAY 90 Tablet 2 08/15/2023 Active documented as of this encounter (statuses as of 08/20/2023) Active Problems Problem Noted Date Diagnosed Date Food insecurity 02/09/2023 Overview: Per [facility] Protocol Grade I diastolic dysfunction 02/06/2023 DDD (degenerative disc disease), lumbar 02/07/20 23 Osteoarthritis of multiple joints 02/06/2023 Splenomegaly 02/06/2023 Diverticulosis of large intestine without hemorr libby 02/06/2023 Atelectasis 02/06/2023 Pulmonary nodule 02/06/2023 Adrenal nodule 12/18/2022 Angio-edema 05/27/2022 Dilated aortic root 02/24/2022 Obesity, Class I, BMI 30.0-34.9 (see actual BMI) 02/17/2019 Type 2 diabetes mellitus wit h diabetic polyneuropathy, without long-term current use of insulin 08/24/2018 Coronary artery disease invo lving [place] coronary artery of [place] heart without angina pectoris 08/24/2018 S/P coronary [...] as of this encounter (statuses as of 08/20/2023) Resolved Problems Problem Noted Date Diagnosed Date [...] as of this encounter (statuses as of 08/20/2023) Immunizations Name Administration Dates Next Due TDAP [...] encounter Miscellaneous Notes * Telephone Encounter - Patsy Huynh andi - 08/20/2023 10:06 AM ESTRefused Prescriptions: Disp Refills levETIRAcetam 750 MG Oral Tablet 360 Ta*1 Sig: TAKE TWO TABLETSBY MOUTH TWICE DAILYRefused By: PATSY HUYNH for Refusal: Managed by another physician---- documented in this encounter Plan of Treatment Upcoming Encounters Date Type Department Care Team (Late st Contact Info) Description 10/14/2023 3:00 PM EDT Office Visit Nephrology [address] [place] [address] Magaly Thornton MD [facility] [place] [address] 01/21/2024 2:00 PM EDT Imaging Radiology [address] [facility] [place] [id number] 02/11/2024 10:30 AM EDT Office Visit Care at Home [address] [place] [address] Jessica Quiñonez PA-C [address] [place] [address] Scheduled Procedures Name Priority Associated Diagnoses Date/Ti [...] Eye Exam 10/16/2022 10/16/2021, 03/31/2016 COVID-19 Vaccine ( - season) 2023 Influenza Vaccine (FLU shot) (#1) 2023 Diabetic Foot Exam 07/28/2023 07/28/2022, 0 02/22/2020, 02/17/2019, Additional history exists B-12 10/17/2023 10/16/2022, 09/28, 04/17/2021, Additional history exists HbA1c 02/01/2024 08/03/2023, 06/0 01/2023, 10/16/2022, Additional history exists O2 ASSESSMENT COMPLETED IN PAST YEAR FOR COPD 02/25/2024 02/24/2023 Depression Screening 07/07/2024 07/07/2023 Albumin/Creatinine Ratio 08/03/2024 024, 10/16/2022, 01/07/2022, Additional history exists GFR 08/03/2024 08/03/2023, 08/0 06/2022, 12/04/2022, Additional history exists Colonoscopy 12/01/2026 [...] encounter Visit Diagnoses Diagnosis History of seizure documented in this encounter Care Teams Doughnut Maker Relationship Specialty Start Date End Date Julianna Fitzpatrick CRNP [address] [place] [address] PCP - General Nurse Practitioner 03/19/23 documented as of this encounter
--- OUTSIDE RECORDS SUMMARY | 2023-09-26 14:25 | External Medical Summary ---
Author Name Unknown Address Unknown Organization K01:[facility] [address] [facility] [address] Laboratory Report Ordering Provider Test Date Status FLEX LAYITIS 08/03/2023 10:31:53 Final Observation Date Value Abnormality Reference (Units ) Status Color of Urine by Auto 08/03/2023 10:31:53 Light Yellow Colorless, Light Yellow, Yellow, Dark Yellow Final Clarity, Urine 08/03/2023 10:31:53 Clear Clear Final Glucose [Mass/volume] in Urine by Automated test strip 08/03/2023 10:31:53 >=1000 Abnormal Negative (mg/dL) Final Bilirubin.total [Presence] in Urine by Automated test strip 08/03/2023 10:31:53 Negative Negative Final Ketones [Mass/volume] in Urine by Automated test strip 08/03/2023 10:31:53 Negative Negative (mg/dL) Final Specific gravity, Urine 08/03/2023 10:31:53 1.014 1.003-1.030 Final Hemoglobin [Presence] in Urine by Automated test strip 08/03/2023 10:31:53 Negative Negative Final pH, Urine 08/03/2023 10:31:53 6.0 5.0-7.5 (Units) Final Protein [Mass/volume] in Urine by Automated test strip 08/03/2023 10:31:53 100 Abnormal Negative (mg/dL) Final Urobilinogen [Mass/volume] in Urine by Automated test strip 08/03/2023 10:31:53 Normal Normal (mg/dL) Final Nitrite [Presence] in Urine by Automated test strip 08/03/2023 10:31:53 Negative Negative Final Leukocyte esterase [Presence] in Urine by Automated test strip 08/03/2023 10:31:53 Negative Negative Final RBC, Urine 08/03/2023 10:31:53 0-2 0-2 (/HPF) Final WBC, Urine 08/03/2023 10:31:53 0-2 0-2 (/HPF) Final Bacteria [#/area] in Urine sediment by Microscopy high power field 08/03/2023 10:31:53 0-25 0-25 (/HPF) Final Performing Location [facility] [address]. [facility] [address]
--- OUTSIDE RECORDS SUMMARY | 2023-09-26 14:25 | External Medical Summary | Summary of Care ---
Author Name Unknown Organization [facility] Address [address] [place] [address] Phone [phone] Care Team Providers Care Digital Marketing Specialist Name Role Phone Julianna Fitzpatrick Primary Care Provider [phone] Reason for Visit * Reason Comments eRx-Medication Refill Encounter Details Date Type Department Care Team (Late st Contact Info) Description 07/17/2023 Refill Family Medicine [address] [address] Mary Torres, PA-C [address] [place] [address] Allergies Active Allergy Reactions Criticality Noted Date Comments Biotin 02/24/2022 Hair skin and nails supplement- tongue swelling Lisinopril Anaphylaxis High 04/03/2022 Patient had anaphylactic reaction and ended up on ventilator for 6 days. Other - Drugs 01/11/2010 Epidural medication causes itching. Name unknown documented as of this encounter (statuses as of 07/19/2023) Medications Medication Sig Dispensed Refills Start Date End Date Status Aspirin 81 MG TabletIndications:HT N, goal below 140/90,Coronary artery disease involving [place] coronary artery of [place] heart without angina pectoris,S/P coronary artery stent [...] goal of less than 7.0% ([facility]),Hypertriglycer idemia,Dyslipidemia, goal LDL below 100 TAKE ONE TABLET BY MOUTH EVERY DAY 90 Tablet 1 02/26/2023 Active metFORMIN HCl 1000 MG Oral Tablet (Glucophage)Indicati ons:Type 2 diabetes mellitus with stage 3a chronic kidney disease (HCC) Take 1 Tablet by mouth 2 times a day. 180 Tablet 1 02/27/2023 Active Ezetimibe 10 MG Oral Tablet (Zetia)Indications:C oronary artery disease involving [place] coronary artery of [place] heart without angina pectoris,Dyslipidemi a, goal LDL below 70,S/P coronary artery stent placement TAKE ONE TABLET BY MOUTH EVERY DAY 90 Tablet 1 03/05/2023 Active Clopidogrel Bisulfate 75 MG Oral Tablet (pLAVix)Indications: Coronary artery disease involving [place] coronary artery of [place] heart without angina pectoris,S/P coronary artery stent placement,HTN, goal below 140/90 TAKE ONE TABLET BY MOUTH EVERY DAY 90 Tablet 3 03/05/2023 Active Metoprolol Tartrate 25 MG Oral Tablet (Lopressor)Indicatio ns:Coronary artery disease involving [place] coronary artery of [place] heart without angina pectoris,S/P coronary artery stent [...] as of this encounter (statuses as of 07/19/2023) Active Problems Problem Noted Date Diagnosed Date Food insecurity 02/09/2023 Overview: Per [facility] Protocol Grade I diastolic dysfunction [...] insulin 08/24/2018 Coronary artery disease invo lving [place] coronary artery of [place] heart without angina pectoris 08/24/2018 S/P coronary [...] as of this encounter (statuses as of 07/19/2023) Resolved Problems Problem Noted Date Diagnosed Date [...] as of this encounter (statuses as of 07/19/2023) Immunizations Name Administration Dates Next Due TDAP [...] 10/14/2023 3:00 PM EDT Office Visit Nephrology [address] [place] [address] Magaly Thornton MD [address] [place], [place] [address] [address] 10/16/2023 10:40 AM EDT Office Visit Family Medicine [address] [place] [phone] Key Cordero MD [address] [place] [address] [place] [address] 01/21/2024 2:00 PM EDT Imaging Radiology [facility] 1st [facility] [address] [facility] [place] [address] 02/11/2024 10:30 AM EDT [facility] [address] [facility] [phone] Jessica Quiñonez PA-C [address] [facility] [id number] Scheduled Procedures Name Priority Associated Diagnoses Date/Ti [...] (FLU shot) (#1) 2023 HbA1c 06/05/2023 12/04/2022, 2 , 07/28/2022, Additional history exists Diabetic Foot Exam 07/28/2023 07/28/2022, 0 02/22/2020, 02/17/2019, Additional history exists Albumin/Creatinine Ratio 10/17/2023 023, 01/07/2022, 04/17/2021, Additional history exists B-12 10/17/2023 10/16/2022, 2 , 04/17/2021, Additional history exists GFR 01/28/2024 [...] filedocumented as of this encounter Care Teams Digital Marketing Specialist Relationship Specialty Start Date End Date Julianna Fitzpatrick CRNP [address] [place] [address] PCP - General Nurse Practitioner 03/19/23 documented as of this encounter
--- OUTSIDE RECORDS SUMMARY | 2023-09-26 14:25 | External Medical Summary | Summary of Care ---
Author Name Unknown Organization [facility] Address [address] [place] [address] Phone [phone] Care Team Providers Care General Counselor Name Role Phone Julianna Fitzpatrick Primary Care Provider Reason for Visit * Reason Comments eRx-Medication Refill Encounter Details Date Type Department Care Team (Late st Contact Info) Description 08/14/2023 Refill Family Medicine [address] [phone] Mary Torres, PA-C [address] [place], [place] [phone] Type 2 diabetes mellitus with hemoglobin A1c goal of less than 7.0% ([facility]); Hypertriglyceridemia; Dyslipidemia, goal LDL below 100; Coronary artery disease involving [place] coronary artery of [place] heart without angina pectoris; Dyslipidemia, goal LDL below 70; S/P coronary artery stent placement Allergies Active Allergy Reactions Criticality Noted Date Comments Biotin 02/24/2022 Hair skin and nails supplement- tongue swelling Lisinopril Anaphylaxis High 04/03/2022 Patient had anaphylactic reaction and ended up on ventilator for 6 days. Other - Drugs 01/11/2010 Epidural medication causes itching. Name unknown documented as of this encounter (statuses as of 08/15/2023) Medications Medication Sig Dispensed Refills Start Date End Date Status Aspirin 81 MG TabletIndications :HTN, goal below 140/90,Coronary artery disease involving [place] coronary artery of [place] heart without angina pectoris,S/P coronary artery stent [...] Oral Tablet (pLAVix)Indicatio ns:Coronary artery disease involving [place] coronary artery of [place] heart without angina pectoris,S/P coronary artery stent placement,HTN, goal below 140/90 TAKE ONE TABLET BY MOUTH EVERY DAY 90 Tablet 3 03/05/2023 Active Metoprolol Tartrate 25 MG Oral Tablet (Lopressor)Indica tions:Coronary artery disease involving [place] coronary artery of [place] heart without angina pectoris,S/P coronary artery stent [...] EVERY DAY 90 Tablet 2 08/15/2023 Active Ezetimibe 10 MG Oral Tablet (Zetia)Indication s:Coronary artery disease involving [place] coronary artery of [place] heart without angina pectoris,Dyslipid emia, goal LDL below 70,S/P coronary artery stent placement TAKE ONE TABLET EVERY DAY 90 Tablet 2 08/15/2023 Active Atorvastatin Calcium 80 MG Oral Tablet (Lipitor)Indicati ons:Type 2 diabetes mellitus with hemoglobin A1c goal of less than 7.0% (HCC),Hypertrigly ceridemia,Dyslipi demia, goal LDL below 100 TAKE ONE TABLET BY MOUTH EVERY DAY 90 Tablet 1 02/26/2023 4 Discontinued metFORMIN HCl 1000 MG Oral Tablet (Glucophage)Indic ations:Type 2 diabetes mellitus with stage 3a chronic kidney disease (HCC) Take 1 Tablet by mouth 2 times a day. 180 Tablet 1 02/27/2023 4 Discontinued Ezetimibe 10 MG Oral Tablet (Zetia)Indication s:Coronary artery disease involving [place] coronary artery of [place] heart without angina pectoris,Dyslipid emia, goal LDL below 70,S/P coronary artery stent placement TAKE ONE TABLET BY MOUTH EVERY DAY 90 Tablet 1 03/05/2023 4 Discontinued documented as of this encounter (statuses as of 08/15/2023) Active Problems Problem Noted Date Diagnosed Date [...] insulin 08/24/2018 Coronary artery disease invo lving [place] coronary artery of [place] heart without angina pectoris 08/24/2018 S/P coronary [...] as of this encounter (statuses as of 08/15/2023) Resolved Problems Problem Noted Date Diagnosed Date [...] as of this encounter (statuses as of 08/15/2023) Immunizations Name Administration Dates Next Due TDAP [...] encounter Miscellaneous Notes * Telephone Encounter - Tyrese King [facility] - 08/15/2023 9:16 AM EST Signed Prescriptions: Disp Refills Atorvastatin Calcium 80 MG Oral Tablet (Li*90 Tab*2 Sig: TAKE ONE TABLET BY MOUTH EVERY DAYAuthorizing Provider: JESSICA POWEROrderarjun User: TYRESE KING Ezetimibe 10 MG Oral Tablet (Zetia) 90 Tab*2 Sig: TAKE ONE TABLET EVERY DAYAuthorizing Pro vider: JESSICA POWEROrdering User: TYRESE KING documented in this encounter Plan of Treatment Upcoming Encounters Date Type Department Care Team (Late st Contact Info) Description 10/14/2023 3:00 PM EDT Office Visit Nephrology [address] [place] [phone] Magaly Thornton MD 200 [facility] [place] [address] 01/21/2024 2:00 PM EDT Imaging Radiology [address] [place] [address] 02/11/2024 10:30 AM EDT Office Visit Care at Home [address] [place] [address] Jessica Quiñonez PA-C [address] [place], [place] [phone] Scheduled Procedures Name Priority Associated Diagnoses Date/Ti [...] Exam 10/16/2022 10/16/2021, 03/31/2016 COVID-19 Vaccine ( season) 2023 Influenza Vaccine (FLU shot) (#1) 2023 Diabetic Foot Exam 07/28/2023 07/28/2022, 0 02/22/2020, 02/17/2019, Additional history exists B-12 10/17/2023 10/16/2022, 04/2 , 04/17/2021, Additional history exists HbA1c 02/01/2024 08/03/2023, [...] Diagnoses Diagnosis Type 2 diabetes mellitus with hemoglobin A1c goal of less than 7.0% (HCC) Hypertriglyceridemia Pure hyperglyceridemia Dyslipidemia, goal LDL below 100 Other and unspecified hyperlipidemia Coronary artery disease involving [place] coronary artery of [place] heart without angina pectoris Dyslipidemia, goal LDL below 70 Other and unspecified hyperlipidemia S/P coronary artery stent placement Postsurgical percutaneous transluminal coronary angioplasty status documented in this encounter Care Teams General Counselor Relationship Specialty Start Date End Date Julianna Fitzpatrick CRNP [address] [place] [address] PCP - General Nurse Practitioner 03/19/23 documented as of this encounter
--- OUTSIDE RECORDS SUMMARY | 2023-09-26 14:25 | External Medical Summary | Summary of Care ---
Author Name Unknown Organization [facility] Address [address] [place] [address] Phone [phone] Care Team Providers Care Automatic Coin Machine Mechanic Name Role Phone Julianna Fitzpatrick Primary Care Provider [phone] Encounter Details Date Type Department Care Team (Late st Contact Info) Description 03/26/2023 Telephone Gastroenterology, [facility] [address] [place] [address] Julianna Fitzpatrick CRNP [address] [place] [address] Allergies Active Allergy Reactions Criticality Noted Date Comments Biotin 02/24/2022 Hair skin and nails supplement- tongue swelling Lisinopril Anaphylaxis High 04/03/2022 Patient had anaphylactic reaction and ended up on ventilator for 6 days. Other - Drugs 01/11/2010 Epidural medication causes itching. Name unknown documented as of this encounter (statuses as of 06/25/2023) Medications Medication Sig Dispensed Refills Start Date End Date Status Aspirin 81 MG TabletIndications :HTN, goal below 140/90,Coronary artery disease involving wilton coronary artery of wilton heart without angina pectoris,S/P coronary artery stent [...] by mouth in the morning. 0 Active lamoTRIgine 25 MG Oral Tablet (LaMICtal) Take 2 Tablets by mouth in the morning and 2 Tablets before bedtime. 0 10/16/2022 Active Triamcinolone Acetonide 0.1 % External Cream [...] 02/27/2023 Active Ezetimibe 10 MG Oral Tablet (Zetia)Indication s:Coronary artery disease involving wilton coronary artery of wilton heart without angina pectoris,Dyslipid emia, goal LDL below 70,S/P coronary artery stent placement TAKE ONE TABLET BY MOUTH EVERY DAY 90 Tablet 1 03/05/2023 Active Clopidogrel Bisulfate 75 MG Oral Tablet (pLAVix)Indicatio ns:Coronary artery disease involving wilton coronary artery of wilton heart without angina pectoris,S/P coronary artery stent placement,HTN, goal below 140/90 TAKE ONE TABLET BY MOUTH EVERY DAY 90 Tablet 3 03/05/2023 Active Metoprolol Tartrate 25 MG Oral Tablet (Lopressor)Indica tions:Coronary artery disease involving wilton coronary artery of wilton heart without angina pectoris,S/P coronary artery stent placement,HTN, goal below 140/90 TAKE ONE TABLET BY MOUTH TWICE DAILY 180 Tablet 3 03/05/2023 Active Pantoprazole Sodium 40 MG Oral Tablet Delayed Release (Protonix) Take 1 Tablet by mouth in the morning. 90 Tablet 3 03/06/2023 Active Icosapent Ethyl 1 GM Oral Capsule (Vascepa)Indicati ons:Dyslipidemia, goal LDL below 70,Hypertriglycer idemia Take by mouth 2 Capsules 2 times a day with morning and evening meals . Swallow capsules whole, do not open or break. 360 Capsule 3 04/11/2022 3 Discontinued documented as of this encounter (statuses as of 06/25/2023) Active Problems Problem Noted Date Diagnosed Date [...] insulin 08/24/2018 Coronary artery disease invo lving wilton coronary artery of wilton heart without angina pectoris 08/24/2018 S/P coronary [...] as of this encounter (statuses as of 06/25/2023) Resolved Problems Problem Noted Date Diagnosed Date [...] as of this encounter (statuses as of 06/25/2023) Immunizations Name Administration Dates Next Due TDAP [...] Answer Date Recorded PHQ Adult Total Score 17 01/27/2023 Hunger Vital Sign Answer Date Recorded Within the past 12 months, y ou worried that your food would run out before you got the money to buy more. Sometimes true Within the past 12 months, t he food you bought just didn't last and you didn't have money to get more. Sometimes true Sex and Gender Information Value Date Recorded Sex Assigned at Male 01/27/2023 8:20 AM EDT Gender Identity Male 01/27/2023 8:20 AM EDT Sexual Orientation Choose not to disclose 2022 8:20 AM EDT Job Start Date Occupation Industry Not on file Not on file Not on file documented as of this encounter Miscellaneous Notes * Telephone Encounter - Vivian Vazquez OSA - 03/26/2023 9:44 AM EDT Willam Harrington is requesting medical records be sent to [facility] for continuation of treatment. Forwarded to [facility]. documented in this encounter Plan of Treatment Upcoming Encounters Date Type Department Care Team (Late st Contact Info) Description 10/14/2023 3:00 PM EDT Office Visit Nephrology [address] [place] [address] Magaly Thornton MD [address] [place] [address] [place] [address] 10/16/2023 10:40 AM EDT Office Visit Family Medicine [address] [place] [phone] Key Cordero MD [address] [place] [address] [place] [address] 01/21/2024 2:00 PM EDT Imaging Radiology [facility] [address] [facility] [place] [address] 02/11/2024 10:30 AM EDT Office Visit Care at Home [address] [place] [facility] [place] [address] Jessica Quiñonez PA-C [address] [place] [address] [phone] (work) Scheduled Procedures Name Priority Associated Diagnoses Date/Ti [...] 2021 Diabetic Eye Exam 10/16/2022 10/16/2021, 03/31/2016 Depression, Most Recent Score >= 10 (will fire each visit until score < 10) 01/28/2023 01/27/2023 Influenza Vaccine (FLU shot) (#1) 2023 HbA1c 06/05/2023 12/04/2022, 04/2 , 07/28/2022, Additional history exists Diabetic Foot Exam 07/28/2023 07/28/2022, 0 02/22/2020, 02/17/2019, Additional history exists Albumin/Creatinine Ratio 10/17/2023 023, 01/07/2022, 04/17/2021, Additional history exists B-12 10/17/2023 10/16/2022, 04/2 , 04/17/2021, Additional history exists GFR 01/28/2024 01/27/2023, 06/0 01/2023, 10/16/2022, Additional history exists O2 ASSESSMENT COMPLETED IN PAST YEAR FOR COPD 02/25/2024 02/24/2023 Colonoscopy 12/01/2026 12/01/2016, 12/01/2016 Colorectal Cancer Screening 12/01/2026 GARDASIL-HPV IMMUNIZATION SERIES Aged Out No longer eligible based on patient's age to complete this topic MENINGOCOCCAL (MENACTRA/MENVEO) Aged Out No longer eligible based on patient's age to complete this topic documented as of this encounter Medical Devices Not on filedocumented as of this encounter Care Teams Automatic Coin Machine Mechanic Relationship Specialty Start Date End Date Julianna Fitzpatrick CRNP [address] [place] [address] PCP - General Nurse Practitioner 03/19/23 documented as of this encounter
--- OUTSIDE RECORDS SUMMARY | 2023-09-26 14:26 | External Medical Summary | Summary of Care ---
Author Name Unknown Organization [facility] Address [address] [place] [address] Phone [phone] Care Team Providers Care Insulation Technician Name Role Phone Julianna Fitzpatrick Primary Care Provider [phone] Reason for Visit * Reason Comments eRx-Medication Refill Encounter Details Date Type Department Care Team (Late st Contact Info) Description 04/24/2023 Refill Cardiology, [facility] [address] [place] [address] Annette Engle CRNP [address] [place] [address] Dyslipidemia, goal LDL below 70; Hypertriglyceridemia Allergies Active Allergy Reactions Criticality Noted Date Comments Biotin 02/24/2022 Hair skin and nails supplement- tongue swelling Lisinopril Anaphylaxis High 04/03/2022 Patient had anaphylactic reaction and ended up on ventilator for 6 days. Other - Drugs 01/11/2010 Epidural medication causes itching. Name unknown documented as of this encounter (statuses as of 04/28/2023) Medications Medication Sig Dispensed Refills Start Date End Date Status Aspirin 81 MG TabletIndications :HTN, goal below 140/90,Coronary artery disease involving [place] coronary artery of com[place] heart without angina pectoris,S/P coronary artery stent [...] Oral Tablet (Zetia)Indication s:Coronary artery disease involving com[place] coronary artery of com[place] heart without angina pectoris,Dyslipid emia, goal LDL below 70,S/P coronary artery stent placement TAKE ONE TABLET BY MOUTH EVERY DAY 90 Tablet 1 03/05/2023 Active Clopidogrel Bisulfate 75 MG Oral Tablet (pLAVix)Indicatio ns:Coronary artery disease involving com[place] coronary artery of comanche heart without angina pectoris,S/P coronary artery stent placement,HTN, goal below 140/90 TAKE ONE TABLET BY MOUTH EVERY DAY 90 Tablet 3 03/05/2023 Active Metoprolol Tartrate 25 MG Oral Tablet (Lopressor)Indica tions:Coronary artery disease involving com[place] coronary artery of com[place] heart without angina pectoris,S/P coronary artery stent [...] THE MORNING 90 Tablet 3 03/30/2023 Active Aspirin Low Dose 81 MG Oral Tablet Delayed Release (aspirin enteric coated) TAKE ONE TABLET BY MOUTH EVERY DAY 28 Tablet 12 03/30/2023 Active Icosapent Ethyl 1 GM Oral Capsule (Vascepa)Indicati ons:Dyslipidemia, goal LDL below 70,Hypertriglycer idemia TAKE TWO CAPSULES BY MOUTH IN THE MORNING and TAKE 2 CAPSULES IN THE EVENING 360 Capsule 3 04/28/2023 Active Icosapent Ethyl 1 GM Oral Capsule (Vascepa)Indicati ons:Dyslipidemia, goal LDL below 70,Hypertriglycer idemia Take by mouth 2 Capsules 2 times a day with morning and evening meals . Swallow capsules whole, do not open or break. 360 Capsule 3 04/11/2022 3 Discontinued documented as of this encounter (statuses as of 04/28/2023) Active Problems Problem Noted Date Diagnosed Date Food insecurity 02/09/2023 Overview: Per [facility] Protocol Grade I diastolic dysfunction [...] insulin 08/24/2018 Coronary artery disease invo lving comanche coronary artery of comanche heart without angina pectoris 08/24/2018 S/P coronary [...] as of this encounter (statuses as of 04/28/2023) Resolved Problems Problem Noted Date Diagnosed Date [...] as of this encounter (statuses as of 04/28/2023) Immunizations Name Administration Dates Next Due TDAP [...] encounter Miscellaneous Notes * Telephone Encounter - Madison Ramirez DO - 04/28/2023 9:42 AM EDTSigned Prescriptions: Disp Refills Icosapent Ethyl 1 GM Oral Capsule (Vascepa)360 Ca*3 Sig: TAKE TWO CAPSULES BY MOUTH IN THE MORNING and TAKE 2 CAPSULES IN THE EVENING Authorizing Provider: MADISON RAMIREZ * Telephone Encounter - Lala Ruiz COT - 04/27/2023 11:48 AM EDTPending Prescriptions: Disp Refills Icosapent Ethyl 1 GM Oral Capsule [Pharmac*360 Ca*3 Sig: TAKE TWO CAPSULES BY MOUTH IN THE MORNING and TAKE 2 CAPSULES IN THE EVENING * Telephone Encounter - Lala Ruiz COT - 04/27/2023 11:48 AM EDT Did you pend patient's preferred pharmacy and medication before forwarding?yes Pharmacy: [facility], [address] [place] Pending Prescriptions: Disp Refills Icosapent Ethyl 1 GM Oral Capsule (Vascep*360 Ca*3 Sig: TAKE TWO CAPSULES BY MOUTH IN THE MORNING and TAKE 2 CAPSULES IN THE EVENING Last Visit: 04/08/2022 (in office), Visit date not found (telemedicine) Next Visit: Visit date not found If no future appointments scheduled, and last appointment is greater than a year ago, please schedule patient for a follow-up appointment Last date the medication was ordered: 04-11-2022 Is this request for a controlled substance?No Urine Drug Screen:No results found for this or any previous visit. Patient Phone Numbers Labs: Lab Results Component Value Date/Time CREAT 1.3 (H) 01/27/2023 09:04 AM CREAT 1.5 (H) 02/22/2020 09:11 AM POTASSIUM 4.6 01/27/2023 09:04 AM POTASSIUM 4.7 02/22/2020 09:11 AM TSH 3.05 10/16/2021 12:33 PM TSH 2.25 02/17/2019 08:03 AM LDLCALC UNINTERPRETABLE RESULT 02/17/2019 08:03 AM LDLDIRECT 52 07/28/2022 10:46 AM LDLDIRECT 61 02/22/2020 09:11 AM ALT 26 01/27/2023 09:04 AM ALT 44 02/22/2020 09:11 AM HGBA1C 7.4 (H) 12/04/2022 11:11 AM HGBA1C 9.1 (H) 02/22/2020 09:11 AM documented in this encounter Plan of Treatment Upcoming Encounters Date Type Department Care Team (Late st Contact Info) Description 10/14/2023 3:00 PM EDT Office Visit Nephrology [address] [place] [address] Magaly Thornton MD [address] [facility] [place] [address] 10/16/2023 10:40 AM EDT Office Visit Family Medicine [address] [place] [phone] Key Cordero MD [address] [place] [address] [place] [address] 01/21/2024 2:00 PM EDT Imaging Radiology [address] [facility] [place] [address] 02/11/2024 10:30 AM EDT Office Visit Care at Home [address] [place] [address] Jessica Quiñonez PA-C [address] [place], [place] [id number] Scheduled Procedures Name Priority Associated Diagnoses Date/Ti [...] as of this encounter Visit Diagnoses Diagnosis Dyslipidemia, goal LDL below 70 Other and unspecified hyperlipidemia Hypertriglyceridemia Pure hyperglyceridemia documented in this encounter Care Teams Insulation Technician Relationship Specialty Start Date End Date Julianna Fitzpatrick CRNP [address] [place] [address] PCP - General Nurse Practitioner 03/19/23 documented as of this encounter
[2023-09-26] MEDS: ONDANSETRON INJ 2 MG/ML 2 ML VIAL IV STA (14:58)
[2023-09-26] MEDS: SODIUM CHLORIDE 0.9% 500 ML IV STA (14:58)
--- NOTE | 2023-09-26 15:09 | Emergency Department Note ---
Impression & Plan Right sided abdominal pain, Nausea & vomiting, Acute dehydration, Acidosis, lactic ED Provider Note NAME: AUDREY ARTEAGA AGE: 63 SEX: M : 1960 ARRIVES VIA: Walk-In INFORMANT: Patient, ED PROVIDER(S): Nicola Marquez MD CHIEF COMPLAINT: Abdominal pain, nausea vomit MEDICAL DECISION MAKING: Patient presents due to concern for right-sided abdominal pain nausea vomiting and chills. IV was established and blood work was obtained. Patient was noted to have a white count of 18. Additional IV fluids ordered along with procalcitonin and blood cultures and lactate. Blood work shows a Zosyn was ordered. The patient was ordered additional IV fluids. Patient's glucose was 200. The patient did have a lower bicarb and increased anion gap. Bicarb of 18 with an anion gap of 16. This could be from volume loss as the patient does have a history of diabetes and does have hyperglycemia. Urinalysis does show ketones. Bio fire is negative. Patient CT abdomen pelvis shows no acute infectious or inflammatory findings. Patient's repeat lactate was higher than it was before given the rising lactate and hyperglycemia repeat BMP was ordered additional fluids and a VBG. I did speak with the on-call hospitalist service Dr. Li and the patient was admitted to the medicine service Discussion w/ other healthcare providers: None Prior /Outside records reviewed: I reviewed a discharge summary from April 02, [address] Del Castillo. Patient had presented due to concern for acute swelling of the throat and in the suprapubic area. Patient was thought to have angioedema. Patient did require intubation at that time Differential diagnosis: Viral syndrome, otitis, pharyngitis, pneumonia, influenza, meningitis, urinary tract infection, sepsis, bacteremia, as well as other pathologies. Diagnostics, as interpreted by me: ECG: Sinus tachycardia, rate of 127, normal intervals, left axis deviation no ST elevations. Cardiac monitoring: An order was placed for continuous cardiac monitoring. The monitor shows a rate of 90 with sinus rhythm. Patient was placed on pulse oximetry Medical decision rules: None Imaging studies: I informally interpreted the patient's CT abdomen pelvis does not show obvious pneumoperitoneum with formal report to follow. HPI: Patient presents due to concern for several days of flank and back discomfort. The patient states that he had similar symptoms about a year ago but thought this might be related to his diabetes as he was untreated at that time and had an A1c of 14. Patient states that his current A1c is 7.3 and has been taking Mounjaro injections. Patient did feel fairly anxious last evening and did take some Klonopin that were not prescribed for him. The patient did feel improved with regard to his anxiety. Patient states that he has had a couple days of symptoms but this morning seem to be the worst with some right- sided abdominal pain associated back discomfort. Patient denies any dysuria or hematuria no history of kidney stones. The patient denies any falls or trauma. No numbness tingling or focal weakness of the lower extremities patient denies any bowel or bladder incontinence or retention no saddle anesthesia. The patient is not taking anything for symptoms at home. The patient believes that he has vomited 6-8 times a day no blood in the vomit or stool. PAST MEDICAL HISTORY: See Below PAST SURGICAL HISTORY: See Below SOCIAL HISTORY: See Below HOME MEDICATIONS: See Below ALLERGIES: See Below VITALS: See Below PHYSICAL EXAMINATION: GENERAL: NAD, non-toxic. EYE EXAM: Normal conjunctiva. PERRL, no anisocoria and EOM's grossly intact w/o pain. OROPHARYNX: Moist mucus membranes, grossly normal dentition. NECK: Trachea midline, no stridor. Supple, no nuchal rigidity, no adenopathy, non-tender. No signs of meningismus. FROM of the neck with good chin to chest and neck extension. LUNGS: Clear to auscultation. Normal chest wall mechanics. HEART: NSR, no MRG. ABDOMEN: Abdomen soft, right-sided abdominal pain, no masses, no rebound or guarding. BACK: No CVA TTP. SKIN: No rashes and no bruising. UPPER EXTREMITIES: Upper extremities are grossly normal. LOWER EXTREMITIES: Grossly normal, no edema. NEURO EXAM: A&O x3, cranial nerves II-XII grossly intact, normal speech, moves all 4 extremities. Past Med/Surg History Medical History Single vessel coronary disease T2DM (type 2 diabetes mellitus) HTN (hypertension) HLD (hyperlipidemia) Hypertriglyceridemia History of cannabis dependence/abuse x 35 years quit 12/2017 Seizure disorder Bipolar affective disorder Peripheral neuropathy Anxiety Surgical History History of left inguinal hernia Family History Brother Coronary heart disease History of coronary artery bypass graft Grandfather (Maternal) , OR at 59 Myocardial infarction Father T2DM (type 2 diabetes mellitus) Coronary heart disease Melanoma Social History Smoking Status: Current every day smoker Tobacco Type: Cigarettes Second Hand Exposure: No; Do You Dip or Chew Tobacco: Yes; Hx Alcohol Use: No Hx Substance Use: Yes Last Used Substance: Days (ago) Last Used Substance Other:: 6 months ago Substance Use Type Other:: x 35 years Preferred Language: Belarusian Communication Ability: Unable 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 Beliefs That Will Affect Care: None marital status: Single Current Living Situation: Alone Feels Safe at Home: Yes Assistive Devices: None Allergies Allergies Allergy/AdvReac Type Severity Reaction Status Date / Time lisinopril Allergy Severe angioedema Verified 03/25/22 12:31 Home Meds Home Medications Medication Instructions Recorded Confirmed clonazepam 1 mg tablet 0.5 mg PO DAILY 08/04/18 09/26/23 levetiracetam 750 mg tablet 2 tab PO BID 08/04/18 09/26/23 metformin 1,000 mg tablet 1,000 mg PO BID 08/04/18 09/26/23 aspirin 81 mg tablet,delayed 81 mg PO DAILY 03/25/22 09/26/23 release atorvastatin 80 mg tablet 80 mg PO HS 03/25/22 09/26/23 clopidogrel 75 mg tablet 75 mg PO DAILY 03/25/22 09/26/23 empagliflozin 25 mg tablet 25 mg PO HS 03/25/22 09/26/23 (Jardiance) lamotrigine 100 mg tablet 50 mg PO HS 03/25/22 09/26/23 melatonin 1 mg tablet 3 mg PO HS PRN Insomnia 03/25/22 09/26/23 metoprolol tartrate 25 mg tablet 25 mg PO BID 03/25/22 09/26/23 pantoprazole 40 mg tablet,delayed 40 mg PO QAM 03/25/22 09/26/23 release sertraline 50 mg tablet 50 mg PO DAILY 03/25/22 09/26/23 Previous Rx's Medication Instructions Recorded amlodipine 5 mg tablet (Norvasc) 5 mg PO QAM #30 tabs 04/02/22 ondansetron 4 mg disintegrating 4 mg PO Q6H PRN nausea and 01/11/23 tablet vomiting #15 tabs Results & Data (ED) Vital Signs Vital Signs - 24 hr 09/26/23 14:38 09/26/23 14:56 09/26/23 15:32 Temperature 36.6 C Temperature Source Oral Pulse Rate 108 H Pulse Rate [Apical] 101 H 90 Pulse Rhythm [Apical] Pulse Strength [Apical] Respiratory Rate 16 20 20 Respiratory Effort / Characteristics Non-Labored Spontaneous Non-Labored Non-Labored Respiratory Depth Normal Normal Normal Respiratory Pattern Blood Pressure 160/95 H Blood Pressure [Left Arm] 141/91 H 141/91 H Blood Pressure Mean 116 Blood Pressure Mean [Left Arm] 107 107 Blood Pressure Position [Left Arm] Pulse Oximetry 98 98 99 Oxygen Delivery Method Room Air Room Air Room Air Sepsis Recent Fever Within 48 Hours No Sepsis New/Unexplained Change in Mental Status No Sepsis Action Taken by Nursing No Action Required 09/26/23 20:00 Temperature Temperature Source Pulse Rate Pulse Rate [Apical] 113 H Pulse Rhythm [Apical] Regular Pulse Strength [Apical] Normal Respiratory Rate 20 Respiratory Effort / Characteristics Non-Labored Spontaneous Respiratory Depth Normal Respiratory Pattern Regular Blood Pressure Blood Pressure [Left Arm] 127/86 Blood Pressure Mean Blood Pressure Mean [Left Arm] 99 Blood Pressure Position [Left Arm] Lying Pulse Oximetry 92 Oxygen Delivery Method Room Air Sepsis Recent Fever Within 48 Hours Sepsis New/Unexplained Change in Mental Status Sepsis Action Taken by Half-Way Medications Current Medication List: was personally reviewed by me Laboratory Data Attestation: I reviewed the patient's lab results. 09/26/23 15:00 09/26/23 19:47 Lab Results 09/26/23 09/26/23 09/26/23 Range/Units 14:42 15:00 15:40 WBC 18.68 H (4.8-10.8) K/ul RBC 5.66 (4.70-6.10) M/uL Hgb 16.0 (14.0-18.0) g/dl Hct 47.2 (42.0-52.0) % MCV 83.4 (80.0-100.0) fL MCH 28.3 (25.0-34.0) pg MCHC 33.9 (32.0-36.0) g/dL RDW Std Deviation 42.5 (36.4-46.3) fL RDW Coeff of Terri 14.2 (11.5-14.5) % Plt Count 378 (130-400) K/uL MPV 9.8 (9.4-12.4) fL Immature Gran % (Auto) 0.6 % Neut % (Auto) 86.2 % Lymph % (Auto) 9.9 % [place] % (Auto) 2.5 % Eos % (Auto) 0.4 % Baso % (Auto) 0.4 % Neut # (Auto) 16.10 H (1.40-6.50) K/uL Lymph # (Auto) 1.84 (1.20-3.40) K/uL [place] # (Auto) 0.47 (0.11-0.59) K/uL Eos # (Auto) 0.07 (0.00-0.50) K/uL Baso # (Auto) 0.08 (0.00-0.20) K/uL Immature Gran # (Auto) 0.12 (0.01-0.20) K/uL VBG pH (7.36-7.41) VBG pCO2 (38-50) mmHg VBG pO2 mmHg VBG HCO3 mmol/L VBG O2 Saturation % VBG Base Excess mEq/L Sodium 139 (136-145) mmol/L Potassium 3.6 (3.5-5.1) mmol/L Chloride 105 (98-107) mmol/L Carbon Dioxide 18 L (21-32) mmol/L Anion Gap 16 H (3-11) BUN 16 (6-23) mg/dl Creatinine 1.26 (0.6-1.4) mg/dl Est Cr Clr Drug Dosing 74.6 ml/min Est GFR ( Amer) 70.4 ml/min Est GFR (Non-Af Amer) 60.7 ml/min BUN/Creatinine Ratio 12.7 (10-20) Glucose 214 H (70-99(Fasting)) mg/dl POC Glucose 200 H (70-99) mg/dl Lactate 3.3 H* (0.4-2.0) mmol/L Calcium 10.6 H (8.6-10.3) mg/dl Total Bilirubin 0.6 (0.2-1.0) mg/dl AST 17 (13-39) U/L ALT 23 (7-52) U/L Alkaline Phosphatase 94 (34-104) U/L Total Protein 8.4 H (6.0-8.3) gm/dl Albumin 4.7 (3.4-5.0) gm/dl Globulin 3.7 (2.5-4.0) gm/dl Albumin/Globulin Ratio 1.3 (0.9-2) Procalcitonin 0.03 (0-0.5) ng/ml Urine Color Urine Appearance (Clear) Urine pH (4.5-7.5) Ur Specific [place] (1.000-1.030) Urine Protein (Negative) Urine Glucose (UA) (Negative) Urine Ketones (Negative) Urine Blood (Negative) Urine Nitrite (Negative) Urine Bilirubin (Negative) Urine Urobilinogen (Negative) Ur Leukocyte Esterase (Negative) Urine WBC (Auto) (0-5) /hpf Urine RBC (Auto) (0-4) /hpf U Hyaline Cast (Auto) (0-5) /lpf U Epithel Cells (Auto) (0-5) /lpf Urine Bacteria (Auto) (Negative) Adenovirus (PCR) (NotDetected) B. pertussis DNA (PCR) (NotDetected) B.parapertussis DNA PCR (NotDetected) C. pneumoniae DNA (PCR) (NotDetected) Coronavirus OC43 (PCR) (NotDetected) Coronavirus HKU1 (PCR) (NotDetected) Coronavirus 229E (PCR) (NotDetected) SARS-CoV-2 (PCR) (NotDetected) Coronavirus NL63 (PCR) (NotDetected) Human Metapneumovir PCR (NotDetected) Influenza Type A (PCR) (NotDetected) Influenza Type B (PCR) (NotDetected) M. pneumoniae (PCR) (NotDetected) Parainfluenza 1 (PCR) (NotDetected) Parainfluenza 2 (PCR) (NotDetected) Parainfluenza 3 (PCR) (NotDetected) Parainfluenza 4 (PCR) (NotDetected) RSV (PCR) (NotDetected) Entero/Rhino (PCR) (NotDetected) 09/26/23 09/26/23 09/26/23 Range/Units 15:45 16:25 18:54 WBC (4.8-10.8) K/ul RBC (4.70-6.10) M/uL Hgb (14.0-18.0) g/dl Hct (42.0-52.0) % MCV (80.0-100.0) fL MCH (25.0-34.0) pg MCHC (32.0-36.0) g/dL RDW Std Deviation (36.4-46.3) fL RDW Coeff of Etrri (11.5-14.5) % Plt Count (130-400) K/uL MPV (9.4-12.4) fL Immature Gran % (Auto) % Neut % (Auto) % Lymph % (Auto) % [place] % (Auto) % Eos % (Auto) % Baso % (Auto) % Neut # (Auto) (1.40-6.50) K/uL Lymph # (Auto) (1.20-3.40) K/uL [place] # (Auto) (0.11-0.59) K/uL Eos # (Auto) (0.00-0.50) K/uL Baso # (Auto) (0.00-0.20) K/uL Immature Gran # (Auto) (0.01-0.20) K/uL VBG pH (7.36-7.41) VBG pCO2 (38-50) mmHg VBG pO2 mmHg VBG HCO3 mmol/L VBG O2 Saturation % VBG Base Excess mEq/L Sodium (136-145) mmol/L Potassium (3.5-5.1) mmol/L Chloride (98-107) mmol/L Carbon Dioxide (21-32) mmol/L Anion Gap (3-11) BUN (6-23) mg/dl Creatinine (0.6-1.4) mg/dl Est Cr Clr Drug Dosing ml/min Est GFR ( Amer) ml/min Est GFR (Non-Af Amer) ml/min BUN/Creatinine Ratio (10-20) Glucose (70-99(Fasting)) mg/dl POC Glucose (70-99) mg/dl Lactate 3.7 H* (0.4-2.0) mmol/L Calcium (8.6-10.3) mg/dl Total Bilirubin (0.2-1.0) mg/dl AST (13-39) U/L ALT (7-52) U/L Alkaline Phosphatase (34-104) U/L Total Protein (6.0-8.3) gm/dl Albumin (3.4-5.0) gm/dl Globulin (2.5-4.0) gm/dl Albumin/Globulin Ratio (0.9-2) Procalcitonin (0-0.5) ng/ml Urine Color Yellow Urine Appearance Clear (Clear) Urine pH 6.5 (4.5-7.5) Ur Specific [place] 1.027 (1.000-1.030) Urine Protein 3+ H (Negative) Urine Glucose (UA) 3+ H (Negative) Urine Ketones Trace H (Negative) Urine Blood 1+ H (Negative) Urine Nitrite Negative (Negative) Urine Bilirubin Negative (Negative) Urine Urobilinogen Negative (Negative) Ur Leukocyte Esterase Negative (Negative) Urine WBC (Auto) 0 (0-5) /hpf Urine RBC (Auto) 0-4 (0-4) /hpf U Hyaline Cast (Auto) 1-5 (0-5) /lpf U Epithel Cells (Auto) 5-10 H (0-5) /lpf Urine Bacteria (Auto) Negative (Negative) Adenovirus (PCR) Not Detected (NotDetected) B. pertussis DNA (PCR) Not Detected (NotDetected) B.parapertussis DNA PCR Not Detected (NotDetected) C. pneumoniae DNA (PCR) Not Detected (NotDetected) Coronavirus OC43 (PCR) Not Detected (NotDetected) Coronavirus HKU1 (PCR) Not Detected (NotDetected) Coronavirus 229E (PCR) Not Detected (NotDetected) SARS-CoV-2 (PCR) Not Detected (NotDetected) Coronavirus NL63 (PCR) Not Detected (NotDetected) Human Metapneumovir PCR Not Detected (NotDetected) Influenza Type A (PCR) Not Detected (NotDetected) Influenza Type B (PCR) Not Detected (NotDetected) M. pneumoniae (PCR) Not Detected (NotDetected) Parainfluenza 1 (PCR) Not Detected (NotDetected) Parainfluenza 2 (PCR) Not Detected (NotDetected) Parainfluenza 3 (PCR) Not Detected (NotDetected) Parainfluenza 4 (PCR) Not Detected (NotDetected) RSV (PCR) Not Detected (NotDetected) Entero/Rhino (PCR) Not Detected (NotDetected) 09/26/23 Range/Units 19:47 WBC (4.8-10.8) K/ul RBC (4.70-6.10) M/uL Hgb (14.0-18.0) g/dl Hct (42.0-52.0) % MCV (80.0-100.0) fL MCH (25.0-34.0) pg MCHC (32.0-36.0) g/dL RDW Std Deviation (36.4-46.3) fL RDW Coeff of Terri (11.5-14.5) % Plt Count (130-400) K/uL MPV (9.4-12.4) fL Immature Gran % (Auto) % Neut % (Auto) % Lymph % (Auto) % [place] % (Auto) % Eos % (Auto) % Baso % (Auto) % Neut # (Auto) (1.40-6.50) K/uL Lymph # (Auto) (1.20-3.40) K/uL [place] # (Auto) (0.11-0.59) K/uL Eos # (Auto) (0.00-0.50) K/uL Baso # (Auto) (0.00-0.20) K/uL Immature Gran # (Auto) (0.01-0.20) K/uL VBG pH 7.45 H (7.36-7.41) VBG pCO2 33 L (38-50) mmHg VBG pO2 53 mmHg VBG HCO3 23 mmol/L VBG O2 Saturation 82.2 % VBG Base Excess -0.4 mEq/L Sodium 139 (136-145) mmol/L Potassium 3.7 (3.5-5.1) mmol/L Chloride 104 (98-107) mmol/L Carbon Dioxide 20 L (21-32) mmol/L Anion Gap 15 H (3-11) BUN 16 (6-23) mg/dl Creatinine 1.34 (0.6-1.4) mg/dl Est Cr Clr Drug Dosing 70.1 ml/min Est GFR ( Amer) 65.3 ml/min Est GFR (Non-Af Amer) 56.4 ml/min BUN/Creatinine Ratio 11.9 (10-20) Glucose 204 H (70-99(Fasting)) mg/dl POC Glucose (70-99) mg/dl Lactate (0.4-2.0) mmol/L Calcium 10.1 (8.6-10.3) mg/dl Total Bilirubin (0.2-1.0) mg/dl AST (13-39) U/L ALT (7-52) U/L Alkaline Phosphatase (34-104) U/L Total Protein (6.0-8.3) gm/dl Albumin (3.4-5.0) gm/dl Globulin (2.5-4.0) gm/dl Albumin/Globulin Ratio (0.9-2) Procalcitonin (0-0.5) ng/ml Urine Color Urine Appearance (Clear) Urine pH (4.5-7.5) Ur Specific [place] (1.000-1.030) Urine Protein (Negative) Urine Glucose (UA) (Negative) Urine Ketones (Negative) Urine Blood (Negative) Urine Nitrite (Negative) Urine Bilirubin (Negative) Urine Urobilinogen (Negative) Ur Leukocyte Esterase (Negative) Urine WBC (Auto) (0-5) /hpf Urine RBC (Auto) (0-4) /hpf U Hyaline Cast (Auto) (0-5) /lpf U Epithel Cells (Auto) (0-5) /lpf Urine Bacteria (Auto) (Negative) Adenovirus (PCR) (NotDetected) B. pertussis DNA (PCR) (NotDetected) B.parapertussis DNA PCR (NotDetected) C. pneumoniae DNA (PCR) (NotDetected) Coronavirus OC43 (PCR) (NotDetected) Coronavirus HKU1 (PCR) (NotDetected) Coronavirus 229E (PCR) (NotDetected) SARS-CoV-2 (PCR) (NotDetected) Coronavirus NL63 (PCR) (NotDetected) Human Metapneumovir PCR (NotDetected) Influenza Type A (PCR) (NotDetected) Influenza Type B (PCR) (NotDetected) M. pneumoniae (PCR) (NotDetected) Parainfluenza 1 (PCR) (NotDetected) Parainfluenza 2 (PCR) (NotDetected) Parainfluenza 3 (PCR) (NotDetected) Parainfluenza 4 (PCR) (NotDetected) RSV (PCR) (NotDetected) Entero/Rhino (PCR) (NotDetected) Administered Medications Atorvastatin Calcium (Atorvastatin 40 Mg Tab) 80 mg PO [facility] Stop: 10/26/23 21:49 Last Admin: 09/26/23 22:35 Dose: 80 mg Documented By: MAIRA Enoxaparin Sodium (Enoxaparin Inj 40 Mg/0.4 Ml Syr) 40 mg SQ Q24H [facility] Stop: 10/26/23 20:59 Last Admin: 09/26/23 22:39 Dose: Not Given Documented By: MAIRA Piperacillin Sod/Tazobactam (Sod 4.5 gm/ Dextrose) 100 mls @ 25 mls/hr IV Q8H [facility]; Protocol Stop: 10/06/23 21:59 Last Admin: 09/26/23 22:42 Dose: 25 mls/hr Documented By: MAIRA Potassium Chloride/Dextrose/Sod Cl (D5w And 1/2nss + 20meq Kcl) 20 meq in 1,000 mls @ 200 mls/hr IV .Q5H [facility] Stop: 10/26/23 22:29 Last Admin: 09/26/23 22:45 Dose: 200 mls/hr Documented By: MAIRA Lamotrigine (Lamotrigine 25 Mg Tab) 50 mg PO [facility]; Protocol Stop: 10/26/23 21:49 Last Admin: 09/26/23 22:36 Dose: 50 mg Documented By: MAIRA Levetiracetam (Levetiracetam 500 Mg Tab) 1,500 mg PO BID [facility] Stop: 10/26/23 21:49 Last Admin: 09/26/23 22:38 Dose: 1,500 mg Documented By: MAIRA Metoprolol Tartrate (Metoprolol Tartrate 25 Mg Tab) 25 mg PO BID [facility] Stop: 10/26/23 21:49 Last Admin: 09/26/23 22:38 Dose: 25 mg Documented By: MAIRA Discontinued Medications Albuterol (Albuterol 0.083% Nebu Soln 3 Ml Vial) 2.5 mg NEB NOW STA; Protocol Stop: 09/26/23 17:39 Last Admin: 09/26/23 18:06 Dose: 2.5 mg Documented By: HÉCTOR Sodium Chloride (Nss) 500 mls @ 999 mls/hr IV .Q31M [facility] Stop: 09/26/23 15:12 Last Infusion: 09/26/23 15:29 Dose: Infused Documented By: Admin: 09/26/23 14:58 Dose: 999 mls/hr Documented By: DIOMEDES Sodium Chloride (Nss) 1,000 mls @ 999 mls/hr IV .Q1H1M ONE Stop: 09/26/23 16:32 Last Infusion: 09/26/23 16:21 Dose: Infused Documented By: Admin: 09/26/23 15:35 Dose: 999 mls/hr Documented By: DIOMEDES Piperacillin Sod/Tazobactam Sod (Zosyn) 4.5 gm in 100 mls @ 200 mls/hr IV NOW ONE Stop: 09/26/23 16:43 Last Infusion: 09/26/23 17:06 Dose: Infused Documented By: Admin: 09/26/23 16:29 Dose: 200 mls/hr Documented By: DIOMEDES Sodium Chloride (Nss) 1,000 mls @ 999 mls/hr IV .Q1H1M ONE Stop: 09/26/23 20:27 Last Infusion: 09/26/23 20:49 Dose: Infused Documented By: Admin: 09/26/23 19:48 Dose: 999 mls/hr Documented By: MAIRA Ioversol (Optiray 320 100ml) 92 ml IV ONCE ONE Stop: 09/26/23 16:05 Last Admin: 09/26/23 16:05 Dose: 92 ml Documented By: NICOLLE Ketorolac Tromethamine (Ketorolac Tromethamine 15 Mg/Ml Vial) 10 mg IV NOW ONE Stop: 09/26/23 17:39 Last Admin: 09/26/23 18:06 Dose: 10 mg Documented By: HÉCTOR Lorazepam (Lorazepam 1 Mg/1 Ml Syr Ed Inj Use) 1 mg IV ONE STA Stop: 09/26/23 17:39 Last Admin: 09/26/23 18:06 Dose: 1 mg Documented By: HÉCTOR Lorazepam (Lorazepam 1 Mg/1 Ml Syr Ed Inj Use) 1 mg IV ONE STA Stop: 09/26/23 20:09 Last Admin: 09/26/23 20:33 Dose: 1 mg Documented By: MAIRA Ondansetron HCl (Ondansetron Inj 2 Mg/Ml 2 Ml Vial) 4 mg IV NOW STA Stop: 09/26/23 14:43 Last Admin: 09/26/23 14:58 Dose: 4 mg Documented By: DIOMEDES Imaging Data Radiologist's Impression: Abdomen/Pelvis CT 09/26/23 15:32 CT SCAN OF THE ABDOMEN AND PELVIS WITH IV CONTRAST CLINICAL HISTORY: Right-sided abdominal pain. Nausea and vomiting. COMPARISON STUDY: Abdominal CT dated 01/11/2023. TECHNIQUE: Following the IV administration of 92 cc of Optiray 320, CT scan of the abdomen and pelvis is performed from the lung bases to the proximal femora. Images are reviewed in the axial, sagittal, and coronal planes. IV contrast was administered without complication. A dose lowering technique was utilized adhering to the principles of ALARA. CT DOSE: 1344.77 mGy.cm FINDINGS: Lung bases: The heart is normal in size and without pericardial effusion. There is mild bibasilar scarring/atelectasis. A 4 mm pulmonary nodule in the lingula seen on image #26 and a 5 mm pleural-based nodule in the right middle lobe along the minor fissure seen on image #10 are unchanged. No airspace consolidation or pleural effusion is identified. Liver: The contrast-enhanced liver is normal in size, contour, and attenuation. There is no intrahepatic biliary ductal dilatation. The hepatic veins and portal veins are patent. Gallbladder: Unremarkable. Spleen: Normal in size and attenuation. Pancreas: Unremarkable. Adrenal glands: A 13 mm low-attenuation right adrenal nodule is unchanged. This likely represents an adenoma but cannot be definitively characterized due to the presence of IV contrast. The left adrenal gland is normal. Kidneys: The contrast enhanced kidneys are normal in size and without hydronephrosis. The kidneys enhance symmetrically. Abdominal vasculature: The abdominal aorta is normal in course and caliber. Bowel: No bowel obstruction is seen. The appendix is well-visualized and normal. Peritoneum: There is no intraperitoneal free air or abdominal ascites. Lymphadenopathy: None. Pelvic viscera: The prostate gland is mildly enlarged and heterogeneous. The bladder wall is thickened/trabeculated indicating chronic outlet obstruction. Skeletal structures: No lytic or blastic lesions are seen. IMPRESSION: No acute infectious or inflammatory findings are identified in the abdomen or pelvis. ACT 112: Negative or not required by law. Electronically signed by: Luis Angel Pena M.D. 09/26/2023 4:31 PM Discharge Plan Visit Data Chief Complaint: Urinary Symptoms Stated Complaint: LOW BACK PAIN - POSSIBLE KIDNEY STONE ED Provider: Nicola Marquez Discharge Problem: Right sided abdominal pain, Nausea & vomiting, Acute dehydration, Acidosis, lactic Patient Disposition: Admitted As Inpatient Discharge Instructions Interventions: ED Discharge Assessment Last Done: 09/26/23 21:50 Discharge Problem: Nausea & vomiting Qualifiers: Vomiting type: unspecified Qualified Code(s): R11.2 - Nausea with vomiting, unspecified
[2023-09-26 15:25] LABS: Basophils # (auto) 0.08 K/uL (0.00-0.20); Basophils % (auto) 0.4 %; Eosinophils # (auto) 0.07 K/uL (0.00-0.50); Eosinophils % (auto) 0.4 %; Hematocrit (blood only) 47.2 % (42.0-52.0); Immature Granulocytes # (auto) 0.12 K/uL (0.01-0.20); Immature Granulocytes % (auto) 0.6 %; Lymphocytes # (auto) 1.84 K/uL (1.20-3.40); Lymphocytes % (auto) 9.9 %; Mean Corpuscular Hemoglobin 28.3 pg (25.0-34.0); Mean Corpuscular Hgb Conc 33.9 g/dL (32.0-36.0); Mean Corpuscular Volume 83.4 fL (80.0-100.0); Mean Platelet Volume 9.8 fL (9.4-12.4); Monocytes # (auto) 0.47 K/uL (0.11-0.59); Monocytes % (auto) 2.5 %; Neutrophils % (auto) 86.2 %; Platelet Count 378 K/uL (130-400); RDW Coefficient of Variation 14.2 % (11.5-14.5); RDW Standard Deviation 42.5 fL (36.4-46.3); Red Blood Count 5.66 M/uL (4.70-6.10); White Blood Count 18.68 K/ul (4.8-10.8)
[2023-09-26] MEDS: SODIUM CHLORIDE 0.9% 1,000 ML IV ONE ×2 (15:35→19:48)
[2023-09-26 15:49] LABS: Albumin Globulin Ratio 1.3 (0.9-2); Albumin Level 4.7 gm/dl (3.4-5.0); BUN Creatinine Ratio 12.7 (10-20); Bilirubin,Total 0.6 mg/dl (0.2-1.0); Calcium 10.6 mg/dl (8.6-10.3); Creatinine Clr Calc Pharmacy 74.6 ml/min; Est GFR (African American) 70.4 ml/min; Est GFR (Non-African American) 60.7 ml/min; Globulin 3.7 gm/dl (2.5-4.0); Potassium 3.6 mmol/L (3.5-5.1); Total Protein 8.4 gm/dl (6.0-8.3)
[2023-09-26] MEDS: OPTIRAY 320 100ml IV ONE (16:05)
[2023-09-26 16:10] LABS: Appearance Urine Clear (Clear); Bacteria Urine Automated Negative (Negative); Bilirubin Urine Negative (Negative); Blood Urine 1+ (Negative); Color Urine Yellow; Glucose Urine UA 3+ (Negative); Ketones Urine Trace (Negative); Leukocyte Esterase Urine Negative (Negative); Nitrite Urine Negative (Negative); Protein Urine 3+ (Negative); RBC Urine Automated 0-4 /hpf (0-4); Specific Gravity Urine 1.027 (1.000-1.030); Urobilinogen Urine Negative (Negative); WBC Urine Automated 0 /hpf (0-5); pH Urine 6.5 (4.5-7.5)
[2023-09-26] MEDS: PIPERACILLIN/TAZOBACTAM 4.5 GM/100 ML BAG IV ONE (16:29)
--- NOTE | 2023-09-26 16:33 | CT Scan Report ---
CT SCAN OF THE ABDOMEN AND PELVIS WITH IV CONTRAST CLINICAL HISTORY: Right-sided abdominal pain. Nausea and vomiting. COMPARISON STUDY: Abdominal CT dated 01/11/2023. TECHNIQUE: Following the IV administration of 92 cc of Optiray 320, CT scan of the abdomen and pelvi s is performed from the lung bases to the proximal femora. Images are reviewed in the axial, sagittal , and coronal planes. IV contrast was administered without complication. A dose lowering technique wa s utilized adhering to the principles of ALARA. CT DOSE: 1344.77 mGy.cm FINDINGS: Lung bases: The heart is normal in size and without pericardial effusion. There is mild bibasilar sca rring/atelectasis. A 4 mm pulmonary nodule in the lingula seen on image #26 and a 5 mm pleural-based nodule in the right middle lobe along the minor fissure seen on image #10 are unchanged. No airspace consolidation or pleural effusion is identified. Liver: The contrast-enhanced liver is normal in size, contour, and attenuation. There is no intrahepa tic biliary ductal dilatation. The hepatic veins and portal veins are patent. Gallbladder: Unremarkable. Spleen: Normal in size and attenuation. Pancreas: Unremarkable. Adrenal glands: A 13 mm low-attenuation right adrenal nodule is unchanged. This likely represents an adenoma but cannot be definitively characterized due to the presence of IV contrast. The left adrenal gland is normal. Kidneys: The contrast enhanced kidneys are normal in size and without hydronephrosis. The kidneys enh ance symmetrically. Abdominal vasculature: The abdominal aorta is normal in course and caliber. Bowel: No bowel obstruction is seen. The appendix is well-visualized and normal. Peritoneum: There is no intraperitoneal free air or abdominal ascites. Lymphadenopathy: None. Pelvic viscera: The prostate gland is mildly enlarged and heterogeneous. The bladder wall is thickene d/trabeculated indicating chronic outlet obstruction. Skeletal structures: No lytic or blastic lesions are seen. IMPRESSION: No acute infectious or inflammatory findings are identified in the abdomen or pelvis. ACT 112: Negative or not required by law. Electronically signed by: Luis Angel Pena M.D. 09/26/2023 4:31 PM
[2023-09-26 17:46] LABS: Adenovirus PCR Not Detected (NotDetected); Bordetella parapertussis PCR Not Detected (NotDetected); Bordetella pertussis PCR Not Detected (NotDetected); Chlamydia pneumoniae PCR Not Detected (NotDetected); Coronavirus 229E PCR Not Detected (NotDetected); Coronavirus CoV-2 (COVID19)PCR Not Detected (NotDetected); Coronavirus HKU1 PCR Not Detected (NotDetected); Coronavirus NL63 PCR Not Detected (NotDetected); Coronavirus OC43PCR Not Detected (NotDetected); Human Metapneumovirus PCR Not Detected (NotDetected); Influenza A PCR Not Detected (NotDetected); Influenza B PCR Not Detected (NotDetected); Mycoplasma pneumoniae PCR Not Detected (NotDetected); Parainfluenza Virus 1 PCR Not Detected (NotDetected); Parainfluenza Virus 2 PCR Not Detected (NotDetected); Parainfluenza Virus 3 PCR Not Detected (NotDetected); Parainfluenza Virus 4 PCR Not Detected (NotDetected); Respiratory Syncytial VirusPCR Not Detected (NotDetected); Rhinovirus/Enterovirus PCR Not Detected (NotDetected)
[2023-09-26] MEDS: ALBUTEROL 0.083% NEBU SOLN 3 ML VIAL NEB STA (18:06)
[2023-09-26] MEDS: LORazepam 1 MG/1 ML SYR ED Inj Use IV STA ×2 (18:06→20:33)
[2023-09-26] MEDS: KETOROLAC TROMETHAMINE 15 MG/ML VIAL IV ONE (18:06)
[2023-09-26 19:55] LABS: Base Excess VBG -0.4 mEq/L; HCO3 VBG 23 mmol/L; Oxygen Saturation VBG 82.2 %; PCO2 VBG 33 mmHg (38-50); PO2 VBG 53 mmHg; pH VBG 7.45 (7.36-7.41)
[2023-09-26 20:17] LABS: BUN Creatinine Ratio 11.9 (10-20); Calcium 10.1 mg/dl (8.6-10.3); Creatinine Clr Calc Pharmacy 70.1 ml/min; Est GFR (African American) 65.3 ml/min; Est GFR (Non-African American) 56.4 ml/min; Potassium 3.7 mmol/L (3.5-5.1)
--- NOTE | 2023-09-26 21:42 | History & Physical Report ---
Date of Service September 26, 2023 Assessment & Plan (1) DKA (diabetic ketoacidosis): Plan: 63-year-old male with past medical history significant for type 2 diabetes, hyperlipidemia, hypertriglyceridemia, mild COPD, hypertension, CAD s/p stent, dilated aortic root, grade 1 diastolic dysfunction, degenerative disc disease, seizure disorder, splenomegaly, bipolar affective disorder, noncompliance, obesity, history of angioedema thought to be from lisinopril and was intubated at that time comes because of abdominal pain mostly in the right flank and lower abdomen also with some nausea going on for last few days. Patient states he has bad anxiety and requesting medication to help him sleep through the night. Requesting non sugar ice tea drink.. States his nausea is improved now. Currently denies any chest pain or shortness of breath. No headache. Has some dizziness. Vision is okay. No runny nose or sore throat. Has some cough. No difficulty swallowing. He was constipated but moved his bowels. Micturating okay. Hemodynamics are okay. DKA Sugars in 250 range Has anion gap Possible euglycemic DKA from Jardiance Starting on insulin drip Fluids as per DKA protocol Close monitor of the labs as per protocol Follow HbA1c levels Elevated lactic acidosis Holding metformin Possibly from DKA CT abdomen pelvis with IV contrast unremarkable ER given empiric Zosyn which be continued for now as patient has leukocytosis Will monitor History of CAD status post stent On aspirin, Plavix, statin and beta-lindy Hypertension On amlodipine, metoprolol Hyperlipidemia On statin History of seizures On Keppra History of bipolar affective disorder Anxiety Lamictal, Klonopin, Zoloft Mild COPD Nebs as needed Grade 1diastolic dysfunction Monitor for volume overload DVT prophylaxis Lovenox Disposition Telemetry Full code History of Present Illness Chief Complaint: Abdominal pain Primary Care Provider: Key Cordero MD 63-year-old male with past medical history significant for type 2 diabetes, hyperlipidemia, hypertriglyceridemia, mild COPD, hypertension, CAD s/p stent, d ilated aortic root, grade 1 diastolic dysfunction, degenerative's disc disease, seizure disorder, splenomegaly, bipolar affective disorder, noncompliance, obesity, history of angioedema thought to be from lisinopril and was intubated at that time comes because of abdominal pain mostly in the right flank and lower abdomen also with some nausea going on for last few days. Patient states he has bad anxiety and requesting medication to help him sleep through the night. Requesting non sugar ice tea drink.. States his nausea is improved now. Currently denies any chest pain or shortness of breath. No headache. Has some dizziness. Vision is okay. No runny nose or sore throat. Has some cough. No difficulty swallowing. He was constipated but moved his bowels. Micturating okay. Hemodynamics are okay. Past medical history. As mentioned above Past surgical history. Colonoscopy. EGD. Laparoscopic left inguinal hernia repair Social history. Smokes marijuana daily. Denies smoking cigarettes. No alcohol use. Family history. Brother had colon cancer. Father had melanoma. Diabetes. Mother had COPD. Maternal grandfather had diabetes, [place] at age 59. Allergies Allergy/AdvReac Type Severity Reaction Status Date / Time lisinopril Allergy Severe angioedema Verified 03/25/22 12:31 Home Medications Medication Instructions Recorded Confirmed Type clonazepam 1 mg tablet 0.5 mg PO DAILY 08/04/18 09/26/23 History levetiracetam 750 mg tablet 2 tab PO BID 08/04/18 09/26/23 History metformin 1,000 mg tablet 1,000 mg PO BID 08/04/18 09/26/23 History aspirin 81 mg tablet,delayed 81 mg PO DAILY 03/25/22 09/26/23 History release atorvastatin 80 mg tablet 80 mg PO HS 03/25/22 09/26/23 History clopidogrel 75 mg tablet 75 mg PO DAILY 03/25/22 09/26/23 History empagliflozin 25 mg tablet 25 mg PO HS 03/25/22 09/26/23 History (Jardiance) lamotrigine 100 mg tablet 50 mg PO HS 03/25/22 09/26/23 History melatonin 1 mg tablet 3 mg PO HS PRN Insomnia 03/25/22 09/26/23 History metoprolol tartrate 25 mg tablet 25 mg PO BID 03/25/22 09/26/23 History pantoprazole 40 mg tablet,delayed 40 mg PO QAM 03/25/22 09/26/23 History release sertraline 50 mg tablet 50 mg PO DAILY 03/25/22 09/26/23 History amlodipine 5 mg tablet (Norvasc) 5 mg PO QAM #30 tabs 04/02/22 09/26/23 Rx ondansetron 4 mg disintegrating 4 mg PO Q6H PRN nausea and 01/11/23 09/26/23 Rx tablet vomiting #15 tabs Past Med/Surg History Medical History Single vessel coronary disease T2DM (type 2 diabetes mellitus) HTN (hypertension) HLD (hyperlipidemia) Hypertriglyceridemia History of cannabis dependence/abuse x 35 years quit 12/2017 Seizure disorder Bipolar affective disorder Peripheral neuropathy Anxiety Surgical History History of left inguinal hernia Family History Brother Coronary heart disease History of coronary artery bypass graft Grandfather (Maternal) , [place] at 59 Myocardial infarction Father T2DM (type 2 diabetes mellitus) Coronary heart disease Melanoma Social History Smoking Status: Former smoker Tobacco Type: Smokeless Tobacco (Dip or Chew) Second Hand Exposure: Yes; Do You Dip or Chew Tobacco: Yes; Hx Alcohol Use: No Hx Substance Use: Yes Last Used Substance: Days (ago) Last Used Substance Other:: 6 months ago Substance Use Type Other:: x 35 years Preferred Language: Slovak 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 ENT- oropharynx clear Neck- supple, no JVD. Lungs- clear to auscultation no wheezing or crackles. Heart- regular rhythm; no murmur, no gallop. Abdomen- normal bowel sounds, soft, nontender, no distension. Extremities- no pretibial edema, no erythema seen. Neuro- alert, oriented x 3; PERRL, no facial palsy; no dysarthria; moves extremities. Results & Data Results & Data Vital Signs (Past 12 Hours) Vital Signs Temp Pulse Pulse Resp BP BP Pulse Ox 09/26/23 15:32 90 20 141/91 H 99 09/26/23 14:56 101 H 20 141/91 H 98 09/26/23 14:38 36.6 C 108 H 16 160/95 H 98 O2 Del Method 09/26/23 15:32 Room Air 09/26/23 14:56 Room Air 09/26/23 14:38 Room Air Diagnostic Findings Laboratory Results WBC 18.68 K/ul (4.8-10.8) H 09/26/23 15:00 RBC 5.66 M/uL (4.70-6.10) 09/26/23 15:00 Hgb 16.0 g/dl (14.0-18.0) 09/26/23 15:00 Hct 47.2 % (42.0-52.0) 09/26/23 15:00 MCV 83.4 fL (80.0-100.0) 09/26/23 15:00 MCH 28.3 pg (25.0-34.0) 09/26/23 15:00 MCHC 33.9 g/dL (32.0-36.0) 09/26/23 15:00 RDW Std Deviation 42.5 fL (36.4-46.3) 09/26/23 15:00 RDW Coeff of Terri 14.2 % (11.5-14.5) 09/26/23 15:00 Plt Count 378 K/uL (130-400) 09/26/23 15:00 MPV 9.8 fL (9.4-12.4) 09/26/23 15:00 Immature Gran % (Auto) 0.6 % 09/26/23 15:00 Neut % (Auto) 86.2 % 09/26/23 15:00 Lymph % (Auto) 9.9 % 09/26/23 15:00 [place] % (Auto) 2.5 % 09/26/23 15:00 Eos % (Auto) 0.4 % 09/26/23 15:00 Baso % (Auto) 0.4 % 09/26/23 15:00 Neut # (Auto) 16.10 K/uL (1.40-6.50) H 09/26/23 15:00 Lymph # (Auto) 1.84 K/uL (1.20-3.40) 09/26/23 15:00 [place] # (Auto) 0.47 K/uL (0.11-0.59) 09/26/23 15:00 Eos # (Auto) 0.07 K/uL (0.00-0.50) 09/26/23 15:00 Baso # (Auto) 0.08 K/uL (0.00-0.20) 09/26/23 15:00 Immature Gran # (Auto) 0.12 K/uL (0.01-0.20) 09/26/23 15:00 VBG pH 7.45 (7.36-7.41) H 09/26/23 19:47 VBG pCO2 33 mmHg (38-50) L 09/26/23 19:47 VBG pO2 53 mmHg 09/26/23 19:47 VBG HCO3 23 mmol/L 09/26/23 19:47 VBG O2 Saturation 82.2 % 09/26/23 19:47 VBG Base Excess -0.4 mEq/L 09/26/23 19:47 Sodium 139 mmol/L (136-145) 09/26/23 19:47 Potassium 3.7 mmol/L (3.5-5.1) 09/26/23 19:47 Chloride 104 mmol/L (98-107) 09/26/23 19:47 Carbon Dioxide 20 mmol/L (21-32) L 09/26/23 19:47 Anion Gap 15 (3-11) H 09/26/23 19:47 BUN 16 mg/dl (6-23) 09/26/23 19:47 Creatinine 1.34 mg/dl (0.6-1.4) 09/26/23 19:47 Est Cr Clr Drug Dosing 70.1 ml/min 09/26/23 19:47 Est GFR ( Amer) 65.3 ml/min 09/26/23 19:47 Est GFR (Non-Af Amer) 56.4 ml/min 09/26/23 19:47 BUN/Creatinine Ratio 11.9 (10-20) 09/26/23 19:47 Glucose 204 mg/dl (70-99(Fasting)) H 09/26/23 19:47 POC Glucose 200 mg/dl (70-99) H 09/26/23 14:42 Lactate 3.7 mmol/L (0.4-2.0) H* 09/26/23 18:54 Calcium 10.1 mg/dl (8.6-10.3) 09/26/23 19:47 Total Bilirubin 0.6 mg/dl (0.2-1.0) 09/26/23 15:00 AST 17 U/L (13-39) 09/26/23 15:00 ALT 23 U/L (7-52) 09/26/23 15:00 Alkaline Phosphatase 94 U/L (34-104) 09/26/23 15:00 Total Protein 8.4 gm/dl (6.0-8.3) H 09/26/23 15:00 Albumin 4.7 gm/dl (3.4-5.0) 09/26/23 15:00 Globulin 3.7 gm/dl (2.5-4.0) 09/26/23 15:00 Albumin/Globulin Ratio 1.3 (0.9-2) 09/26/23 15:00 Procalcitonin 0.03 ng/ml (0-0.5) 09/26/23 15:00 Urine Color Yellow 09/26/23 15:45 Urine Appearance Clear (Clear) 09/26/23 15:45 Urine pH 6.5 (4.5-7.5) 09/26/23 15:45 Ur Specific [place] 1.027 (1.000-1.030) 09/26/23 15:45 Urine Protein 3+ (Negative) H 09/26/23 15:45 Urine Glucose (UA) 3+ (Negative) H 09/26/23 15:45 Urine Ketones Trace (Negative) H 09/26/23 15:45 Urine Blood 1+ (Negative) H 09/26/23 15:45 Urine Nitrite Negative (Negative) 09/26/23 15:45 Urine Bilirubin Negative (Negative) 09/26/23 15:45 Urine Urobilinogen Negative (Negative) 09/26/23 15:45 Ur Leukocyte Esterase Negative (Negative) 09/26/23 15:45 Urine WBC (Auto) 0 /hpf (0-5) 09/26/23 15:45 Urine RBC (Auto) 0-4 /hpf (0-4) 09/26/23 15:45 U Hyaline Cast (Auto) 1-5 /lpf (0-5) 09/26/23 15:45 U Epithel Cells (Auto) 5-10 /lpf (0-5) H 09/26/23 15:45 Urine Bacteria (Auto) Negative (Negative) 09/26/23 15:45 Adenovirus (PCR) Not Detected (NotDetected) 09/26/23 16:25 B. pertussis DNA (PCR) Not Detected (NotDetected) 09/26/23 16:25 B.parapertussis DNA PCR Not Detected (NotDetected) 09/26/23 16:25 C. pneumoniae DNA (PCR) Not Detected (NotDetected) 09/26/23 16:25 Coronavirus OC43 (PCR) Not Detected (NotDetected) 09/26/23 16:25 Coronavirus HKU1 (PCR) Not Detected (NotDetected) 09/26/23 16:25 Coronavirus 229E (PCR) Not Detected (NotDetected) 09/26/23 16:25 SARS-CoV-2 (PCR) Not Detected (NotDetected) 09/26/23 16:25 Coronavirus NL63 (PCR) Not Detected (NotDetected) 09/26/23 16:25 Human Metapneumovir PCR Not Detected (NotDetected) 09/26/23 16:25 Influenza Type A (PCR) Not Detected (NotDetected) 09/26/23 16:25 Influenza Type B (PCR) Not Detected (NotDetected) 09/26/23 16:25 M. pneumoniae (PCR) Not Detected (NotDetected) 09/26/23 16:25 Parainfluenza 1 (PCR) Not Detected (NotDetected) 09/26/23 16:25 Parainfluenza 2 (PCR) Not Detected (NotDetected) 09/26/23 16:25 Parainfluenza 3 (PCR) Not Detected (NotDetected) 09/26/23 16:25 Parainfluenza 4 (PCR) Not Detected (NotDetected) 09/26/23 16:25 RSV (PCR) Not Detected (NotDetected) 09/26/23 16:25 Entero/Rhino (PCR) Not Detected (NotDetected) 09/26/23 16:25 Impressions Abdomen/Pelvis CT 09/26/23 15:32 CT SCAN OF THE ABDOMEN AND PELVIS WITH IV CONTRAST CLINICAL HISTORY: Right-sided abdominal pain. Nausea and vomiting. COMPARISON STUDY: Abdominal CT dated 01/11/2023. TECHNIQUE: Following the IV administration of 92 cc of Optiray 320, CT scan of the abdomen and pelvis is performed from the lung bases to the proximal femora. Images are reviewed in the axial, sagittal, and coronal planes. IV contrast was administered without complication. A dose lowering technique was utilized adhering to the principles of ALARA. CT DOSE: 1344.77 mGy.cm FINDINGS: Lung bases: The heart is normal in size and without pericardial effusion. There is mild bibasilar scarring/atelectasis. A 4 mm pulmonary nodule in the lingula seen on image #26 and a 5 mm pleural-based nodule in the right middle lobe along the minor fissure seen on image #10 are unchanged. No airspace consolidation or pleural effusion is identified. Liver: The contrast-enhanced liver is normal in size, contour, and attenuation. There is no intrahepatic biliary ductal dilatation. The hepatic veins and portal veins are patent. Gallbladder: Unremarkable. Spleen: Normal in size and attenuation. Pancreas: Unremarkable. Adrenal glands: A 13 mm low-attenuation right adrenal nodule is unchanged. This likely represents an adenoma but cannot be definitively characterized due to the presence of IV contrast. The left adrenal gland is normal. Kidneys: The contrast enhanced kidneys are normal in size and without hydronephrosis. The kidneys enhance symmetrically. Abdominal vasculature: The abdominal aorta is normal in course and caliber. Bowel: No bowel obstruction is seen. The appendix is well-visualized and normal. Peritoneum: There is no intraperitoneal free air or abdominal ascites. Lymphadenopathy: None. Pelvic viscera: The prostate gland is mildly enlarged and heterogeneous. The bladder wall is thickened/trabeculated indicating chronic outlet obstruction. Skeletal structures: No lytic or blastic lesions are seen. IMPRESSION: No acute infectious or inflammatory findings are identified in the abdomen or pelvis. ACT 112: Negative or not required by law. Electronically signed by: Luis Angel Pena M.D. 09/26/2023 4:31 PM Code Status & VTE Plan VTE Prophylaxis Plan VTE Prophylaxis will be ordered: Yes
[2023-09-26] MEDS ORDERED: NITROGLYCERIN SL 0.4 MG/TAB TAB SL PRN (21:50)
[2023-09-26] MEDS ORDERED: ONDANSETRON INJ 2 MG/ML 2 ML VIAL IV PRN (21:50)
[2023-09-26] MEDS ORDERED: STAT IV Infusion **Titration per Protocol STA (21:50)
[2023-09-26] MEDS ORDERED: PENDING 1/2NSS+20mEq KCL IVF SCH (21:50)
[2023-09-26] MEDS ORDERED: DKA GOAL RANGE 150-250 mg/dl ONE (21:50)
[2023-09-26] MEDS ORDERED: PHARMACY GLYCEMIC MGMT CONSULT PRN (21:50)
[2023-09-26] MEDS ORDERED: ACETAMINOPHEN 325 MG TAB PO PRN (21:50)
[2023-09-26] MEDS ORDERED: MELATONIN 3 MG TAB PO PRN (22:30)
[2023-09-26] MEDS: ATORVASTATIN 40 MG TAB PO SCH (22:35)
[2023-09-26] MEDS: lamoTRIgine 25 MG TAB PO SCH (22:36)
[2023-09-26] MEDS: METOPROLOL TARTRATE 25 MG TAB PO SCH (22:38)
[2023-09-26] MEDS: levETIRAcetam 500 MG TAB PO SCH (22:38)
[2023-09-26] MEDS: ENOXAPARIN INJ 40 MG/0.4 ML SYR SQ SCH (22:39)
[2023-09-26] MEDS: PIPERACILLIN/TAZOBACTAM 4.5 GM in DEXTROSE 5% MINI-B 100 ML IV SCH (22:42)
[2023-09-26] MEDS: D5W AND 1/2NSS + 20MEQ KCL 20 MEQ/1,000 ML BAG IV SCH (22:45)
[2023-09-26 23:01] LABS: BUN Creatinine Ratio 13.2 (10-20); Calcium 9.7 mg/dl (8.6-10.3); Creatinine Clr Calc Pharmacy 72.8 ml/min; Est GFR (African American) 68.4 ml/min; Magnesium 1.6 mg/dl (1.7-2.4); Phosphorus 2.6 mg/dl (2.5-4.9); Potassium 3.7 mmol/L (3.5-5.1)
[2023-09-27] MEDS: INSULIN REGULAR 250 UNITS in SODIUM CHLORIDE 0.9% 247.5 ML IV SCH (00:31)
[2023-09-27] MEDS: NovoLIN-R BOLUS FROM BAG IV ONE (00:32)
[2023-09-27] MEDS: INSULIN ASPART PER UNIT CHARGE SC SCH ×3 (00:34→22:21)
[2023-09-27 02:32] LABS: BUN Creatinine Ratio 13.2 (10-20); Calcium 9.5 mg/dl (8.6-10.3); Creatinine Clr Calc Pharmacy 77.7 ml/min; Est GFR (African American) 73.9 ml/min; Est GFR (Non-African American) 63.8 ml/min; Magnesium 1.6 mg/dl (1.7-2.4); Phosphorus 1.8 mg/dl (2.5-4.9); Potassium 3.7 mmol/L (3.5-5.1)
--- NOTE | 2023-09-27 07:16 | Hospitalist Progress Note ---
Date of Service September 27, 2023 Assessment & Plan (1) DKA (diabetic ketoacidosis): Plan: 63-yo M with type 2 diabetes, hyperlipidemia, hypertriglyceridemia, mild COPD, hypertension, CAD s/p stent, dilated aortic root, grade 1 diastolic dysfunction, degenerative disc disease, seizure disorder, splenomegaly, bipolar affective disorder, noncompliance, obesity, history of angioedema thought to be from lisinopril and was intubated at that time comes because of abdominal pain mostly in the right flank and lower abdomen also with some nausea going on for last few days. Patient states he has bad anxiety and requesting medication to help him sleep through the night. Requesting non sugar ice tea drink. States his nausea is improved now. Currently denies any chest pain or shortness of breath. No headache. Has some dizziness. Vision is okay. No runny nose or sore throat. Has some cough. No difficulty swallowing. He was constipated but moved his bowels. Micturating okay. Hemodynamics are okay. DKA Sugars in 250 range + anion gap Possible euglycemic DKA from [facility] Started on insulin drip on admission -> now off the drip Fluids as per DKA protocol Close monitor of the labs as per protocol Follow HbA1c levels Glycemic pharmacy and rn diabetes educator consulted Elevated lactate/ lactic acidosis Holding metformin Possibly from DKA CT abdomen pelvis with IV contrast unremarkable ER given empiric Zosyn which will be continued for now as patient has leukocytosis Will monitor History of CAD status post stent On aspirin, Plavix, statin and beta-lindy Hypertension On amlodipine, metoprolol Hyperlipidemia On statin History of seizures On Keppra History of bipolar affective disorder Anxiety Lamictal, Klonopin, Zoloft Mild COPD Nebs as needed Grade 1diastolic dysfunction Monitor for volume overload DVT prophylaxis Lovenox Disposition Telemetry Full code Admission and Anticipated Discharge Date Admission Date: September 26, 2023 Subjective Pt seen in follow up of DKA, abd. pain, n/v Currently laying in bed in NAD Reports left flank pain that comes and goes but otherwise denies any abdominal pain No fever, chills IV insulin now off Pt reports significant weight loss being on Mounjaro since the beginning of the year. He also says he is mostly laying in bed at home and watches [employer] video, not being active. Review of Systems Review of Systems: All systems reviewed & are unremarkable except as noted in Subjective Physical Exam Physical Exam: General- WD/WN M in NAD Head- atraumatic Eyes- PERRL. ENT- oropharynx clear Neck- supple, no JVD. Lungs- clear to auscultation no wheezing or crackles. Heart- regular rhythm; no murmur, no gallop. Abdomen- normal bowel sounds, soft, nontender, no distension. Extremities- no pretibial edema, no erythema seen. Neuro- alert, oriented x 3; PERRL, no facial palsy; no dysarthria; moves extremities. Results & Data Results & Data Vital Signs (Past 12 Hours) Vital Signs Temp Pulse Pulse Resp BP Pulse Ox Pulse Ox 09/27/23 06:55 106 H 09/27/23 05:00 95 H 18 150/87 H 93 09/27/23 01:17 36.8 C 111 H 17 147/99 H 90 09/26/23 23:50 111 H 09/26/23 22:51 36.8 C 122 H 20 96 09/26/23 21:50 36.9 C 124 H 13 148/101 H 95 09/26/23 21:50 92 09/26/23 20:00 113 H 20 127/86 92 O2 Del Method O2 Del Method O2 Flow Rate 09/27/23 06:55 09/27/23 05:00 Room Air 09/27/23 01:17 Room Air 09/26/23 23:50 09/26/23 22:51 Room Air 09/26/23 21:50 Room Air 09/26/23 21:50 Room Air 0 09/26/23 20:00 Room Air Laboratory Results 09/27/23 09/27/23 09/27/23 Range/Units 06:25 06:09 06:03 WBC (4.8-10.8) K/ul RBC (4.70-6.10) M/uL Hgb (14.0-18.0) g/dl Hct (42.0-52.0) % MCV (80.0-100.0) fL MCH (25.0-34.0) pg MCHC (32.0-36.0) g/dL RDW Std Deviation (36.4-46.3) fL RDW Coeff of Terri (11.5-14.5) % Plt Count (130-400) K/uL MPV (9.4-12.4) fL Immature Gran % (Auto) % Neut % (Auto) % Lymph % (Auto) % Rowan % (Auto) % Eos % (Auto) % Baso % (Auto) % Neut # (Auto) (1.40-6.50) K/uL Lymph # (Auto) (1.20-3.40) K/uL Rowan # (Auto) (0.11-0.59) K/uL Eos # (Auto) (0.00-0.50) K/uL Baso # (Auto) (0.00-0.20) K/uL Immature Gran # (Auto) (0.01-0.20) K/uL VBG pH 7.42 H (7.36-7.41) VBG pCO2 (38-50) mmHg VBG pO2 mmHg VBG HCO3 mmol/L VBG O2 Saturation % VBG Base Excess mEq/L Sodium Pending (136-145) mmol/L Potassium Pending (3.5-5.1) mmol/L Chloride Pending (98-107) mmol/L Carbon Dioxide Pending (21-32) mmol/L Anion Gap Pending (3-11) BUN Pending (6-23) mg/dl Creatinine Pending (0.6-1.4) mg/dl Est Cr Clr Drug Dosing Pending ml/min Est GFR ( Amer) Pending ml/min Est GFR (Non-Af Amer) Pending ml/min BUN/Creatinine Ratio Pending (10-20) Glucose Pending (70-99(Fasting)) mg/dl POC Glucose 133 H (70-99) mg/dl Lactate (0.4-2.0) mmol/L Calcium Pending (8.6-10.3) mg/dl Phosphorus Pending (2.5-4.9) mg/dl Magnesium Pending (1.7-2.4) mg/dl Total Bilirubin (0.2-1.0) mg/dl AST (13-39) U/L ALT (7-52) U/L Alkaline Phosphatase (34-104) U/L Total Protein (6.0-8.3) gm/dl Albumin (3.4-5.0) gm/dl Globulin (2.5-4.0) gm/dl Albumin/Globulin Ratio (0.9-2) Procalcitonin (0-0.5) ng/ml Urine Color Urine Appearance (Clear) Urine pH (4.5-7.5) Ur Specific Whitman (1.000-1.030) Urine Protein (Negative) Urine Glucose (UA) (Negative) Urine Ketones (Negative) Urine Blood (Negative) Urine Nitrite (Negative) Urine Bilirubin (Negative) Urine Urobilinogen (Negative) Ur Leukocyte Esterase (Negative) Urine WBC (Auto) (0-5) /hpf Urine RBC (Auto) (0-4) /hpf U Hyaline Cast (Auto) (0-5) /lpf U Epithel Cells (Auto) (0-5) /lpf Urine Bacteria (Auto) (Negative) Adenovirus (PCR) (NotDetected) B. pertussis DNA (PCR) (NotDetected) B.parapertussis DNA PCR (NotDetected) C. pneumoniae DNA (PCR) (NotDetected) Coronavirus OC43 (PCR) (NotDetected) Coronavirus HKU1 (PCR) (NotDetected) Coronavirus 229E (PCR) (NotDetected) SARS-CoV-2 (PCR) (NotDetected) Coronavirus NL63 (PCR) (NotDetected) Human Metapneumovir PCR (NotDetected) Influenza Type A (PCR) (NotDetected) Influenza Type B (PCR) (NotDetected) M. pneumoniae (PCR) (NotDetected) Parainfluenza 1 (PCR) (NotDetected) Parainfluenza 2 (PCR) (NotDetected) Parainfluenza 3 (PCR) (NotDetected) Parainfluenza 4 (PCR) (NotDetected) RSV (PCR) (NotDetected) Entero/Rhino (PCR) (NotDetected) 09/27/23 09/27/23 09/27/23 Range/Units 05:28 04:31 03:24 WBC (4.8-10.8) K/ul RBC (4.70-6.10) M/uL Hgb (14.0-18.0) g/dl Hct (42.0-52.0) % MCV (80.0-100.0) fL MCH (25.0-34.0) pg MCHC (32.0-36.0) g/dL RDW Std Deviation (36.4-46.3) fL RDW Coeff of Terri (11.5-14.5) % Plt Count (130-400) K/uL MPV (9.4-12.4) fL Immature Gran % (Auto) % Neut % (Auto) % Lymph % (Auto) % Rowan % (Auto) % Eos % (Auto) % Baso % (Auto) % Neut # (Auto) (1.40-6.50) K/uL Lymph # (Auto) (1.20-3.40) K/uL Rowan # (Auto) (0.11-0.59) K/uL Eos # (Auto) (0.00-0.50) K/uL Baso # (Auto) (0.00-0.20) K/uL Immature Gran # (Auto) (0.01-0.20) K/uL VBG pH (7.36-7.41) VBG pCO2 (38-50) mmHg VBG pO2 mmHg VBG HCO3 mmol/L VBG O2 Saturation % VBG Base Excess mEq/L Sodium (136-145) mmol/L Potassium (3.5-5.1) mmol/L Chloride (98-107) mmol/L Carbon Dioxide (21-32) mmol/L Anion Gap (3-11) BUN (6-23) mg/dl Creatinine (0.6-1.4) mg/dl Est Cr Clr Drug Dosing ml/min Est GFR ( Amer) ml/min Est GFR (Non-Af Amer) ml/min BUN/Creatinine Ratio (10-20) Glucose (70-99(Fasting)) mg/dl POC Glucose 149 H 141 H 137 H (70-99) mg/dl Lactate (0.4-2.0) mmol/L Calcium (8.6-10.3) mg/dl Phosphorus (2.5-4.9) mg/dl Magnesium (1.7-2.4) mg/dl Total Bilirubin (0.2-1.0) mg/dl AST (13-39) U/L ALT (7-52) U/L Alkaline Phosphatase (34-104) U/L Total Protein (6.0-8.3) gm/dl Albumin (3.4-5.0) gm/dl Globulin (2.5-4.0) gm/dl Albumin/Globulin Ratio (0.9-2) Procalcitonin (0-0.5) ng/ml Urine Color Urine Appearance (Clear) Urine pH (4.5-7.5) Ur Specific Whitman (1.000-1.030) Urine Protein (Negative) Urine Glucose (UA) (Negative) Urine Ketones (Negative) Urine Blood (Negative) Urine Nitrite (Negative) Urine Bilirubin (Negative) Urine Urobilinogen (Negative) Ur Leukocyte Esterase (Negative) Urine WBC (Auto) (0-5) /hpf Urine RBC (Auto) (0-4) /hpf U Hyaline Cast (Auto) (0-5) /lpf U Epithel Cells (Auto) (0-5) /lpf Urine Bacteria (Auto) (Negative) Adenovirus (PCR) (NotDetected) B. pertussis DNA (PCR) (NotDetected) B.parapertussis DNA PCR (NotDetected) C. pneumoniae DNA (PCR) (NotDetected) Coronavirus OC43 (PCR) (NotDetected) Coronavirus HKU1 (PCR) (NotDetected) Coronavirus 229E (PCR) (NotDetected) SARS-CoV-2 (PCR) (NotDetected) Coronavirus NL63 (PCR) (NotDetected) Human Metapneumovir PCR (NotDetected) Influenza Type A (PCR) (NotDetected) Influenza Type B (PCR) (NotDetected) M. pneumoniae (PCR) (NotDetected) Parainfluenza 1 (PCR) (NotDetected) Parainfluenza 2 (PCR) (NotDetected) Parainfluenza 3 (PCR) (NotDetected) Parainfluenza 4 (PCR) (NotDetected) RSV (PCR) (NotDetected) Entero/Rhino (PCR) (NotDetected) 09/27/23 09/27/23 09/27/23 Range/Units 02:04 01:56 01:10 WBC (4.8-10.8) K/ul RBC (4.70-6.10) M/uL Hgb (14.0-18.0) g/dl Hct (42.0-52.0) % MCV (80.0-100.0) fL MCH (25.0-34.0) pg MCHC (32.0-36.0) g/dL RDW Std Deviation (36.4-46.3) fL RDW Coeff of Terri (11.5-14.5) % Plt Count (130-400) K/uL MPV (9.4-12.4) fL Immature Gran % (Auto) % Neut % (Auto) % Lymph % (Auto) % Rowan % (Auto) % Eos % (Auto) % Baso % (Auto) % Neut # (Auto) (1.40-6.50) K/uL Lymph # (Auto) (1.20-3.40) K/uL Rowan # (Auto) (0.11-0.59) K/uL Eos # (Auto) (0.00-0.50) K/uL Baso # (Auto) (0.00-0.20) K/uL Immature Gran # (Auto) (0.01-0.20) K/uL VBG pH 7.45 H (7.36-7.41) VBG pCO2 (38-50) mmHg VBG pO2 mmHg VBG HCO3 mmol/L VBG O2 Saturation % VBG Base Excess mEq/L Sodium 137 (136-145) mmol/L Potassium 3.7 (3.5-5.1) mmol/L Chloride 105 (98-107) mmol/L Carbon Dioxide 23 (21-32) mmol/L Anion Gap 9 (3-11) BUN 16 (6-23) mg/dl Creatinine 1.21 (0.6-1.4) mg/dl Est Cr Clr Drug Dosing 77.7 ml/min Est GFR ( Amer) 73.9 ml/min Est GFR (Non-Af Amer) 63.8 ml/min BUN/Creatinine Ratio 13.2 (10-20) Glucose 154 H (70-99(Fasting)) mg/dl POC Glucose 147 H 155 H (70-99) mg/dl Lactate (0.4-2.0) mmol/L Calcium 9.5 (8.6-10.3) mg/dl Phosphorus 1.8 L (2.5-4.9) mg/dl Magnesium 1.6 L (1.7-2.4) mg/dl Total Bilirubin (0.2-1.0) mg/dl AST (13-39) U/L ALT (7-52) U/L Alkaline Phosphatase (34-104) U/L Total Protein (6.0-8.3) gm/dl Albumin (3.4-5.0) gm/dl Globulin (2.5-4.0) gm/dl Albumin/Globulin Ratio (0.9-2) Procalcitonin (0-0.5) ng/ml Urine Color Urine Appearance (Clear) Urine pH (4.5-7.5) Ur Specific Whitman (1.000-1.030) Urine Protein (Negative) Urine Glucose (UA) (Negative) Urine Ketones (Negative) Urine Blood (Negative) Urine Nitrite (Negative) Urine Bilirubin (Negative) Urine Urobilinogen (Negative) Ur Leukocyte Esterase (Negative) Urine WBC (Auto) (0-5) /hpf Urine RBC (Auto) (0-4) /hpf U Hyaline Cast (Auto) (0-5) /lpf U Epithel Cells (Auto) (0-5) /lpf Urine Bacteria (Auto) (Negative) Adenovirus (PCR) (NotDetected) B. pertussis DNA (PCR) (NotDetected) B.parapertussis DNA PCR (NotDetected) C. pneumoniae DNA (PCR) (NotDetected) Coronavirus OC43 (PCR) (NotDetected) Coronavirus HKU1 (PCR) (NotDetected) Coronavirus 229E (PCR) (NotDetected) SARS-CoV-2 (PCR) (NotDetected) Coronavirus NL63 (PCR) (NotDetected) Human Metapneumovir PCR (NotDetected) Influenza Type A (PCR) (NotDetected) Influenza Type B (PCR) (NotDetected) M. pneumoniae (PCR) (NotDetected) Parainfluenza 1 (PCR) (NotDetected) Parainfluenza 2 (PCR) (NotDetected) Parainfluenza 3 (PCR) (NotDetected) Parainfluenza 4 (PCR) (NotDetected) RSV (PCR) (NotDetected) Entero/Rhino (PCR) (NotDetected) 09/27/23 09/26/23 09/26/23 Range/Units 00:30 23:36 22:30 WBC (4.8-10.8) K/ul RBC (4.70-6.10) M/uL Hgb (14.0-18.0) g/dl Hct (42.0-52.0) % MCV (80.0-100.0) fL MCH (25.0-34.0) pg MCHC (32.0-36.0) g/dL RDW Std Deviation (36.4-46.3) fL RDW Coeff of Terri (11.5-14.5) % Plt Count (130-400) K/uL MPV (9.4-12.4) fL Immature Gran % (Auto) % Neut % (Auto) % Lymph % (Auto) % Rowan % (Auto) % Eos % (Auto) % Baso % (Auto) % Neut # (Auto) (1.40-6.50) K/uL Lymph # (Auto) (1.20-3.40) K/uL Rowan # (Auto) (0.11-0.59) K/uL Eos # (Auto) (0.00-0.50) K/uL Baso # (Auto) (0.00-0.20) K/uL Immature Gran # (Auto) (0.01-0.20) K/uL VBG pH 7.43 H (7.36-7.41) VBG pCO2 (38-50) mmHg VBG pO2 mmHg VBG HCO3 mmol/L VBG O2 Saturation % VBG Base Excess mEq/L Sodium 138 (136-145) mmol/L Potassium 3.7 (3.5-5.1) mmol/L Chloride 106 (98-107) mmol/L Carbon Dioxide 19 L (21-32) mmol/L Anion Gap 13 H (3-11) BUN 17 (6-23) mg/dl Creatinine 1.29 (0.6-1.4) mg/dl Est Cr Clr Drug Dosing 72.8 ml/min Est GFR ( Amer) 68.4 ml/min Est GFR (Non-Af Amer) 59.0 ml/min BUN/Creatinine Ratio 13.2 (10-20) Glucose 188 H (70-99(Fasting)) mg/dl POC Glucose 174 H 182 H (70-99) mg/dl Lactate (0.4-2.0) mmol/L Calcium 9.7 (8.6-10.3) mg/dl Phosphorus 2.6 (2.5-4.9) mg/dl Magnesium 1.6 L (1.7-2.4) mg/dl Total Bilirubin (0.2-1.0) mg/dl AST (13-39) U/L ALT (7-52) U/L Alkaline Phosphatase (34-104) U/L Total Protein (6.0-8.3) gm/dl Albumin (3.4-5.0) gm/dl Globulin (2.5-4.0) gm/dl Albumin/Globulin Ratio (0.9-2) Procalcitonin (0-0.5) ng/ml Urine Color Urine Appearance (Clear) Urine pH (4.5-7.5) Ur Specific Whitman (1.000-1.030) Urine Protein (Negative) Urine Glucose (UA) (Negative) Urine Ketones (Negative) Urine Blood (Negative) Urine Nitrite (Negative) Urine Bilirubin (Negative) Urine Urobilinogen (Negative) Ur Leukocyte Esterase (Negative) Urine WBC (Auto) (0-5) /hpf Urine RBC (Auto) (0-4) /hpf U Hyaline Cast (Auto) (0-5) /lpf U Epithel Cells (Auto) (0-5) /lpf Urine Bacteria (Auto) (Negative) Adenovirus (PCR) (NotDetected) B. pertussis DNA (PCR) (NotDetected) B.parapertussis DNA PCR (NotDetected) C. pneumoniae DNA (PCR) (NotDetected) Coronavirus OC43 (PCR) (NotDetected) Coronavirus HKU1 (PCR) (NotDetected) Coronavirus 229E (PCR) (NotDetected) SARS-CoV-2 (PCR) (NotDetected) Coronavirus NL63 (PCR) (NotDetected) Human Metapneumovir PCR (NotDetected) Influenza Type A (PCR) (NotDetected) Influenza Type B (PCR) (NotDetected) M. pneumoniae (PCR) (NotDetected) Parainfluenza 1 (PCR) (NotDetected) Parainfluenza 2 (PCR) (NotDetected) Parainfluenza 3 (PCR) (NotDetected) Parainfluenza 4 (PCR) (NotDetected) RSV (PCR) (NotDetected) Entero/Rhino (PCR) (NotDetected) 09/26/23 09/26/23 09/26/23 Range/Units 22:05 19:47 18:54 WBC (4.8-10.8) K/ul RBC (4.70-6.10) M/uL Hgb (14.0-18.0) g/dl Hct (42.0-52.0) % MCV (80.0-100.0) fL MCH (25.0-34.0) pg MCHC (32.0-36.0) g/dL RDW Std Deviation (36.4-46.3) fL RDW Coeff of Terri (11.5-14.5) % Plt Count (130-400) K/uL MPV (9.4-12.4) fL Immature Gran % (Auto) % Neut % (Auto) % Lymph % (Auto) % Rowan % (Auto) % Eos % (Auto) % Baso % (Auto) % Neut # (Auto) (1.40-6.50) K/uL Lymph # (Auto) (1.20-3.40) K/uL Rowan # (Auto) (0.11-0.59) K/uL Eos # (Auto) (0.00-0.50) K/uL Baso # (Auto) (0.00-0.20) K/uL Immature Gran # (Auto) (0.01-0.20) K/uL VBG pH 7.45 H (7.36-7.41) VBG pCO2 33 L (38-50) mmHg VBG pO2 53 mmHg VBG HCO3 23 mmol/L VBG O2 Saturation 82.2 % VBG Base Excess -0.4 mEq/L Sodium 139 (136-145) mmol/L Potassium 3.7 (3.5-5.1) mmol/L Chloride 104 (98-107) mmol/L Carbon Dioxide 20 L (21-32) mmol/L Anion Gap 15 H (3-11) BUN 16 (6-23) mg/dl Creatinine 1.34 (0.6-1.4) mg/dl Est Cr Clr Drug Dosing 70.1 ml/min Est GFR ( Amer) 65.3 ml/min Est GFR (Non-Af Amer) 56.4 ml/min BUN/Creatinine Ratio 11.9 (10-20) Glucose 204 H (70-99(Fasting)) mg/dl POC Glucose 149 H (70-99) mg/dl Lactate 3.7 H* (0.4-2.0) mmol/L Calcium 10.1 (8.6-10.3) mg/dl Phosphorus (2.5-4.9) mg/dl Magnesium (1.7-2.4) mg/dl Total Bilirubin (0.2-1.0) mg/dl AST (13-39) U/L ALT (7-52) U/L Alkaline Phosphatase (34-104) U/L Total Protein (6.0-8.3) gm/dl Albumin (3.4-5.0) gm/dl Globulin (2.5-4.0) gm/dl Albumin/Globulin Ratio (0.9-2) Procalcitonin (0-0.5) ng/ml Urine Color Urine Appearance (Clear) Urine pH (4.5-7.5) Ur Specific Whitman (1.000-1.030) Urine Protein (Negative) Urine Glucose (UA) (Negative) Urine Ketones (Negative) Urine Blood (Negative) Urine Nitrite (Negative) Urine Bilirubin (Negative) Urine Urobilinogen (Negative) Ur Leukocyte Esterase (Negative) Urine WBC (Auto) (0-5) /hpf Urine RBC (Auto) (0-4) /hpf U Hyaline Cast (Auto) (0-5) /lpf U Epithel Cells (Auto) (0-5) /lpf Urine Bacteria (Auto) (Negative) Adenovirus (PCR) (NotDetected) B. pertussis DNA (PCR) (NotDetected) B.parapertussis DNA PCR (NotDetected) C. pneumoniae DNA (PCR) (NotDetected) Coronavirus OC43 (PCR) (NotDetected) Coronavirus HKU1 (PCR) (NotDetected) Coronavirus 229E (PCR) (NotDetected) SARS-CoV-2 (PCR) (NotDetected) Coronavirus NL63 (PCR) (NotDetected) Human Metapneumovir PCR (NotDetected) Influenza Type A (PCR) (NotDetected) Influenza Type B (PCR) (NotDetected) M. pneumoniae (PCR) (NotDetected) Parainfluenza 1 (PCR) (NotDetected) Parainfluenza 2 (PCR) (NotDetected) Parainfluenza 3 (PCR) (NotDetected) Parainfluenza 4 (PCR) (NotDetected) RSV (PCR) (NotDetected) Entero/Rhino (PCR) (NotDetected) 09/26/23 09/26/23 09/26/23 Range/Units 16:25 15:45 15:40 WBC (4.8-10.8) K/ul RBC (4.70-6.10) M/uL Hgb (14.0-18.0) g/dl Hct (42.0-52.0) % MCV (80.0-100.0) fL MCH (25.0-34.0) pg MCHC (32.0-36.0) g/dL RDW Std Deviation (36.4-46.3) fL RDW Coeff of Terri (11.5-14.5) % Plt Count (130-400) K/uL MPV (9.4-12.4) fL Immature Gran % (Auto) % Neut % (Auto) % Lymph % (Auto) % Rowan % (Auto) % Eos % (Auto) % Baso % (Auto) % Neut # (Auto) (1.40-6.50) K/uL Lymph # (Auto) (1.20-3.40) K/uL Rowan # (Auto) (0.11-0.59) K/uL Eos # (Auto) (0.00-0.50) K/uL Baso # (Auto) (0.00-0.20) K/uL Immature Gran # (Auto) (0.01-0.20) K/uL VBG pH (7.36-7.41) VBG pCO2 (38-50) mmHg VBG pO2 mmHg VBG HCO3 mmol/L VBG O2 Saturation % VBG Base Excess mEq/L Sodium (136-145) mmol/L Potassium (3.5-5.1) mmol/L Chloride (98-107) mmol/L Carbon Dioxide (21-32) mmol/L Anion Gap (3-11) BUN (6-23) mg/dl Creatinine (0.6-1.4) mg/dl Est Cr Clr Drug Dosing ml/min Est GFR ( Amer) ml/min Est GFR (Non-Af Amer) ml/min BUN/Creatinine Ratio (10-20) Glucose (70-99(Fasting)) mg/dl POC Glucose (70-99) mg/dl Lactate 3.3 H* (0.4-2.0) mmol/L Calcium (8.6-10.3) mg/dl Phosphorus (2.5-4.9) mg/dl Magnesium (1.7-2.4) mg/dl Total Bilirubin (0.2-1.0) mg/dl AST (13-39) U/L ALT (7-52) U/L Alkaline Phosphatase (34-104) U/L Total Protein (6.0-8.3) gm/dl Albumin (3.4-5.0) gm/dl Globulin (2.5-4.0) gm/dl Albumin/Globulin Ratio (0.9-2) Procalcitonin (0-0.5) ng/ml Urine Color Yellow Urine Appearance Clear (Clear) Urine pH 6.5 (4.5-7.5) Ur Specific Whitman 1.027 (1.000-1.030) Urine Protein 3+ H (Negative) Urine Glucose (UA) 3+ H (Negative) Urine Ketones Trace H (Negative) Urine Blood 1+ H (Negative) Urine Nitrite Negative (Negative) Urine Bilirubin Negative (Negative) Urine Urobilinogen Negative (Negative) Ur Leukocyte Esterase Negative (Negative) Urine WBC (Auto) 0 (0-5) /hpf Urine RBC (Auto) 0-4 (0-4) /hpf U Hyaline Cast (Auto) 1-5 (0-5) /lpf U Epithel Cells (Auto) 5-10 H (0-5) /lpf Urine Bacteria (Auto) Negative (Negative) Adenovirus (PCR) Not Detected (NotDetected) B. pertussis DNA (PCR) Not Detected (NotDetected) B.parapertussis DNA PCR Not Detected (NotDetected) C. pneumoniae DNA (PCR) Not Detected (NotDetected) Coronavirus OC43 (PCR) Not Detected (NotDetected) Coronavirus HKU1 (PCR) Not Detected (NotDetected) Coronavirus 229E (PCR) Not Detected (NotDetected) SARS-CoV-2 (PCR) Not Detected (NotDetected) Coronavirus NL63 (PCR) Not Detected (NotDetected) Human Metapneumovir PCR Not Detected (NotDetected) Influenza Type A (PCR) Not Detected (NotDetected) Influenza Type B (PCR) Not Detected (NotDetected) M. pneumoniae (PCR) Not Detected (NotDetected) Parainfluenza 1 (PCR) Not Detected (NotDetected) Parainfluenza 2 (PCR) Not Detected (NotDetected) Parainfluenza 3 (PCR) Not Detected (NotDetected) Parainfluenza 4 (PCR) Not Detected (NotDetected) RSV (PCR) Not Detected (NotDetected) Entero/Rhino (PCR) Not Detected (NotDetected) 09/26/23 09/26/23 Range/Units 15:00 14:42 WBC 18.68 H (4.8-10.8) K/ul RBC 5.66 (4.70-6.10) M/uL Hgb 16.0 (14.0-18.0) g/dl Hct 47.2 (42.0-52.0) % MCV 83.4 (80.0-100.0) fL MCH 28.3 (25.0-34.0) pg MCHC 33.9 (32.0-36.0) g/dL RDW Std Deviation 42.5 (36.4-46.3) fL RDW Coeff of Terri 14.2 (11.5-14.5) % Plt Count 378 (130-400) K/uL MPV 9.8 (9.4-12.4) fL Immature Gran % (Auto) 0.6 % Neut % (Auto) 86.2 % Lymph % (Auto) 9.9 % Rowan % (Auto) 2.5 % Eos % (Auto) 0.4 % Baso % (Auto) 0.4 % Neut # (Auto) 16.10 H (1.40-6.50) K/uL Lymph # (Auto) 1.84 (1.20-3.40) K/uL Rowan # (Auto) 0.47 (0.11-0.59) K/uL Eos # (Auto) 0.07 (0.00-0.50) K/uL Baso # (Auto) 0.08 (0.00-0.20) K/uL Immature Gran # (Auto) 0.12 (0.01-0.20) K/uL VBG pH (7.36-7.41) VBG pCO2 (38-50) mmHg VBG pO2 mmHg VBG HCO3 mmol/L VBG O2 Saturation % VBG Base Excess mEq/L Sodium 139 (136-145) mmol/L Potassium 3.6 (3.5-5.1) mmol/L Chloride 105 (98-107) mmol/L Carbon Dioxide 18 L (21-32) mmol/L Anion Gap 16 H (3-11) BUN 16 (6-23) mg/dl Creatinine 1.26 (0.6-1.4) mg/dl Est Cr Clr Drug Dosing 74.6 ml/min Est GFR ( Amer) 70.4 ml/min Est GFR (Non-Af Amer) 60.7 ml/min BUN/Creatinine Ratio 12.7 (10-20) Glucose 214 H (70-99(Fasting)) mg/dl POC Glucose 200 H (70-99) mg/dl Lactate (0.4-2.0) mmol/L Calcium 10.6 H (8.6-10.3) mg/dl Phosphorus (2.5-4.9) mg/dl Magnesium (1.7-2.4) mg/dl Total Bilirubin 0.6 (0.2-1.0) mg/dl AST 17 (13-39) U/L ALT 23 (7-52) U/L Alkaline Phosphatase 94 (34-104) U/L Total Protein 8.4 H (6.0-8.3) gm/dl Albumin 4.7 (3.4-5.0) gm/dl Globulin 3.7 (2.5-4.0) gm/dl Albumin/Globulin Ratio 1.3 (0.9-2) Procalcitonin 0.03 (0-0.5) ng/ml Urine Color Urine Appearance (Clear) Urine pH (4.5-7.5) Ur Specific Whitman (1.000-1.030) Urine Protein (Negative) Urine Glucose (UA) (Negative) Urine Ketones (Negative) Urine Blood (Negative) Urine Nitrite (Negative) Urine Bilirubin (Negative) Urine Urobilinogen (Negative) Ur Leukocyte Esterase (Negative) Urine WBC (Auto) (0-5) /hpf Urine RBC (Auto) (0-4) /hpf U Hyaline Cast (Auto) (0-5) /lpf U Epithel Cells (Auto) (0-5) /lpf Urine Bacteria (Auto) (Negative) Adenovirus (PCR) (NotDetected) B. pertussis DNA (PCR) (NotDetected) B.parapertussis DNA PCR (NotDetected) C. pneumoniae DNA (PCR) (NotDetected) Coronavirus OC43 (PCR) (NotDetected) Coronavirus HKU1 (PCR) (NotDetected) Coronavirus 229E (PCR) (NotDetected) SARS-CoV-2 (PCR) (NotDetected) Coronavirus NL63 (PCR) (NotDetected) Human Metapneumovir PCR (NotDetected) Influenza Type A (PCR) (NotDetected) Influenza Type B (PCR) (NotDetected) M. pneumoniae (PCR) (NotDetected) Parainfluenza 1 (PCR) (NotDetected) Parainfluenza 2 (PCR) (NotDetected) Parainfluenza 3 (PCR) (NotDetected) Parainfluenza 4 (PCR) (NotDetected) RSV (PCR) (NotDetected) Entero/Rhino (PCR) (NotDetected) Medications Administered Current Inpatient Medications Acetaminophen (Acetaminophen 325 Mg Tab) 650 mg PO Q4H PRN PRN Reason: Pain or Fever Stop: 10/26/23 21:49 Amlodipine Besylate (Amlodipine Besylate 5 Mg Tab) 5 mg PO QAM [facility] Stop: 10/27/23 08:59 Aspirin (Aspirin 81 Mg Ectab) 81 mg PO DAILY [facility] Stop: 10/27/23 08:59 Atorvastatin Calcium (Atorvastatin 40 Mg Tab) 80 mg PO HS [facility] Stop: 10/26/23 21:49 Last Admin: 09/26/23 22:35 Dose: 80 mg Clonazepam (Clonazepam 0.5 Mg Tab) 0.5 mg PO DAILY [facility] Stop: 10/27/23 08:59 Clopidogrel Bisulfate (Clopidogrel Bisulfate 75 Mg Tab) 75 mg PO DAILY [facility] Stop: 10/27/23 08:59 Enoxaparin Sodium (Enoxaparin Inj 40 Mg/0.4 Ml Syr) 40 mg SQ Q24H [facility] Stop: 10/26/23 20:59 Last Admin: 09/26/23 22:39 Dose: Not Given Insulin Human Regular 250 (units/ Sodium Chloride) 250 mls @ 2.1 mls/hr IV .Q24H [facility]; Protocol Stop: 10/26/23 22:14 Last Titration: 09/27/23 06:24 Dose: 2.1 units/hr, 2.1 mls/hr Piperacillin Sod/Tazobactam (Sod 4.5 gm/ Dextrose) 100 mls @ 25 mls/hr IV Q8H [facility]; Protocol Stop: 10/06/23 21:59 Last Admin: 09/27/23 05:44 Dose: 25 mls/hr Potassium Chloride/Dextrose/Sod Cl (D5w And 1/2nss + 20meq Kcl) 20 meq in 1,000 mls @ 200 mls/hr IV .Q5H [facility] Stop: 10/26/23 22:29 Last Admin: 09/27/23 03:30 Dose: 200 mls/hr Insulin Aspart (Insulin Aspart Per Unit Charge) 0 units SC ACHS [facility] Stop: 10/26/23 21:49 Last Admin: 09/27/23 00:34 Dose: Not Given Lamotrigine (Lamotrigine 25 Mg Tab) 50 mg PO HS [facility]; Protocol Stop: 10/26/23 21:49 Last Admin: 09/26/23 22:36 Dose: 50 mg Levetiracetam (Levetiracetam 500 Mg Tab) 1,500 mg PO BID [facility] Stop: 10/26/23 21:49 Last Admin: 09/26/23 22:38 Dose: 1,500 mg Melatonin (Melatonin 3 Mg Tab) 3 mg PO HS PRN PRN Reason: Insomnia Stop: 10/26/23 22:29 Metoprolol Tartrate (Metoprolol Tartrate 25 Mg Tab) 25 mg PO BID [facility] Stop: 10/26/23 21:49 Last Admin: 09/26/23 22:38 Dose: 25 mg Miscellaneous Information (Pharmacy Glycemic Mgmt Consult) 1 each N/A UD PRN PRN Reason: Consult Stop: 10/26/23 21:49 Nitroglycerin (Nitroglycerin Sl 0.4 Mg/Tab Tab) 0.4 mg SL Q5M PRN PRN Reason: Chest Pain Stop: 10/26/23 21:49 Ondansetron HCl (Ondansetron Inj 2 Mg/Ml 2 Ml Vial) 4 mg IV Q6H PRN PRN Reason: Nausea Stop: 10/26/23 21:49 Pantoprazole Sodium (Pantoprazole 40 Mg Tab) 40 mg PO DAILY [facility] Stop: 10/27/23 08:59 Sertraline HCl (Sertraline Hcl 50 Mg Tablet) 50 mg PO DAILY [facility] Stop: 10/27/23 08:59
[2023-09-27 08:18] LABS: Calcium 9.4 mg/dl (8.6-10.3); Creatinine Clr Calc Pharmacy 75.2 ml/min; Est GFR (African American) 71.1 ml/min; Est GFR (Non-African American) 61.3 ml/min; Magnesium 1.7 mg/dl (1.7-2.4); Phosphorus 2.3 mg/dl (2.5-4.9); Potassium 3.6 mmol/L (3.5-5.1)
[2023-09-27] MEDS: DEXTROSE 50% 50 ML SYRINGE IV ONE (08:36)
[2023-09-27] MEDS: amLODIPine BESYLATE 5 MG TAB PO SCH (10:26)
[2023-09-27] MEDS: CLOPIDOGREL BISULFATE 75 MG TAB PO SCH (10:27)
[2023-09-27] MEDS: ASPIRIN 81 MG ECTAB PO SCH (10:27)
[2023-09-27] MEDS: PANTOprazole 40 MG TAB PO SCH (10:30)
[2023-09-27] MEDS: SERTRALINE HCL 50 MG TABLET PO SCH (10:30)
[2023-09-27 10:47] LABS: Anion Gap 6 (3-11); BUN Creatinine Ratio 11.1 (10-20); Blood Urea Nitrogen 14 mg/dl (6-23); Calcium 9.4 mg/dl (8.6-10.3); Carbon Dioxide 24 mmol/L (21-32); Chloride 105 mmol/L (98-107); Creatinine Clr Calc Pharmacy 74.6 ml/min; Est GFR (African American) 70.4 ml/min; Est GFR (Non-African American) 60.7 ml/min; Glucose 157 mg/dl (70-99(Fasting)); Magnesium 1.8 mg/dl (1.7-2.4); Phosphorus 2.5 mg/dl (2.5-4.9); Sodium 135 mmol/L (136-145)
[2023-09-27] MEDS: LANTUS PER UNIT CHARGE SC ONE ×2 (12:29→21:09)
[2023-09-27] MEDS: clonazePAM 0.5 MG TAB PO SCH (12:33)
[2023-09-27] MEDS: NSS + 20MEQ KCL 20 MEQ/1,000 ML BAG IV SCH (13:48)
--- NOTE | 2023-09-27 13:55 | Pharmacy Report ---
Pharmacy Glycemic Short Note 2 - Date of Service September 27, 2023 - Glycemic Short BSG Results (Last 24 hours): 09/26/23 09/26/23 09/26/23 14:42 15:00 19:47 Glucose 214 H 204 H POC Glucose 200 H 09/26/23 09/26/23 09/26/23 22:05 22:30 23:36 Glucose 188 H POC Glucose 149 H 182 H 09/27/23 09/27/23 09/27/23 00:30 01:10 01:56 Glucose 154 H POC Glucose 174 H 155 H 09/27/23 09/27/23 09/27/23 02:04 03:24 04:31 Glucose POC Glucose 147 H 137 H 141 H 09/27/23 09/27/23 09/27/23 05:28 06:09 06:25 Glucose 136 H POC Glucose 149 H 133 H 09/27/23 09/27/23 09/27/23 07:32 08:33 08:49 Glucose POC Glucose 106 H 93 156 H 09/27/23 09/27/23 09/27/23 09:19 09:54 10:01 Glucose 157 H POC Glucose 156 H 172 H 09/27/23 09/27/23 09/27/23 10:47 11:37 12:47 Glucose POC Glucose 127 H 138 H 127 H OUTPATIENT ANTIDIABETIC REGIMEN: * Jardiance 25 mg PO HS * Metformin 1000 mg PO BID ASSESSMENT: * Willam is a 63 yo M currently on IV insulin infusion for euglycemic DKA * AM labs indicate resolution of DKA. Dextrose containing fluids have been discontinued. Per RN, insulin infusion was held for > 2 hours this morning due to hypoglycemia. Will stop IV insulin infusion and transition to SQ basal + bolus regimen. * Patient remains NPO. PLAN FOR INPATIENT GLYCEMIC CONTROL: * Hold outpatient oral diabetes medications * Discontinue IV insulin infusion * Basal insulin * Lantus 15 units SQ x 1 dose this morning + Lantus 0-5 units SQ at HS (5 units for BSG > 180) * Further basal doses to be determined * Bolus insulin * NovoLog per scale ACHS or Q6hrs while NPO * Goal Range: Low 110 mg/dL - High 140 mg/dL * Correction Factor: 25 mg/dL/unit * Nutritional / Prandial insulin per carb ratio of 1 unit per 8 grams CHO consumed
[2023-09-27 14:37] LABS: BUN Creatinine Ratio 9.9 (10-20); Calcium 9.5 mg/dl (8.6-10.3); Creatinine Clr Calc Pharmacy 77.7 ml/min; Est GFR (African American) 73.9 ml/min; Est GFR (Non-African American) 63.8 ml/min; Magnesium 1.8 mg/dl (1.7-2.4); Phosphorus 2.4 mg/dl (2.5-4.9); Potassium 3.7 mmol/L (3.5-5.1)
[2023-09-27 18:16] LABS: Anion Gap 10 (3-11); BUN Creatinine Ratio 8.9 (10-20); Blood Urea Nitrogen 11 mg/dl (6-23); Calcium 9.8 mg/dl (8.6-10.3); Carbon Dioxide 22 mmol/L (21-32); Chloride 105 mmol/L (98-107); Creatinine Clr Calc Pharmacy 77.5 ml/min; Est GFR (African American) 72.5 ml/min; Est GFR (Non-African American) 62.5 ml/min; Glucose 141 mg/dl (70-99(Fasting)); Magnesium 1.8 mg/dl (1.7-2.4); Sodium 137 mmol/L (136-145)
[2023-09-27] MEDS: POT PHOSPHATE MONOBASIC W/ SOD TAB PO SCH (18:22)
[2023-09-27] MEDS: MAGNESIUM OXIDE 400 MG TAB PO SCH (20:45)
[2023-09-27] MEDS: MELATONIN 3 MG TAB PO PRN (22:52)
[2023-09-28 06:07] LABS: Hematocrit (blood only) 41.3 % (42.0-52.0); Hemoglobin 13.6 g/dl (14.0-18.0); Mean Corpuscular Hgb Conc 32.9 g/dL (32.0-36.0); Mean Corpuscular Volume 85.2 fL (80.0-100.0); Mean Platelet Volume 9.6 fL (9.4-12.4); Platelet Count 297 K/uL (130-400); RDW Coefficient of Variation 14.8 % (11.5-14.5); RDW Standard Deviation 45.9 fL (36.4-46.3); Red Blood Count 4.85 M/uL (4.70-6.10)
[2023-09-28 07:40] LABS: Estimated Average Glucose 160 mg/dl; Hemoglobin A1C 7.2 % (4.5-5.6)
[2023-09-28] MEDS: LANTUS PER UNIT CHARGE SC ONE ×2 (08:54→20:29)
--- NOTE | 2023-09-28 10:00 | Pharmacy Report ---
Pharmacy Glycemic Short Note 2 - Date of Service September 28, 2023 - Glycemic Short BSG Results (Last 24 hours): 09/27/23 09/27/23 09/27/23 09:54 10:01 10:47 Glucose 157 H POC Glucose 172 H 127 H 09/27/23 09/27/23 09/27/23 11:37 12:47 14:05 Glucose 141 H POC Glucose 138 H 127 H 09/27/23 09/27/23 09/27/23 14:10 15:05 17:29 Glucose POC Glucose 140 H 120 H 149 H 09/27/23 09/27/23 09/28/23 17:36 20:01 07:56 Glucose 141 H POC Glucose 105 H 101 H OUTPATIENT ANTIDIABETIC REGIMEN: * Jardiance 25 mg PO HS * Metformin 1000 mg PO BID * HbA1c 7.5% on 08/03/23 ASSESSMENT: 09/27 * Stressors stable, except patient now ordered a diet * AM fasting BSG slightly below goal and trending down. Will reduce AM basal dose and add on a scale for tonight if BSG > 160 mg/dL * No PO intake yesterday 2nd NPO. No changes to the Novolog for now. Will see how CHO ratio performs once the patient starts eating. Background * Willam is a 63 yo M currently on IV insulin infusion for euglycemic DKA * AM labs indicate resolution of DKA. Dextrose containing fluids have been discontinued. Per RN, insulin infusion was held for > 2 hours this morning due to hypoglycemia. Will stop IV insulin infusion and transition to SQ basal + bolus regimen. * Patient remains NPO. PLAN FOR INPATIENT GLYCEMIC CONTROL: * Hold outpatient oral diabetes medications * Basal insulin * Lantus 10 units SQ x 1 dose this morning + Lantus 0-5 units SQ at HS (5 units for BSG > 160) * Further basal doses to be determined * Bolus insulin * NovoLog per scale ACHS or Q6hrs while NPO * Goal Range: Low 110 mg/dL - High 140 mg/dL * Correction Factor: 25 mg/dL/unit * Nutritional / Prandial insulin per carb ratio of 1 unit per 8 grams CHO consumed
--- NOTE | 2023-09-28 12:40 | Hospitalist Progress Note ---
Date of Service September 28, 2023 Assessment & Plan (1) DKA (diabetic ketoacidosis): Plan: 63-yo M with type 2 diabetes, hyperlipidemia, hypertriglyceridemia, mild COPD, hypertension, CAD s/p stent, dilated aortic root, grade 1 diastolic dysfunction, degenerative disc disease, seizure disorder, splenomegaly, bipolar affective disorder, noncompliance, obesity, history of angioedema thought to be from lisinopril and was intubated at that time comes because of abdominal pain mostly in the right flank and lower abdomen also with some nausea going on for last few days. Patient states he has bad anxiety and requesting medication to help him sleep through the night. Requesting non sugar ice tea drink. States his nausea is improved now. Currently denies any chest pain or shortness of breath. No headache. Has some dizziness. Vision is okay. No runny nose or sore throat. Has some cough. No difficulty swallowing. He was constipated but moved his bowels. Micturating okay. Hemodynamics are okay. DKA Sugars in 250 range + anion gap Possible euglycemic DKA from [facility] Started on insulin drip on admission -> now off the drip Fluids as per DKA protocol -> IVF can now stop Close monitor of the labs as per protocol Current HbA1c 7.2% Glycemic pharmacy and personal development educator consulted Tolerating clear liquid diet -> will advance Elevated lactate/ lactic acidosis Holding metformin Possibly from DKA CT abdomen pelvis with IV contrast unremarkable ER given empiric Zosyn which will be continued for now as patient has leukocytosis Will monitor History of CAD status post stent On aspirin, Plavix, statin and beta-lindy Hypertension On amlodipine, metoprolol Hyperlipidemia On statin History of seizures On Keppra History of bipolar affective disorder Anxiety Lamictal, Klonopin, Zoloft Mild COPD Nebs as needed Grade 1diastolic dysfunction Monitor for volume overload DVT prophylaxis Lovenox Disposition Telemetry Full code Admission and Anticipated Discharge Date Admission Date: September 26, 2023 Subjective Pt seen in follow up of DKA, abd. pain, n/v Currently laying in bed in NAD Reports left flank pain that comes and goes but otherwise denies any abdominal pain No fever, chills IV insulin off. Tolerating clear liquid diet. Pt reports significant weight loss being on Mounjaro since the beginning of the year. He also says he is mostly laying in bed at home and watches youtube video, not being active. personal development educator consulted, as plan to stop Mounjaro and jardiance on DC. Current Hgb A1c 7.2%. Will advance diet and will monitor. Review of Systems Review of Systems: All systems reviewed & are unremarkable except as noted in Subjective Physical Exam Physical Exam: General- WD/WN M in NAD Head- atraumatic Eyes- PERRL. ENT- oropharynx clear Neck- supple, no JVD. Lungs- clear to auscultation no wheezing or crackles. Heart- regular rhythm; no murmur, no gallop. Abdomen- normal bowel sounds, soft, nontender, no distension. Extremities- no pretibial edema, no erythema seen. Neuro- alert, oriented x 3; PERRL, no facial palsy; no dysarthria; moves extremities. Results & Data Results & Data Vital Signs (Past 12 Hours) Vital Signs Temp Pulse Pulse Resp BP BP Pulse Ox 09/28/23 10:51 36.7 C 67 19 133/78 97 09/28/23 09:56 70 09/28/23 07:53 36.4 C L 86 21 156/92 H 96 09/28/23 03:02 36.6 C 56 L 17 131/84 95 O2 Del Method 09/28/23 10:51 Room Air 09/28/23 09:56 09/28/23 07:53 Room Air 09/28/23 03:02 Room Air Laboratory Results 09/28/23 09/28/23 09/28/23 Range/Units 11:56 07:56 05:28 WBC 12.70 H (4.8-10.8) K/ul RBC 4.85 (4.70-6.10) M/uL Hgb 13.6 L (14.0-18.0) g/dl Hct 41.3 L (42.0-52.0) % MCV 85.2 (80.0-100.0) fL MCH 28.0 (25.0-34.0) pg MCHC 32.9 (32.0-36.0) g/dL RDW Std Deviation 45.9 (36.4-46.3) fL RDW Coeff of Terri 14.8 H (11.5-14.5) % Plt Count 297 (130-400) K/uL MPV 9.6 (9.4-12.4) fL VBG pH (7.36-7.41) Sodium (136-145) mmol/L Potassium (3.5-5.1) mmol/L Chloride (98-107) mmol/L Carbon Dioxide (21-32) mmol/L Anion Gap (3-11) BUN (6-23) mg/dl Creatinine (0.6-1.4) mg/dl Est Cr Clr Drug Dosing ml/min Est GFR ( Amer) ml/min Est GFR (Non-Af Amer) ml/min BUN/Creatinine Ratio (10-20) Glucose (70-99(Fasting)) mg/dl POC Glucose 112 H 101 H (70-99) mg/dl Estimat Average Glucose mg/dl Hemoglobin A1c (4.5-5.6) % Calcium (8.6-10.3) mg/dl Phosphorus (2.5-4.9) mg/dl Magnesium (1.7-2.4) mg/dl 09/27/23 09/27/23 09/27/23 Range/Units 20:01 19:44 17:36 WBC (4.8-10.8) K/ul RBC (4.70-6.10) M/uL Hgb (14.0-18.0) g/dl Hct (42.0-52.0) % MCV (80.0-100.0) fL MCH (25.0-34.0) pg MCHC (32.0-36.0) g/dL RDW Std Deviation (36.4-46.3) fL RDW Coeff of Terri (11.5-14.5) % Plt Count (130-400) K/uL MPV (9.4-12.4) fL VBG pH 7.42 H (7.36-7.41) Sodium 137 (136-145) mmol/L Potassium 4.1 TNP (3.5-5.1) mmol/L Chloride 105 (98-107) mmol/L Carbon Dioxide 22 (21-32) mmol/L Anion Gap 10 (3-11) BUN 11 (6-23) mg/dl Creatinine 1.23 (0.6-1.4) mg/dl Est Cr Clr Drug Dosing 77.5 ml/min Est GFR ( Amer) 72.5 ml/min Est GFR (Non-Af Amer) 62.5 ml/min BUN/Creatinine Ratio 8.9 L (10-20) Glucose 141 H (70-99(Fasting)) mg/dl POC Glucose 105 H (70-99) mg/dl Estimat Average Glucose 160 mg/dl Hemoglobin A1c 7.2 H (4.5-5.6) % Calcium 9.8 (8.6-10.3) mg/dl Phosphorus 3.0 (2.5-4.9) mg/dl Magnesium 1.8 (1.7-2.4) mg/dl 09/27/23 09/27/23 09/27/23 Range/Units 17:29 15:05 14:10 WBC (4.8-10.8) K/ul RBC (4.70-6.10) M/uL Hgb (14.0-18.0) g/dl Hct (42.0-52.0) % MCV (80.0-100.0) fL MCH (25.0-34.0) pg MCHC (32.0-36.0) g/dL RDW Std Deviation (36.4-46.3) fL RDW Coeff of Terri (11.5-14.5) % Plt Count (130-400) K/uL MPV (9.4-12.4) fL VBG pH (7.36-7.41) Sodium (136-145) mmol/L Potassium (3.5-5.1) mmol/L Chloride (98-107) mmol/L Carbon Dioxide (21-32) mmol/L Anion Gap (3-11) BUN (6-23) mg/dl Creatinine (0.6-1.4) mg/dl Est Cr Clr Drug Dosing ml/min Est GFR ( Amer) ml/min Est GFR (Non-Af Amer) ml/min BUN/Creatinine Ratio (10-20) Glucose (70-99(Fasting)) mg/dl POC Glucose 149 H 120 H 140 H (70-99) mg/dl Estimat Average Glucose mg/dl Hemoglobin A1c (4.5-5.6) % Calcium (8.6-10.3) mg/dl Phosphorus (2.5-4.9) mg/dl Magnesium (1.7-2.4) mg/dl 09/27/23 09/27/23 Range/Units 14:05 12:47 WBC (4.8-10.8) K/ul RBC (4.70-6.10) M/uL Hgb (14.0-18.0) g/dl Hct (42.0-52.0) % MCV (80.0-100.0) fL MCH (25.0-34.0) pg MCHC (32.0-36.0) g/dL RDW Std Deviation (36.4-46.3) fL RDW Coeff of Terri (11.5-14.5) % Plt Count (130-400) K/uL MPV (9.4-12.4) fL VBG pH 7.42 H (7.36-7.41) Sodium 137 (136-145) mmol/L Potassium 3.7 (3.5-5.1) mmol/L Chloride 107 (98-107) mmol/L Carbon Dioxide 24 (21-32) mmol/L Anion Gap 6 (3-11) BUN 12 (6-23) mg/dl Creatinine 1.21 (0.6-1.4) mg/dl Est Cr Clr Drug Dosing 77.7 ml/min Est GFR ( Amer) 73.9 ml/min Est GFR (Non-Af Amer) 63.8 ml/min BUN/Creatinine Ratio 9.9 L (10-20) Glucose 141 H (70-99(Fasting)) mg/dl POC Glucose 127 H (70-99) mg/dl Estimat Average Glucose mg/dl Hemoglobin A1c (4.5-5.6) % Calcium 9.5 (8.6-10.3) mg/dl Phosphorus 2.4 L (2.5-4.9) mg/dl Magnesium 1.8 (1.7-2.4) mg/dl Medications Administered Current Inpatient Medications Acetaminophen (Acetaminophen 325 Mg Tab) 650 mg PO Q4H PRN PRN Reason: Pain or Fever Stop: 10/26/23 21:49 Amlodipine Besylate (Amlodipine Besylate 5 Mg Tab) 5 mg PO QAM [facility] Stop: 10/27/23 08:59 Last Admin: 09/28/23 08:54 Dose: 5 mg Aspirin (Aspirin 81 Mg Ectab) 81 mg PO DAILY [facility] Stop: 10/27/23 08:59 Last Admin: 09/28/23 08:54 Dose: 81 mg Atorvastatin Calcium (Atorvastatin 40 Mg Tab) 80 mg PO HS [facility] Stop: 10/26/23 21:49 Last Admin: 09/27/23 20:45 Dose: 80 mg Clonazepam (Clonazepam 0.5 Mg Tab) 0.5 mg PO DAILY [facility] Stop: 10/27/23 08:59 Last Admin: 09/28/23 08:54 Dose: 0.5 mg Clopidogrel Bisulfate (Clopidogrel Bisulfate 75 Mg Tab) 75 mg PO DAILY [facility] Stop: 10/27/23 08:59 Last Admin: 09/28/23 08:54 Dose: 75 mg Enoxaparin Sodium (Enoxaparin Inj 40 Mg/0.4 Ml Syr) 40 mg SQ Q24H [facility] Stop: 10/26/23 20:59 Last Admin: 09/27/23 20:46 Dose: 40 mg Piperacillin Sod/Tazobactam (Sod 4.5 gm/ Dextrose) 100 mls @ 25 mls/hr IV Q8H [facility]; Protocol Stop: 10/06/23 21:59 Last Infusion: 09/28/23 10:43 Dose: Infused Insulin Aspart (Insulin Aspart Per Unit Charge) 0 units SC [facility] Stop: 10/27/23 21:14 Last Admin: 09/28/23 08:53 Dose: 2 units Insulin Glargine (Lantus Per Unit Charge) 0 units SC [facility]; Protocol Stop: 09/28/23 21:01 Lamotrigine (Lamotrigine 25 Mg Tab) 50 mg PO HS [facility]; Protocol Stop: 10/26/23 21:49 Last Admin: 09/27/23 20:46 Dose: 50 mg Levetiracetam (Levetiracetam 500 Mg Tab) 1,500 mg PO BID [facility] Stop: 10/26/23 21:49 Last Admin: 09/28/23 08:54 Dose: 1,500 mg Magnesium Oxide (Magnesium Oxide 400 Mg Tab) 400 mg PO BID [facility] Stop: 10/27/23 20:59 Last Admin: 09/28/23 08:54 Dose: 400 mg Melatonin (Melatonin 3 Mg Tab) 6 mg PO HS PRN PRN Reason: Insomnia Stop: 10/26/23 22:29 Last Admin: 09/27/23 22:52 Dose: 6 mg Metoprolol Tartrate (Metoprolol Tartrate 25 Mg Tab) 25 mg PO BID [facility] Stop: 10/26/23 21:49 Last Admin: 09/28/23 08:54 Dose: Not Given Miscellaneous Information (Pharmacy Glycemic Mgmt Consult) 1 each N/A UD PRN PRN Reason: Consult Stop: 10/26/23 21:49 Nitroglycerin (Nitroglycerin Sl 0.4 Mg/Tab Tab) 0.4 mg SL Q5M PRN PRN Reason: Chest Pain Stop: 10/26/23 21:49 Ondansetron HCl (Ondansetron Inj 2 Mg/Ml 2 Ml Vial) 4 mg IV Q6H PRN PRN Reason: Nausea Stop: 10/26/23 21:49 Pantoprazole Sodium (Pantoprazole 40 Mg Tab) 40 mg PO DAILY [facility] Stop: 10/27/23 08:59 Last Admin: 09/28/23 08:54 Dose: 40 mg Potassium Phosphate (Pot Phosphate Monobasic W/ Sod Tab) 1 tab PO QID [facility] Stop: 10/27/23 16:59 Last Admin: 09/28/23 08:54 Dose: 1 tab Sertraline HCl (Sertraline Hcl 50 Mg Tablet) 50 mg PO DAILY [facility] Stop: 10/27/23 08:59 Last Admin: 09/28/23 08:54 Dose: 50 mg
[2023-09-28] MEDS: DOCUSATE SODIUM 100 MG CAP PO STA (14:17)
[2023-09-28] MEDS: LIDOCAINE 5% 1 PATCH TD STA (15:14)
[2023-09-28] MEDS: DOCUSATE SODIUM 100 MG CAP PO ONE (15:16)
[2023-09-29 06:23] LABS: Hematocrit (blood only) 41.8 % (42.0-52.0); Hemoglobin 13.9 g/dl (14.0-18.0); Mean Corpuscular Hgb Conc 33.3 g/dL (32.0-36.0); Mean Corpuscular Volume 84.1 fL (80.0-100.0); Mean Platelet Volume 9.2 fL (9.4-12.4); Platelet Count 276 K/uL (130-400); RDW Coefficient of Variation 14.6 % (11.5-14.5); RDW Standard Deviation 44.6 fL (36.4-46.3); Red Blood Count 4.97 M/uL (4.70-6.10); White Blood Count 12.15 K/ul (4.8-10.8)
[2023-09-29 06:49] LABS: BUN Creatinine Ratio 10.5 (10-20); Calcium 9.1 mg/dl (8.6-10.3); Est GFR (African American) 65.9 ml/min; Est GFR (Non-African American) 56.9 ml/min; Phosphorus 4.8 mg/dl (2.5-4.9); Potassium 3.9 mmol/L (3.5-5.1)
--- NOTE | 2023-09-29 07:24 | Electrocardiogram Report ---
Test Reason : Blood Pressure : / mmHG Vent. Rate : 127 BPM Atrial Rate : 127 BPM P-R Int : 176 ms QRS Dur : 072 ms QT Int : 306 ms P-R-T Axes : 014 -61 068 degrees QTc Int : 444 ms Sinus tachycardia Left axis deviation Abnormal ECG When compared with ECG of 11-JAN-2023 03:35, Vent. rate has increased BY 44 BPM Confirmed by Major Duron ([id number]) on 09/29/2023 7:24:22 AM Referred By: REFERRED SELF Confirmed By:Major Duron
[2023-09-29] MEDS: LANTUS PER UNIT CHARGE SC SCH (09:00)
[2023-09-29] MEDS ORDERED: GLUCOSE 40% GEL 15 GM TUBE PO PRN (10:00)
[2023-09-29] MEDS ORDERED: DEXTROSE 50% 50 ML SYRINGE IV PRN (10:00)
[2023-09-29] MEDS ORDERED: GLUCOSE 10 TAB/TUBE PO PRN (10:00)
[2023-09-29] MEDS ORDERED: GLUCAGON FOR INJ 1 MG VIAL IM PRN (10:00)
[2023-09-29] MEDS ORDERED: CARBOHYDRATES FOR HYPOGLYCEMIA PO PRN (10:00)
--- NOTE | 2023-09-29 13:38 | Hospitalist Progress Note ---
Date of Service September 29, 2023 Assessment & Plan (1) DKA (diabetic ketoacidosis): Plan: per previous hospitalist notes with addendum: 63-yo M with type 2 diabetes, hyperlipidemia, hypertriglyceridemia, mild COPD, hypertension, CAD s/p stent, dilated aortic root, grade 1 diastolic dysfunction, degenerative disc disease, seizure disorder, splenomegaly, bipolar affective disorder, noncompliance, obesity, history of angioedema thought to be from lisinopril and was intubated at that time comes because of abdominal pain mostly in the right flank and lower abdomen also with some nausea going on for last few days. Patient states he has bad anxiety and requesting medication to help him sleep through the night. Requesting non sugar ice tea drink. States his nausea is improved now. Currently denies any chest pain or shortness of breath. No headache. Has some dizziness. Vision is okay. No runny nose or sore throat. Has some cough. No difficulty swallowing. He was constipated but moved his bowels. Micturating okay. Hemodynamics are okay. DKA Sugars in 250 range + anion gap Possible euglycemic DKA from [facility] Started on insulin drip on admission -> now off the drip Fluids as per DKA protocol -> IVF can now stop Close monitor of the labs as per protocol Current HbA1c 7.2% Glycemic pharmacy and simulation educator consulted Tolerating clear liquid diet -> will advance 4/2 resolved currently on Insulin Lantus 10 units daily DM educator consulted possible Metformin + Insulin upon discharge Elevated lactate/ lactic acidosis Holding metformin Possibly from DKA CT abdomen pelvis with IV contrast unremarkable ER given empiric Zosyn which will be continued for now as patient has leukocytosis Will monitor - resolved - abdominal pain resolved - DC Zosyn - monitor closely - will benefit from GI referral as outpatient for intermittent episodes of nausea, possible need for EGD History of CAD status post stent On aspirin, Plavix, statin and beta-lindy Hypertension On amlodipine, metoprolol Hyperlipidemia On statin History of seizures On Keppra History of bipolar affective disorder Anxiety Lamictal, Klonopin, Zoloft Mild COPD Nebs as needed Grade 1diastolic dysfunction Monitor for volume overload DVT prophylaxis Lovenox Disposition anticipate d/c home with home health services in 1-2 days Admission and Anticipated Discharge Date Admission Date: September 26, 2023 Subjective ff up for DKA, etc seen resting in bed, comfortable in good spirits states he feels fine overall abdominal pain resolved, no nausea, diarrhea, fever/chills no chest pain, dyspnea, palpitations, dizziness no other new symptom Review of Systems Review of Systems: all noted and negative except for above Physical Exam Physical Exam: General- oriented x 3, not in distress, speaks in sentences with no effort or accessory muscle use Eyes- anicteric Neck- no JVD Lungs- clear breath sounds bilaterally, no rales/wheezes Heart- normal rate, regular rhythm; no murmurs Abdomen- normal bowel sounds, nondistended, soft, nontender Extremities- no pretibial edema, no calf tenderness Neuro- alert, oriented x 3; no gross focal neurologic deficits Skin- warm & dry Results & Data Results & Data Vital Signs (Past 12 Hours) Vital Signs Temp Pulse Pulse Resp BP Pulse Ox O2 Del Method 09/29/23 12:00 37.0 C 81 20 134/93 96 Room Air 09/29/23 08:05 36.3 C L 80 18 115/70 90 Room Air 09/29/23 08:00 77 09/29/23 03:20 36.4 C L 81 21 129/81 96 Room Air all noted and reviewed including below
[2023-09-30 07:12] LABS: BUN Creatinine Ratio 11.9 (10-20); Calcium 9.6 mg/dl (8.6-10.3); Creatinine Clr Calc Pharmacy 74.2 ml/min; Est GFR (African American) 70.4 ml/min; Est GFR (Non-African American) 60.7 ml/min; Magnesium 2.1 mg/dl (1.7-2.4); Phosphorus 4.4 mg/dl (2.5-4.9); Potassium 4.1 mmol/L (3.5-5.1)
--- NOTE | 2023-09-30 19:06 | Discharge Summary ---
Discharge Summary Date of Service September 30, 2023 Notes For Next Care Provider Medication Changes From Visit Discontinue Jardiance. Resume your usual metformin and Mounjaro. Admission HPI Per Admitting Provider 63-year-old male with past medical history significant for type 2 diabetes, hyperlipidemia, hypertriglyceridemia, mild COPD, hypertension, CAD s/p stent, dilated aortic root, grade 1 diastolic dysfunction, degenerative's disc disease, seizure disorder, splenomegaly, bipolar affective disorder, noncompliance, obesity, history of angioedema thought to be from lisinopril and was intubated at that time comes because of abdominal pain mostly in the right flank and lower abdomen also with some nausea going on for last few days. Patient states he has bad anxiety and requesting medication to help him sleep through the night. Requesting non sugar ice tea drink.. States his nausea is improved now. Currently denies any chest pain or shortness of breath. No headache. Has some dizziness. Vision is okay. No runny nose or sore throat. Has some cough. No difficulty swallowing. He was constipated but moved his bowels. Micturating okay. Hemodynamics are okay. Past medical history. As mentioned above Past surgical history. Colonoscopy. EGD. Laparoscopic left inguinal hernia repair Social history. Smokes marijuana daily. Denies smoking cigarettes. No alcohol use. Family history. Brother had colon cancer. Father had melanoma. Diabetes. Mother had COPD. Maternal grandfather had diabetes, [place] at age 59. Admission Exam Per Admitting Provider General- Not in distress Head- atraumatic Eyes- PERRL. ENT- oropharynx clear Neck- supple, no JVD. Lungs- clear to auscultation no wheezing or crackles. Heart- regular rhythm; no murmur, no gallop. Abdomen- normal bowel sounds, soft, nontender, no distension. Extremities- no pretibial edema, no erythema seen. Neuro- alert, oriented x 3; PERRL, no facial palsy; no dysarthria; moves extremities. Principal Dx & Hospital Course #1 = Principal Diagnosis (1) DKA (diabetic ketoacidosis): per previous hospitalist notes with addendum: 63-yo M with type 2 diabetes, hyperlipidemia, hypertriglyceridemia, mild COPD, hypertension, CAD s/p stent, dilated aortic root, grade 1 diastolic dysfunction, degenerative disc disease, seizure disorder, splenomegaly, bipolar affective disorder, noncompliance, obesity, history of angioedema thought to be from lisinopril and was intubated at that time comes because of abdominal pain mostly in the right flank and lower abdomen also with some nausea going on for last few days. Patient states he has bad anxiety and requesting medication to help him sleep through the night. Requesting non sugar ice tea drink. States his nausea is improved now. Currently denies any chest pain or shortness of breath. No headache. Has some dizziness. Vision is okay. No runny nose or sore throat. Has some cough. No difficulty swallowing. He was constipated but moved his bowels. Micturating okay. Hemodynamics are okay. DKA Sugars in 250 range + anion gap Possible euglycemic DKA from Jc Olivo Started on insulin drip on admission -> now off the drip Fluids as per DKA protocol -> IVF can now stop Close monitor of the labs as per protocol Current HbA1c 7.2% Glycemic pharmacy and clinical nurse educator consulted Tolerating clear liquid diet -> will advance 4/3 resolved given Insulin Lantus 10 units daily DM educator consulted, discussed case given mild DKA, A1c 7.2, patient reports he has not been feeling well with Jardiance, discharge on Metformin + Jc given instructions by prosthodontist/educator re: daily BSG checks, etc ff up with PCP in 1 week Elevated lactate/ lactic acidosis Holding metformin Possibly from DKA CT abdomen pelvis with IV contrast unremarkable ER given empiric Zosyn which will be continued for now as patient has leukocytosis Will monitor - resolved - abdominal pain resolved - Zosyn discontinued - monitor closely - will benefit from GI referral as outpatient for intermittent episodes of nausea, possible need for EGD Abnormal CT Findings A 4 mm pulmonary nodule in the lingula seen on image #26 and a 5 mm pleural- based nodule in the right middle lobe along the minor fissure seen on image #10 A 13 mm low-attenuation right adrenal nodule is unchanged. This likely repre sents an adenoma but cannot be definitively characterized due to the presence of IV contrast. The prostate gland is mildly enlarged and heterogeneous. Please refer to full report in the Ordered Studies section above Further work up, management, and ff up as outpatient History of CAD status post stent On aspirin, Plavix, statin and beta-lindy Hypertension On amlodipine, metoprolol Hyperlipidemia On statin History of seizures On Keppra History of bipolar affective disorder Anxiety Lamictal, Klonopin, Zoloft Mild COPD Nebs as needed Grade 1diastolic dysfunction euvolemic DVT prophylaxis Lovenox Disposition d/c home ff up with PCP in 1 week Discharge Exam General- oriented x 3, not in distress, speaks in sentences with no effort or accessory muscle use Eyes- anicteric Neck- no JVD Lungs- clear breath sounds bilaterally, no rales/wheezes Heart- normal rate, regular rhythm; no murmurs Abdomen- normal bowel sounds, nondistended, soft, nontender Extremities- no pretibial edema, no calf tenderness Neuro- alert, oriented x 3; no gross focal neurologic deficits Skin- warm & dry Updated Medication List Medication Instructions Recorded Confirmed Type clonazepam 1 mg tablet 0.5 mg PO DAILY 08/04/18 09/26/23 History levetiracetam 750 mg tablet 2 tab PO BID 08/04/18 09/26/23 History metformin 1,000 mg tablet 1,000 mg PO BID 08/04/18 09/26/23 History aspirin 81 mg tablet,delayed 81 mg PO DAILY 03/25/22 09/26/23 History release atorvastatin 80 mg tablet 80 mg PO HS 03/25/22 09/26/23 History clopidogrel 75 mg tablet 75 mg PO DAILY 03/25/22 09/26/23 History lamotrigine 100 mg tablet 50 mg PO HS 03/25/22 09/26/23 History melatonin 1 mg tablet 3 mg PO HS PRN Insomnia 03/25/22 09/26/23 History metoprolol tartrate 25 mg tablet 25 mg PO BID 03/25/22 09/26/23 History pantoprazole 40 mg tablet,delayed 40 mg PO QAM 03/25/22 09/26/23 History release sertraline 50 mg tablet 50 mg PO DAILY 03/25/22 09/26/23 History amlodipine 5 mg tablet (Norvasc) 5 mg PO QAM #30 tabs 04/02/22 09/26/23 Rx ondansetron 4 mg disintegrating 4 mg PO Q6H PRN nausea and 01/11/23 09/26/23 Rx tablet vomiting #15 tabs blood sugar diagnostic (OneTouch #100 ea 09/30/23 Rx Verio test strips) lancets 33 gauge (OneTouch Delica #100 ea 09/30/23 Rx Plus Lancet) Hospital Stay Data Consultations 09/26/23 20:21 ED Decision to Admit Stat Diagnostic Imagining Performed 09/26/23 15:32 CT abd pelvis IV con only Stat CT SCAN OF THE ABDOMEN AND PELVIS WITH IV CONTRAST CLINICAL HISTORY: Right-sided abdominal pain. Nausea and vomiting. COMPARISON STUDY: Abdominal CT dated 01/11/2023. TECHNIQUE: Following the IV administration of 92 cc of Optiray 320, CT scan of the abdomen and pelvis is performed from the lung bases to the proximal femora. Images are reviewed in the axial, sagittal, and coronal planes. IV contrast was administered without complication. A dose lowering technique was utilized adhering to the principles of ALARA. CT DOSE: 1344.77 mGy.cm FINDINGS: Lung bases: The heart is normal in size and without pericardial effusion. There is mild bibasilar scarring/atelectasis. A 4 mm pulmonary nodule in the lingula seen on image #26 and a 5 mm pleural-based nodule in the right middle lobe along the minor fissure seen on image #10 are unchanged. No airspace consolidation or pleural effusion is identified. Liver: The contrast-enhanced liver is normal in size, contour, and attenuation. There is no intrahepatic biliary ductal dilatation. The hepatic veins and portal veins are patent. Gallbladder: Unremarkable. Spleen: Normal in size and attenuation. Pancreas: Unremarkable. Adrenal glands: A 13 mm low-attenuation right adrenal nodule is unchanged. This likely represents an adenoma but cannot be definitively characterized due to the presence of IV contrast. The left adrenal gland is normal. Kidneys: The contrast enhanced kidneys are normal in size and without hydronephrosis. The kidneys enhance symmetrically. Abdominal vasculature: The abdominal aorta is normal in course and caliber. Bowel: No bowel obstruction is seen. The appendix is well-visualized and normal. Peritoneum: There is no intraperitoneal free air or abdominal ascites. Lymphadenopathy: None. Pelvic viscera: The prostate gland is mildly enlarged and heterogeneous. The bladder wall is thickened/trabeculated indicating chronic outlet obstruction. Skeletal structures: No lytic or blastic lesions are seen. IMPRESSION: No acute infectious or inflammatory findings are identified in the abdomen or pelvis. ACT 112: Negative or not required by law. Pending Results Patient Have Any Pending Studies at Discharge: No Discharge Instructions Given to Patient (Per Discharging Provider) Discontinue Jardiance. Resume your usual metformin and Mounjaro. Please check your blood sugar at least twice a day. Call your primary care physician if it is persistently above 200. PLEASE CALL YOUR PRIMARY CARE PHYSICIAN OR RETURN TO THE ER IF WITH WORSENING OF SYMPTOMS, INCLUDING Abdominal pain, nausea vomiting, fevers or chills, poor appetite, weakness, etc. FOLLOW UP WITH PRIMARY CARE PHYSICIAN OUTLINED ABOVE. Total Time Total Time Spent Total Time Spent (In Minutes): >30 minutes
== END 2023-09-30 14:26 | disposition home or self-care (01) | DRG 639 ==
LOC: ED 14:20 → EDINP 20:31 → SUATTDRO 20:31 → EDINP 09-27 18:36 → 4W 09-27 19:27